=== PATIENT | female | born 1965 | race Caucasian/White ===

== ENCOUNTER → 2017-08-25 14:25 | Outpatient (CLI) | payer BC, SELFPAY ==
[2017-08-25 14:31] LABS: Bacteria 0 SEEN /hpf (None Seen); Mucous, Urine 0 SEEN /hpf (<or=2+)
[2017-08-25 16:28] LABS: Color, Urine Yellow (Yellow); Glucose, Dipstick Normal (Normal); Ketone-Dipstick Negative (Negative); Leukocyte Esterase-Dipstick 500 /ul (Negative); Nitrite-Dipstick Negative (Negative); Occult Blood-Urine 25 /ul (Negative); Protein-Dipstick 30 mg/dl (Negative); Urine Bilirubin Dipstick Negative (Negative); Urine Clarity Clear (Clear); Urine Urobilinogen 1 mg/dl (Normal)
[2017-08-25 16:34] LABS: Red Blood Cells-Urine 0-5 SEEN /hpf (0-5); Squamous Epithelial Cells - UA 0-5 SEEN /hpf (5-10); White Blood Cells 5-10 SEEN /hpf (0-5)
== END ==
PROVIDERS: Family Provider Family Medicine; PCP Family Medicine; Visit Provider Physician Assistant
DX: R39.15 Urgency of urination (principal)
CPT/HCPCS: 81001

== ENCOUNTER 2017-10-27 10:54 | Inpatient (IN) | payer BC, SELFPAY ==
[2017-10-20 11:10] VITALS: BP 123/95; PULSE 75; RESP 16; TEMP 36.8; O2SAT 99; BMI 35.6
[2017-10-20 12:05] LABS: Hematocrit 40.6 % (37-47); Hemoglobin 14.4 g/dl (12.0-15.0); Mean Corp Hgb Conc 35.5 g/gl (32-36); Mean Corpuscular Hgb 30.6 pg (27.0-32.0); Mean Corpuscular Volume 86.2 fL (81-99); Mean Platelet Vol. 9.9 fl (6.2-12.0); Platelet Count 265 K/mm3 (150-450); RBC Distribution Width CV 12.8 % (11.6-14.6); RBC Distribution Width SD 39.8 fl (35.1-43.9); Red Blood Count 4.71 M/mm3 (4.2-5.4); White Blood Count 4.9 K/mm3 (4.4-11.0)
[2017-10-20 12:09] LABS: International Normalized Ratio 0.9; Prothrombin Time (Protime)PT. 12.6 SECONDS (11.7-14.9)
[2017-10-20 12:10] LABS: Partial Thromboplast Time 34.3 Seconds (24.1-36.2)
[2017-10-20 12:23] LABS: Scan Indicated on CBC? Y/N NO
[2017-10-20 12:44] LABS: AST(SGOT) 24 U/L (15-37); Alanine Aminotransfer ALT/SGPT 30 U/L (13-56); Albumin, Serum 3.9 g/dL (3.2-5.0); Alkaline Phosphatase 52 U/L (45-117); Bilirubin, Direct 0.13 mg/dL (0.00-0.30); Globulin 3.9 g/dL (2.2-4.2); Protein, Total 7.8 g/dL (6.4-8.2)
[2017-10-27] VITALS (16 sets, daily range): BP systolic 71–128; BP diastolic 37–85; PULSE 67–106; RESP 14–22; TEMP 36.3–37.7; O2SAT 97–100; BMI 35.6; BMI 34.7
[2017-10-27] MEDS: Gabapentin 600 MG Tablet PO (11:33)
[2017-10-27] MEDS: Scopolamine 1mg/72hr Patch 1 PATCH TRANSDERM. (11:34)
[2017-10-27] MEDS: Acetaminophen 500 MG Tablet 1000 MG PO (11:34)
[2017-10-27 11:51] LABS: Bedside Glucose 101 mg/dL (70-110)
[2017-10-27] MEDS: Enoxaparin 40 MG/0.4 ML Syringe SC (11:52)
[2017-10-27] MEDS: Lidocaine/D5W 2,000 MG/250 ML IV.SOLN 28.23 MG IV (12:30)
--- NOTE | 2017-10-27 12:35 | COL_PTH ---
PATIENT: HOLGER MCCORD LOC: MS3 U#:[id number] AGE/SX: 51/F ROOM: MS308 RE10/27/[address]: Dr. Lionel Holm MD : 1965 BED: 1 DIS: 11/02/2017 SPEC #: [id number] RECD: 10/27/17 17:10 STATUS: YOVANNY REKonrad #: [id number] DENA: 10/27/17 12:[address]: Lionel Holm DEPT: SURGICAL PATHOLOGY RECD BY: Emma Daigle ENTERED: 10/28/17 10:26 SP TYPE: COLON OTHR DR: Carmita Chisholm PA-C Tissues: A - Colon, NOS B - Colon Donuts C - Colon Donuts Procedures: Surgery Specimen Level II Surgery Specimen Level IV Surgery Specimen Level V HEADER OPERATION: Laparoscopic sigmoid colectomy converted to open sigmoid colon PRE-OP DIAGNOSIS: Diverticulitis of large intestine with preformation without bleeding TISSUE SUBMITTED: A. Sigmoid colon and appendix, B. Proximal donut (sigmoid), C. Distal donut (rectal) MICROSCOPIC DIAGNOSIS A. Sigmoid colon, segmental resection: Diverticular disease of colon with focal rupture and associated reactive change and inflammation. Margins of excision with no significant pathologic change. Four out of four lymph nodes with no pathologic change. Appendix, appendectomy: No significant pathologic change. B. Proximal mucosal donut, excision: No significant pathologic change. C. Distal mucosal donut, excision. No significant pathologic change. AM:noelle 10/30/17 MICROSCOPIC DESCRIPTION Slides are reviewed. GROSS DESCRIPTION A - Received in fixative is one container labeled with the patient's name and designated sigmoid colon and appendix. The specimen consists of a segment of colon with attached fibrofatty tissue measuring 17.5 cm in length. No gross perforation is evident. Serial sections reveal a light pink-foster mucosa with no mucosal mass lesions. One mucosal margin is stapled and the other mucosal margin is open. Serial sections reveal a number of diverticula. None of these appear to have perforated through the bowel wall. The attached fibrofatty tissue contains rare nodules resembling lymph node. Present free in the container is a vermiform appendix measuring 6 cm in length and 0.5 cm in average diameter. Serial sections reveal patent lumen. [employer] sections are submitted as follows: 1 ? mucosal margins (stapled margin inked black), 2-5 ? diverticula, 6 ? telemarketing representative lymph nodes, 7 ? appendix. / AM:noelle 10/29/17 B - Received in fixative is one container labeled with the patient's name and designated proximal donut sigmoid. The specimen consists of a donut-shaped piece of colonic tissue measuring 1.5 x 1.5 x 1 cm. Multiple sutures are noted. [employer] Operator sections are submitted in one cassette. / : 10/28/17 C - Received in fixative is one container labeled with the patient's name and designated distal donut rectum. The specimen consists of a donut-shaped piece of colonic tissue measuring 1.5 x 1 x 0.5 cm. The mucosa is congested. The entire specimen is submitted in one cassette. / SJ: 10/28/17 TC:3 CPT: 39697, [id number], 66392 x2
--- NOTE | 2017-10-27 12:51 | PCM.OPRPT ---
Problem List (1) Diverticulitis Status: Acute Qualifiers: Diverticulitis site: large intestine Diverticulitis bleeding: without bleeding Diverticulitis complication: without perforation or abscess Qualified Code(s): K57.32 - Diverticulitis of large intestine without perforation or abscess without bleeding Report of Operation Date of Procedure: 10/27/17 Pre-Operative Diagnosis: k57.32 diverticulitis of the sigmoid colon Post-Operative Diagnosis: same Surgery/Procedure Performed:: 1) laparoscopic mobilization of the colon at the splenic flexure. 2) open sigmoid colectomy. 3) incidental appendectomy Type of Anesthesia:: General Anesthesiologist: Juan Ortiz Specimen's removed: 1. Sigmoid colon. 2. Appendix Drains: none Estimated Blood Loss (mL): < 50 cc Fluids Replaced: 1 L LR Description of Procedure: Patient was brought into the operating room placed in the supine position. Under excellent endotracheal intubation L[place]ato catheter was placed legs were placed up in stirrups. The perineum and abdomen were sterilely prepped and draped in the usual fashion. Local was injected above the umbilicus. Veress needle was placed inside the abdomen the abdomen was insufflated to 15 torr. A #5 trocar was placed in a Visiport fashion. Dr. Olivarez to help me with doing the nerve blocks. On the left side nerve blocks were performed with the Exparel mixture. I performed the nerve blocks on the right side in similar fashion trying to get a good we will and that the muscle come down so that we would get local in the appropriate place. We used a total of 50 cc on each side. Patient was then was placed in the headdown position a right-sided midclavicular #5 trocar was placed in the right lower quadrant a 10/12 trocar was placed I placed a small bowel brought back into the abdominal upper cavity. I then dissected down significant small bowel adhesions to the sigmoid colon using sharp dissection I did not enter the small bowel whatsoever the sigmoid colon was plastered to the left lower quadrant I spent quite a bit of time trying to dissected free but it became apparent that this was not going to be a good case to be done in a laparoscopic fashion. I then placed the patient in the head up position rotated to the left. I placed another #5 trocar in the midclavicular area on the left side. I mobilized the splenic flexure using the Enseal once I had mobilized quite nicely. Once this was completed I then made a midline incision from the umbilicus down into the pelvis. Fascia was opened and electrocautery was used to gain access into the abdominal cavity. Once this was completed Bookwalter retractor was applied small intestines was appropriately placed in the upper abdomen I then dissected down to the distal sigmoid rectal juncture created a window here and then transected this with a 30 mm contour stapler. I came along the mesentery of the sigmoid colon with the Enseal device staying very close to the colon and then once I got proximal to the disease I transected the sigmoid colon over a Orient placing a shotted bowel clamp to the more proximal descending colon. In the mesentery I took down with the Enseal I had to tie off the inferior mesenteric artery to make sure that I had adequate length this was done with 0 Vicryl suture ligature excellent hemostasis was obtained. Once I had the end of the distal descending colon freed I placed a pursestring suture of 2-0 Prolene and placed a 29 EEA anvil into the colon and tied down the pursestring suture. We then irrigated out the rectum with Betadine irrigation we sequentially then dilated the rectum to 33 mm 29 EEA stapler was placed up towards the rectal stump I had a little bit of narrowing and was not able to get completely to the rectal stump area so I took it 2 cm proximal to the stump. The spike came out I took the anvil onto the spike we brought the stapler together. The line was in the middle of the green and the stapler was fired. Stapler was removed we had a distal and a proximal donut. We checked for leak there was a small air leak which actually came out of the stump of the rectum which I repaired with a xwhjgw-qh-tysgm suture of 3-0 silk. We rechecked for airtightness good air tightness was noted. I placed a small suture and the suture line where some bleeding was located of 3-0 GI silk. Once this was completed I then went to the appendix took the mesoappendix down with the Enseal and transected the base of the appendix with a 55 linear cutter. I inspected the small bowel good hemostasis was noted no enterotomies were identified. I got an accurate needle and sponge count. I removed all the trochars good hemostasis was noted. I injected the rest of the Exparel into the open wound. The 10/12 trocar was closed with a rnnurz-qo-vmgdf stitch of 0 Vicryl. The fascia was then brought together with #1 PDS. Subcu was brought together with 2-0 Vicryl. This subcuticular stitch of 4-0 Monocryl on the skin. - Admit VTE Documentation VTE Present on Admission: No VTE Mechan Device Prophylaxis: SCD's VTE Pharm Prophylaxis ordered?: No Reason prophylaxis not ordered:: Treatment Not Indicated
[2017-10-27] MEDS: Bupivacaine 0.25% 30 ML Vial (15:55)
[2017-10-27] MEDS: BUPIVACAINE LIPOSOME/PF 20 ML VIAL OPERA.SITE (15:55)
[2017-10-27] MEDS: Lactated Ringers 1,000 ML 75 ML IV (19:09)
[2017-10-27] MEDS: HYDROmorphone PCA 0.2 MG/ML 100 ML BAG 20 MG IV (23:46)
[2017-10-28] VITALS (50 sets, daily range): BP systolic 72–147; BP diastolic 46–92; PULSE 94–140; RESP 14–27; TEMP 36.4–37.3; O2SAT 93–100; BMI 34.7
--- NOTE | 2017-10-28 00:06 | NURSING ---
sat pt up at side of bed after a dose of dilaudid from pretzel packer pump. pt reports extreme pain, nausea and dizziness. zofran given. will continue to monitor.
--- NOTE | 2017-10-28 00:24 | NURSING ---
SAT PT AT BEDSIDE. REPORTED SEVERE PAIN, NAUSEA, DIZZINESS. REFUSED ZOFRAN AT THIS TIME. WILL CONTINUE TO MONITOR.
[2017-10-28] MEDS: 0.9% NaCl Peripheral Flush Adult/Peds IV ×2 (02:58→23:32)
[2017-10-28] MEDS: Ondansetron 4 MG/2 ML Vial IV (02:58)
--- NOTE | 2017-10-28 06:22 | NURSING ---
attempted to sit pt up at side of bed. pt became nauseated, pale, diaphoretic. laid back down, vs checked-bp low and hr high. notified. will monitor.
[2017-10-28] MEDS: Lactated Ringers 1,000 ML 999 ML IV (06:30)
[2017-10-28] MEDS: Lactated Ringers 1,000 ML 150 ML IV ×2 (06:30→17:45)
[2017-10-28 06:51] LABS: Hematocrit 28.2 % (37-47); Hemoglobin 9.7 g/dl (12.0-15.0); Mean Corp Hgb Conc 34.4 g/gl (32-36); Mean Corpuscular Hgb 30.5 pg (27.0-32.0); Mean Corpuscular Volume 88.7 fL (81-99); Mean Platelet Vol. 9.8 fl (6.2-12.0); Platelet Count 301 K/mm3 (150-450); RBC Distribution Width SD 40.9 fl (35.1-43.9); Red Blood Count 3.18 M/mm3 (4.2-5.4); White Blood Count 12.7 K/mm3 (4.4-11.0)
[2017-10-28 06:52] LABS: Scan Indicated on CBC? Y/N NO
[2017-10-28 07:03] LABS: Anion Gap 14 (5-15); BUN 12 mg/dL (7-18); BUN/Creat Ratio 8.8 RATIO (10-20); Calcium,Total 7.6 mg/dL (8.5-10.1); Chloride 106 mmol/L (98-107); Creatinine, Serum 1.36 mg/dL (0.55-1.02); EST Glomerular Filtration Rate 43 mL/min (>60); Est Glom Filt Rate - Afr Amer 53 mL/min (>60); Estimated Creatinine Clearance 42.26 ml/min; Glucose 201 mg/dL (74-106); Potassium 4.4 mmol/L (3.5-5.1); Sodium Level 142 mmol/L (136-145)
[2017-10-28] MEDS: 0.9% Normal Saline 1,000 ML 999 ML IV ×2 (07:53→09:04)
--- NOTE | 2017-10-28 08:52 | PCM.PN.SRG ---
Subjective: Patient has had some marginal urine output overnight. She does remain tachycardic with a slightly low blood pressure. She has responded to IV fluids and her urine output is beginning to increase. She has been nauseated when she is trying to sit up and actually feels like she wants to pass out. We did not have orthostatics on her yet. Her hemoglobin was 9.7 postoperatively. - Physical Exam General: Alert, Oriented x3 Abdomen: Soft - She is slightly tender complaining of more upper abdominal pain than lower abdominal pain probably has a lot to do with the Exparel that was injected into her lower excision. Vital Signs Temp Pulse Resp BP Pulse Ox 97.7 F L 118 H 16 84/52 L 96 10/28/17 07:55 10/28/17 07:55 10/28/17 07:57 10/28/17 07:55 10/28/17 07:57 Oxygen Flow Rate (L/min) 2 Oxygen Delivery Method Room Air Weight: 202 lb 11.2 oz Body Mass Index (BMI) 34.7 Intake and Output for Last 24 Hours 10/26/17 10/27/17 10/28/17 23:59 23:59 23:59 Intake Total 1999 / 1999 982 / 982 Output Total 190 / 190 275 / 275 Balance 1810 / 1810 707 / 707 Laboratory Tests Past 24 Hrs 10/28/17 10/28/17 06:30 06:30 WBC 12.7 H RBC 3.18 L Hgb 9.7 L Hct 28.2 L MCV 88.7 MCH 30.5 MCHC 34.4 RDW 13.0 RDW Differential 40.9 Plt Count 301 MPV 9.8 Sodium 142 Potassium 4.4 Chloride 106 Carbon Dioxide 22.0 Anion Gap 14 BUN 12 Creatinine 1.36 H Estim Creat Clear Calc 42.26 Est GFR (MDRD) Af Amer 53 L Est GFR (MDRD) Non-Af 43 L BUN/Creatinine Ratio 8.8 L Glucose 201 H Calcium 7.6 L POC Glucose 10/27/17 11:22 POC Glucose 101 Medical Necessity - Tobacco Use Smoking Status: Never smoker Tobacco Use: Non-smoker Assessment/Plan All Active Problems (Last Reviewed 10/13/17 @ 14:35 by Jeanine Lopez) History of endometrial ablation (Acute) Hx of hysterectomy (Acute) Hx of wisdom tooth extraction (Acute) Hx of colonoscopy (Acute) Hx of breast biopsy (Acute) 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 I am going to recheck hemoglobin this afternoon. If she remains tachycardic and we have another significant drop in her hemoglobin I think that is going to have to take her back to surgery to look to see if there is something that may be bleeding. However I think that she is slowly starting to improve. And I am hopeful that we will not have to go back to surgery.
[2017-10-28] MEDS: Scopolamine 1mg/72hr Patch 1 PATCH TD (11:02)
--- NOTE | 2017-10-28 11:09 | NURSING ---
ATTEMPTED ORTHOSTATIC VS. PT BECAME QUEASY AND REPORTED THAT SHE FELT LIKE SHE WAS GOING TO PASS OUT WHEN SITTING ON SIDE OF BED. PT ASSISTED TO LAY DOWN. NOT ABLE TO OBTAIN ORTHOS AT THIS TIME. PRESENT
[2017-10-28] MEDS: HYDROmorphone 0.5 MG/0.5 ML SYRINGE IV (11:15)
[2017-10-28 12:29] LABS: Absolute Lymphocyte Count 1.26 X10^3/ul (0.83-4.51); Absolute Neutrophil Count 6.8 X10^3/uL (2.0-7.7); Hematocrit 22.7 % (37-47); Hemoglobin 7.7 g/dl (12.0-15.0); Lymphocyte # 1.26 X10^3/ul (4.0); Lymphocyte % 14.6 % (19-41); Mean Corp Hgb Conc 33.9 g/gl (32-36); Mean Corpuscular Hgb 30.2 pg (27.0-32.0); Mean Platelet Vol. 9.2 fl (6.2-12.0); Monocyte# 0.57 X10^3/uL; Monocyte% 6.6 % (0-10); Neutrophil # 6.81 X10^3/uL (2.7-7.7); Neutrophil % 78.7 % (47-70); Platelet Count 195 K/mm3 (150-450); RBC Distribution Width CV 13.6 % (11.6-14.6); RBC Distribution Width SD 43.7 fl (35.1-43.9); Red Blood Count 2.55 M/mm3 (4.2-5.4); White Blood Count 8.7 K/mm3 (4.4-11.0)
[2017-10-28 12:30] LABS: POSITIVE COUNT NO; POSITIVE DIFFERENTIAL NO; POSITIVE MORPHOLOGY NO
[2017-10-28 12:47] LABS: Anion Gap 10 (5-15); BUN 12 mg/dL (7-18); BUN/Creat Ratio 11.7 RATIO (10-20); Calcium,Total 7.2 mg/dL (8.5-10.1); Chloride 109 mmol/L (98-107); Creatinine, Serum 1.03 mg/dL (0.55-1.02); EST Glomerular Filtration Rate 60 mL/min (>60); Est Glom Filt Rate - Afr Amer 72 mL/min (>60); Glucose 143 mg/dL (74-106); Potassium 4.3 mmol/L (3.5-5.1); Sodium Level 142 mmol/L (136-145)
--- NOTE | 2017-10-28 13:08 | NURSING ---
PT TO OR. TO WAITING ROOM.
--- NOTE | 2017-10-28 13:15 | PCM.OPRPT ---
Problem List (1) Post-operative haemorrhage Status: Acute Qualifiers: Surgical complication system/body Area: digestive system Procedure type: digestive system Qualified Code(s): K91.840 - Postprocedural hemorrhage of a digestive system organ or structure following a digestive system procedure Report of Operation Date of Procedure: 10/27/17 Pre-Operative Diagnosis: k91.840 postoperative hemorrhage open sigmoid colectomy Post-Operative Diagnosis: same Surgery/Procedure Performed:: Exploratory laparotomy control of hemorrhage from the splenic flexure Description of Surgical Findings:: Bleeding from the splenic flexure Type of Anesthesia:: General Anesthesiologist: Alexander Smith Special Medications: FFP 438 mL. Packed red blood cells 2 units. Hespan 200 cc. 1600 cc of LR Estimated Blood Loss (mL): 1500 Description of Procedure: Patient was brought in the operating room and placed in the supine position. Under excellent general trach intubation the abdomen was sterilely prepped and draped in the usual fashion. I opened up the incision in the right lower quadrant dissected down remove the fascial suture and replaced the 1012 trocar without the introducer into the abdomen. I inflated the abdomen to 15 torr. I placed a #5 trocar in the midline where it was previously placed. The patient was placed in the headdown position and I irrigated out the pelvis I did not see any hematoma nor was there any active signs of bleeding here I inspected the appendix it to look normal without signs of bleeding. I then went along the left guttural side and this is clearly where I entered in the a hematoma site this went all the way up to the splenic flexure and a significant amount of blood above the spleen resting against the diaphragm. As I aspirated out the old clot I did see some new red blood and at this point it was very clear that I was not going to be able to effectively evaluate this patient laparoscopically and I made a decision to open my old incision and lengthen it superiorly around the left side of the umbilicus. Dr. Gilliam scrubbed in with me and help me do this. Once we open the abdomen we immediately packed the abdomen in all 4 quadrants with lap sponges during this time anesthesia was aggressively hydrating the patient 2 units of blood were actively being brought down to the operating room to be given to the patient. With aggressive hydration her heart rate went below 100 and her blood pressure was above 115 systolic. Bookwalter retractor was then placed. I rotated the transverse and descending colon medially and irrigated out all of the old clot and irrigated the clot above the spleen there was no active bleeding about the spleen. I entered the lesser sac there was no bleeding in this area and there was no blood in this area. The spleen itself looked pink I did not see any active lacerations or bleeding from the spleen. We inspected the duodenal turn at the ligament of Treitz the duodenum looked normal without signs of trauma. Majority of the clot appeared to be from the mesentery of the colon and the splenic flexure as well as posterior and lateral to the pancreas. There is some generalized ooziness from the mesentery as well as the tail the pancreas going up towards the spleen itself. I rotated the spleen from a lateral to medial standpoint and retrieved all the old clotted blood that was superior to this resting up against the diaphragm. We packed the area inferior to the spleen and in the mesentery of the splenic flexure for approximately 20 minutes while anesthesia was catching up with aggressive hydration. We irrigated out approximately 1500 cc of old blood in the abdomen itself. As I reinspected the area there was a small area lateral to the tip of the pancreas which I thought looked like it was actively bleeding and I placed a kyahzz-fm-ryqof stitch of 0 Vicryl here. I then placed Miracle and 2 sponges soaked in thrombin in the area and once again packed the area off. At this point the patient was actively getting blood. She was making urine throughout this point of the case as well. At this point Dr. Gilliam broke scrub. I reinspected my anastomosis: Both proximally and distally to it looked viable and was under no tension. No active bleeding was seen in this area. I ran the small bowel to look normal I did not see any active bleeding or injury to the small bowel. I lifted the transverse colon the colon itself looked viable all the way around going down the descending colon. And no active bleeding was seen. I irrigated above the liver and only small fluid was identified. No blood clots. There is no bleeding identified from the omentum nor was there any bleeding from the greater curvature the stomach. Dr. Perez came in to assist me in evaluating the bleeding in the left upper quadrant of the abdomen. We small to small areas inferior to the splenic hilum where we placed 2 hemoclips and a suture of figure 8 of 0 Vicryl. We reinspected the spleen there was a small infarct about the size of a dime on the inferior aspect the rest of the spleen looked very viable (pink). Once again we saw no active bleeding from the spleen. We saw no active bleeding from the splenic hilum. We saw no bleeding from the pancreas itself. And at no time did we actively see the pancreas nor did we get into the pancreas. We did lift the pancreas up slightly to look to see if there is any bleeding from underneath it but once again there was none. At this point we replaced the thrombin soaked Gelfoam from the inferior aspect of the spine splenic hilum going down to the inferior and posterior aspect of the pancreas. We saw no active bleeding in the mesentery of the colon. We replaced the colon back into its normal anatomic position. We obtained an accurate needle and sponge count. The fascia the abdomen was closed with #1 PDS. Subcu was brought together with 2-0 Vicryl deep dermals of 3-0 Vicryl in a running 4-0 Monocryl. The fascia of the 10/12 trocar was closed with a xsueyy-oo-qfvut stitch of 0 Vicryl. The rest of the small skin incisions were closed with 4-0 Monocryl. Steri-Strips were applied sterile dressings were applied. The patient was transferred to the intensive care unit intubated having tolerated the procedure well. At no time did she have any breathing issues. She was actively making urine. - Admit VTE Documentation VTE Present on Admission: No VTE Mechan Device Prophylaxis: SCD's VTE Pharm Prophylaxis ordered?: No Reason prophylaxis not ordered:: Treatment Not Indicated
[2017-10-28] MEDS: Hetastarch 6% /Ns 30 GM/500 ML BAG IV (13:32)
[2017-10-28] MEDS: THROMBIN (RECOMBINANT) 20,000 UNIT VIAL 20000 UNIT TOPICAL (14:38)
[2017-10-28 16:20] LABS: Absolute Lymphocyte Count 0.86 X10^3/ul (0.83-4.51); Absolute Neutrophil Count 5.3 X10^3/uL (2.0-7.7); Hematocrit 24.8 % (37-47); Hemoglobin 8.5 g/dl (12.0-15.0); Lymphocyte # 0.86 X10^3/ul (4.0); Lymphocyte % 13.2 % (19-41); Mean Corp Hgb Conc 34.3 g/gl (32-36); Mean Corpuscular Hgb 30.8 pg (27.0-32.0); Mean Corpuscular Volume 89.9 fL (81-99); Mean Platelet Vol. 9.7 fl (6.2-12.0); Monocyte# 0.34 X10^3/uL; Monocyte% 5.2 % (0-10); Neutrophil # 5.31 X10^3/uL (2.7-7.7); Neutrophil % 81.4 % (47-70); POSITIVE COUNT NO; POSITIVE DIFFERENTIAL NO; POSITIVE MORPHOLOGY NO; Platelet Count 138 K/mm3 (150-450); RBC Distribution Width CV 13.1 % (11.6-14.6); RBC Distribution Width SD 41.8 fl (35.1-43.9); Red Blood Count 2.76 M/mm3 (4.2-5.4); White Blood Count 6.5 K/mm3 (4.4-11.0)
[2017-10-28 16:40] LABS: ALB/GLOB Ratio 0.9 RATIO (0.9-2.4); AST(SGOT) 15 U/L (15-37); Alanine Aminotransfer ALT/SGPT 16 U/L (13-56); Albumin, Serum 2.2 g/dL (3.2-5.0); Alkaline Phosphatase 31 U/L (45-117); Anion Gap 8 (5-15); BUN 10 mg/dL (7-18); BUN/Creat Ratio 10.6 RATIO (10-20); Calcium,Total 6.9 mg/dL (8.5-10.1); Chloride 108 mmol/L (98-107); Creatinine, Serum 0.95 mg/dL (0.55-1.02); EST Glomerular Filtration Rate 66 mL/min (>60); Est Glom Filt Rate - Afr Amer 80 mL/min (>60); Globulin 2.5 g/dL (2.2-4.2); Glucose 153 mg/dL (74-106); Potassium 3.9 mmol/L (3.5-5.1); Protein, Total 4.7 g/dL (6.4-8.2); Sodium Level 140 mmol/L (136-145)
[2017-10-28 16:44] LABS: Magnesium 1.8 mg/dL (1.6-2.6)
[2017-10-28] MEDS: Propofol 10MG/Ml 1,000 MG/100 ML Bottle 2.757 MG CONT INF (16:45)
[2017-10-28 16:46] LABS: Fibrinogen 352 mg/dl (203-444); International Normalized Ratio 1.2; Partial Thromboplast Time 32.9 Seconds (24.1-36.2); Prothrombin Time (Protime)PT. 15.6 SECONDS (11.7-14.9)
--- NOTE | 2017-10-28 17:17 | CON.PCM_ITS ---
Problem List (1) Post-operative haemorrhage Status: Acute Qualifiers: Surgical complication system/body Area: digestive system Procedure type: digestive system Qualified Code(s): K91.840 - Postprocedural hemorrhage of a digestive system organ or structure following a digestive system procedure (2) History of endometrial ablation Status: Acute (3) Hx of hysterectomy Status: Acute (4) Hx of wisdom tooth extraction Status: Acute (5) Hx of colonoscopy Status: Acute (6) Hx of breast biopsy Status: Acute (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 (9) Endometriosis Status: Acute (10) Benign neoplasm of colon Status: Acute (11) Diverticulitis Status: Acute Qualifiers: Diverticulitis site: large intestine Diverticulitis bleeding: without bleeding Diverticulitis complication: without perforation or abscess Qualified Code(s): K57.32 - Diverticulitis of large intestine without perforation or abscess without bleeding Reason for Consult Date of Consultation: 10/28/17 Reason for Consultation: Respiratory failure History of Present Illness: The patient is a 51 year old F, with past medical history listed below, who presented to [facility] on 10/27/2017 for elective laparoscopic partial colectomy secondary to diverticular disease and appendectomy. Patient was taken to the OR and had a sigmoidectomy that reportedly went relatively smooth. Patient was admitted to the medical surgical unit for postoperative care. Overnight, patient was noted to have marginal urine output, tachycardia and decreased blood pressure. Patient was given normal saline boluses. Repeat labs showed significant drop in hemoglobin from 14.4-->9.7. There was some concern for postoperative hemorrhage, so patient was taken back to the OR by Dr. Holm for evaluation. Patient did have a prolonged OR course and did receive 2 units of FFP and 2 units of packed red blood cells. Labs following OR showed a hemoglobin of 8.5. Given patient's multiple abdominal surgeries and a 48 hour period, patient was brought to the intensive care unit intubated. On arrival, patient was normotensive, but tachycardic. Sites were clean, dry and intact. Patient did have some agitation and was placed on propofol and fentanyl sedation. Labs were sent. Patient's was updated on current condition. Discussed with patient's at the bedside. Patient does not have any significant metabolic derangements in the past. Patient is a non-smoker, nondrinker and denies any illicit drug use. Patient does have a history of endometriosis with multiple adhesions in the past. Patient is also had a partial hysterectomy and oophorectomy. Patient reportedly had had mystery pains for quite some time and it was determined that this was likely secondary diverticulosis. Patient does not have any history of diabetes or heart disease that the family is aware of. There are no bleeding or clotting problems in the family. Review of systems otherwise negative per the . 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.1 Endometriosis (Acute) N80.9 Benign neoplasm of colon (Acute) D12.6 Diverticulitis (Acute) K57.92 Allergies oxycodone [From Percocet] Allergy (Verified 10/20/17 11:01) Rash Home Medications: Ambulatory Orders Medication Instructions Recorded Calcium Carbonate/Vitamin D3 1 tab PO DAILY 09/15/16 [Calcium 500+D Tablet Chew] Lactobacillus Combination No.4 1 tab PO DAILY 09/15/16 [Probiotic] Multivitamin [Daily Multiple 1 tab PO DAILY 09/15/16 Vitamin] Ciprofloxacin HCl 500 mg PO BID 10/20/17 Metronidazole 500 mg PO BID 10/20/17 Vitamin B Complex 1 each PO DAILY 10/20/17 Surgical History: Surgical History (Last Reviewed 10/13/17 @ 14:35 by Jeanine Lopez) History of endometrial ablation (Acute) Z98.890 Hx of hysterectomy (Acute) Z90.710 Hx of wisdom tooth extraction (Acute) K08.409 Hx of colonoscopy (Acute) Z98.890 Hx of breast biopsy (Acute) Z98.890 Surgical History: no surgical history Psychiatric History: No pertinent psych hx Smoking Status: Never smoker Tobacco Use: Non-smoker - *Family History Maternal Family History: Family History (Last Reviewed 10/13/17 @ 14:35 by Jeanine Lopez) Grandmother Colon cancer Grandmother Breast cancer History Items: No pertinent history Review of Systems Comment: See HPI Patient Problems: Active and Suspected Problems (Last Reviewed 10/13/17 @ 14:35 by Jeanine Lopez) Post-operative haemorrhage (Acute) Objective: Chest x-ray shows no acute infiltrate, but elevation of the right hemidiaphragm. Support devices appear to be in appropriate position. No pneumothorax is appreciated. - Physical Exam General: - - Intubated and sedated. Appropriate synchrony with the ventilator HEENT: Atraumatic, PERRLA, EOMI, Normocephalic, - - No scleral icterus or injection noted. Oral: Moist Mucosa, No Gingival or Mucosal Lesions/ Ulcerations Neck: Supple, No JVD, No Nodes, Trachea Midline, - - Right IJ is clean, dry and intact. Lungs: Clear to auscultation, Normal air movement, No rhonchi, No wheeze, No rales, - - Symmetric expansion. Cardiovascular: Normal S1, Normal S2, No murmurs, No rub noted, No Gallop, Tachycardic Abdomen: Soft, Bowel Sounds Not Present, Distended, Obese Extremities: No clubbing, No cyanosis, No edema Skin: No rashes, No breakdown, Incision - Large midline abdominal incision and all laparoscopic incisions are clean, dry and intact. Musculoskeletal: No Tenderness to Palpation of Joints or Extremities Lymphatic: No Cervical, Supraclavicular, or Inguinal Adenopathy Neurological: Cranial nerves II-XII grossly intact, Neuro grossly intact, Motor Exam 5/5 strength throughout Psych/Mental Status: Flat Affect, Restless Vital Signs Temp Pulse Resp BP Pulse Ox 36.4 C L 118 H 27 H 147/92 H 97 10/28/17 16:41 10/28/17 16:58 10/28/17 16:51 10/28/17 16:41 10/28/17 16:58 Oxygen Flow Rate (L/min) 2 Oxygen Delivery Method Mechanical Ventilator Weight: 91.9 kg Body Mass Index (BMI) 34.7 Orthostatic Vital Signs Start: 10/28/17 10:12 Freq: q24h Status: Active Protocol: Activity Type Activity Date Activity User E-Sign Co-Sign Detail Recorded Client Recorded Date Recorded By Document 10/28/17 12:32 [id number] 10/28/17 12:33 RV 10/28/17 12:32 Orthostatic Vitals Lying -Blood Pressure (90/60-120/80) 105/54 L -Extremity Use Right Arm -Pulse Rate (60-100) 101 H Sitting -Blood Pressure (90/60-120/80) 72/48 L -Extremity Use Right Arm -Pulse Rate (60-100) 115 H Intake and Output for Last 24 Hours 10/26/17 10/27/17 10/28/17 23:59 23:59 23:59 Intake Total 1999 4422 / 4422 Output Total 190 / 190 640 / 640 Balance 1810 / 1810 3782 / 3782 Laboratory Tests Past 24 Hrs 10/28/17 10/28/17 10/28/17 06:30 06:30 11:55 WBC 12.7 H 8.7 RBC 3.18 L 2.55 L Hgb 9.7 L 7.7 L Hct 28.2 L 22.7 L MCV 88.7 89.0 MCH 30.5 30.2 MCHC 34.4 33.9 RDW 13.0 13.6 RDW Differential 40.9 43.7 Plt Count 301 195 MPV 9.8 9.2 Immature Gran % (Auto) 0.100 Neut % (Auto) 78.7 H Lymph % (Auto) 14.6 L [place] % (Auto) 6.6 Eos % (Auto) 0.0 Baso % (Auto) 0.0 Absolute Neuts (auto) 6.8 Absolute Lymphs (auto) 1.26 Total Counted Not Reportable PT INR APTT Fibrinogen Sodium 142 Potassium 4.4 Chloride 106 Carbon Dioxide 22.0 Anion Gap 14 BUN 12 Creatinine 1.36 H Estim Creat Clear Calc 42.26 Est GFR (MDRD) Af Amer 53 L Est GFR (MDRD) Non-Af 43 L BUN/Creatinine Ratio 8.8 L Glucose 201 H Calcium 7.6 L Magnesium Total Bilirubin AST ALT Alkaline Phosphatase Total Protein Albumin Globulin Albumin/Globulin Ratio MRSA (PCR) Blood Type Antibody Screen Crossmatch 10/28/17 10/28/17 10/28/17 11:55 12:55 15:55 WBC 6.5 RBC 2.76 L Hgb 8.5 L Hct 24.8 L MCV 89.9 MCH 30.8 MCHC 34.3 RDW 13.1 RDW Differential 41.8 Plt Count 138 L MPV 9.7 Immature Gran % (Auto) 0.200 Neut % (Auto) 81.4 H Lymph % (Auto) 13.2 L [place] % (Auto) 5.2 Eos % (Auto) 0.0 Baso % (Auto) 0.0 Absolute Neuts (auto) 5.3 Absolute Lymphs (auto) 0.86 Total Counted Not Reportable PT INR APTT Fibrinogen Sodium 142 Potassium 4.3 Chloride 109 H Carbon Dioxide 23.0 Anion Gap 10 BUN 12 Creatinine 1.03 H Estim Creat Clear Calc 55.80 Est GFR (MDRD) Af Amer 72 Est GFR (MDRD) Non-Af 60 BUN/Creatinine Ratio 11.7 Glucose 143 H Calcium 7.2 L Magnesium Total Bilirubin AST ALT Alkaline Phosphatase Total Protein Albumin Globulin Albumin/Globulin Ratio MRSA (PCR) Blood Type O POSITIVE Antibody Screen NEGATIVE Crossmatch See Detail 10/28/17 10/28/17 10/28/17 15:55 15:55 15:55 WBC RBC Hgb Hct MCV MCH MCHC RDW RDW Differential Plt Count MPV Immature Gran % (Auto) Neut % (Auto) Lymph % (Auto) [place] % (Auto) Eos % (Auto) Baso % (Auto) Absolute Neuts (auto) Absolute Lymphs (auto) Total Counted PT Pending INR Pending APTT Pending Fibrinogen Pending Sodium 140 Potassium 3.9 Chloride 108 H Carbon Dioxide 24.0 Anion Gap 8 BUN 10 Creatinine 0.95 Estim Creat Clear Calc 60.50 Est GFR (MDRD) Af Amer 80 Est GFR (MDRD) Non-Af 66 BUN/Creatinine Ratio 10.6 Glucose 153 H Calcium 6.9 L Magnesium 1.8 Total Bilirubin 1.00 AST 15 ALT 16 Alkaline Phosphatase 31 L Total Protein 4.7 L Albumin 2.2 L Globulin 2.5 Albumin/Globulin Ratio 0.9 MRSA (PCR) Blood Type Antibody Screen Crossmatch 10/28/17 17:00 WBC RBC Hgb Hct MCV MCH MCHC RDW RDW Differential Plt Count MPV Immature Gran % (Auto) Neut % (Auto) Lymph % (Auto) [place] % (Auto) Eos % (Auto) Baso % (Auto) Absolute Neuts (auto) Absolute Lymphs (auto) Total Counted PT INR APTT Fibrinogen Sodium Potassium Chloride Carbon Dioxide Anion Gap BUN Creatinine Estim Creat Clear Calc Est GFR (MDRD) Af Amer Est GFR (MDRD) Non-Af BUN/Creatinine Ratio Glucose Calcium Magnesium Total Bilirubin AST ALT Alkaline Phosphatase Total Protein Albumin Globulin Albumin/Globulin Ratio MRSA (PCR) Pending Blood Type Antibody Screen Crossmatch Assessment/Plan All Active Problems (Last Reviewed 10/13/17 @ 14:35 by Jeanine Lopez) Post-operative haemorrhage (Acute) History of endometrial ablation (Acute) Hx of hysterectomy (Acute) Hx of wisdom tooth extraction (Acute) Hx of colonoscopy (Acute) Hx of breast biopsy (Acute) 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 Continue mechanical ventilation 2. Spontaneous breathing and awakening trials per protocol 3. Obtain fibrinogen and coagulation studies 4. H&H every 6 hours 5. Fentanyl and propofol for vent synchrony 6. ABG in 1 hour IMPRESSIONS: 1. Acute blood loss anemia secondary to postoperative hemorrhage Patient with significant drop in hemoglobin over the last 24 hours. Patient taken back to surgery, but no obvious bleeding site was noted. Patient did have some oozing in the splenic flexure and topical applications have been used to achieve hemostasis. Will obtain H&H studies every 6 hours. Obtain a fibrinogen for evaluation of DIC. Clinical suspicion for consumptive coagulopathy. Patient has received platelets, fibrinogen and 2 units of packed red blood cells. Will attempt to keep hemoglobin greater than 8 given potentially ongoing blood loss. 2. Acute respiratory failure Patient was significant fluid shifts over the last 24 hours. Patient will remain intubated overnight. Wean oxygen as tolerated. Patient can have a spontaneous breathing and awakening trial in the morning per protocol. Clinical suspicion that extubation can happen as early as tomorrow. Patient does not have a history of obstructive lung disease per the . Will order albuterol as needed. Pain control and sedation by fentanyl and propofol drips. 3. Diverticulosis status post sigmoidectomy postop day #0 Patient with repeat surgery. High clinical suspicion for postoperative ileus. No tube feeds at this time. Surgery is currently following. Patient did have antibiotics associated with operative procedure. 4. Obesity Complicates care, management, recovery and prognosis TIME: 37 minutes critical care time spent addressing patient's acute blood loss anemia, acute respiratory failure, review of all data and collaboration with care team (4 PM to 5:30 PM) Code Visit 9xxxx: [id number] Critical care first hour
[2017-10-28 18:01] LABS: CPK Total, Creatine Kinase 100 U/L (26-192); Triglycerides 70 mg/dL
[2017-10-28 18:06] LABS: Base Excess -3 mmol/L (-2 to +2); Bicarbonate 22.1 mmol/L (22-26); Blood Gas Specimen Type ART; FI02 30; Mode A-C; O2 Delivery Device Vent; PEEP 5; PO2 69 mmHG (75-100); RR 14; SITE L Brachial; SO2 93 % (95-99); Time Given 1801; Total Carbon Dioxide 23 mmol/L; Vt 450; pCO2 39.6 mmHg (35-45); pH 7.35 (7.35-7.45)
[2017-10-28 19:11] LABS: M R Staph aureus DNA By PCR Negative (Negative); Probe Check PASS; Specimen Processing Control PASS
[2017-10-28] MEDS: Famotidine 20 MG Tablet PO (22:16)
[2017-10-28] MEDS: Chlorhexidine 15 ML PO (22:26)
[2017-10-29] VITALS (41 sets, daily range): BP systolic 90–127; BP diastolic 45–85; PULSE 90–117; RESP 14–24; TEMP 37–38.1; O2SAT 88–100
[2017-10-29] MEDS: Propofol 10MG/Ml 1,000 MG/100 ML Bottle 2.757 MG CONT INF (00:43)
[2017-10-29] MEDS: 0.9% NaCl Peripheral Flush Adult/Peds IV ×4 (00:55→22:06)
[2017-10-29] MEDS: CHLORHEXIDINE GLUC 2% CLOTH 1 EACH TOWELETTE TOPICAL (03:27)
[2017-10-29 04:22] LABS: Absolute Lymphocyte Count 1.27 X10^3/ul (0.83-4.51); Absolute Neutrophil Count 4.1 X10^3/uL (2.0-7.7); Basophil# 0.01 X10^3/uL; Basophil% 0.2 % (0-1); Eosinophil# 0.02 X10^3/uL; Eosinophils% 0.3 % (0-5); Hematocrit 27.7 % (37-47); Hemoglobin 9.5 g/dl (12.0-15.0); Lymphocyte # 1.27 X10^3/ul (4.0); Lymphocyte % 21.9 % (19-41); Mean Corp Hgb Conc 34.3 g/gl (32-36); Mean Corpuscular Hgb 30.4 pg (27.0-32.0); Mean Corpuscular Volume 88.8 fL (81-99); Mean Platelet Vol. 9.8 fl (6.2-12.0); Monocyte# 0.36 X10^3/uL; Monocyte% 6.2 % (0-10); Neutrophil # 4.12 X10^3/uL (2.7-7.7); Neutrophil % 71.2 % (47-70); Platelet Count 146 K/mm3 (150-450); RBC Distribution Width CV 13.7 % (11.6-14.6); RBC Distribution Width SD 42.5 fl (35.1-43.9); Red Blood Count 3.12 M/mm3 (4.2-5.4); White Blood Count 5.8 K/mm3 (4.4-11.0)
[2017-10-29 04:27] LABS: International Normalized Ratio 1.2; Partial Thromboplast Time 33.6 Seconds (24.1-36.2)
[2017-10-29 04:30] LABS: POSITIVE COUNT NO; POSITIVE DIFFERENTIAL NO; POSITIVE MORPHOLOGY NO
[2017-10-29 04:37] LABS: ALB/GLOB Ratio 0.9 RATIO (0.9-2.4); AST(SGOT) 17 U/L (15-37); Alanine Aminotransfer ALT/SGPT 19 U/L (13-56); Albumin, Serum 2.3 g/dL (3.2-5.0); Alkaline Phosphatase 35 U/L (45-117); Anion Gap 8 (5-15); BUN 9 mg/dL (7-18); BUN/Creat Ratio 13.2 RATIO (10-20); Calcium,Total 7.1 mg/dL (8.5-10.1); Chloride 107 mmol/L (98-107); Creatinine, Serum 0.68 mg/dL (0.55-1.02); EST Glomerular Filtration Rate 97 mL/min (>60); Est Glom Filt Rate - Afr Amer 117 mL/min (>60); Estimated Creatinine Clearance 84.52 ml/min; Globulin 2.7 g/dL (2.2-4.2); Glucose 103 mg/dL (74-106); Potassium 3.5 mmol/L (3.5-5.1); Sodium Level 143 mmol/L (136-145)
[2017-10-29] MEDS: Lactated Ringers 1,000 ML 150 ML IV ×2 (06:14→12:28)
--- NOTE | 2017-10-29 06:28 | NURSING ---
Extubated at 0615 via respiratory therapy, placed on 2L NC, tolerating well.
--- NOTE | 2017-10-29 06:44 | PCM.PN.INT ---
Subjective: Patient did well overnight. No acute issues were reported outside of an elevated temperature and sinus tachycardia. Patient did receive a total of 2 units of packed red blood cells, 2 units of FFP and 1 pheresis of platelets. Nursing is noted significant bilious OG secretions overnight. Patient did qualify for a spontaneous breathing trial this morning and tolerated 1 hour without complication. Patient was extubated under my direct supervision without complication. General: Alert, Cooperative, No apparent distress, - - Answers appropriately. Obese. HEENT: Atraumatic, PERRLA, EOMI, Normocephalic, - - No scleral icterus or injection noted. Oral: Moist Mucosa, No Gingival or Mucosal Lesions/ Ulcerations Neck: Supple, No JVD, No Nodes, Trachea Midline, - - Right IJ is clean, dry and intact. Lungs: Clear to auscultation, Normal air movement, No rhonchi, No wheeze, No rales, - - Symmetric expansion. No dullness to percussion. Cardiovascular: Normal S1, Normal S2, No murmurs, No rub noted, No Gallop, Tachycardic Abdomen: Soft, Non-Distended, Bowel Sounds Not Present, Obese, Tender - No rebound or guarding. Extremities: No clubbing, No cyanosis, Edema - 1+ lower extremity Skin: Incision - All incisions are clean, dry and intact. Musculoskeletal: No Tenderness to Palpation of Joints or Extremities, No Muscle Wasting Lymphatic: No Cervical, Supraclavicular, or Inguinal Adenopathy Neurological: Cranial nerves II-XII grossly intact, Neuro grossly intact, Motor Exam 5/5 strength throughout Psych/Mental Status: Alert and oriented to time, place, person, mood and affect Vital Signs Temp Pulse Resp BP Pulse Ox 37.7 C H 107 H 18 113/62 98 10/29/17 03:15 10/29/17 06:00 10/29/17 06:00 10/29/17 06:00 10/29/17 06:20 Oxygen Flow Rate (L/min) 2 Oxygen Delivery Method Nasal Cannula Weight: 102.4 kg Body Mass Index (BMI) 34.7 Orthostatic Vital Signs Start: 10/28/17 10:12 Freq: q24h Status: Active Protocol: Activity Type Activity Date Activity User E-Sign Co-Sign Detail Recorded Client Recorded Date Recorded By Document 10/28/17 12:32 RV [id number] 10/28/17 12:33 RV 10/28/17 12:32 Orthostatic Vitals Lying -Blood Pressure (90/60-120/80) 105/54 L -Extremity Use Right Arm -Pulse Rate (60-100) 101 H Sitting -Blood Pressure (90/60-120/80) 72/48 L -Extremity Use Right Arm -Pulse Rate (60-100) 115 H Intake and Output for Last 24 Hours 10/27/17 10/28/17 10/29/17 23:59 23:59 23:59 Intake Total 1999 6187.6 / 6187.6 2359.4 / 2359.4 Output Total 190 / 190 915 / 915 200 / 200 Balance 1810 / 1810 5272.6 / 5272.6 2159.4 / 2159.4 Labs (Last 48 Hours) 10/27/17 10/28/17 10/28/17 11:22 06:30 06:30 WBC 12.7 H RBC 3.18 L Hgb 9.7 L Hct 28.2 L MCV 88.7 MCH 30.5 MCHC 34.4 RDW 13.0 RDW Differential 40.9 Plt Count 301 MPV 9.8 Immature Gran % (Auto) Neut % (Auto) Lymph % (Auto) [place] % (Auto) Eos % (Auto) Baso % (Auto) Absolute Neuts (auto) Absolute Lymphs (auto) Total Counted PT INR APTT Fibrinogen Specimen Type Sample Site pH Bicarbonate Actual POC Total CO2 Base Excess O2 Saturation O2 % ABG pCO2 ABG pO2 Lee Test Respiration Rate O2 Delivery Device Vent Mode Tidal Volume POC PEEP Blood Gas Notified Whom Blood Gas Notified Time Sodium 142 Potassium 4.4 Chloride 106 Carbon Dioxide 22.0 Anion Gap 14 BUN 12 Creatinine 1.36 H Estim Creat Clear Calc 42.26 Est GFR (MDRD) Af Amer 53 L Est GFR (MDRD) Non-Af 43 L BUN/Creatinine Ratio 8.8 L Glucose 201 H Calcium 7.6 L Magnesium Total Bilirubin AST ALT Alkaline Phosphatase Total Creatine Kinase Total Protein Albumin Globulin Albumin/Globulin Ratio Triglycerides MRSA (PCR) POC Glucose 101 Blood Type Antibody Screen Crossmatch 10/28/17 10/28/17 10/28/17 11:55 11:55 12:50 WBC 8.7 RBC 2.55 L Hgb 7.7 L Hct 22.7 L MCV 89.0 MCH 30.2 MCHC 33.9 RDW 13.6 RDW Differential 43.7 Plt Count 195 MPV 9.2 Immature Gran % (Auto) 0.100 Neut % (Auto) 78.7 H Lymph % (Auto) 14.6 L [place] % (Auto) 6.6 Eos % (Auto) 0.0 Baso % (Auto) 0.0 Absolute Neuts (auto) 6.8 Absolute Lymphs (auto) 1.26 Total Counted Not Reportable PT INR APTT Fibrinogen Specimen Type Sample Site pH Bicarbonate Actual POC Total CO2 Base Excess O2 Saturation O2 % ABG pCO2 ABG pO2 Lee Test Respiration Rate O2 Delivery Device Vent Mode Tidal Volume POC PEEP Blood Gas Notified Whom Blood Gas Notified Time Sodium 142 Potassium 4.3 Chloride 109 H Carbon Dioxide 23.0 Anion Gap 10 BUN 12 Creatinine 1.03 H Estim Creat Clear Calc 55.80 Est GFR (MDRD) Af Amer 72 Est GFR (MDRD) Non-Af 60 BUN/Creatinine Ratio 11.7 Glucose 143 H Calcium 7.2 L Magnesium Total Bilirubin AST ALT Alkaline Phosphatase Total Creatine Kinase Total Protein Albumin Globulin Albumin/Globulin Ratio Triglycerides MRSA (PCR) POC Glucose Blood Type Antibody Screen Crossmatch See Detail 10/28/17 10/28/17 10/28/17 12:55 15:55 15:55 WBC 6.5 RBC 2.76 L Hgb 8.5 L Hct 24.8 L MCV 89.9 MCH 30.8 MCHC 34.3 RDW 13.1 RDW Differential 41.8 Plt Count 138 L MPV 9.7 Immature Gran % (Auto) 0.200 Neut % (Auto) 81.4 H Lymph % (Auto) 13.2 L [place] % (Auto) 5.2 Eos % (Auto) 0.0 Baso % (Auto) 0.0 Absolute Neuts (auto) 5.3 Absolute Lymphs (auto) 0.86 Total Counted Not Reportable PT 15.6 H INR 1.2 APTT 32.9 Fibrinogen 352 Specimen Type Sample Site pH Bicarbonate Actual POC Total CO2 Base Excess O2 Saturation O2 % ABG pCO2 ABG pO2 Lee Test Respiration Rate O2 Delivery Device Vent Mode Tidal Volume POC PEEP Blood Gas Notified Whom Blood Gas Notified Time Sodium Potassium Chloride Carbon Dioxide Anion Gap BUN Creatinine Estim Creat Clear Calc Est GFR (MDRD) Af Amer Est GFR (MDRD) Non-Af BUN/Creatinine Ratio Glucose Calcium Magnesium Total Bilirubin AST ALT Alkaline Phosphatase Total Creatine Kinase Total Protein Albumin Globulin Albumin/Globulin Ratio Triglycerides MRSA (PCR) POC Glucose Blood Type O POSITIVE Antibody Screen NEGATIVE Crossmatch See Detail 10/28/17 10/28/17 10/28/17 15:55 15:55 17:00 WBC RBC Hgb Hct MCV MCH MCHC RDW RDW Differential Plt Count MPV Immature Gran % (Auto) Neut % (Auto) Lymph % (Auto) [place] % (Auto) Eos % (Auto) Baso % (Auto) Absolute Neuts (auto) Absolute Lymphs (auto) Total Counted PT INR APTT Fibrinogen Specimen Type Sample Site pH Bicarbonate Actual POC Total CO2 Base Excess O2 Saturation O2 % ABG pCO2 ABG pO2 Lee Test Respiration Rate O2 Delivery Device Vent Mode Tidal Volume POC PEEP Blood Gas Notified Whom Blood Gas Notified Time Sodium 140 Potassium 3.9 Chloride 108 H Carbon Dioxide 24.0 Anion Gap 8 BUN 10 Creatinine 0.95 Estim Creat Clear Calc 60.50 Est GFR (MDRD) Af Amer 80 Est GFR (MDRD) Non-Af 66 BUN/Creatinine Ratio 10.6 Glucose 153 H Calcium 6.9 L Magnesium 1.8 Total Bilirubin 1.00 AST 15 ALT 16 Alkaline Phosphatase 31 L Total Creatine Kinase Total Protein 4.7 L Albumin 2.2 L Globulin 2.5 Albumin/Globulin Ratio 0.9 Triglycerides MRSA (PCR) Negative POC Glucose Blood Type Antibody Screen Crossmatch 10/28/17 10/28/17 10/28/17 17:20 18:02 23:10 WBC RBC Hgb 9.0 L Hct 26.0 L MCV MCH MCHC RDW RDW Differential Plt Count MPV Immature Gran % (Auto) Neut % (Auto) Lymph % (Auto) [place] % (Auto) Eos % (Auto) Baso % (Auto) Absolute Neuts (auto) Absolute Lymphs (auto) Total Counted PT INR APTT Fibrinogen Specimen Type ART Sample Site L Brachial pH 7.35 Bicarbonate Actual 22.1 POC Total CO2 23 Base Excess -3 L O2 Saturation 93 L O2 % 30 ABG pCO2 39.6 ABG pO2 69 L Lee Test NA Respiration Rate 14 O2 Delivery Device Vent Vent Mode A-C Tidal Volume 450 POC PEEP 5 Blood Gas Notified Whom ICU Blood Gas Notified Time 1801 Sodium Potassium Chloride Carbon Dioxide Anion Gap BUN Creatinine Estim Creat Clear Calc Est GFR (MDRD) Af Amer Est GFR (MDRD) Non-Af BUN/Creatinine Ratio Glucose Calcium Magnesium Total Bilirubin AST ALT Alkaline Phosphatase Total Creatine Kinase 100 Total Protein Albumin Globulin Albumin/Globulin Ratio Triglycerides 70 MRSA (PCR) POC Glucose Blood Type Antibody Screen Crossmatch 10/29/17 10/29/17 10/29/17 04:05 04:05 04:05 WBC 5.8 RBC 3.12 L Hgb 9.5 L Hct 27.7 L MCV 88.8 MCH 30.4 MCHC 34.3 RDW 13.7 RDW Differential 42.5 Plt Count 146 L MPV 9.8 Immature Gran % (Auto) 0.200 Neut % (Auto) 71.2 H Lymph % (Auto) 21.9 [place] % (Auto) 6.2 Eos % (Auto) 0.3 Baso % (Auto) 0.2 Absolute Neuts (auto) 4.1 Absolute Lymphs (auto) 1.27 Total Counted Not Reportable PT 15.0 H INR 1.2 APTT 33.6 Fibrinogen Specimen Type Sample Site pH Bicarbonate Actual POC Total CO2 Base Excess O2 Saturation O2 % ABG pCO2 ABG pO2 Lee Test Respiration Rate O2 Delivery Device Vent Mode Tidal Volume POC PEEP Blood Gas Notified Whom Blood Gas Notified Time Sodium 143 Potassium 3.5 Chloride 107 Carbon Dioxide 28.0 Anion Gap 8 BUN 9 Creatinine 0.68 Estim Creat Clear Calc 84.52 Est GFR (MDRD) Af Amer 117 Est GFR (MDRD) Non-Af 97 BUN/Creatinine Ratio 13.2 Glucose 103 Calcium 7.1 L Magnesium Total Bilirubin 1.20 H AST 17 ALT 19 Alkaline Phosphatase 35 L Total Creatine Kinase Total Protein 5.0 L Albumin 2.3 L Globulin 2.7 Albumin/Globulin Ratio 0.9 Triglycerides MRSA (PCR) POC Glucose Blood Type Antibody Screen Crossmatch Clinical Impression(s) from Imaging Studies Chest X-Ray 10/28/17 17:05 IMPRESSION: Endotracheal tube and central venous line in grossly satisfactory positions. Orogastric tube tip caudal to the inferior margin of the image, consider a dedicated radiograph of the abdomen. Left basilar atelectasis and/or scarring. Electronically Signed: Roshni Acevedo MD at 17:29 EDT Tel , Service support , Medical Necessity - Tobacco Use Smoking Status: Never smoker Tobacco Use: Non-smoker Assessment/Plan All Active Problems (Last Reviewed 10/13/17 @ 14:35 by Jeanine Lopez) Post-operative haemorrhage (Acute) History of endometrial ablation (Acute) Hx of hysterectomy (Acute) Hx of wisdom tooth extraction (Acute) Hx of colonoscopy (Acute) Hx of breast biopsy (Acute) 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 Wean oxygen as tolerated 2. Repeat H&H this afternoon 3. Okay to discontinue monitoring of coagulation and fibrinogen 4. Increase activity as tolerated 5. Pain control per surgery 6. Possible need for NG for decompression for ileus IMPRESSIONS: 1. Acute blood loss anemia secondary to postoperative hemorrhage Patient with significant drop in hemoglobin over the last 24 hours. Patient taken back to surgery, but no obvious bleeding site was noted. Patient did have some oozing in the splenic flexure and topical applications have been used to achieve hemostasis. Patient's hemoglobin has remained relatively stable. Patient has received a significant amount of blood products over the last 24 hours. However, blood counts appear to be stable. 2. Acute respiratory failure Patient was successfully extubated this morning. Patient appears to be tolerating this well. Wean oxygen as tolerated. Patient would benefit from incentive spirometer as she has had significant bowel manipulation and will be at risk for atelectasis. No history of obstructive lung disease, so we will not schedule any bronchodilators. 3. Diverticulosis status post sigmoidectomy postop day #1 Patient with repeat surgery. General surgery is currently following. Patient has had significant OG output of bilious type of secretions. If patient starts to have significant nausea, placement of an NG may be necessary for bowel rest. Defer to surgery on initiation of p.o. diet. 4. Obesity Complicates care, management, recovery and prognosis TIME: 32 minutes critical care time spent addressing patient's acute blood loss anemia, acute respiratory failure, review of all data and collaboration with care team (6 AM to 7 AM) Code Visit 9xxxx: [id number] Critical care first hour
--- NOTE | 2017-10-29 07:36 | PCM.PN.SRG ---
Patient Problems: Active and Suspected Problems (Last Reviewed 10/13/17 @ 14:35 by Jeanine Lopez) Post-operative haemorrhage (Acute) Subjective: Patient evaluated following extubation resting comfortably in bed. She notes epigastric pressure. She denies nausea, vomiting this morning thus far. She has been tachycardic and low grade temperature which is slowly resolving. Patient had increased bilious output overnight with vent. - Physical Exam General: Alert, Oriented x3, Cooperative, - - Did ask this morning what floor she was on. Lungs: Diminished Cardiovascular: Regular Rhythm, Tachycardic Abdomen: Hypoactive Bowel Sounds - to no bowel sounds noted, Distended, Tender - minimal tenderness, - - Incisions c/d/i. No active drainage noted. Vital Signs Temp Pulse Resp BP Pulse Ox 99.8 F H 107 H 18 113/62 98 10/29/17 03:15 10/29/17 06:00 10/29/17 06:00 10/29/17 06:00 10/29/17 06:20 Oxygen Flow Rate (L/min) 2 Oxygen Delivery Method Nasal Cannula Weight: 225 lb 12.054 oz Body Mass Index (BMI) 34.7 Orthostatic Vital Signs Start: 10/28/17 10:12 Freq: q24h Status: Active Protocol: Activity Type Activity Date Activity User E-Sign Co-Sign Detail Recorded Client Recorded Date Recorded By Document 10/28/17 12:32 RV [id number] 10/28/17 12:33 RV 10/28/17 12:32 Orthostatic Vitals Lying -Blood Pressure (90/60-120/80) 105/54 L -Extremity Use Right Arm -Pulse Rate (60-100) 101 H Sitting -Blood Pressure (90/60-120/80) 72/48 L -Extremity Use Right Arm -Pulse Rate (60-100) 115 H Intake and Output for Last 24 Hours 10/27/17 10/28/17 10/29/17 23:59 23:59 23:59 Intake Total 1999 6187.6 / 6187.6 2359.4 / 2359.4 Output Total 190 / 190 915 / 915 200 / 200 Balance 1810 / 1810 5272.6 / 5272.6 2159.4 / 2159.4 Laboratory Tests Past 24 Hrs 10/28/17 10/28/17 10/28/17 11:55 11:55 12:50 WBC 8.7 RBC 2.55 L Hgb 7.7 L Hct 22.7 L MCV 89.0 MCH 30.2 MCHC 33.9 RDW 13.6 RDW Differential 43.7 Plt Count 195 MPV 9.2 Immature Gran % (Auto) 0.100 Neut % (Auto) 78.7 H Lymph % (Auto) 14.6 L [place]clenn[place] % (Auto) 6.6 Eos % (Auto) 0.0 Baso % (Auto) 0.0 Absolute Neuts (auto) 6.8 Absolute Lymphs (auto) 1.26 Total Counted Not Reportable PT INR APTT Fibrinogen Specimen Type Sample Site pH Bicarbonate Actual POC Total CO2 Base Excess O2 Saturation O2 % ABG pCO2 ABG pO2 Lee Test Respiration Rate O2 Delivery Device Vent Mode Tidal Volume POC PEEP Blood Gas Notified Whom Blood Gas Notified Time Sodium 142 Potassium 4.3 Chloride 109 H Carbon Dioxide 23.0 Anion Gap 10 BUN 12 Creatinine 1.03 H Estim Creat Clear Calc 55.80 Est GFR (MDRD) Af Amer 72 Est GFR (MDRD) Non-Af 60 BUN/Creatinine Ratio 11.7 Glucose 143 H Calcium 7.2 L Magnesium Total Bilirubin AST ALT Alkaline Phosphatase Total Creatine Kinase Total Protein Albumin Globulin Albumin/Globulin Ratio Triglycerides MRSA (PCR) Blood Type Antibody Screen Crossmatch See Detail 10/28/17 10/28/17 10/28/17 12:55 15:55 15:55 WBC 6.5 RBC 2.76 L Hgb 8.5 L Hct 24.8 L MCV 89.9 MCH 30.8 MCHC 34.3 RDW 13.1 RDW Differential 41.8 Plt Count 138 L MPV 9.7 Immature Gran % (Auto) 0.200 Neut % (Auto) 81.4 H Lymph % (Auto) 13.2 L Mclennan % (Auto) 5.2 Eos % (Auto) 0.0 Baso % (Auto) 0.0 Absolute Neuts (auto) 5.3 Absolute Lymphs (auto) 0.86 Total Counted Not Reportable PT 15.6 H INR 1.2 APTT 32.9 Fibrinogen 352 Specimen Type Sample Site pH Bicarbonate Actual POC Total CO2 Base Excess O2 Saturation O2 % ABG pCO2 ABG pO2 Lee Test Respiration Rate O2 Delivery Device Vent Mode Tidal Volume POC PEEP Blood Gas Notified Whom Blood Gas Notified Time Sodium Potassium Chloride Carbon Dioxide Anion Gap BUN Creatinine Estim Creat Clear Calc Est GFR (MDRD) Af Amer Est GFR (MDRD) Non-Af BUN/Creatinine Ratio Glucose Calcium Magnesium Total Bilirubin AST ALT Alkaline Phosphatase Total Creatine Kinase Total Protein Albumin Globulin Albumin/Globulin Ratio Triglycerides MRSA (PCR) Blood Type O POSITIVE Antibody Screen NEGATIVE Crossmatch See Detail 10/28/17 10/28/17 10/28/17 15:55 15:55 17:00 WBC RBC Hgb Hct MCV MCH MCHC RDW RDW Differential Plt Count MPV Immature Gran % (Auto) Neut % (Auto) Lymph % (Auto) Mclennan % (Auto) Eos % (Auto) Baso % (Auto) Absolute Neuts (auto) Absolute Lymphs (auto) Total Counted PT INR APTT Fibrinogen Specimen Type Sample Site pH Bicarbonate Actual POC Total CO2 Base Excess O2 Saturation O2 % ABG pCO2 ABG pO2 Lee Test Respiration Rate O2 Delivery Device Vent Mode Tidal Volume POC PEEP Blood Gas Notified Whom Blood Gas Notified Time Sodium 140 Potassium 3.9 Chloride 108 H Carbon Dioxide 24.0 Anion Gap 8 BUN 10 Creatinine 0.95 Estim Creat Clear Calc 60.50 Est GFR (MDRD) Af Amer 80 Est GFR (MDRD) Non-Af 66 BUN/Creatinine Ratio 10.6 Glucose 153 H Calcium 6.9 L Magnesium 1.8 Total Bilirubin 1.00 AST 15 ALT 16 Alkaline Phosphatase 31 L Total Creatine Kinase Total Protein 4.7 L Albumin 2.2 L Globulin 2.5 Albumin/Globulin Ratio 0.9 Triglycerides MRSA (PCR) Negative Blood Type Antibody Screen Crossmatch 10/28/17 10/28/17 10/28/17 17:20 18:02 23:10 WBC RBC Hgb 9.0 L Hct 26.0 L MCV MCH MCHC RDW RDW Differential Plt Count MPV Immature Gran % (Auto) Neut % (Auto) Lymph % (Auto) Mclennan % (Auto) Eos % (Auto) Baso % (Auto) Absolute Neuts (auto) Absolute Lymphs (auto) Total Counted PT INR APTT Fibrinogen Specimen Type ART Sample Site L Brachial pH 7.35 Bicarbonate Actual 22.1 POC Total CO2 23 Base Excess -3 L O2 Saturation 93 L O2 % 30 ABG pCO2 39.6 ABG pO2 69 L Lee Test NA Respiration Rate 14 O2 Delivery Device Vent Vent Mode A-C Tidal Volume 450 POC PEEP 5 Blood Gas Notified Whom ICU Blood Gas Notified Time 1801 Sodium Potassium Chloride Carbon Dioxide Anion Gap BUN Creatinine Estim Creat Clear Calc Est GFR (MDRD) Af Amer Est GFR (MDRD) Non-Af BUN/Creatinine Ratio Glucose Calcium Magnesium Total Bilirubin AST ALT Alkaline Phosphatase Total Creatine Kinase 100 Total Protein Albumin Globulin Albumin/Globulin Ratio Triglycerides 70 MRSA (PCR) Blood Type Antibody Screen Crossmatch 10/29/17 10/29/17 10/29/17 04:05 04:05 04:05 WBC 5.8 RBC 3.12 L Hgb 9.5 L Hct 27.7 L MCV 88.8 MCH 30.4 MCHC 34.3 RDW 13.7 RDW Differential 42.5 Plt Count 146 L MPV 9.8 Immature Gran % (Auto) 0.200 Neut % (Auto) 71.2 H Lymph % (Auto) 21.9 Mclennan % (Auto) 6.2 Eos % (Auto) 0.3 Baso % (Auto) 0.2 Absolute Neuts (auto) 4.1 Absolute Lymphs (auto) 1.27 Total Counted Not Reportable PT 15.0 H INR 1.2 APTT 33.6 Fibrinogen Specimen Type Sample Site pH Bicarbonate Actual POC Total CO2 Base Excess O2 Saturation O2 % ABG pCO2 ABG pO2 Lee Test Respiration Rate O2 Delivery Device Vent Mode Tidal Volume POC PEEP Blood Gas Notified Whom Blood Gas Notified Time Sodium 143 Potassium 3.5 Chloride 107 Carbon Dioxide 28.0 Anion Gap 8 BUN 9 Creatinine 0.68 Estim Creat Clear Calc 84.52 Est GFR (MDRD) Af Amer 117 Est GFR (MDRD) Non-Af 97 BUN/Creatinine Ratio 13.2 Glucose 103 Calcium 7.1 L Magnesium Total Bilirubin 1.20 H AST 17 ALT 19 Alkaline Phosphatase 35 L Total Creatine Kinase Total Protein 5.0 L Albumin 2.3 L Globulin 2.7 Albumin/Globulin Ratio 0.9 Triglycerides MRSA (PCR) Blood Type Antibody Screen Crossmatch Medical Necessity - Tobacco Use Smoking Status: Never smoker Tobacco Use: Non-smoker Assessment/Plan All Active Problems (Last Reviewed 10/13/17 @ 14:35 by Jeanine Lopez) Post-operative haemorrhage (Acute) History of endometrial ablation (Acute) Hx of hysterectomy (Acute) Hx of wisdom tooth extraction (Acute) Hx of colonoscopy (Acute) Hx of breast biopsy (Acute) 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 Holm Impression: S/p sigmoid colectomy converted to open. Post-op day #1 hemorrhage. Patient returned to OR with significant amount of blood in her pelvis. Splenic flexure area of bleeding found and controlled. Hgb stable. Continue to closely monitor Agree with NG tube placement if patient becomes nauseated and vomits Suspect patient to have prolonged ileus Continue NPO. May advance to clears later today or tomorrow pending patient's progress. Will discuss patient with Dr. Holm We will continue to closely monitor this patient Code Visit Inpatient E&M: 79885 Subs Hosp L1 - POST-OP
[2017-10-29] MEDS: fentaNYL 100 MCG/2 ML Ampul 50 MCG IV ×7 (07:50→22:05)
[2017-10-29] MEDS: Famotidine 20 MG Tablet PO ×2 (09:58→22:06)
--- NOTE | 2017-10-29 12:00 | CASEMGMT ---
SEE RN UCHE ASSESS LINK: D/C PLAN: Undetermined. Pt would like prescriptions filled @ [facility] Retail pharmacy on day of discharge. Intro role to RN UCHE. Pt resting in bed. @ bedside. Pt awake/alert/oriented and willing to participate in assessment. All questions answered appropriately. Prior to hospitalization pt required no DME, is independent, and drives. Pt lives with her . Pt would like to return home @ discharge. Await PT consult. CM to follow for any discharge planning needs that may arise. Ana BROCKN RN CM
[2017-10-29 17:23] LABS: Hematocrit 28.2 % (37-47); Hemoglobin 9.7 g/dl (12.0-15.0)
[2017-10-29] MEDS: Lactated Ringers 1,000 ML 75 ML IV (22:06)
[2017-10-30] VITALS (33 sets, daily range): BP systolic 107–159; BP diastolic 51–90; PULSE 96–110; RESP 18–26; TEMP 36.3–37.4; O2SAT 90–98
[2017-10-30] MEDS: fentaNYL 100 MCG/2 ML Ampul 50 MCG IV ×3 (00:16→08:40)
[2017-10-30] MEDS: 0.9% NaCl Peripheral Flush Adult/Peds IV ×4 (00:17→12:15)
[2017-10-30] MEDS: CHLORHEXIDINE GLUC 2% CLOTH 1 EACH TOWELETTE TOPICAL (04:41)
[2017-10-30 05:19] LABS: Anion Gap 11 (5-15); BUN 5 mg/dL (7-18); BUN/Creat Ratio 11.3 RATIO (10-20); Calcium,Total 7.4 mg/dL (8.5-10.1); Chloride 104 mmol/L (98-107); Creatinine, Serum 0.44 mg/dL (0.55-1.02); EST Glomerular Filtration Rate 159 mL/min (>60); Est Glom Filt Rate - Afr Amer 193 mL/min (>60); Estimated Creatinine Clearance 130.62 ml/min; Glucose 83 mg/dL (74-106); Potassium 3.3 mmol/L (3.5-5.1); Sodium Level 141 mmol/L (136-145)
[2017-10-30 05:22] LABS: Absolute Lymphocyte Count 1.18 X10^3/ul (0.83-4.51); Basophil# 0.01 X10^3/uL; Basophil% 0.1 % (0-1); Eosinophil# 0.11 X10^3/uL; Eosinophils% 1.6 % (0-5); Hematocrit 27.4 % (37-47); Hemoglobin 9.4 g/dl (12.0-15.0); Lymphocyte # 1.18 X10^3/ul (4.0); Lymphocyte % 17.7 % (19-41); Mean Corp Hgb Conc 34.3 g/gl (32-36); Mean Corpuscular Hgb 30.4 pg (27.0-32.0); Mean Corpuscular Volume 88.7 fL (81-99); Mean Platelet Vol. 9.5 fl (6.2-12.0); Monocyte# 0.38 X10^3/uL; Monocyte% 5.7 % (0-10); Neutrophil # 4.99 X10^3/uL (2.7-7.7); Neutrophil % 74.8 % (47-70); Platelet Count 141 K/mm3 (150-450); RBC Distribution Width SD 45.3 fl (35.1-43.9); Red Blood Count 3.09 M/mm3 (4.2-5.4); White Blood Count 6.7 K/mm3 (4.4-11.0)
[2017-10-30 05:25] LABS: POSITIVE COUNT NO; POSITIVE DIFFERENTIAL NO; POSITIVE MORPHOLOGY NO
[2017-10-30] MEDS: 0.9% NaCl IVPB Med Flush (250 mL) 15 ML IV ×2 (06:05→13:10)
--- NOTE | 2017-10-30 06:23 | PCM.PN.INT ---
Subjective: Patient did well overnight. Patient continues to report significant abdominal pain. Urine output has been doing well. Patient does report splinting of breathing secondary to abdominal pain. Nursing reports patient has not been motivated to get out of bed or use incentive spirometer. Patient denies any flatus at this time General: Alert, Oriented x3, Cooperative, Well developed, Well nourished, - - Obese. Speaking in full sentences. HEENT: Atraumatic, PERRLA, EOMI, Normocephalic, - - Glasses in place. Oral: Moist Mucosa, No Gingival or Mucosal Lesions/ Ulcerations Neck: Supple, No JVD, No Nodes, Trachea Midline Lungs: No rhonchi, No wheeze, Diminished - Bilateral bases, Rales - Bilateral bases, - - Symmetric expansion. Poor effort. Cardiovascular: Normal S1, Normal S2, No murmurs, No rub noted, No Gallop, Tachycardic Abdomen: Soft, Hypoactive Bowel Sounds, Distended, Tender - Some guarding, but no rebound appreciated. Extremities: No clubbing, No cyanosis, Edema - 1+ anasarca Skin: No rashes, No breakdown, Incision - Clean, dry and intact. Musculoskeletal: No Tenderness to Palpation of Joints or Extremities, No Muscle Wasting Lymphatic: No Cervical, Supraclavicular, or Inguinal Adenopathy Neurological: Cranial nerves II-XII grossly intact, Neuro grossly intact, Motor Exam 5/5 strength throughout Psych/Mental Status: Alert and oriented to time, place, person, mood and affect Vital Signs Temp Pulse Resp BP Pulse Ox 37.2 C 106 H 22 H 122/74 H 91 10/30/17 04:00 10/30/17 06:00 10/30/17 06:00 10/30/17 06:00 10/30/17 06:00 Oxygen Flow Rate (L/min) 1 Oxygen Delivery Method Room Air Weight: 101.5 kg Body Mass Index (BMI) 34.7 Orthostatic Vital Signs Start: 10/28/17 10:12 Freq: q24h Status: Active Protocol: Activity Type Activity Date Activity User E-Sign Co-Sign Detail Recorded Client Recorded Date Recorded By Document 10/28/17 12:32 RV [id number] 10/28/17 12:33 RV 10/28/17 12:32 Orthostatic Vitals Lying -Blood Pressure (90/60-120/80) 105/54 L -Extremity Use Right Arm -Pulse Rate (60-100) 101 H Sitting -Blood Pressure (90/60-120/80) 72/48 L -Extremity Use Right Arm -Pulse Rate (60-100) 115 H Intake and Output for Last 24 Hours 10/28/17 10/29/17 10/30/17 23:59 23:59 23:59 Intake Total 6187.6 / 6187.6 4636.4 / 4636.4 512 / 512 Output Total 915 / 915 2125 / 2125 450 / 450 Balance 5272.6 / 5272.6 2511.4 / 2511.4 62 / 62 Labs (Last 48 Hours) 10/28/17 10/28/17 10/28/17 06:30 06:30 11:55 WBC 12.7 H 8.7 RBC 3.18 L 2.55 L Hgb 9.7 L 7.7 L Hct 28.2 L 22.7 L MCV 88.7 89.0 MCH 30.5 30.2 MCHC 34.4 33.9 RDW 13.0 13.6 RDW Differential 40.9 43.7 Plt Count 301 195 MPV 9.8 9.2 Immature Gran % (Auto) 0.100 Neut % (Auto) 78.7 H Lymph % (Auto) 14.6 L [place] % (Auto) 6.6 Eos % (Auto) 0.0 Baso % (Auto) 0.0 Absolute Neuts (auto) 6.8 Absolute Lymphs (auto) 1.26 Total Counted Not Reportable PT INR APTT Fibrinogen Specimen Type Sample Site pH Bicarbonate Actual POC Total CO2 Base Excess O2 Saturation O2 % ABG pCO2 ABG pO2 Lee Test Respiration Rate O2 Delivery Device Vent Mode Tidal Volume POC PEEP Blood Gas Notified Whom Blood Gas Notified Time Sodium 142 Potassium 4.4 Chloride 106 Carbon Dioxide 22.0 Anion Gap 14 BUN 12 Creatinine 1.36 H Estim Creat Clear Calc 42.26 Est GFR (MDRD) Af Amer 53 L Est GFR (MDRD) Non-Af 43 L BUN/Creatinine Ratio 8.8 L Glucose 201 H Calcium 7.6 L Magnesium Total Bilirubin AST ALT Alkaline Phosphatase Total Creatine Kinase Total Protein Albumin Globulin Albumin/Globulin Ratio Triglycerides MRSA (PCR) Blood Type Antibody Screen Crossmatch 10/28/17 10/28/17 10/28/17 11:55 12:50 12:55 WBC RBC Hgb Hct MCV MCH MCHC RDW RDW Differential Plt Count MPV Immature Gran % (Auto) Neut % (Auto) Lymph % (Auto) Nicol[place] % (Auto) Eos % (Auto) Baso % (Auto) Absolute Neuts (auto) Absolute Lymphs (auto) Total Counted PT INR APTT Fibrinogen Specimen Type Sample Site pH Bicarbonate Actual POC Total CO2 Base Excess O2 Saturation O2 % ABG pCO2 ABG pO2 Lee Test Respiration Rate O2 Delivery Device Vent Mode Tidal Volume POC PEEP Blood Gas Notified Whom Blood Gas Notified Time Sodium 142 Potassium 4.3 Chloride 109 H Carbon Dioxide 23.0 Anion Gap 10 BUN 12 Creatinine 1.03 H Estim Creat Clear Calc 55.80 Est GFR (MDRD) Af Amer 72 Est GFR (MDRD) Non-Af 60 BUN/Creatinine Ratio 11.7 Glucose 143 H Calcium 7.2 L Magnesium Total Bilirubin AST ALT Alkaline Phosphatase Total Creatine Kinase Total Protein Albumin Globulin Albumin/Globulin Ratio Triglycerides MRSA (PCR) Blood Type O POSITIVE Antibody Screen NEGATIVE Crossmatch See Detail See Detail 10/28/17 10/28/17 10/28/17 15:55 15:55 15:55 WBC 6.5 RBC 2.76 L Hgb 8.5 L Hct 24.8 L MCV 89.9 MCH 30.8 MCHC 34.3 RDW 13.1 RDW Differential 41.8 Plt Count 138 L MPV 9.7 Immature Gran % (Auto) 0.200 Neut % (Auto) 81.4 H Lymph % (Auto) 13.2 L [place] % (Auto) 5.2 Eos % (Auto) 0.0 Baso % (Auto) 0.0 Absolute Neuts (auto) 5.3 Absolute Lymphs (auto) 0.86 Total Counted Not Reportable PT 15.6 H INR 1.2 APTT 32.9 Fibrinogen 352 Specimen Type Sample Site pH Bicarbonate Actual POC Total CO2 Base Excess O2 Saturation O2 % ABG pCO2 ABG pO2 Lee Test Respiration Rate O2 Delivery Device Vent Mode Tidal Volume POC PEEP Blood Gas Notified Whom Blood Gas Notified Time Sodium 140 Potassium 3.9 Chloride 108 H Carbon Dioxide 24.0 Anion Gap 8 BUN 10 Creatinine 0.95 Estim Creat Clear Calc 60.50 Est GFR (MDRD) Af Amer 80 Est GFR (MDRD) Non-Af 66 BUN/Creatinine Ratio 10.6 Glucose 153 H Calcium 6.9 L Magnesium Total Bilirubin 1.00 AST 15 ALT 16 Alkaline Phosphatase 31 L Total Creatine Kinase Total Protein 4.7 L Albumin 2.2 L Globulin 2.5 Albumin/Globulin Ratio 0.9 Triglycerides MRSA (PCR) Blood Type Antibody Screen Crossmatch 10/28/17 10/28/17 10/28/17 15:55 17:00 17:20 WBC RBC Hgb Hct MCV MCH MCHC RDW RDW Differential Plt Count MPV Immature Gran % (Auto) Neut % (Auto) Lymph % (Auto) Nicollet % (Auto) Eos % (Auto) Baso % (Auto) Absolute Neuts (auto) Absolute Lymphs (auto) Total Counted PT INR APTT Fibrinogen Specimen Type Sample Site pH Bicarbonate Actual POC Total CO2 Base Excess O2 Saturation O2 % ABG pCO2 ABG pO2 Lee Test Respiration Rate O2 Delivery Device Vent Mode Tidal Volume POC PEEP Blood Gas Notified Whom Blood Gas Notified Time Sodium Potassium Chloride Carbon Dioxide Anion Gap BUN Creatinine Estim Creat Clear Calc Est GFR (MDRD) Af Amer Est GFR (MDRD) Non-Af BUN/Creatinine Ratio Glucose Calcium Magnesium 1.8 Total Bilirubin AST ALT Alkaline Phosphatase Total Creatine Kinase 100 Total Protein Albumin Globulin Albumin/Globulin Ratio Triglycerides 70 MRSA (PCR) Negative Blood Type Antibody Screen Crossmatch 10/28/17 10/28/17 10/29/17 18:02 23:10 04:05 WBC 5.8 RBC 3.12 L Hgb 9.0 L 9.5 L Hct 26.0 L 27.7 L MCV 88.8 MCH 30.4 MCHC 34.3 RDW 13.7 RDW Differential 42.5 Plt Count 146 L MPV 9.8 Immature Gran % (Auto) 0.200 Neut % (Auto) 71.2 H Lymph % (Auto) 21.9 Nicol[place] % (Auto) 6.2 Eos % (Auto) 0.3 Baso % (Auto) 0.2 Absolute Neuts (auto) 4.1 Absolute Lymphs (auto) 1.27 Total Counted Not Reportable PT INR APTT Fibrinogen Specimen Type ART Sample Site L Brachial pH 7.35 Bicarbonate Actual 22.1 POC Total CO2 23 Base Excess -3 L O2 Saturation 93 L O2 % 30 ABG pCO2 39.6 ABG pO2 69 L Lee Test NA Respiration Rate 14 O2 Delivery Device Vent Vent Mode A-C Tidal Volume 450 POC PEEP 5 Blood Gas Notified Whom ICU Blood Gas Notified Time 1801 Sodium Potassium Chloride Carbon Dioxide Anion Gap BUN Creatinine Estim Creat Clear Calc Est GFR (MDRD) Af Amer Est GFR (MDRD) Non-Af BUN/Creatinine Ratio Glucose Calcium Magnesium Total Bilirubin AST ALT Alkaline Phosphatase Total Creatine Kinase Total Protein Albumin Globulin Albumin/Globulin Ratio Triglycerides MRSA (PCR) Blood Type Antibody Screen Crossmatch 10/29/17 10/29/17 10/29/17 04:05 04:05 17:00 WBC RBC Hgb 9.7 L Hct 28.2 L MCV MCH MCHC RDW RDW Differential Plt Count MPV Immature Gran % (Auto) Neut % (Auto) Lymph % (Auto) Nicollet % (Auto) Eos % (Auto) Baso % (Auto) Absolute Neuts (auto) Absolute Lymphs (auto) Total Counted PT 15.0 H INR 1.2 APTT 33.6 Fibrinogen Specimen Type Sample Site pH Bicarbonate Actual POC Total CO2 Base Excess O2 Saturation O2 % ABG pCO2 ABG pO2 Lee Test Respiration Rate O2 Delivery Device Vent Mode Tidal Volume POC PEEP Blood Gas Notified Whom Blood Gas Notified Time Sodium 143 Potassium 3.5 Chloride 107 Carbon Dioxide 28.0 Anion Gap 8 BUN 9 Creatinine 0.68 Estim Creat Clear Calc 84.52 Est GFR (MDRD) Af Amer 117 Est GFR (MDRD) Non-Af 97 BUN/Creatinine Ratio 13.2 Glucose 103 Calcium 7.1 L Magnesium Total Bilirubin 1.20 H AST 17 ALT 19 Alkaline Phosphatase 35 L Total Creatine Kinase Total Protein 5.0 L Albumin 2.3 L Globulin 2.7 Albumin/Globulin Ratio 0.9 Triglycerides MRSA (PCR) Blood Type Antibody Screen Crossmatch 10/30/17 10/30/17 04:35 04:35 WBC 6.7 RBC 3.09 L Hgb 9.4 L Hct 27.4 L MCV 88.7 MCH 30.4 MCHC 34.3 RDW 14.0 RDW Differential 45.3 H Plt Count 141 L MPV 9.5 Immature Gran % (Auto) 0.100 Neut % (Auto) 74.8 H Lymph % (Auto) 17.7 L [place] % (Auto) 5.7 Eos % (Auto) 1.6 Baso % (Auto) 0.1 Absolute Neuts (auto) 5.0 Absolute Lymphs (auto) 1.18 Total Counted Not Reportable PT INR APTT Fibrinogen Specimen Type Sample Site pH Bicarbonate Actual POC Total CO2 Base Excess O2 Saturation O2 % ABG pCO2 ABG pO2 Lee Test Respiration Rate O2 Delivery Device Vent Mode Tidal Volume POC PEEP Blood Gas Notified Whom Blood Gas Notified Time Sodium 141 Potassium 3.3 L Chloride 104 Carbon Dioxide 26.0 Anion Gap 11 BUN 5 L Creatinine 0.44 L Estim Creat Clear Calc 130.62 Est GFR (MDRD) Af Amer 193 Est GFR (MDRD) Non-Af 159 BUN/Creatinine Ratio 11.3 Glucose 83 Calcium 7.4 L Magnesium Total Bilirubin AST ALT Alkaline Phosphatase Total Creatine Kinase Total Protein Albumin Globulin Albumin/Globulin Ratio Triglycerides MRSA (PCR) Blood Type Antibody Screen Crossmatch Medical Necessity - Tobacco Use Smoking Status: Never smoker Tobacco Use: Non-smoker Assessment/Plan All Active Problems (Last Reviewed 10/13/17 @ 14:35 by Jeanine Lopez) Post-operative haemorrhage (Acute) History of endometrial ablation (Acute) Hx of hysterectomy (Acute) Hx of wisdom tooth extraction (Acute) Hx of colonoscopy (Acute) Hx of breast biopsy (Acute) 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 Wean oxygen as tolerated 2. Encourage incentive spirometer 3. Increase activity as tolerated 4. Discontinue [place] 5. Pain control per surgery 6. Okay to leave the intensive care unit from my perspective IMPRESSIONS: 1. Acute blood loss anemia secondary to postoperative hemorrhage Patient's hemoglobin appears to be stable over the last 24 hours. Patient is not reporting any significant worsening in abdominal pain, but has not been overly compliant with getting out of bed and using incentive spirometer. No indication for transfusion at this time. 2. Acute respiratory failure Patient with marginal oxygenation on room air. Stressed to the patient the importance of using incentive spirometer and out of bed as tolerated. Patient voiced understanding. Patient does not have any history of obstructive lung disease that would require bronchodilator therapy. 3. Diverticulosis status post sigmoidectomy postop day #2 Patient with repeat surgery. General surgery is currently following. Patient with slight increase in bowel sounds today, but not passing any gas. Defer to surgery about possibility of using p.o. pain medications to facilitate activity. Defer to surgery on initiation of p.o. diet or clears. 4. Obesity/hypokalemia Complicates care, management, recovery and prognosis. Potassium repletion has been ordered. Clinical suspicion for diuresis leading to hypokalemia. Code Visit Inpatient E&M: 10800 Subs Hosp L3
--- NOTE | 2017-10-30 10:22 | PCM.PN.SRG ---
Patient Problems: Active and Suspected Problems (Last Reviewed 10/13/17 @ 14:35 by Jeanine Lopez) Post-operative haemorrhage (Acute) Subjective: Patient has been stable over the last 24 hours. She has been making good urine output she is complaining of some significant abdominal pain secondary to the length of the incision that she has. She reports no flatus and no bowel movements. Objective: Dressings intact abdomen is appropriately tender and distended. Exam is in proportion with surgery performed. - Physical Exam Vital Signs Temp Pulse Resp BP Pulse Ox 98.7 F 103 H 25 H 132/75 H 96 10/30/17 08:00 10/30/17 09:00 10/30/17 09:00 10/30/17 09:00 10/30/17 09:10 Oxygen Flow Rate (L/min) 2 Oxygen Delivery Method Nasal Cannula Weight: 223 lb 12.307 oz Body Mass Index (BMI) 34.7 Orthostatic Vital Signs Start: 10/28/17 10:12 Freq: q24h Status: Active Protocol: Activity Type Activity Date Activity User E-Sign Co-Sign Detail Recorded Client Recorded Date Recorded By Document 10/28/17 12:32 RV [id number] 10/28/17 12:33 RV 10/28/17 12:32 Orthostatic Vitals Lying -Blood Pressure (90/60-120/80) 105/54 L -Extremity Use Right Arm -Pulse Rate (60-100) 101 H Sitting -Blood Pressure (90/60-120/80) 72/48 L -Extremity Use Right Arm -Pulse Rate (60-100) 115 H Intake and Output for Last 24 Hours 10/28/17 10/29/17 10/30/17 23:59 23:59 23:59 Intake Total 6187.6 / 6187.6 4636.4 / 4636.4 512 / 512 Output Total 915 / 915 2125 / 2125 700 / 700 Balance 5272.6 / 5272.6 2511.4 / 2511.4 -188 / -188 Laboratory Tests Past 24 Hrs 10/29/17 10/30/17 10/30/17 17:00 04:35 04:35 WBC 6.7 RBC 3.09 L Hgb 9.7 L 9.4 L Hct 28.2 L 27.4 L MCV 88.7 MCH 30.4 MCHC 34.3 RDW 14.0 RDW Differential 45.3 H Plt Count 141 L MPV 9.5 Immature Gran % (Auto) 0.100 Neut % (Auto) 74.8 H Lymph % (Auto) 17.7 L Barron % (Auto) 5.7 Eos % (Auto) 1.6 Baso % (Auto) 0.1 Absolute Neuts (auto) 5.0 Absolute Lymphs (auto) 1.18 Total Counted Not Reportable Sodium 141 Potassium 3.3 L Chloride 104 Carbon Dioxide 26.0 Anion Gap 11 BUN 5 L Creatinine 0.44 L Estim Creat Clear Calc 130.62 Est GFR (MDRD) Af Amer 193 Est GFR (MDRD) Non-Af 159 BUN/Creatinine Ratio 11.3 Glucose 83 Calcium 7.4 L Medical Necessity - Tobacco Use Smoking Status: Never smoker Tobacco Use: Non-smoker Assessment/Plan All Active Problems (Last Reviewed 10/13/17 @ 14:35 by Jeanine Lopez) Post-operative haemorrhage (Acute) History of endometrial ablation (Acute) Hx of hysterectomy (Acute) Hx of wisdom tooth extraction (Acute) Hx of colonoscopy (Acute) Hx of breast biopsy (Acute) 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 She is appropriately to be transferred to the floor. She will need to be on a [employer] pump. We will encourage ambulation and prior to advancing her diet will need to hear some bowel sounds present. I have encouraged her to get up and move as much as she can and work on her incentive spirometer diligently.
[2017-10-30] MEDS: Lactated Ringers 1,000 ML 75 ML IV (12:15)
[2017-10-30] MEDS: Ondansetron 4 MG/2 ML Vial IV (12:15)
[2017-10-30] MEDS: HYDROmorphone PCA 0.2 MG/ML 100 ML BAG 20 MG IV (13:09)
[2017-10-30] MEDS: Famotidine 20 MG Tablet PO ×2 (14:28→22:02)
[2017-10-31] VITALS (23 sets, daily range): BP systolic 122–151; BP diastolic 68–89; PULSE 85–103; RESP 16–20; TEMP 36.7–37.3; O2SAT 96–99
[2017-10-31] MEDS: Lactated Ringers 1,000 ML 75 ML IV ×2 (01:07→22:21)
[2017-10-31] MEDS: 0.9% NaCl IVPB Med Flush (250 mL) 15 ML IV (05:27)
[2017-10-31 07:23] LABS: Hematocrit 27.5 % (37-47); Hemoglobin 9.4 g/dl (12.0-15.0); Mean Corp Hgb Conc 34.2 g/gl (32-36); Mean Corpuscular Hgb 30.6 pg (27.0-32.0); Mean Corpuscular Volume 89.6 fL (81-99); Platelet Count 186 K/mm3 (150-450); RBC Distribution Width CV 13.4 % (11.6-14.6); RBC Distribution Width SD 42.5 fl (35.1-43.9); Red Blood Count 3.07 M/mm3 (4.2-5.4); White Blood Count 5.7 K/mm3 (4.4-11.0)
[2017-10-31 07:27] LABS: Scan Indicated on CBC? Y/N NO
[2017-10-31 07:39] LABS: Anion Gap 10 (5-15); BUN 4 mg/dL (7-18); BUN/Creat Ratio 11.2 RATIO (10-20); Calcium,Total 7.6 mg/dL (8.5-10.1); Chloride 106 mmol/L (98-107); Creatinine, Serum 0.36 mg/dL (0.55-1.02); EST Glomerular Filtration Rate 203 mL/min (>60); Est Glom Filt Rate - Afr Amer 246 mL/min (>60); Estimated Creatinine Clearance 159.65 ml/min; Glucose 84 mg/dL (74-106); Magnesium 1.9 mg/dL (1.6-2.6); Phosphorus 2.3 mg/dL (2.5-4.9); Potassium 3.3 mmol/L (3.5-5.1); Sodium Level 143 mmol/L (136-145)
[2017-10-31] MEDS: Famotidine 20 MG Tablet PO ×2 (10:23→22:16)
--- NOTE | 2017-10-31 10:24 | PCM.PN.INT ---
Subjective: Patient transferred out of the intensive care unit yesterday. Patient has been weaned to room air. Patient states that she is doing much better on her incentive spirometer and routinely getting 1 L. Patient reports the pain is improving. Patient denies any respiratory symptoms. Patient does report one episode of flatus overnight. General: Alert, Oriented x3, Cooperative, No apparent distress, Well developed, Well nourished, - - Speaking in full sentences. HEENT: Atraumatic, PERRLA, EOMI, Normocephalic, - - No scleral icterus or injection noted. Glasses in place. Oral: Moist Mucosa, No Gingival or Mucosal Lesions/ Ulcerations Neck: Supple, No JVD, No Nodes, Trachea Midline, - - IJ removed. Dressing is clean, dry and intact Lungs: Clear to auscultation, Normal air movement, No rhonchi, No wheeze, No rales, - - Symmetric expansion. No dullness to percussion. Cardiovascular: Regular rate, Regular Rhythm, Normal S1, Normal S2, No murmurs, No rub noted, No Gallop Abdomen: Bowel Sounds Present, Soft, Non Tender, Non-Distended, Obese Extremities: No clubbing, No cyanosis, Edema - Trace noted in bilateral legs and hands Skin: No rashes, No breakdown Musculoskeletal: No Tenderness to Palpation of Joints or Extremities, No Muscle Wasting Lymphatic: No Cervical, Supraclavicular, or Inguinal Adenopathy Neurological: Cranial nerves II-XII grossly intact, Neuro grossly intact, Motor Exam 5/5 strength throughout Psych/Mental Status: Alert and oriented to time, place, person, mood and affect Vital Signs Temp Pulse Resp BP Pulse Ox 36.7 C 91 20 H 142/88 H 97 10/31/17 08:28 10/31/17 08:28 10/31/17 08:28 10/31/17 08:28 10/31/17 08:28 Oxygen Flow Rate (L/min) 2 Oxygen Delivery Method Room Air Weight: 100.108 kg Body Mass Index (BMI) 34.7 Orthostatic Vital Signs Start: 10/28/17 10:12 Freq: q24h Status: Active Protocol: Activity Type Activity Date Activity User E-Sign Co-Sign Detail Recorded Client Recorded Date Recorded By Document 10/28/17 12:32 [id number] 08/22/18 12:33 RV 10/28/17 12:32 Orthostatic Vitals Lying -Blood Pressure (90/60-120/80) 105/54 L -Extremity Use Right Arm -Pulse Rate (60-100) 101 H Sitting -Blood Pressure (90/60-120/80) 72/48 L -Extremity Use Right Arm -Pulse Rate (60-100) 115 H Intake and Output for Last 24 Hours 10/29/17 10/30/17 10/31/17 23:59 23:59 23:59 Intake Total 4636.4 / 4636.4 1081 / 1081 1666.7 / 1666.7 Output Total 2125 / 2125 1350 / 1350 2100 / 2100 Balance 2511.4 / 2511.4 -269 / -269 -433.3 / -433.3 Labs (Last 48 Hours) 10/29/17 10/30/17 10/30/17 17:00 04:35 04:35 WBC 6.7 RBC 3.09 L Hgb 9.7 L 9.4 L Hct 28.2 L 27.4 L MCV 88.7 MCH 30.4 MCHC 34.3 RDW 14.0 RDW Differential 45.3 H Plt Count 141 L MPV 9.5 Immature Gran % (Auto) 0.100 Neut % (Auto) 74.8 H Lymph % (Auto) 17.7 L Carroll % (Auto) 5.7 Eos % (Auto) 1.6 Baso % (Auto) 0.1 Absolute Neuts (auto) 5.0 Absolute Lymphs (auto) 1.18 Total Counted Not Reportable Sodium 141 Potassium 3.3 L Chloride 104 Carbon Dioxide 26.0 Anion Gap 11 BUN 5 L Creatinine 0.44 L Estim Creat Clear Calc 130.62 Est GFR (MDRD) Af Amer 193 Est GFR (MDRD) Non-Af 159 BUN/Creatinine Ratio 11.3 Glucose 83 Calcium 7.4 L Phosphorus Magnesium 10/31/17 10/31/17 06:00 06:00 WBC 5.7 RBC 3.07 L Hgb 9.4 L Hct 27.5 L MCV 89.6 MCH 30.6 MCHC 34.2 RDW 13.4 RDW Differential 42.5 Plt Count 186 MPV 10.0 Immature Gran % (Auto) Neut % (Auto) Lymph % (Auto) Carroll % (Auto) Eos % (Auto) Baso % (Auto) Absolute Neuts (auto) Absolute Lymphs (auto) Total Counted Sodium 143 Potassium 3.3 L Chloride 106 Carbon Dioxide 27.0 Anion Gap 10 BUN 4 L Creatinine 0.36 L Estim Creat Clear Calc 159.65 Est GFR (MDRD) Af Amer 246 Est GFR (MDRD) Non-Af 203 BUN/Creatinine Ratio 11.2 Glucose 84 Calcium 7.6 L Phosphorus 2.3 L Magnesium 1.9 Medical Necessity - Tobacco Use Smoking Status: Never smoker Tobacco Use: Non-smoker Assessment/Plan All Active Problems (Last Reviewed 10/13/17 @ 14:35 by Jeanine Lopez) Post-operative haemorrhage (Acute) History of endometrial ablation (Acute) Hx of hysterectomy (Acute) Hx of wisdom tooth extraction (Acute) Hx of colonoscopy (Acute) Hx of breast biopsy (Acute) 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 Wean oxygen as tolerated 2. Encourage incentive spirometer 3. Increase activity as tolerated 4. Allow for passive diuresis 5. Pain control per surgery 6. Hemodynamically stable on room air. Will sign off from a critical care perspective IMPRESSIONS: 1. Acute blood loss anemia secondary to postoperative hemorrhage Patient's hemoglobin appears to be stable over the last 24 hours. Patient is not reporting any significant worsening in abdominal pain and mobility continues to improve. No indication for transfusion at this time. 2. Acute respiratory failure Patient with normal oxygenation on room air. Stressed to the patient the importance of using incentive spirometer and out of bed as tolerated. Patient voiced understanding. Patient does not have any history of obstructive lung disease that would require bronchodilator therapy. Patient is currently mobilizing fluids used for resuscitation. Do not believe diuretic therapy is necessary and patient will auto diurese with time. 3. Diverticulosis status post sigmoidectomy postop day #3 Patient with repeat surgery. General surgery is currently following. Patient with slight increase in bowel sounds today and patient does report flatus. Defer to surgery about possibility of using p.o. pain medications to facilitate activity. Defer to surgery on initiation of p.o. diet or clears. 4. Obesity/hypokalemia Complicates care, management, recovery and prognosis. Potassium repletion has been ordered. Clinical suspicion for diuresis leading to hypokalemia. Code Visit Inpatient E&M: 63944 Subs Hosp L2
--- NOTE | 2017-10-31 12:19 | PCM.PN.SRG ---
Patient Problems: Active and Suspected Problems (Last Reviewed 10/13/17 @ 14:35 by Jeanine Lopez) Post-operative haemorrhage (Acute) Subjective: Patient's pain has improved. She is passing flatus. No bowel movements as of yet. Objective: Incision is clean and dry abdomen is soft and appropriately tender still with such a large incision. No rebound guarding or peritoneal signs are identified. - Physical Exam Vital Signs Temp Pulse Resp BP Pulse Ox 98.0 F 91 20 H 142/88 H 97 10/31/17 08:28 10/31/17 08:28 10/31/17 08:28 10/31/17 08:28 10/31/17 08:28 Oxygen Flow Rate (L/min) 2 Oxygen Delivery Method Room Air Weight: 220 lb 11.2 oz Body Mass Index (BMI) 34.7 Orthostatic Vital Signs Start: 10/28/17 10:12 Freq: q24h Status: Active Protocol: Activity Type Activity Date Activity User E-Sign Co-Sign Detail Recorded Client Recorded Date Recorded By Document 10/28/17 12:32 RV [id number] 10/28/17 12:33 RV 10/28/17 12:32 Orthostatic Vitals Lying -Blood Pressure (90/60-120/80) 105/54 L -Extremity Use Right Arm -Pulse Rate (60-100) 101 H Sitting -Blood Pressure (90/60-120/80) 72/48 L -Extremity Use Right Arm -Pulse Rate (60-100) 115 H Intake and Output for Last 24 Hours 10/29/17 10/30/17 10/31/17 23:59 23:59 23:59 Intake Total 4636.4 / 4636.4 1081 / 1081 1666.7 / 1666.7 Output Total 2125 / 2125 1350 / 1350 2100 / 2100 Balance 2511.4 / 2511.4 -269 / -269 -433.3 / -433.3 Laboratory Tests Past 24 Hrs 10/31/17 10/31/17 06:00 06:00 WBC 5.7 RBC 3.07 L Hgb 9.4 L Hct 27.5 L MCV 89.6 MCH 30.6 MCHC 34.2 RDW 13.4 RDW Differential 42.5 Plt Count 186 MPV 10.0 Sodium 143 Potassium 3.3 L Chloride 106 Carbon Dioxide 27.0 Anion Gap 10 BUN 4 L Creatinine 0.36 L Estim Creat Clear Calc 159.65 Est GFR (MDRD) Af Amer 246 Est GFR (MDRD) Non-Af 203 BUN/Creatinine Ratio 11.2 Glucose 84 Calcium 7.6 L Phosphorus 2.3 L Magnesium 1.9 Medical Necessity - Tobacco Use Smoking Status: Never smoker Tobacco Use: Non-smoker Assessment/Plan All Active Problems (Last Reviewed 10/13/17 @ 14:35 by Jeanine Lopez) Post-operative haemorrhage (Acute) History of endometrial ablation (Acute) Hx of hysterectomy (Acute) Hx of wisdom tooth extraction (Acute) Hx of colonoscopy (Acute) Hx of breast biopsy (Acute) 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) Endometriosis (Acute) Benign neoplasm of colon (Acute) Diverticulitis (Acute) Patient has made some significant improvements. Hemoglobin is stable at this time. We will advance her diet to full liquids. Okay to get an shower today and remove dressings.
--- NOTE | 2017-10-31 14:45 | NURSING ---
At 12:30, This nurse looked in clinical Pharmacology and saw that LR is not compatible with Potassium Phos. LR was stopped and flushed IV with Normal Saline. Potassium Phos hung as a secondary with NS to flush after it was done. Potassium Phos is compatible with Dilaudid per clinical Pharmacology.
[2017-10-31] MEDS: Acetaminophen 325 MG Tablet 650 MG PO (15:34)
[2017-10-31] MEDS: Ondansetron 4 MG/2 ML Vial IV (15:34)
[2017-10-31] MEDS: 0.9% NaCl Peripheral Flush Adult/Peds IV (15:38)
[2017-11-01] VITALS (13 sets, daily range): BP systolic 128–146; BP diastolic 70–84; PULSE 79–99; RESP 16–20; TEMP 36.7–37.3; O2SAT 95–98
[2017-11-01] MEDS: 0.9% NaCl IVPB Med Flush (250 mL) 15 ML IV (01:00)
[2017-11-01] MEDS: Acetaminophen 325 MG Tablet 650 MG PO (06:15)
[2017-11-01] MEDS: Ondansetron 4 MG/2 ML Vial IV ×3 (06:16→22:16)
[2017-11-01] MEDS: 0.9% NaCl Peripheral Flush Adult/Peds IV ×2 (06:16→11:50)
--- NOTE | 2017-11-01 10:16 | PCM.PN.SRG ---
Patient Problems: Active and Suspected Problems (Last Reviewed 10/13/17 @ 14:35 by Jeanine Lopez) Post-operative haemorrhage (Acute) Subjective: Ambulating much better today. Passing flatus. No bowel movement today. Tolerating sips and chips well. Objective: Dressing is dry without signs of infection. Abdomen is soft pain has improved and we will DC SAMPLE HAND. - Physical Exam Vital Signs Temp Pulse Resp BP Pulse Ox 98.8 F 85 18 146/80 H 96 11/01/17 06:00 11/01/17 07:30 11/01/17 07:20 11/01/17 06:00 11/01/17 07:20 Oxygen Flow Rate (L/min) 2 Oxygen Delivery Method Room Air Weight: 216 lb 14.958 oz Body Mass Index (BMI) 34.7 Intake and Output for Last 24 Hours 10/30/17 10/31/17 11/01/17 23:59 23:59 23:59 Intake Total 1081 / 1081 3922.7 / 3922.7 1806.8 / 1806.8 Output Total 1350 / 1350 5000 / 5000 2900 / 2900 Balance -269 / -269 -1077.3 / -1077.3 -1093.2 / -1093.2 Medical Necessity - Tobacco Use Smoking Status: Never smoker Tobacco Use: Non-smoker Assessment/Plan All Active Problems (Last Reviewed 10/13/17 @ 14:35 by Jeanine Lopez) Post-operative haemorrhage (Acute) History of endometrial ablation (Acute) Hx of hysterectomy (Acute) Hx of wisdom tooth extraction (Acute) Hx of colonoscopy (Acute) Hx of breast biopsy (Acute) 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) Endometriosis (Acute) Benign neoplasm of colon (Acute) Diverticulitis (Acute) Patient has made some significant improvements. Will DC SAMPLE HAND. Decrease IV fluids.
[2017-11-01] MEDS: HYDROcodone Bitartrate/Apap 5/325 Tablet PO ×2 (11:48→22:16)
[2017-11-01] MEDS: Famotidine 20 MG Tablet PO ×2 (11:50→22:16)
[2017-11-02 03:04] VITALS: BP 140/77; PULSE 88; RESP 18; TEMP 37.1; O2SAT 95
[2017-11-02] MEDS: Acetaminophen 325 MG Tablet 650 MG PO (06:10)
[2017-11-02 07:15] VITALS: O2SAT 95
--- NOTE | 2017-11-02 10:45 | PCM.DC.GS ---
Discharge Diet: Light diet - advance as tolerated - If you have questions about your diet instructions, please talk to your doctor., [place] diet Discharge Activity: May Not Drive - for 1 week or while taking narcotic pain medicine. May shower in (days): 1 Lifting Restrictions: 10 pounds Call your doctor if your incision/area has: Continuous Slow Oozing, Sudden Increased Bleeding, Increased Pain/ Swelling, Increased Redness, Foul Smelling Discharge Call your doctor if you observe: Fever of 101 or Higher Suture Line Care: Avoid Pulling/Pushing, Avoid Pinching/Bending Additional Dressing/Incision Instructions:: Change or remove dressing in 4 days. Leave steri-strips in place for 1 week. Allergies/Adverse Reactions: Allergies oxycodone [From Percocet] Allergy (Verified 10/20/17 11:01) Rash Medications to take at Discharge Calcium Carbonate/Vitamin D3 [Calcium 500+D Tablet Chew] 1 tab PO DAILY 09/15/16 Lactobacillus Combination No.4 [Probiotic] 1 tab PO DAILY 09/15/16 Multivitamin [Daily Multiple Vitamin] 1 tab PO DAILY 09/15/16 Ciprofloxacin HCl 500 mg PO BID 10/20/17 Metronidazole 500 mg PO BID 10/20/17 Vitamin B Complex 1 each PO DAILY 10/20/17 Primary Care Physician: Carmita Chisholm PA-C [Primary Care Provider] - Test Results: Test results from this visit will be discussed in further detail at your follow-up appointment, if applicable. Please Follow Up With: Lionel Holm MD - [phone] When: Call to make an appointment to be seen in about 10 days.
[2017-11-02] MEDS: HYDROcodone Bitartrate/Apap 5/325 Tablet PO (11:22)
[2017-11-02] MEDS: Ondansetron 4 MG/2 ML Vial IV (11:22)
[2017-11-02] MEDS: 0.9% NaCl Peripheral Flush Adult/Peds IV (11:22)
[2017-11-02] MEDS: Famotidine 20 MG Tablet PO (11:26)
[2017-11-02 11:29] VITALS: BP 151/88; PULSE 80; RESP 16; TEMP 37.3; O2SAT 99
--- NOTE | 2017-11-10 11:08 | PCM.DC.SUM ---
Discharge Date and Diagnosis Date of Admission: 10/27/17 Date of Discharge: 11/02/17 - Primary Discharge Diagnosis Open sigmoid colectomy for chronic recurrent diverticulitis Post-operative hemorrhage Hospital Course and Treatment Operations: colectomy - Open sigmoid colectomy, - - Emergent exploratory laparoscopy with bleeding at the splenic flexure, controlled with sutures, thrombin and clips Procedures: Blood transfusion, Intubation Summary of Care Provided: The patient is a 52 year old F who presented for an elective sigmoid colectomy for recurrent diverticulitis. Dr. Holm performed an open sigmoid colectomy on 10/27/17. Patient tolerated the procedure well. Overnight on POD 0, patient became hypotensive and was nauseated and dizziness with sitting on the side of the bed. Patient denied abdominal pain/discomfort. Patient had a decreased urine output overnight. Patient was given 2 liters of normal saline. Patient's hgb was 9.7 on 10/28. Repeat hemoglobin was obtained before noon and decreased to 7.7. Patient was rushed off to emergency surgery for post-operative bleeding. Dr. Holm performed an emergent Exploratory laparotomy control of hemorrhage from the splenic flexure on 10/28. She was massively transfused during the procedure. Patient remained intubated and was sent to the ICU post-operatively. Patient was extubated on 10/29. Patient was moved to a med/surg floor on 10/30. Patient continued to improve. Upon discharge, patient had positive flatus. She noted well controlled abdominal pain. She was tolerating her current diet. She denies nausea, vomiting. She was urinating well. Discharge Diet: Light diet - advance as tolerated - If you have questions about your diet instructions, please talk to your doctor., [place] diet Discharge Activity: May Not Drive - for 1 week or while taking narcotic pain medicine. May shower in (days): 1 Call your doctor if your incision/area has: Continuous Slow Oozing, Sudden Increased Bleeding, Increased Pain/ Swelling, Increased Redness, Foul Smelling Discharge Call your doctor if you observe: Fever of 101 or Higher Suture Line Care: Avoid Pulling/Pushing, Avoid Pinching/Bending Additional Dressing/Incision Instructions:: Change or remove dressing in 4 days. Leave steri-strips in place for 1 week. Home Medications: Medications to take at Discharge Calcium Carbonate/Vitamin D3 [Calcium 500+D Tablet Chew] 1 tab PO DAILY 09/15/16 Lactobacillus Combination No.4 [Probiotic] 1 tab PO DAILY 09/15/16 Multivitamin [Daily Multiple Vitamin] 1 tab PO DAILY 09/15/16 Ciprofloxacin HCl 500 mg PO BID 10/20/17 Metronidazole 500 mg PO BID 10/20/17 Vitamin B Complex 1 each PO DAILY 10/20/17 Hydrocodone Bitart/Apap 5-325 [[place] 5MG-325MG] 1 - 2 tab PO Q4H PRN PRN 4 Days #30 tab 11/02/17 Following Prescrptions Were Given to Patient: Hydrocodone Bitart/Apap 5-325 [[place] 5MG-325MG] 1 - 2 tab PO Q4H PRN PRN 4 Days #30 tab PRN Reason: Pain Primary Care Physician: Carmita Chisholm PA-C [Primary Care Provider] - Please Follow Up With: Lionel Holm MD - [phone] When: Call to make an appointment to be seen in about 10 days. Disposition: Home Minutes spent on discharge:: 26 Patient Condition:: Good Medical Necessity - Tobacco Use Smoking Status: Never smoker Tobacco Use: Non-smoker Meaningful Use Info Meaningful Use Diagnoses (Choose all that apply): None applicable Code Visit Inpatient E&M: [id number] Disch Hosp
== END 2017-11-02 12:40 | disposition home or self-care (01) | DRG 329 ==
LOC: MS3 10-28 13:08 → ICU 10-28 15:33 → MS3 10-30 11:37
PROVIDERS: Anesthesiology; Internal Medicine Critical Care Medicine; Physician Assistant; Admitting Provider Surgery; Family Provider Family Medicine; PCP Family Medicine; Visit Provider Surgery
PROC: 0DTN0ZZ Resection of Sigmoid Colon, Open Approach (ICD-10-PCS; CPT 44204; principal; 2017-10-27 12:10)
PROC: 0W3P0ZZ Control Bleeding in Gastrointestinal Tract, Open Approach (ICD-10-PCS; CPT 49320; principal; 2017-10-28 07:15)
DX: K57.32 Diverticulitis of large intestine without perforation or abscess without bleeding (principal); J96.00 Acute respiratory failure, unspecified whether with hypoxia or hypercapnia; K91.840 Postprocedural hemorrhage of a digestive system organ or structure following a digestive system procedure; D62 Acute posthemorrhagic anemia; Z53.31 Laparoscopic surgical procedure converted to open procedure; Y83.8 Other surgical procedures as the cause of abnormal reaction of the patient, or of later complication, without mention of misadventure at the time of the procedure; E66.9 Obesity, unspecified; Z68.34 Body mass index [BMI] 34.0-34.9, adult; K66.0 Peritoneal adhesions (postprocedural) (postinfection); E87.6 Hypokalemia
CPT/HCPCS: 36415; 36600; 71045; 80048; 80053; 80076; 82550; 82803; 82962; 83735; 84100; 84478; 85014; 85018; 85025; 85027; 85384; 85610; 85730; 86644; 86850; 86900; 86920; 86922; 86965; 87641; 88302; 88304; 88305; 88307; 93005; 94002; 94003; 94660; 94667; 94762; 95831; 97116; 97162; 97530; 97802; J7030; J7040; J7050; J7120; P9016; P9017; P9035; A4216; C1751; C1760; J1170; J2405

== ENCOUNTER → 2017-11-17 10:20 | Outpatient (CLI) | payer BC, SELFPAY ==
[2017-11-17 10:24] LABS: Mucous, Urine 0 SEEN /hpf (<or=2+)
[2017-11-17 11:00] LABS: Color, Urine Yellow (Yellow); Glucose, Dipstick Normal (Normal); Ketone-Dipstick Negative (Negative); Leukocyte Esterase-Dipstick 100 /ul (Negative); Nitrite-Dipstick Negative (Negative); Occult Blood-Urine 10 /ul (Negative); Protein-Dipstick Negative (Negative); Urine Bilirubin Dipstick Negative (Negative); Urine Clarity Clear (Clear); Urine Urobilinogen Normal (Normal)
[2017-11-17 14:43] LABS: Bacteria RARE /hpf (None Seen); Squamous Epithelial Cells - UA 0-5 SEEN /hpf (5-10); White Blood Cells 0-5 SEEN /hpf (0-5)
[2017-11-17 14:44] LABS: Red Blood Cells-Urine 0-5 SEEN /hpf (0-5)
== END ==
PROVIDERS: Family Provider Family Medicine; PCP Family Medicine; Visit Provider Physician Assistant
DX: R39.15 Urgency of urination (principal)
CPT/HCPCS: 81001

== ENCOUNTER → 2017-11-26 16:44 | Outpatient (CLI) | payer BC, SELFPAY ==
--- NOTE | 2017-11-26 16:53 | US_ITS ---
STUDY: RENAL ULTRASOUND - COMPLETE REASON FOR EXAM: Female, 52 years old. Left flank pain TECHNIQUE: Ultrasound evaluation of the kidneys was performed with real-time and static rodarte-scale imaging. COMPARISON: None. FINDINGS: RIGHT KIDNEY: Normal location of the right kidney, which is normal in size. The right kidney measures 11.2 x 4.5 x 4.1 cm. There is a normal cortex of the right kidney. The renal cortex measures 1.3 cm. There are subcentimeter cysts. There are no right renal calculi. There is no right hydronephrosis. DISTAL RIGHT URETER: There is non-visualization of the distal right ureter. There is no demonstrated right ureterovesical junction calculus. There is a visualized right ureteral jet. LEFT KIDNEY: Normal location of the left kidney, which is normal in size. The left kidney measures 11.6 x 4.9 x 4.5 cm. There is a normal cortex of the left kidney. The renal cortex measures 1.4 cm. There is no left renal mass or cyst. There are no left renal calculi. There is no left hydronephrosis. DISTAL LEFT URETER: There is non-visualization of the distal left ureter. There is no demonstrated left ureterovesical junction calculus. There is a visualized left ureteral jet. BLADDER: The distended urinary bladder has a volume of 115 ml. The post void urinary bladder has a volume of 12 ml. There is a normal wall thickness of the distended urinary bladder. There is no demonstrated mass within the urinary bladder. There are no demonstrated bladder calculi. US/Kidney and Bladder IMPRESSION: Subcentimeter right renal cysts. Mild postoperative residua of the urinary bladder. Electronically Signed: All Andujar DO at 23:29 EDT Tel [phone], Service support ,
[2017-11-26 17:28] LABS: Bacteria 0 SEEN /hpf (None Seen); Mucous, Urine 0 SEEN /hpf (<or=2+); Red Blood Cells-Urine 0 SEEN /hpf (0-5)
[2017-11-26 17:40] LABS: Color, Urine Yellow (Yellow); Glucose, Dipstick Normal (Normal); Ketone-Dipstick Negative (Negative); Leukocyte Esterase-Dipstick 25 /ul (Negative); Nitrite-Dipstick Negative (Negative); Occult Blood-Urine Negative /ul (Negative); Protein-Dipstick Negative (Negative); Urine Bilirubin Dipstick Negative (Negative); Urine Clarity Clear (Clear); Urine Urobilinogen Normal (Normal)
[2017-11-26 17:51] LABS: Squamous Epithelial Cells - UA 0-5 SEEN /hpf (5-10); White Blood Cells 0-5 SEEN /hpf (0-5)
== END ==
PROVIDERS: Family Provider Family Medicine; PCP Family Medicine; Visit Provider Physician Assistant
DX: R10.9 Unspecified abdominal pain (principal); R39.15 Urgency of urination
CPT/HCPCS: 76770; 81001

== ENCOUNTER → 2017-12-01 10:24 | Outpatient (CLI) | payer BC, SELFPAY ==
[2017-12-01 10:38] LABS: Absolute Lymphocyte Count 2.04 X10^3/ul (0.83-4.51); Absolute Neutrophil Count 4.2 X10^3/uL (2.0-7.7); Basophil# 0.02 X10^3/uL; Basophil% 0.3 % (0-1); Eosinophil# 0.18 X10^3/uL; Eosinophils% 2.7 % (0-5); Hematocrit 36.9 % (37-47); Hemoglobin 12.3 g/dl (12.0-15.0); Lymphocyte # 2.04 X10^3/ul (4.0); Mean Corp Hgb Conc 33.3 g/gl (32-36); Mean Corpuscular Hgb 29.6 pg (27.0-32.0); Mean Corpuscular Volume 88.7 fL (81-99); Mean Platelet Vol. 8.8 fl (6.2-12.0); Monocyte# 0.38 X10^3/uL; Monocyte% 5.6 % (0-10); Neutrophil # 4.16 X10^3/uL (2.7-7.7); Neutrophil % 61.3 % (47-70); Platelet Count 287 K/mm3 (150-450); RBC Distribution Width CV 12.9 % (11.6-14.6); RBC Distribution Width SD 41.4 fl (35.1-43.9); Red Blood Count 4.16 M/mm3 (4.2-5.4); White Blood Count 6.8 K/mm3 (4.4-11.0)
[2017-12-01 10:41] LABS: POSITIVE COUNT NO; POSITIVE DIFFERENTIAL NO; POSITIVE MORPHOLOGY NO
[2017-12-01 11:05] LABS: Creatinine, Serum 0.73 mg/dL (0.55-1.02); EST Glomerular Filtration Rate 88 mL/min (>60); Est Glom Filt Rate - Afr Amer 107 mL/min (>60)
== END ==
PROVIDERS: Surgery; Family Provider Family Medicine; PCP Family Medicine; Referring Provider Physician Assistant; Visit Provider Physician Assistant
DX: R10.32 Left lower quadrant pain (principal); G89.18 Other acute postprocedural pain
CPT/HCPCS: 36415; 82565; 85025

== ENCOUNTER → 2018-03-23 17:30 | Outpatient (CLI) | payer BC, SELFPAY ==
--- NOTE | 2018-03-23 17:30 | BI_ITS ---
MAMMOGRAPHY - BILATERAL SCREENING REASON FOR EXAM: Female, 52 years old. Routine annual screening examination. PERTINENT HISTORY: Grandmother with breast cancer. History of prior left ultrasound guided breast biopsy. TECHNIQUE: Digital bilateral breast fitz (3D mammographic acquisition) in the CC and MLO projections. 2-D mediolateral oblique (MLO) and craniocaudad (CC) views of both breasts were obtained. CAD: Full Field Digital Mammography with Computer Added Detection was performed. COMPARISON: Comparison is made with prior study dated November 21, 2016 and September 21, 2015. FINDINGS: Breast Composition: The breasts are heterogeneously dense, which may obscure small masses. There are no dominant masses or suspicious calcifications. Stable benign-appearing bilateral axillary lymph nodes. No other significant abnormalities are identified. There has been no significant change since the prior study. BI/SCREENING MAMM (CAD), BILAT IMPRESSION: Stable bilateral screening mammogram. Yearly follow-up mammogram recommended. (A) ASSESSMENT CATEGORY: BIRADS Category 2: Benign. A letter regarding these results will be sent to the patient by the facility within 30 days. Approximately 10% of breast cancers are not detected by mammography. A normal mammogram should not delay biopsy of a clinically suspicious abnormality. [id number] Electronically Signed: Fabricio Kramer MD at 8:38 EST Tel [phone], Service support ,
--- OUTSIDE RECORDS SUMMARY | 2018-05-28 22:25 | XMS RPT_ITS ---
:1965 Author Organization OHIP Support Name Relationship Address Phone [employer] Unavailable [address] + [place] [address] AKASH RUFF Unavailable [id number] + [place] [address] FLEX, SANDY Unavailable Unavailable + [employer] Unavailable [address] + [place] [address] AKASH RUFF Unavailable [address] + [place] [address] FLEX, SANDY Unavailable . + [place] [address] [employer] Unavailable [address] + [place] [address] AKASH RUFF Unavailable [address] + [place] [address] FLEX, SANDY Unavailable . + [place] [address] [employer] Unavailable [address] + [place] [address] AKASH RUFF Unavailable [address] + [place] [address] FLEX, SANDY Unavailable . + [place] [address] [employer] Unavailable [address] + [place] [address] AKASH RUFF Unavailable [address] + [place] [address] FLEX, SANDY Unavailable Unavailable + [employer] Unavailable [address] + [place] [address] AKASH RUFF Unavailable [address] + [facility] [place] [address] FLEX, SANDY Unavailable Unavailable + [employer] Unavailable [address] + [place] [address] AKASH RUFF Unavailable [address] + [facility] [place] [address] FLEX, SANDY Unavailable Unavailable + [facility] [place] [address] [employer] Unavailable [address] + [place] [address] AKASH RUFF Unavailable [address] + [facility] [place] [address] FLEX, SANDY Unavailable Unavailable + [facility] [place] [address] [employer] Unavailable [address] + [place] [address] AKASH RUFF Unavailable [address] + [place] [address] FLEX, SANDY Unavailable . + [facility] [place] [address] [employer] Unavailable [address] + [place] [address] AKASH RUFF Unavailable [address] + [place] [address] FLEX, SANDY Unavailable . + [place] [address] [employer] Unavailable [address] + [place] [address] AKASH RUFF Unavailable [address] + [place] [address] FLEX, SANDY Unavailable Unavailable + [place] [address] [employer] Unavailable [address] + [place] [address] AKASH RUFF Unavailable [address] + [place] [address] FLEX, SANDY Unavailable Unavailable + [facility] [place] [address] [employer] Unavailable [address] + [place] [address] AKASH RUFF Unavailable [address] + [facility] [place] [address] FLEX, SANDY Unavailable Unavailable + [facility] [place] [address] [employer] Unavailable [address] + [place] [address] AKASH RUFF Unavailable [address] + [facility] [place] [address] FLEX, SANDY Unavailable Unavailable + [facility] [place] [address] [employer] Unavailable [address] + [place] [address] AKASH RUFF Unavailable [address] + [place] [address] FLEX, SANDY Unavailable Unavailable + [facility] [place] [address] [employer] Unavailable [address] + [place] [address] AKASH RUFF Unavailable [address] + [place] [address] FLEX, SANDY Unavailable Unavailable + [place] [address] [employer] Unavailable [address] + [place] [address] AKASH RUFF Unavailable [address] + [place] [address] FLEX, SANDY Unavailable Unavailable + [place] [address] [employer] Unavailable [address] + [place] [address] AKASH RUFF Unavailable [address] + [place] [address] FLEX, SANDY Unavailable . + [place] [address] [employer] Unavailable [address] + [place] [address] AKASH RUFF Unavailable [address] + [place] [address] FLEX, SANDY Unavailable Unavailable + [employer] Unavailable [employer]PING [employer]IST[employer] + [place] [address] AKASH RUFF Unavailable [address] + [place] [address] FLEX, SANDY Unavailable . 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 + [place] [address] [employer] Unavailable [employer]PING [employer]ISTANT [employer] + [place] [address] AKASH RUFF Unavailable [address] + [place] [address] FLEX, SANDY Unavailable / + [place] [address] AKASH RUFF Unavailable [address] + [place], [place] [id number] AKASH RUFF Unavailable [address] Unavailable [place], [place] [id number] Care Team Providers Name Role Phone Lionel Holm Attending Unavailable [place], Carmita PA-C Referring Unavailable Peralta PA-C, Merary Attending Unavailable [place], Carmita PA-C Referring Unavailable [place], Carmita PA-C Primary Care Unavailable [place], Carmita PA-C Primary Care Unavailable Peralta PA-C, Merary Attending Unavailable Peralta PA-C, Merary Referring Unavailable Peralta PA-C, Merary Attending Unavailable [place], Carmita PA-C Referring Unavailable [place], Carmita PA-C Primary Care Unavailable Marcanthony, Velia Attending Unavailable Marcanthony, Velia Referring Unavailable [place], Carmita PA-C Primary Care Unavailable WalpoleLionel Attending Unavailable [place], Carmita PA-C Referring Unavailable Alta, Lionel Admitting Unavailable Alta, Lionel Attending Unavailable Alta, Lionel Referring Unavailable [place], Carmita PA-C Primary Care Unavailable Alta, Lionel Consulting Unavailable Peralta PA-C, Merary Attending Unavailable [place], Carmita PA-C Referring Unavailable [place], Carmita PA-C Primary Care Unavailable Alta, Lionel Admitting Unavailable Alta, Lionel Attending Unavailable Alta, Lionel Referring Unavailable [place], Carmita PA-C Primary Care Unavailable [place], Lionel Consulting Unavailable [place], Lionel Admitting Unavailable Peralta PA-C, Merary Attending Unavailable [place], Lionel Referring Unavailable [place], Carmita PA-C Primary Care Unavailable Alta, Lionel Consulting Unavailable Alta, Lionel Admitting Unavailable Alta, Lionel Attending Unavailable [place], Lionel Referring Unavailable [place], Carmita PA-C Primary Care Unavailable [place], Lionel Consulting Unavailable Alta, Lionel Admitting Unavailable [place], Lionel Attending Unavailable [place], Lionel Referring Unavailable [place], Carmita PA-C Primary Care Unavailable Alta, Lionel Consulting Unavailable [place], Lionel Admitting Unavailable [place], Lionel Attending Unavailable Alta, Lionel Referring Unavailable [place], Carmita PA-C Primary Care Unavailable [place], Lionel Consulting Unavailable Alta, Lionel Admitting Unavailable Peralta PA-C, Merary Attending Unavailable Alta, Lionel Referring Unavailable [place], Carmita PA-C Primary Care Unavailable Jose Dowd Consulting Unavailable Alta, Lionel Consulting Unavailable Alta, Lionel Attending Unavailable [place], Carmita PA-C Referring Unavailable Jose Dowd Attending Unavailable [place], Lionel Referring Unavailable Nurse, Surgery Attending Unavailable [place], Lionel Referring Unavailable Peralta PA-C, Merary Attending Unavailable Peralta PA-C, Merary Referring Unavailable [place], Carmita PA-C Primary Care Unavailable Peralta PA-C, Merary Attending Unavailable Peralta PA-C, Merary Referring Unavailable [place], Carmita PA-C Primary Care Unavailable Peralta PA-C, Merary Attending Unavailable Peralta PA-C, Merary Attending Unavailable Peralta PA-C, Merary Referring Unavailable [place], Carmita PA-C Primary Care Unavailable Mert Diamond Attending Unavailable Berto Colon Referring Unavailable Peralta PA-C, Merary Attending Unavailable Peralta PA-C, Merary Attending Unavailable [place], Carmita PA-C Referring Unavailable Peralta PA-C, Merary Attending Unavailable ARTI REZA Admitting Unavailable KASHIF VILA Attending Unavailable AGUSTO CROWE Consulting Unavailable LORE, CARMITA Admitting Unavailable LORE, CARMITA Attending Unavailable LORE, CARMITA Primary Care Unavailable DINO CONNOR Consulting Unavailable DINO CONNOR Referring Unavailable PROVIDER, UNKNOWN Consulting Unavailable PROVIDER, UNKNOWN Consulting Unavailable PROVIDER, UNKNOWN Consulting Unavailable DINO CONNOR Primary Care Unavailable Jessica REZA Admitting Unavailable KASHIF VILA Attending Unavailable Simon CROWE S Consulting Unavailable PROBLEMS PROBLEMS DATE TYPE CONDITION / CODE ATTENDING STATUS SOURCE Unknown Z12.31 - Encounter for Torri, Active [place] [facility] screening mammogram [facility] for malignant neoplasm [facility] breast / Repository Z12.31(ICD-10) Unknown R10.9 - Unspecified Peralta PA-C, Active [place] [facility] abdominal pain / [facility] R10.9(ICD-10) Hospital Repository Unknown T81.4XXA - Infection Alta, Active [place] 8 following a procedure, [facility] initial encounter / Hospital T81.4XXA(ICD-10) Repository Unknown K57.32 - Jose Dowd Active [place] [facility] Diverticulitis of [facility] large intestine Hospital without perforation or Repository abscess without bleeding / K57.32(ICD-10) Unknown D62 - Acute NileJose saunders Active [place] 8 posthemorrhagic anemia Community / D62(ICD-10) Hospital Repository Unknown J96.00 - Acute Jose Dowd Active [place] 8 respiratory failure, Community unspecified whether Hospital with hypoxia or Repository hypercapnia / J96.00(ICD-10) Unknown E66.9 - Obesity, NileJose saunders Active [place] unspecified / Community E66.9(ICD-10) Hospital Repository Unknown E87.6 - Hypokalemia / NileJose saunders Active [place] [facility] E87.6(ICD-10) [facility] Repository Unknown R94.31 - Abnormal [place], Active [place] [address] [facility] [ECG] [EKG] / Hospital R94.31(ICD-10) Repository Unknown R39.15 - Urgency of Fabian BROWN, Active [place] 8 urination / [facility] R39.15(ICD-10) Hospital Repository Active Diverticulitis of [facility], [facility] 8 intestine, part [facility] Other unspecified, without Pelican perforation or abscess Repository without bleeding / K57.92(ICD-10) Admitting Unknown / UNK(Unknown) JULITO, Active [facility] 8 diagnosis [facility] Repository PROCEDURES PROCEDURES No Procedure Records FoundRESULTS RESULTS SCREENING MAMM (CAD), Observed: 03/23/2018 Status: F Source: [place] 4:58 PM [facility] REPOSITORY [facility] Imaging Services [address] [place] [address] SCREENING MAMM (CAD), BILAT MR#: [id number] Acct: [id number] Name: HOLGER RUFF Rep #: [id number] : 1965 F 52 From: Fabricio Kramer MD PCP: Carmita Chisholm PA-C Status: REG CLI Study: SCREENING MAMM (CAD), BILAT Date of Exam: 03/23/18 Exam# [id number] Ordering Dr: Clair Lee MAMMOGRAPHY - BILATERAL SCREENING REASON FOR EXAM: Female, 52 years old. Routine annual screening examination. PERTINENT HISTORY: Grandmother with breast cancer. History of prior left ultrasound guided breast biopsy. TECHNIQUE: Digital bilateral breast fitz (3D mammographic acquisition) in the CC and MLO projections. 2-D mediolateral oblique (MLO) and craniocaudad (CC) views of both breasts were obtained. CAD: Full Field Digital Mammography with Computer Added Detection was performed. COMPARISON: Comparison is made with prior study dated November 21, 2016 and September 21, 2015. FINDINGS: Breast Composition: The breasts are heterogeneously dense, which may obscure small masses. There are no dominant masses or suspicious calcifications. Stable benign-appearing bilateral axillary lymph nodes. No other significant abnormalities are identified. There has been no significant change since the prior study. BI/SCREENING MAMM (CAD), BILAT IMPRESSION: Stable bilateral screening mammogram. Yearly follow-up mammogram recommended. (A) ASSESSMENT CATEGORY: BIRADS Category 2: Benign. A letter regarding these results will be sent to the patient by the facility within 30 days. Approximately 10% of breast cancers are not detected by mammography. A normal mammogram should not delay biopsy of a clinically suspicious abnormality. [id number] Electronically Signed: Fabricio Kramer MD at 8:38 EST Tel [phone], Service support , CC: GIOVANNI Lee; STEPHANIE Chisholm Cyber Ops Planner: Signed SURGERY VISIT REPORT Observed: 01/20/2018 Status: F Source: [place] 2:27 PM [facility] [place] [place] REPOSITORY [facility] [address] [place] [address]. [address] [place] [address] OFFICE VISIT Date of Service: 01/19/18 MR#: [id number] Acct: [id number] Name: HOLGER RUFF Rep #: [id number] : 1965 Provider: Merary Peralta PA-C Age/Sex: 52/F Location: [facility] Status: Signed Intake Intake Visit Reasons: f/u colectomy 10/28/17 dp Chief Complaint: post op colectomy 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 Is patient in pain?: No Allergies oxycodone [From Percocet] Allergy (Verified 01/19/18 14:51) Rash Medications Calcium Carbonate/Vitamin D3 [Calcium 500+D Tablet Chew] 1 tab PO DAILY 09/15/16 [History Confirmed 01/19/18] Lactobacillus Combination No.4 [Probiotic] 1 tab PO DAILY 09/15/16 [History Confirmed 01/19/18] Multivitamin [Daily Multiple Vitamin] 1 tab PO DAILY 09/15/16 [History Confirmed 01/19/18] Metronidazole 500 mg PO BID 10/20/17 [History Confirmed 01/19/18] Vitamin B Complex 1 ea PO DAILY 10/20/17 [History Confirmed 01/19/18] fluconazole 150 mg tablet 150 mg PO ONCE #1 tab 11/17/17 [Rx Confirmed 01/19/18] Subjective Details: Patient is status post a open sigmoid colectomy on 10/27/2017. Unfortunately the patient suffered a complication from internal bleeding which required a repeat exploratory laparotomy and control of bleeding postoperatively from that she did quite well she has had normal bowel movements her pain is improving she is gradually increasing her activities. Patient returns today for follow-up visit. She notes feeling back to normal for the last week. She notes her incision has finely completely closed. Objective Details: Abdomen- soft, nontender, positive bowel sounds. Incision is nicely healed and completely closed. Assessment AND Plan Problems 1. Postoperative hemorrhage involving digestive system following digestive system procedure K91.840 2. S/P colectomy Z.49 Plan - Follow-up as needed - Will discuss if need colonoscopy in [address] Holm Coding Level of Care Code Global Post Op Diagnoses Postoperative hemorrhage involving digestive system following digestive system procedure K91.840 Surgical complication system/body Area: digestive system Procedure type: digestive system S/P colectomy Z90.49 01/20/18 1427 <Electronically signed by Merary Peralta PA-C> Date Merary Peralta PA-C Cosigner Signature: Date (if applicable) CC: SURGERY VISIT REPORT Observed: 12/22/2017 Status: F Source: [place] 4:01 PM [facility] [place] [place] REPOSITORY [facility] [address] [place] [address] [address] [place] [address] OFFICE VISIT Date of Service: 12/22/17 MR#: [id number] Acct: [id number] Name: HOLGER RUFF Dora Rep #: [id number] : 1965 Provider: Merary Peralta PA-C Age/Sex: 52/F Location: [facility] Status: Signed Intake Intake Visit Reasons: f/u colectomy 10/28/17 dp Chief Complaint: post op colectomy 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 Is patient in pain?: No Allergies oxycodone [From Percocet] Allergy (Verified 12/22/17 14:34) Rash Medications Calcium Carbonate/Vitamin D3 [Calcium 500+D Tablet Chew] 1 tab PO DAILY 09/15/16 [History Confirmed 12/22/17] Lactobacillus Combination No.4 [Probiotic] 1 tab PO DAILY 09/15/16 [History Confirmed 12/22/17] Multivitamin [Daily Multiple Vitamin] 1 tab PO DAILY 09/15/16 [History Confirmed 12/22/17] Metronidazole 500 mg PO BID 10/20/17 [History Confirmed 12/22/17] Vitamin B Complex 1 ea PO DAILY 10/20/17 [History Confirmed 12/22/17] fluconazole 150 mg tablet 150 mg PO ONCE #1 tab 11/17/17 [Rx Confirmed 12/22/17] Subjective Details: Patient is status post a open sigmoid colectomy on 10/27/2017. Unfortunately the patient suffered a complication from internal bleeding which required a repeat exploratory laparotomy and control of bleeding postoperatively from that she did quite well she has had normal bowel movements her pain is improving she is gradually increasing her activities. Patient returns today for follow-up visit. She notes very minimal amount of serous yellowish drainage. She continues to clean the area with peroxide. She noted muscle discomfort. 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 She denies nausea, vomiting, fever. Her appetite is returning to normal. Her bowel movements have returned to normal. Objective Details: Abdomen- soft, nontender. Positive bowel sounds. Very small micro-opening noted with very minimal amount of serous drainage. Assessment AND Plan Problems 1. Postoperative hemorrhage involving digestive system following digestive system procedure K91.840 Plan - Continue cleaning open incision with peroxide - Follow-up in 1 week Coding Level of Care Code Global Post Op Diagnoses Postoperative hemorrhage involving digestive system following digestive system procedure K91.840 Surgical complication system/body Area: digestive system Procedure type: digestive system 12/22/17 1601 <Electronically signed by Merary Peralta PA-C> Date Merary Peralta PA-C Cosigner Signature: Date (if applicable) CC: SURGERY VISIT REPORT Observed: 12/15/2017 Status: F Source: [place] 9:28 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 Is patient in pain?: No (pulling- left of bellybutton) Allergies oxycodone [From Percocet] Allergy (Verified 12/15/17 08:33) Rash Medications Calcium Carbonate/Vitamin D3 [Calcium 500+D Tablet Chew] 1 tab PO DAILY 09/15/16 [History Confirmed 12/15/17] Lactobacillus Combination No.4 [Probiotic] 1 tab PO DAILY 09/15/16 [History Confirmed 12/15/17] Multivitamin [Daily Multiple Vitamin] 1 tab PO DAILY 09/15/16 [History Confirmed 12/15/17] Metronidazole 500 mg PO BID 10/20/17 [History Confirmed 12/15/17] Vitamin B Complex 1 ea PO DAILY 10/20/17 [History Confirmed 12/15/17] fluconazole 150 mg tablet 150 mg PO ONCE #1 tab 11/17/17 [Rx Confirmed 12/15/17] Subjective Details: Patient is status post a open sigmoid colectomy on 10/27/2017. Unfortunately the patient suffered a complication from internal bleeding which required a repeat exploratory laparotomy and control of bleeding postoperatively from that she did quite well she has had normal bowel movements her pain is improving she is gradually increasing her activities. Patient returns today for follow-up visit. She notes still minimal amount of drainage. She continues to clean the area with peroxide. She noted muscle discomfort specifically over the left upper quadrant adjacent to the umbilicus following this weekend. She noted increasing her activity which caused some discomfort. 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 She denies nausea, vomiting, fever. Her appetite is returning to normal. Her bowel movements have returned to normal. Objective Details: Abdomen- soft, nontender. Positive bowel sounds. Incision is nicely healing. Small opening with hypergranulation tissue. Silver nitrate was used and saline helped to deactivate the area. ABD pad was placed. Assessment AND Plan Problems 1. Status post colectomy Z90.49 2. Postoperative hemorrhage involving digestive system following digestive system procedure K91.840 Plan - Continue cleaning open incision with peroxide - Follow-up in 1 week Coding Level of Care Code Global Post Op Diagnoses Status post colectomy Z90.49 Postoperative hemorrhage involving digestive system following digestive system procedure K91.840 Surgical complication system/body Area: digestive system Procedure type: digestive system 12/15/17927 <Electronically signed by Merary Peralta PA-C> Date Merary Peralta PA-C Cosigner Signature: Date (if applicable) CC: SURGERY VISIT REPORT Observed: 12/01/2017 Status: F Source: [place] 12:54 PM [facility] [place] [place] REPOSITORY [facility] 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 Is patient in pain?: No Allergies oxycodone [From Percocet] Allergy (Verified 12/01/17 09:55) Rash Medications Calcium Carbonate/Vitamin D3 [Calcium 500+D Tablet Chew] 1 tab PO DAILY 09/15/16 [History Confirmed 12/01/17] Lactobacillus Combination No.4 [Probiotic] 1 tab PO DAILY 09/15/16 [History Confirmed 12/01/17] Multivitamin [Daily Multiple Vitamin] 1 tab PO DAILY 09/15/16 [History Confirmed 12/01/17] Metronidazole 500 mg PO BID 10/20/17 [History Confirmed 12/01/17] Vitamin B Complex 1 ea PO DAILY 10/20/17 [History Confirmed 12/01/17] fluconazole 150 mg tablet 150 mg PO ONCE #1 tab 11/17/17 [Rx Confirmed 12/01/17] Subjective Details: Patient is status post a open sigmoid colectomy on 10/27/2017. Unfortunately the patient suffered a complication from internal bleeding which required a repeat exploratory laparotomy and control of bleeding postoperatively from that she did quite well she has had normal bowel movements her pain is improving she is gradually increasing her activities. Patient returns today for follow-up visit. She had noted over the last week she had developed flank pain which radiated around into the pelvis. She had a repeat UA which demonstrated blood and leukocyte esterase. Renal ultrasound was unremarkable. Patient noted last when she completed the urine sample, she felt as though she had an obstruction which broke loose and since that time she denies flank and pelvic pain. Patient notes last Thursday the incision had scabbed over and caused erythema and a pus pocket. Patient's was able to open the area and noted small amount of pus, however the erythema went away. She noted generalized muscle discomfort over the entire abdomen following this weekend. She noted increasing her activity which caused some discomfort. She denies nausea, vomiting, fever. Her appetite is slowly returning to normal. Her bowel movements have returned to normal. Objective Details: Abdomen- soft, nontender. Positive bowel sounds. Incision is nicely healing. Small opening with hypergranulation tissue. Silver nitrate was used and saline helped to deactivate the area. ABD pad was placed. Assessment AND Plan Problems 1. Diverticulitis of large intestine without perforation or abscess without bleeding K57.32 2. Postoperative hemorrhage involving digestive system following digestive system procedure K91.840 Plan - Continue no lifting greater than 30 pounds for another 2 weeks - Keep cleaning open area of incision with peroxide and soap and water - Keep covered until completely closed - Follow-up in 2 weeks - Obtain a CBC today Coding Level of Care Code Global Post Op Diagnoses Diverticulitis of large intestine without perforation or abscess without bleeding K57.32 Diverticulitis site: large intestine Diverticulitis bleeding: without bleeding Diverticulitis complication: without perforation or abscess Postoperative hemorrhage involving digestive system following digestive system procedure K91.840 Surgical complication system/body Area: digestive system Procedure type: digestive system 12/01/17 1254 <Electronically signed by Merary Peralta PA-C> Date Merary Peralta PA-C Cosigner Signature: Date (if applicable) CC: CBC W/DIFF, AUTOMATED Collected: 12/01/2017 Status: F Source: [place] 10:27 AM [facility] [place], [place] REPOSITORY TYPE CODE TESTS RESULT OUT OF RANGE REFERENCE UNITS LAB L100.1000 4.4-11.0 K/mm3 Normal WBC 6.8 LAB L100.1200 4.2-5.4 M/mm3 Low RBC 4.16 LAB L100.1300 12.0-15.0 g/dl Normal HGB 12.3 LAB L100.1400 37-47 % Low HCT 36.9 LAB L100.1500 81-99 fL Normal MCV 88.7 LAB L100.1600 27.0-32.0 pg Normal MCH 29.6 LAB L100.1700 32-36 g/gl Normal MCHC 33.3 LAB L100.1810 11.6-14.6 % Normal RDW CV 12.9 LAB L100.1820 35.1-43.9 fl Normal RDW SD 41.4 LAB L100.1900 150-450 K/mm3 Normal PLT 287 LAB L100.2000 6.2-12.0 fl Normal MPV 8.8 LAB L100.2100 47-70 % Normal NEUT% 61.3 LAB L100.2200 19-41 % Normal LY% 30.0 LAB L100.2300 0-10 % Normal MONO% 5.6 LAB L100.2400 0-5 % Normal EO% 2.7 LAB L100.2500 0-1 % Normal BASO% 0.3 LAB L100.2550 0.0-0.9 % Normal IM GRAN % 0.100 Result Comment: IG% - Immature Granulocytes (promyelocytes, myelocytes and metamyelocytes) > 1% indicates that a LEFT SHIFT is Present. LAB L100.2620 2.0-7.7 X10 3/uL Normal Absolute Neut 4.2 LAB L100.2720 0.83-4.51 X10 3/ul Normal Absolute Lymph 2.04 Performed By: #### L100.0100 #### Laboratory [place], [address] SERUM CREATININE AND Collected: 12/01/2017 Status: F Source: [place] GFR 10:27 AM [facility] [place], [place] REPOSITORY Order Comment: Order Date: 12/19/16 Order Info: 0145-1 - *Creatinine, Serum TYPE CODE TESTS RESULT OUT OF RANGE REFERENCE UNITS LAB L501.1100 0.55-1.02 mg/dL Normal 0.73 CREAT,SERUM Result Comment: The validity of the calculated GFR AND GFRAA in patients over 70 years has not been determined. Clinical correlation is essential. LAB L501.1110 >60 mL/min Normal EST GFR 88 Result Comment: Non- GFR Calc LAB L501.1115 >60 mL/min Normal EST GFR - AA 107 Result Comment: GFR Calc Performed By: #### L501.1105 #### Laboratory [address], [address] URINALYSIS, COMPLETE Collected: 11/26/2017 Status: F Source: BR[place] 5:27 PM [facility] [place], [place] REPOSITORY Order Comment: How was Urine Obtained? 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 DIPSTX 1.010 LAB L400.3550 5.0 - 8.0 pH UR Normal 6.0 LAB L400.3600 Negative mg/dl PROT Normal DIPSTX Negative LAB L400.3700 Normal mg/dl Normal UROBILI Normal LAB L400.3750 Negative Normal NITRITE UR Negative LAB L400.3780 Negative /ul Normal OCCULT BLOOD-UR Negative LAB L400.3800 Negative /ul High LEUK 25 ESTERASE LAB L400.4050 0-5 /hpf WBC Normal 0-5 SEEN LAB L400.4100 0-5 /hpf 0 Normal RBC-UA SEEN LAB L400.4150 5-10 /hpf SQUAM Normal EPI 0-5 SEEN LAB L400.4300 None Seen /hpf 0 Normal BACTERIA SEEN LAB L400.4350 <or=2+ /hpf 0 Normal MUCUS, URINE SEEN Performed By: #### L400.0001 #### Laboratory [address] [place], [address] KIDNEY AND BLADDER Observed: 11/26/2017 Status: F Source: BR[place] 4:53 PM [facility] [place] [place] REPOSITORY [facility] Imaging Services [address] [place] [address] Kidney and Bladder MR#: [id number] Acct: [id number] Name: HOLGER RUFF Rep #: [id number] : 1965 F 52 From: All Andujar DO PCP: Carmita Chisholm PA-C Status: REG CLI Study: Kidney and Bladder Date of Exam: 11/26/17 Exam# [id number] Ordering Dr: Merary Peralta PA-C STUDY: RENAL ULTRASOUND - COMPLETE REASON FOR EXAM: Female, 52 years old. Left flank pain TECHNIQUE: Ultrasound evaluation of the kidneys was performed with real-time and static rodarte-scale imaging. COMPARISON: None. FINDINGS: RIGHT KIDNEY: Normal location of the right kidney, which is normal in size. The right kidney measures 11.2 x 4.5 x 4.1 cm. There is a normal cortex of the right kidney. The renal cortex measures 1.3 cm. There are subcentimeter cysts. There are no right renal calculi. There is no right hydronephrosis. DISTAL RIGHT URETER: There is non-visualization of the distal right ureter. There is no demonstrated right ureterovesical junction calculus. There is a visualized right ureteral jet. LEFT KIDNEY: Normal location of the left kidney, which is normal in size. The left kidney measures 11.6 x 4.9 x 4.5 cm. There is a normal cortex of the left kidney. The renal cortex measures 1.4 cm. There is no left renal mass or cyst. There are no left renal calculi. There is no left hydronephrosis. DISTAL LEFT URETER: There is non-visualization of the distal left ureter. There is no demonstrated left ureterovesical junction calculus. There is a visualized left ureteral jet. BLADDER: The distended urinary bladder has a volume of 115 ml. The post void urinary bladder has a volume of 12 ml. There is a normal wall thickness of the distended urinary bladder. There is no demonstrated mass within the urinary bladder. There are no demonstrated bladder calculi. US/Kidney and Bladder IMPRESSION: Subcentimeter right renal cysts. Mild postoperative residua of the urinary bladder. Electronically Signed: All Andujar DO at 23:29 EDT Tel [phone], Service support , CC: STEPHANIE Chisholm; Merary Peralta PA-C Cyber Ops Planner: Signed SURGERY VISIT REPORT Observed: 11/17/2017 Status: F Source: [place] 10:[address] 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 Is patient in pain?: No Allergies oxycodone [From Percocet] Allergy (Verified 11/17/17 09:22) Rash Medications Calcium Carbonate/Vitamin D3 [Calcium 500+D Tablet Chew] 1 tab PO DAILY 09/15/16 [History Confirmed 11/17/17] Lactobacillus Combination No.4 [Probiotic] 1 tab PO DAILY 09/15/16 [History Confirmed 11/17/17] Multivitamin [Daily Multiple Vitamin] 1 tab PO DAILY 09/15/16 [History Confirmed 11/17/17] Metronidazole 500 mg PO BID 10/20/17 [History Confirmed 11/17/17] Vitamin B Complex 1 ea PO DAILY 10/20/17 [History Confirmed 11/17/17] Hydrocodone Bitart/Apap 5-325 [[place] 5MG-325MG] 1 - 2 tab PO Q4H PRN PRN 4 Days #30 tab 11/02/17 [Rx Confirmed 11/17/17] ciprofloxacin 500 mg tablet 500 mg PO BID #14 tab 11/10/17 [Rx Confirmed 11/17/17] fluconazole 150 mg tablet 150 mg PO ONCE #1 tab 11/17/17 [Rx Confirmed 11/17/17] Subjective Details: Patient is status post a open sigmoid colectomy on 10/27/2017. Unfortunately the patient suffered a complication from internal bleeding which required a repeat exploratory laparotomy and control of bleeding postoperatively from that she did quite well she has had normal bowel movements her pain is improving she is gradually increasing her activities. Patient returns today for follow-up visit. At last visit she was noted to have an incisional infection. This was opened and treated with antibiotics. She has completed the antibiotics and has noted slightly less drainage. Patient notes her appetite has been increasing however she becomes bloated if she consumes too much. Patient denies nausea, vomiting. Patient notes urgency with urination and pelvic pressure. She notes currently having a yeast infection. Objective Details: Abdomen- soft, positive bowel sounds. Generalized soreness with palpation. Midline incision intact. Multiple small areas of openings. Steri-strips were removed. Areas were cleaned with peroxide. ABD padding was replaced. Assessment AND Plan Problems 1. History of open sigmoidectomy Z98.890; Z90.49 2. Postoperative hemorrhage involving digestive system following digestive system procedure K91.840 Plan - Recommend continuing to use peroxide daily and continue dry dressing changes daily - Obtain UA for urinary symptoms. Will call patient with results - [facility] - Follow-up in 2 weeks - May have drive patient to work for very short time periods. Orders Orders: Medications New: Coding Level of Care Code Global Post Op Diagnoses History of open sigmoidectomy Z98.890; Z90.49 Postoperative hemorrhage involving digestive system following digestive system procedure K91.840 Surgical complication system/body Area: digestive system Procedure type: digestive system 11/17/17 1023 <Electronically signed by Merary Peralta PA-C> Date Merary Peralta STEPHANIE Johnsonigner Signature: Date (if applicable) CC: URINALYSIS, COMPLETE Collected: 11/17/2017 Status: F Source: [place] 10:22 AM [facility] [place] [place] REPOSITORY Order Comment: How was Urine Obtained? 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 DIPSTX 1.020 LAB L400.3550 5.0 - 8.0 pH UR Normal 5.0 LAB L400.3600 Negative mg/dl PROT Normal DIPSTX Negative LAB L400.3700 Normal mg/dl Normal UROBILI Normal LAB L400.3750 Negative Normal NITRITE UR Negative LAB L400.3780 Negative /ul High 10 OCCULT BLOOD-UR LAB L400.3800 Negative /ul High LEUK ESTERASE 100 LAB L400.4050 0-5 /hpf WBC Normal 0-5 SEEN LAB L400.4100 0-5 /hpf Normal RBC-UA 0-5 SEEN LAB L400.4150 5-10 /hpf SQUAM Normal EPI 0-5 SEEN LAB L400.4300 None Seen /hpf Normal BACTERIA RARE LAB L400.4350 <or=2+ /hpf 0 Normal MUCUS, URINE SEEN Performed By: #### L400.0001 #### Laboratory [address] [place], [place], [id number] SURGERY VISIT REPORT Observed: 11/17/2017 Status: F Source: [place] 9:36 AM [facility] [place] [place] REPOSITORY [facility] [address] [place], [place] [address] OFFICE VISIT Date of Service: 11/10/17 MR#: [id number] Acct: [id number] Name: HOLGER RUFF Rep #: [id number] : 1965 Provider: Lionel Holm MD Age/Sex: 52/F Location: [facility] Status: Signed Intake Vital Signs11/10/17 Weight: 198 lb Intake Visit Reasons: Sigmoid Colectomy 10/27, 10/28 Chief Complaint: update H AND P for ERAS DP 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 Is patient in pain?: No Allergies oxycodone [From Percocet] Allergy (Verified 11/17/17 09:22) Rash Medications Calcium Carbonate/Vitamin D3 [Calcium 500+D Tablet Chew] 1 tab PO DAILY 09/15/16 [History Confirmed 11/17/17] Lactobacillus Combination No.4 [Probiotic] 1 tab PO DAILY 09/15/16 [History Confirmed 11/17/17] Multivitamin [Daily Multiple Vitamin] 1 tab PO DAILY 09/15/16 [History Confirmed 11/17/17] Metronidazole 500 mg PO BID 10/20/17 [History Confirmed 11/17/17] Vitamin B Complex 1 ea PO DAILY 10/20/17 [History Confirmed 11/17/17] Hydrocodone Bitart/Apap 5-325 [[place] 5MG-325MG] 1 - 2 tab PO Q4H PRN PRN 4 Days #30 tab 11/02/17 [Rx Confirmed 11/17/17] ciprofloxacin 500 mg tablet 500 mg PO BID #14 tab 11/10/17 [Rx Confirmed 11/17/17] Subjective Details: Patient is status post a open sigmoid colectomy on 10/27/2017. Unfortunately the patient suffered a complication from internal bleeding which required a repeat exploratory laparotomy and control of bleeding postoperatively from that she did quite well she has had normal bowel movements her pain is improving she is gradually increasing her activities. Objective Details: There is some slight purulent discharge from the lower aspect of her incision. The surrounding skin does not show any signs of obvious cellulitis but this is not an normal finding. I am concerned that we may be dealing with some slight infection here. Assessment AND Plan Problems 1. Wound infection after surgery T81.4XXA Plan I would like the patient to gradually increase her activities. We are going to increase her diet as well. Going to start her on Levaquin once a day. She will follow back in 1 week. She is not quite ready to start driving as of yet Medications New: Coding Level of Care Code Global Post Op Diagnoses Wound infection after surgery T81.4XXA 11/17/17 0936 <Electronically signed by Lionel Holm MD> Date Lionel Holm MD Cosigner Signature: Date (if applicable) CC: STEPHANIE Chisholm DISCHARGE SUMMARY Observed: 11/10/2017 Status: F Source: [place] 11:28 [facility] REPOSITORY [facility] Medical Records Department [address] [place] [id number] Discharge Summary 11/10/17 1108 MR#: [id number] Acct: [id number] Name: HOLGER RUFF Dora Rep #: [id number] : 1965 52 From: Merary Peralta PA-C PCP: Carmita Chisholm PA-C Status: DIS IN Y Location: CT3 MY103-2 Discharge Date and Diagnosis Date of Admission: 10/27/17 Date of Discharge: 11/02/17 - Primary Discharge Diagnosis Open sigmoid colectomy for chronic recurrent diverticulitis Post-operative hemorrhage Hospital Course and Treatment Operations: colectomy - Open sigmoid colectomy, - - Emergent exploratory laparoscopy with bleeding at the splenic flexure, controlled with sutures, thrombin and clips Procedures: Blood transfusion, Intubation Summary of Care Provided: The patient is a 52 year old F who presented for an elective sigmoid colectomy for recurrent diverticulitis. Dr. Holm performed an open sigmoid colectomy on 10/27/17. Patient tolerated the procedure well. Overnight on POD 0, patient became hypotensive and was nauseated and dizziness with sitting on the side of the bed. Patient denied abdominal pain/discomfort. Patient had a decreased urine output overnight. Patient was given 2 liters of normal saline. Patient's hgb was 9.7 on 10/28. Repeat hemoglobin was obtained before noon and decreased to 7.7. Patient was rushed off to emergency surgery for post-operative bleeding. Dr. Holm performed an emergent Exploratory laparotomy control of hemorrhage from the splenic flexure on 10/28. She was massively transfused during the procedure. Patient remained intubated and was sent to the ICU post-operatively. Patient was extubated on 10/29. Patient was moved to a med/surg floor on 10/30. Patient continued to improve. Upon discharge, patient had positive flatus. She noted well controlled abdominal pain. She was tolerating her current diet. She denies nausea, vomiting. She was urinating well. Discharge Diet: Light diet - advance as tolerated - If you have questions about your diet instructions, please talk to your doctor., Bison diet Discharge Activity: May Not Drive - for 1 week or while taking narcotic pain medicine. May shower in (days): 1 Call your doctor if your incision/area has: Continuous Slow Oozing, Sudden Increased Bleeding, Increased Pain/ Swelling, Increased Redness, Foul Smelling Discharge Call your doctor if you observe: Fever of 101 or Higher Suture Line Care: Avoid Pulling/Pushing, Avoid Pinching/Bending Additional Dressing/Incision Instructions:: Change or remove dressing in 4 days. Leave steri-strips in place for 1 week. Home Medications: Medications to take at Discharge Calcium Carbonate/Vitamin D3 [Calcium 500+D Tablet Chew] 1 tab PO DAILY 09/15/16 Lactobacillus Combination No.4 [Probiotic] 1 tab PO DAILY 09/15/16 Multivitamin [Daily Multiple Vitamin] 1 tab PO DAILY 09/15/16 Ciprofloxacin HCl 500 mg PO BID 10/20/17 Metronidazole 500 mg PO BID 10/20/17 Vitamin B Complex 1 each PO DAILY 10/20/17 Hydrocodone Bitart/Apap 5-325 [[place] 5MG-325MG] 1 - 2 tab PO Q4H PRN PRN 4 Days #30 tab 11/02/17 Following Prescrptions Were Given to Patient: Hydrocodone Bitart/Apap 5-325 [[place] 5MG-325MG] 1 - 2 tab PO Q4H PRN PRN 4 Days #30 tab PRN Reason: Pain Primary Care Physician: Carmita Chisholm PA-C [Primary Care Provider] - Please Follow Up With: Lionel Holm MD - [phone] When: Call to make an appointment to be seen in about 10 days. Disposition: Home Minutes spent on discharge:: 26 Patient Condition:: Good Medical Necessity - Tobacco Use Smoking Status: Never smoker Tobacco Use: Non-smoker Meaningful Use Info Meaningful Use Diagnoses (Choose all that apply): None applicable Code Visit Inpatient JAROCHO: [id number] Disch Hosp 11/10/17 1128 <Electronically signed by Merary Peralta PA-C> Date Merary Peralta PA-C Cosigner Signature (if applicable): Date CC: STEPHANIE Chisholm; Merary Peralta PA-C Signed DISCHARGE INSTRUCTION Observed: 11/02/2017 Status: F Source: [place] 10:46 [facility] REPOSITORY [facility] Medical Records Department [address] [place] [address] Instructions for Home/Discharge Instructions 11/02/17 1045 MR#: [id number] Acct: [id number] Name: HOLGER RUFF Rep #: [id number] : 1965 51 From: Lionel Holm MD PCP: Carmita Chisholm PA-C Status: ADM IN Discharge Diet: Light diet - advance as tolerated - If you have questions about your diet instructions, please talk to your doctor., Bison diet Discharge Activity: May Not Drive - for 1 week or while taking narcotic pain medicine. May shower in (days): 1 Lifting Restrictions: 10 pounds Call your doctor if your incision/area has: Continuous Slow Oozing, Sudden Increased Bleeding, Increased Pain/ Swelling, Increased Redness, Foul Smelling Discharge Call your doctor if you observe: Fever of 101 or Higher Suture Line Care: Avoid Pulling/Pushing, Avoid Pinching/Bending Additional Dressing/Incision Instructions:: Change or remove dressing in 4 days. Leave steri-strips in place for 1 week. Allergies/Adverse Reactions: Allergies oxycodone [From Percocet] Allergy (Verified 10/20/17 11:01) Rash Medications to take at Discharge Calcium Carbonate/Vitamin D3 [Calcium 500+D Tablet Chew] 1 tab PO DAILY 09/15/16 Lactobacillus Combination No.4 [Probiotic] 1 tab PO DAILY 09/15/16 Multivitamin [Daily Multiple Vitamin] 1 tab PO DAILY 09/15/16 Ciprofloxacin HCl 500 mg PO BID 10/20/17 Metronidazole 500 mg PO BID 10/20/17 Vitamin B Complex 1 each PO DAILY 10/20/17 Primary Care Physician: Carmita Chisholm PA-C [Primary Care Provider] - Test Results: Test results from this visit will be discussed in further detail at your follow-up appointment, if applicable. Please Follow Up With: Lionel Holm MD - [phone] When: Call to make an appointment to be seen in about 10 days. 11/02/17 1046 <Electronically signed by Lionel Holm MD> Date Lionel Holm MD CC: STEPHANIE Chisholm; Lionel Holm MD CBC-COMPLETE BLOOD CNT Collected: 10/31/2017 Status: F Source: [place] NO DIFF 6:00 AM [facility] [place] [place] REPOSITORY TYPE CODE TESTS RESULT OUT OF RANGE REFERENCE UNITS LAB L100.1000 4.4-11.0 K/mm3 Normal WBC 5.7 LAB L100.1200 4.2-5.4 M/mm3 Low RBC 3.07 LAB L100.1300 12.0-15.0 g/dl Low HGB 9.4 LAB L100.1400 37-47 % Low HCT 27.5 LAB L100.1500 81-99 fL Normal MCV 89.6 LAB L100.1600 27.0-32.0 pg Normal MCH 30.6 LAB L100.1700 32-36 g/gl Normal MCHC 34.2 LAB L100.1810 11.6-14.6 % Normal RDW CV 13.4 LAB L100.1820 35.1-43.9 fl Normal RDW SD 42.5 LAB L100.1900 150-450 K/mm3 Normal PLT 186 LAB L100.2000 6.2-12.0 fl Normal MPV 10.0 Performed By: #### L100.0500 #### Laboratory [address] [place], [place], [id number] BASIC METABOLIC Collected: 10/31/2017 Status: F Source: [place] PROFILE (BMP) 6:00 AM [facility] [place] [place] REPOSITORY TYPE CODE TESTS RESULT OUT OF RANGE REFERENCE UNITS LAB L501.0100 74-106 mg/dL Normal GLU 84 Result Comment: Please note revised GLUCOSE reference range effective 2017. LAB L501.1000 7-18 mg/dL Low BUN 4 LAB L501.1100 0.55-1.02 mg/dL Low CREAT,SERUM 0.36 Result Comment: The validity of the calculated GFR AND GFRAA in patients over 70 years has not been determined. Clinical correlation is essential. LAB L501.1110 >60 mL/min Normal EST GFR 203 Result Comment: Non- GFR Calc LAB L501.1115 >60 mL/min Normal EST GFR - AA 246 Result Comment: GFR Calc LAB L501.1255 ml/min Normal Estimated CRCL 159.65 LAB L501.1300 10-20 RATIO BUN/CRE Normal 11.2 LAB L501.2200 8.5-10 mg/dL Low .1 CA 7.6 LAB L501.5300 136-14 mmol/L 5 NA Normal 143 LAB L501.5600 3.5-5. mmol/L Low 1 K 3.3 LAB L501.5900 98-107 mmol/L CL Normal 106 LAB L501.6100 21.0-3 mmol/L 2.0 CO2 Normal 27.0 LAB L501.6200 5-15 GAP Normal 10 Performed By: #### L500.2500, L501.2300, L501.5200 #### Laboratory [address] [place], [place], [address] PHOSPHORUS Collected: 10/31/2017 Status: F Source: [place] 6:00 AM [facility] [place] [place] REPOSITORY TYPE CODE TESTS RESULT OUT OF RANGE REFERENCE UNITS LAB L501.2300 2.5-4.9 mg/dL Low PHOS 2.3 Performed By: #### L500.2500, L501.2300, L501.5200 #### Laboratory [address] [place], [address] MAGNESIUM Collected: 10/31/2017 Status: F Source: [place] 6:00 AM [facility] [place] [place] REPOSITORY TYPE CODE TESTS RESULT OUT OF RANGE REFERENCE UNITS LAB L501.5200 1.6-2.6 mg/dL Normal MG 1.9 Performed By: #### L500.2500, L501.2300, L501.5200 #### Laboratory [address] [place], [address] BASIC METABOLIC Collected: 10/30/2017 Status: F Source: [place] PROFILE (BMP) 4:35 AM [facility] [place] REPOSITORY TYPE CODE TESTS RESULT OUT OF RANGE REFERENCE UNITS LAB L501.0100 74-106 mg/dL Normal GLU 83 Result Comment: Please note revised GLUCOSE reference range effective 2017. LAB L501.1000 7-18 mg/dL Low BUN 5 LAB L501.1100 0.55-1.02 mg/dL Low CREAT,SERUM 0.44 Result Comment: The validity of the calculated GFR AND GFRAA in patients over 70 years has not been determined. Clinical correlation is essential. LAB L501.1110 >60 mL/min Normal EST GFR 159 Result Comment: Non- GFR Calc LAB L501.1115 >60 mL/min Normal EST GFR - AA 193 Result Comment: GFR Calc LAB L501.1255 ml/min Normal Estimated CRCL 130.62 LAB L501.1300 10-20 RATIO BUN/CRE Normal 11.3 LAB L501.2200 8.5-10 mg/dL Low .1 CA 7.4 LAB L501.5300 136-14 mmol/L 5 NA Normal 141 LAB L501.5600 3.5-5. mmol/L Low 1 K 3.3 LAB L501.5900 98-107 mmol/L CL Normal 104 LAB L501.6100 21.0-3 mmol/L 2.0 CO2 Normal 26.0 LAB L501.6200 5-15 GAP Normal 11 Performed By: #### L500.2500 #### Laboratory [address] [place], [address] CBC W/DIFF, AUTOMATED Collected: 10/30/2017 Status: F Source: [place] 4:35 AM [facility] [place] [place] REPOSITORY TYPE CODE TESTS RESULT OUT OF RANGE REFERENCE UNITS LAB L100.1000 4.4-11.0 K/mm3 Normal WBC 6.7 LAB L100.1200 4.2-5.4 M/mm3 Low RBC 3.09 LAB L100.1300 12.0-15.0 g/dl Low HGB 9.4 LAB L100.1400 37-47 % Low HCT 27.4 LAB L100.1500 81-99 fL Normal MCV 88.7 LAB L100.1600 27.0-32.0 pg Normal MCH 30.4 LAB L100.1700 32-36 g/gl Normal MCHC 34.3 LAB L100.1810 11.6-14.6 % Normal RDW CV 14.0 LAB L100.1820 35.1-43.9 fl High RDW SD 45.3 LAB L100.1900 150-450 K/mm3 Low PLT 141 LAB L100.2000 6.2-12.0 fl Normal MPV 9.5 LAB L100.2100 47-70 % High NEUT% 74.8 LAB L100.2200 19-41 % Low LY% 17.7 LAB L100.2300 0-10 % Normal MONO% 5.7 LAB L100.2400 0-5 % Normal EO% 1.6 LAB L100.2500 0-1 % Normal BASO% 0.1 LAB L100.2550 0.0-0.9 % Normal IM GRAN % 0.100 Result Comment: IG% - Immature Granulocytes (promyelocytes, myelocytes and metamyelocytes) > 1% indicates that a LEFT SHIFT is Present. LAB L100.2620 2.0-7.7 X10 3/uL Normal Absolute Neut 5.0 LAB L100.2720 0.83-4.51 X10 3/ul Normal Absolute Lymph 1.18 Performed By: #### L100.0100 #### Laboratory [address] [place], [address] HH, HEMOGLOBIN AND Collected: 10/29/2017 Status: F Source: BRAD HEMATOCRIT 5:00 PM [facility] - [place], [place] REPOSITORY TYPE CODE TESTS RESULT OUT OF RANGE REFERENCE UNITS LAB L100.1300 12.0-15.0 g/dl Low HGB 9.7 LAB L100.1400 37-47 % Low HCT 28.2 Performed By: #### L100.0600 #### Laboratory [address] [place], [address] CONSULTATION Observed: 10/29/2017 Status: F Source: [place] 5:31 AM [facility] [place], [place] REPOSITORY [facility] Medical Records Department [address] [place] [address] Consultation 10/28/17 1713 MR#: [id number] Acct: [id number] Name: HOLGER RUFF Rep #: [id number] : 1965 51 From: Jose Dowd MD PCP: Carmita Chisholm PA-C Status: ADM IN Y Location: ICU ICU02-1 Problem List (1) Post-operative haemorrhage Status: Acute Qualifiers: Surgical complication system/body Area: digestive system Procedure type: digestive system Qualified Code(s): K91.840 - Postprocedural hemorrhage of a digestive system organ or structure following a digestive system procedure (2) History of endometrial ablation Status: Acute (3) Hx of hysterectomy Status: Acute (4) Hx of wisdom tooth extraction Status: Acute (5) Hx of colonoscopy Status: Acute (6) Hx of breast biopsy Status: Acute (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 (9) Endometriosis Status: Acute (10) Benign neoplasm of colon Status: Acute (11) Diverticulitis Status: Acute Qualifiers: Diverticulitis site: large intestine Diverticulitis bleeding: without bleeding Diverticulitis complication: without perforation or abscess Qualified Code(s): K57.32 - Diverticulitis of large intestine without perforation or abscess without bleeding Reason for Consult Date of Consultation: 10/28/17 Reason for Consultation: Respiratory failure History of Present Illness: The patient is a 51 year old F, with past medical history listed below, who presented to on 10/27/2017 for elective laparoscopic partial colectomy secondary to diverticular disease and appendectomy. Patient was taken to the OR and had a sigmoidectomy that reportedly went relatively smooth. Patient was admitted to the medical surgical unit for postoperative care. Overnight, patient was noted to have marginal urine output, tachycardia and decreased blood pressure. Patient was given normal saline boluses. Repeat labs showed significant drop in hemoglobin from 14.4-->9.7. There was some concern for postoperative hemorrhage, so patient was taken back to the OR by Dr. Holm for evaluation. Patient did have a prolonged OR course and did receive 2 units of FFP and 2 units of packed red blood cells. Labs following OR showed a hemoglobin of 8.5. Given patient's multiple abdominal surgeries and a 48 hour period, patient was brought to the intensive care unit intubated. On arrival, patient was normotensive, but tachycardic. Sites were clean, dry and intact. Patient did have some agitation and was placed on propofol and fentanyl sedation. Labs were sent. Patient's was updated on current condition. Discussed with patient's at the bedside. Patient does not have any significant metabolic derangements in the past. Patient is a non-smoker, nondrinker and denies any illicit drug use. Patient does have a history of endometriosis with multiple adhesions in the past. Patient is also had a partial hysterectomy and oophorectomy. Patient reportedly had had mystery pains for quite some time and it was determined that this was likely secondary diverticulosis. Patient does not have any history of diabetes or heart disease that the family is aware of. There are no bleeding or clotting problems in the family. Review of systems otherwise negative per the . 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.1 Endometriosis (Acute) N80.9 Benign neoplasm of colon (Acute) D12.6 Diverticulitis (Acute) K57.92 Allergies oxycodone [From Percocet] Allergy (Verified 10/20/17 11:01) Rash Home Medications: Ambulatory Orders Medication Instructions Recorded Calcium Carbonate/Vitamin D3 1 tab PO DAILY 09/15/16 [Calcium 500+D Tablet Chew] Lactobacillus Combination No.4 1 tab PO DAILY 09/15/16 [Probiotic] Surgical History: Surgical History (Last Reviewed 10/13/17 @ 14:35 by Jeanine Lopez) History of endometrial ablation (Acute) Z98.890 Hx of hysterectomy (Acute) Z90.710 Hx of wisdom tooth extraction (Acute) K08.409 Hx of colonoscopy (Acute) Z98.890 Hx of breast biopsy (Acute) Z98.890 Surgical History: no surgical history Psychiatric History: No pertinent psych hx Smoking Status: Never smoker Tobacco Use: Non-smoker - *Family History Maternal Family History: Family History (Last Reviewed 10/13/17 @ 14:35 by Jeanine Lopez) Grandmother Colon cancer Grandmother Breast cancer History Items: No pertinent history Review of Systems Comment: See HPI Patient Problems: Active and Suspected Problems (Last Reviewed 10/13/17 @ 14:35 by Jeanine Lopez) Post-operative haemorrhage (Acute) Objective: Chest x-ray shows no acute infiltrate, but elevation of the right hemidiaphragm. Support devices appear to be in appropriate position. No pneumothorax is appreciated. - Physical Exam General: - - Intubated and sedated. Appropriate synchrony with the ventilator HEENT: Atraumatic, PERRLA, EOMI, Normocephalic, - - No scleral icterus or injection noted. Oral: Moist Mucosa, No Gingival or Mucosal Lesions/ Ulcerations Neck: Supple, No JVD, No Nodes, Trachea Midline, - - Right IJ is clean, dry and intact. Lungs: Clear to auscultation, Normal air movement, No rhonchi, No wheeze, No rales, - - Symmetric expansion. Cardiovascular: Normal S1, Normal S2, No murmurs, No rub noted, No Gallop, Tachycardic Abdomen: Soft, Bowel Sounds Not Present, Distended, Obese Extremities: No clubbing, No cyanosis, No edema Skin: No rashes, No breakdown, Incision - Large midline abdominal incision and all laparoscopic incisions are clean, dry and intact. Musculoskeletal: No Tenderness to Palpation of Joints or Extremities Lymphatic: No Cervical, Supraclavicular, or Inguinal Adenopathy Neurological: Cranial nerves II-XII grossly intact, Neuro grossly intact, Motor Exam 5/5 strength throughout Psych/Mental Status: Flat Affect, Restless Vital Signs Temp Pulse Resp BP Pulse Ox 36.4 C L 118 H 27 H 147/92 H 97 10/28/17 16:41 10/28/17 16:58 10/28/17 16:51 10/28/17 16:41 10/28/17 16:58 Oxygen Flow Rate (L/min) 2 Oxygen Delivery Method Mechanical Ventilator Weight: 91.9 kg Body Mass Index (BMI) 34.7 Orthostatic Vital Signs Start: 10/28/17 10:12 Freq: q24h Status: Active Protocol: Activity Type Activity Date Activity User E-Sign Co-Sign Detail Recorded Client Recorded Date Recorded By Document 10/28/17 12:32 RV [id number] 10/28/17 12:33 RV Orthostatic Vitals Lying -Blood Pressure (90/60-120/80) 105/54 L Intake and Output for Last 24 Hours Intake Total 1999 4422 / 4422 Output Total 190 / 190 640 / 640 Balance 1810 / 1810 3782 / 3782 Laboratory Tests Past 24 Hrs WBC 12.7 H 8.7 RBC 3.18 L 2.55 L Hgb 9.7 L 7.7 L WBC 6.5 RBC 2.76 L WBC RBC Hgb Hct MCV MCH MCHC RDW RDW Differential Plt Count MPV Immature Gran % (Auto) Neut % (Auto) WBC RBC Hgb Hct MCV MCH MCHC RDW RDW Differential Plt Count MPV Immature Gran % (Auto) Neut % (Auto) Assessment/Plan All Active Problems (Last Reviewed 10/13/17 @ 14:35 by Jeanine Lopez) Post-operative haemorrhage (Acute) History of endometrial ablation (Acute) Hx of hysterectomy (Acute) Hx of wisdom tooth extraction (Acute) Hx of colonoscopy (Acute) Hx of breast biopsy (Acute) 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 Continue mechanical ventilation 2. Spontaneous breathing and awakening trials per protocol 3. Obtain fibrinogen and coagulation studies 4. H AND H every 6 hours 5. Fentanyl and propofol for vent synchrony 6. ABG in 1 hour IMPRESSIONS: 1. Acute blood loss anemia secondary to postoperative hemorrhage Patient with significant drop in hemoglobin over the last 24 hours. Patient taken back to surgery, but no obvious bleeding site was noted. Patient did have some oozing in the splenic flexure and topical applications have been used to achieve hemostasis. Will obtain H AND H studies every 6 hours. Obtain a fibrinogen for evaluation of DIC. Clinical suspicion for consumptive coagulopathy. Patient has received platelets, fibrinogen and 2 units of packed red blood cells. Will attempt to keep hemoglobin greater than 8 given potentially ongoing blood loss. 2. Acute respiratory failure Patient was significant fluid shifts over the last 24 hours. Patient will remain intubated overnight. Wean oxygen as tolerated. Patient can have a spontaneous breathing and awakening trial in the morning per protocol. Clinical suspicion that extubation can happen as early as tomorrow. Patient does not have a history of obstructive lung disease per the . Will order albuterol as needed. Pain control and sedation by fentanyl and propofol drips. 3. Diverticulosis status post sigmoidectomy postop day #0 Patient with repeat surgery. High clinical suspicion for postoperative ileus. No tube feeds at this time. Surgery is currently following. Patient did have antibiotics associated with operative procedure. 4. Obesity Complicates care, management, recovery and prognosis TIME: 37 minutes critical care time spent addressing patient's acute blood loss anemia, acute respiratory failure, review of all data and collaboration with care team (4 PM to 5:30 PM) Code Visit 9xxxx: [id number] Critical care first hour 10/29/17 0531 <Electronically signed by Jose Dowd MD> Date Jose Dowd MD Cosigner Signature (if applicable): Date CC: STEPHANIE Chisholm; Lionel Holm MD Signed CBC W/DIFF, AUTOMATED Collected: 10/29/2017 Status: F Source: [place] 4:05 AM [facility] [place], [place] REPOSITORY TYPE CODE TESTS RESULT OUT OF RANGE REFERENCE UNITS LAB L100.1000 4.4-11.0 K/mm3 Normal WBC 5.8 LAB L100.1200 4.2-5.4 M/mm3 Low RBC 3.12 LAB L100.1300 12.0-15.0 g/dl Low HGB 9.5 LAB L100.1400 37-47 % Low HCT 27.7 LAB L100.1500 81-99 fL Normal MCV 88.8 LAB L100.1600 27.0-32.0 pg Normal MCH 30.4 LAB L100.1700 32-36 g/gl Normal MCHC 34.3 LAB L100.1810 11.6-14.6 % Normal RDW CV 13.7 LAB L100.1820 35.1-43.9 fl Normal RDW SD 42.5 LAB L100.1900 150-450 K/mm3 Low PLT 146 LAB L100.2000 6.2-12.0 fl Normal MPV 9.8 LAB L100.2100 47-70 % High NEUT% 71.2 LAB L100.2200 19-41 % Normal LY% 21.9 LAB L100.2300 0-10 % Normal MONO% 6.2 LAB L100.2400 0-5 % Normal EO% 0.3 LAB L100.2500 0-1 % Normal BASO% 0.2 LAB L100.2550 0.0-0.9 % Normal IM GRAN % 0.200 Result Comment: IG% - Immature Granulocytes (promyelocytes, myelocytes and metamyelocytes) > 1% indicates that a LEFT SHIFT is Present. LAB L100.2620 2.0-7.7 X10 3/uL Normal Absolute Neut 4.1 LAB L100.2720 0.83-4.51 X10 3/ul Normal Absolute Lymph 1.27 Performed By: #### L100.0100 #### Laboratory [address] [place], [place], [id number] PROTHROMBIN TIME W/INR Collected: 10/29/2017 Status: F Source: [place] 4:05 AM [facility] [place], [place] REPOSITORY TYPE CODE TESTS RESULT OUT OF RANGE REFERENCE UNITS LAB L300.4150 11.7-14.9 SECONDS High PROTIME 15.0 LAB L300.4200 Normal INR 1.2 Performed By: #### L300.3900, L300.4310 #### Laboratory [address] [place], [place], [id number] PARTIAL THROMBOPLAST Collected: 10/29/2017 Status: F Source: [place] TIME 4:05 AM [facility] [place], [place] REPOSITORY TYPE CODE TESTS RESULT OUT OF RANGE REFERENCE UNITS LAB L300.4310 24.1-36.2 Seconds Normal PTT 33.6 Performed By: #### L300.3900, L300.4310 #### Laboratory [address] [place], [address] COMPREHENSIVE METABOLIC Collected: 10/29/2017 Status: F Source: BRAD CRUZ 4:05 AM [facility] [place] [place] REPOSITORY TYPE CODE TESTS RESULT OUT OF RANGE REFERENCE UNITS LAB L501.0100 74-106 mg/dL Normal GLU 103 Result Comment: Fasting Glucose result from 100 to 125 mg/dL suggests IMPAIRED HOMEOSTASIS per A.D.A. criteria. Please note revised GLUCOSE reference range effective 2017. LAB L501.1000 7-18 mg/dL Normal BUN 9 LAB L501.1100 0.55-1.02 mg/dL Normal CREAT,SERUM 0.68 Result Comment: The validity of the calculated GFR AND GFRAA in patients over 70 years has not been determined. Clinical correlation is essential. LAB L501.1110 >60 mL/min Normal EST GFR 97 Result Comment: Non- GFR Calc LAB L501.1115 >60 mL/min Normal EST GFR - AA 117 Result Comment: GFR Calc LAB L501.1255 ml/min Normal Estimated CRCL 84.52 LAB L501.1300 10-20 RATIO Normal BUN/CRE 13.2 LAB L501.1500 6.4-8. g/dL Low 2 T PROT 5.0 LAB L501.1800 3.2-5. g/dL Low 0 ALB 2.3 LAB L501.1950 2.2-4. g/dL Normal 2 GLOB 2.7 LAB L501.2000 0.9-2. RATIO Normal 4 A/G 0.9 LAB L501.2200 8.5-10 mg/dL Low .1 CA 7.1 LAB L501.4100 15-37 U/L Normal AST 17 LAB L501.4305 45-117 U/L Low ALK P 35 LAB L501.4405 13-56 U/L Normal ALT 19 LAB L501.4600 0.20-1 mg/dL High .00 T BILI 1.20 LAB L501.5300 136-14 mmol/L Normal 5 NA 143 LAB L501.5600 3.5-5. mmol/L Normal 1 K 3.5 LAB L501.5900 98-107 mmol/L Normal CL 107 LAB L501.6100 21.0-3 mmol/L Normal 2.0 CO2 28.0 LAB L501.6200 5-15 Normal GAP 8 Performed By: #### L500.4050 #### Laboratory [address] [place], [place], [address] HH, HEMOGLOBIN AND Collected: 10/28/2017 Status: F Source: [place] HEMATOCRIT 11:10 PM [facility] [place], [place] REPOSITORY TYPE CODE TESTS RESULT OUT OF RANGE REFERENCE UNITS LAB L100.1300 12.0-15.0 g/dl Low HGB 9.0 LAB L100.1400 37-47 % Low HCT 26.0 Performed By: #### L100.0600 #### Laboratory [address] [place], [address] BLOOD GASES BY CPS Collected: 10/28/2017 Status: F Source: [place] 6:02 PM [facility] [place] [place] REPOSITORY TYPE CODE TESTS RESULT OUT OF RANGE REFERENCE UNITS LAB L9000.9990 Normal BLD GAS TYPE ART LAB L9001.1000 L Normal SITE Brachial LAB L9001.1010 NA Normal PAUL TEST LAB L9001.1048 Normal Mode A-C LAB L9001.1050 O2 Normal Delivery Dev Vent LAB L9001.1065 Vt Normal 450 LAB L9001.1070 RR 14 Normal LAB L9001.1074 30 Normal FI02 LAB L9001.1076 5 Normal PEEP LAB L9001.1104 Normal Results To ICU MD LAB L9001.1105 Normal Time Given 1801 LAB L9001.1110 7.35-7.45 pH Normal - I-STAT 7.35 LAB L9001.1210 35-45 mmHg Normal pCO2 - ISTAT 39.6 LAB L9001.1310 75-100 mmHG Low 69 PO2 I-STAT LAB L9001.2300 22-26 mmol/L Normal HCO3 ISTAT 22.1 LAB L9001.2400 -2 to +2 mmol/L Low BE -3 ISTAT LAB L9001.2415 mmol/L 23 Normal TOTAL CO2 ISTAT LAB L9001.2425 95-99 % Low 93 SO2 ISTAT Performed By: #### L9000.0800 #### Laboratory Point of Care [address] [place], [place] [address] OPERATIVE REPORT Observed: 10/28/2017 Status: F Source: [place] 5:57 PM [facility] [place] [place] REPOSITORY [facility] Medical Records Department [address] [place] [address] Operative Report 10/28/17 1315 MR#: [id number] Acct: [id number] Name: HOLGER RUFF Rep #: [id number] : 1965 51 From: Lionel Holm MD PCP: Carmita Chisholm PA-C Status: ADM IN Y Location: ICU ICU02-1 Problem List (1) Post-operative haemorrhage Status: Acute Qualifiers: Surgical complication system/body Area: digestive system Procedure type: digestive system Qualified Code(s): K91.840 - Postprocedural hemorrhage of a digestive system organ or structure following a digestive system procedure Report of Operation Date of Procedure: 10/27/17 Pre-Operative Diagnosis: k91.840 postoperative hemorrhage open sigmoid colectomy Post-Operative Diagnosis: same Surgery/Procedure Performed:: Exploratory laparotomy control of hemorrhage from the splenic flexure Description of Surgical Findings:: Bleeding from the splenic flexure Type of Anesthesia:: General Anesthesiologist: Alexander Smith Special Medications: FFP 438 mL. Packed red blood cells 2 units. Hespan 200 cc. 1600 cc of LR Estimated Blood Loss (mL): 1500 Description of Procedure: Patient was brought in the operating room and placed in the supine position. Under excellent general trach intubation the abdomen was sterilely prepped and draped in the usual fashion. I opened up the incision in the right lower quadrant dissected down remove the fascial suture and replaced the 1012 trocar without the introducer into the abdomen. I inflated the abdomen to 15 torr. I placed a #5 trocar in the midline where it was previously placed. The patient was placed in the headdown position and I irrigated out the pelvis I did not see any hematoma nor was there any active signs of bleeding here I inspected the appendix it to look normal without signs of bleeding. I then went along the left guttural side and this is clearly where I entered in the a hematoma site this went all the way up to the splenic flexure and a significant amount of blood above the spleen resting against the diaphragm. As I aspirated out the old clot I did see some new red blood and at this point it was very clear that I was not going to be able to effectively evaluate this patient laparoscopically and I made a decision to open my old incision and lengthen it superiorly around the left side of the umbilicus. Dr. Gilliam scrubbed in with me and help me do this. Once we open the abdomen we immediately packed the abdomen in all 4 quadrants with lap sponges during this time anesthesia was aggressively hydrating the patient 2 units of blood were actively being brought down to the operating room to be given to the patient. With aggressive hydration her heart rate went below 100 and her blood pressure was above 115 systolic. Bookwalter retractor was then placed. I rotated the transverse and descending colon medially and irrigated out all of the old clot and irrigated the clot above the spleen there was no active bleeding about the spleen. I entered the lesser sac there was no bleeding in this area and there was no blood in this area. The spleen itself looked pink I did not see any active lacerations or bleeding from the spleen. We inspected the duodenal turn at the ligament of Treitz the duodenum looked normal without signs of trauma. Majority of the clot appeared to be from the mesentery of the colon and the splenic flexure as well as posterior and lateral to the pancreas. There is some generalized ooziness from the mesentery as well as the tail the pancreas going up towards the spleen itself. I rotated the spleen from a lateral to medial standpoint and retrieved all the old clotted blood that was superior to this resting up against the diaphragm. We packed the area inferior to the spleen and in the mesentery of the splenic flexure for approximately 20 minutes while anesthesia was catching up with aggressive hydration. We irrigated out approximately 1500 cc of old blood in the abdomen itself. As I reinspected the area there was a small area lateral to the tip of the pancreas which I thought looked like it was actively bleeding and I placed a [id number] stitch of 0 Vicryl here. I then placed Miracle and 2 sponges soaked in thrombin in the area and once again packed the area off. At this point the patient was actively getting blood. She was making urine throughout this point of the case as well. At this point Dr. Gilliam broke scrub. I reinspected my anastomosis: Both proximally and distally to it looked viable and was under no tension. No active bleeding was seen in this area. I ran the small bowel to look normal I did not see any active bleeding or injury to the small bowel. I lifted the transverse colon the colon itself looked viable all the way around going down the descending colon. And no active bleeding was seen. I irrigated above the liver and only small fluid was identified. No blood clots. There is no bleeding identified from the omentum nor was there any bleeding from the greater curvature the stomach. Dr. Perez came in to assist me in evaluating the bleeding in the left upper quadrant of the abdomen. We small to small areas inferior to the splenic hilum where we placed 2 hemoclips and a suture of figure 8 of 0 Vicryl. We reinspected the spleen there was a small infarct about the size of a dime on the inferior aspect the rest of the spleen looked very viable (pink). Once again we saw no active bleeding from the spleen. We saw no active bleeding from the splenic hilum. We saw no bleeding from the pancreas itself. And at no time did we actively see the pancreas nor did we get into the pancreas. We did lift the pancreas up slightly to look to see if there is any bleeding from underneath it but once again there was none. At this point we replaced the thrombin soaked Gelfoam from the inferior aspect of the spine splenic hilum going down to the inferior and posterior aspect of the pancreas. We saw no active bleeding in the mesentery of the colon. We replaced the colon back into its normal anatomic position. We obtained an accurate needle and sponge count. The fascia the abdomen was closed with #1 PDS. Subcu was brought together with 2-0 Vicryl deep dermals of 3-0 Vicryl in a running 4-0 Monocryl. The fascia of the 10/12 trocar was closed with a kafcen-[id number] stitch of 0 Vicryl. The rest of the small skin incisions were closed with 4-0 Monocryl. Steri-Strips were applied sterile dressings were applied. The patient was transferred to the intensive care unit intubated having tolerated the procedure well. At no time did she have any breathing issues. She was actively making urine. - Admit VTE Documentation VTE Present on Admission: No VTE Mechan Device Prophylaxis: SCD's VTE Pharm Prophylaxis ordered?: No Reason prophylaxis not ordered:: Treatment Not Indicated 10/28/17 7950 <Electronically signed by Lionel Holm MD> Date Lionel Holm MD CC: STEPHANIE Chisholm; Lionel Holm MD Signed CPK TOTAL, CREATINE Collected: 10/28/2017 Status: F Source: BRAD KINASE 5:20 PM [facility] [place], [place] REPOSITORY Order Comment: Comments: DC when propofol is d/c'd Comments: DC when propofol is d/c'd TYPE CODE TESTS RESULT OUT OF RANGE REFERENCE UNITS LAB L501.3620 26-192 U/L Normal CPK TOTAL 100 Performed By: #### L501.3620, L501.5000 #### Laboratory [address] [facility] [place], [address] TRIGLYCERIDES Collected: 10/28/2017 Status: F Source: BR[place] 5:20 PM [facility] [place] [place] REPOSITORY Order Comment: Comments: DC when propofol is d/c'd Comments: DC when propofol is d/c'd TYPE CODE TESTS RESULT OUT OF RANGE REFERENCE UNITS LAB L501.5000 mg/dL Normal TRIG 70 Result Comment: The drugs N-Acetylcysteine and Metamizole may falsely depress this assay. Serum Triglycerides Reference Interval Normal <150 mg/dL Borderline high 150 - 199 mg/dL High 200 - 499 mg/dL Very High > or = 500 mg/dL Performed By: #### L501.3620, L501.5000 #### Laboratory [address] [facility] [place], [address] M R STAPH AUREUS Collected: 10/28/2017 Status: F Source: BRAD DNA BY PCR 5:00 PM [facility] [place], [place] REPOSITORY TYPE CODE TESTS RESULT OUT OF RANGE REFERENCE UNITS LAB L8200.1100 Negative Normal MRSA Negative RESULT Performed By: #### L8200.1000 #### Laboratory [address] [place], [address] CHEST 1 VIEW Observed: 10/28/2017 Status: F Source: BRAD (PORTABLE) 4:53 PM [facility] [place] [place] REPOSITORY [facility] Imaging Services [address] [place] [id number] Chest 1 View (Portable) MR#: [id number] Acct: [id number] Name: HOLGER RUFF Rep #: [id number] : 1965 F 51 From: Roshni Acevedo MD PCP: Carmita Chisholm PA-C Status: ADM IN Study: Chest 1 View (Portable) Date of Exam: 10/28/17 Exam# [id number] Ordering Dr: Jose Dowd MD STUDY: X-RAY CHEST REASON FOR EXAM: Female, 51 years old. Endotracheal tube placement, OG placement, central line placement. TECHNIQUE: Single frontal view of the chest. COMPARISON: None. FINDINGS: There is an endotracheal tube in place terminating 4.5 cm above the ritchie. There is a right-sided central venous line in place as well with its tip within the expected region of the proximal superior vena cava. There is a oral gastric tube in place with its tip caudal to the inferior margin of the image. There is elevation of the right hemidiaphragm. There are low lung volumes. There is left basilar atelectasis and/or scarring. Normal size heart. Normal mediastinum and jordyn. Normal visualized pulmonary arteries. Normal visualized aortic arch and descending thoracic aorta. Normal visualized thoracic spine. Normal visualized ribs, clavicles, and shoulders. There is no demonstrated abnormality of the visualized soft tissue structures of the upper abdomen. RAD/Chest 1 View (Portable) IMPRESSION: Endotracheal tube and central venous line in grossly satisfactory positions. Orogastric tube tip caudal to the inferior margin of the image, consider a dedicated radiograph of the abdomen. Left basilar atelectasis and/or scarring. Electronically Signed: Roshni Acevedo MD at 17:29 EDT Tel , Service support , CC: STEPHANIE Chisholm; Jose Dowd MD Cyber Ops Planner: Signed CBC W/DIFF, AUTOMATED Collected: 10/28/2017 Status: F Source: [facility] 3:55 PM [facility] [place], [place] REPOSITORY TYPE CODE TESTS RESULT OUT OF RANGE REFERENCE UNITS LAB L100.1000 4.4-11.0 K/mm3 Normal WBC 6.5 LAB L100.1200 4.2-5.4 M/mm3 Low RBC 2.76 LAB L100.1300 12.0-15.0 g/dl Low HGB 8.5 LAB L100.1400 37-47 % Low HCT 24.8 LAB L100.1500 81-99 fL Normal MCV 89.9 LAB L100.1600 27.0-32.0 pg Normal MCH 30.8 LAB L100.1700 32-36 g/gl Normal MCHC 34.3 LAB L100.1810 11.6-14.6 % Normal RDW CV 13.1 LAB L100.1820 35.1-43.9 fl Normal RDW SD 41.8 LAB L100.1900 150-450 K/mm3 Low PLT 138 LAB L100.2000 6.2-12.0 fl Normal MPV 9.7 LAB L100.2100 47-70 % High NEUT% 81.4 LAB L100.2200 19-41 % Low LY% 13.2 LAB L100.2300 0-10 % Normal MONO% 5.2 LAB L100.2400 0-5 % Normal EO% 0.0 LAB L100.2500 0-1 % Normal BASO% 0.0 LAB L100.2550 0.0-0.9 % Normal IM GRAN % 0.200 Result Comment: IG% - Immature Granulocytes (promyelocytes, myelocytes and metamyelocytes) > 1% indicates that a LEFT SHIFT is Present. LAB L100.2620 2.0-7.7 X10 3/uL Normal Absolute Neut 5.3 LAB L100.2720 0.83-4.51 X10 3/ul Normal Absolute Lymph 0.86 Performed By: #### L100.0100, L500.4050 #### Laboratory [address] [place], [place], [id number] COMPREHENSIVE METABOLIC Collected: 10/28/2017 Status: F [facility] PM [facility] [place], [place] REPOSITORY TYPE CODE TESTS RESULT OUT OF RANGE REFERENCE UNITS LAB L501.0100 74-106 mg/dL High GLU 153 Result Comment: Fasting Glucose result greater than or equal to 126 mg/dL suggests DIABETES MELLITUS per A.D.A. criteria. Please note revised GLUCOSE reference range effective 2017. LAB L501.1000 7-18 mg/dL Normal BUN 10 LAB L501.1100 0.55-1.02 mg/dL Normal CREAT,SERUM 0.95 Result Comment: The validity of the calculated GFR AND GFRAA in patients over 70 years has not been determined. Clinical correlation is essential. LAB L501.1110 >60 mL/min Normal EST GFR 66 Result Comment: Non- GFR Calc LAB L501.1115 >60 mL/min Normal EST GFR - AA 80 Result Comment: GFR Calc LAB L501.1255 ml/min Normal Estimated CRCL 60.50 LAB L501.1300 10-20 RATIO Normal BUN/CRE 10.6 LAB L501.1500 6.4-8. g/dL Low 2 T PROT 4.7 LAB L501.1800 3.2-5. g/dL Low 0 ALB 2.2 LAB L501.1950 2.2-4. g/dL Normal 2 GLOB 2.5 LAB L501.2000 0.9-2. RATIO Normal 4 A/G 0.9 LAB L501.2200 8.5-10 mg/dL Low .1 CA 6.9 LAB L501.4100 15-37 U/L Normal AST 15 LAB L501.4305 45-117 U/L Low ALK P 31 LAB L501.4405 13-56 U/L Normal ALT 16 LAB L501.4600 0.20-1 mg/dL Normal .00 T BILI 1.00 LAB L501.5300 136-14 mmol/L Normal 5 NA 140 LAB L501.5600 3.5-5. mmol/L Normal 1 K 3.9 LAB L501.5900 98-107 mmol/L High CL 108 LAB L501.6100 21.0-3 mmol/L Normal 2.0 CO2 24.0 LAB L501.6200 5-15 Normal GAP 8 Performed By: #### L100.0100, L500.4050 #### Laboratory [address] [place], [place], [id number] MAGNESIUM Collected: 10/28/2017 Status: F Source: [facility] 3:55 PM [facility] [place], [place] REPOSITORY TYPE CODE TESTS RESULT OUT OF RANGE REFERENCE UNITS LAB L501.5200 1.6-2.6 mg/dL Normal MG 1.8 Performed By: #### L501.5200, L300.3900, L300.4310, L300.4700 #### Laboratory [address] [place], [address] PROTHROMBIN TIME W/INR Collected: 10/28/2017 Status: F Source: [place] 3:55 PM [facility] [place] [place] REPOSITORY TYPE CODE TESTS RESULT OUT OF RANGE REFERENCE UNITS LAB L300.4150 11.7-14.9 SECONDS High PROTIME 15.6 LAB L300.4200 Normal INR 1.2 Performed By: #### L501.5200, L300.3900, L300.4310, L300.4700 #### Laboratory [address] [place], [place], [id number] PARTIAL THROMBOPLAST Collected: 10/28/2017 Status: F Source: [place] [facility] 3:55 PM [facility] [place] [place] REPOSITORY TYPE CODE TESTS RESULT OUT OF RANGE REFERENCE UNITS LAB L300.4310 24.1-36.2 Seconds Normal PTT 32.9 Performed By: #### L501.5200, L300.3900, L300.4310, L300.4700 #### Laboratory [address] [place], [place], [id number] FIBRINOGEN Collected: 10/28/2017 Status: F Source: [place] 3:55 PM [facility] [place] [place] REPOSITORY TYPE CODE TESTS RESULT OUT OF RANGE REFERENCE UNITS LAB L300.4700 203-444 mg/dl Normal FIB 352 Performed By: #### L501.5200, L300.3900, L300.4310, L300.4700 #### Laboratory [address] [place], [address] TYPE AND SCREEN Collected: 10/28/2017 Status: F Source: [place] 12:55 PM [facility] [place] [place] REPOSITORY Order Comment: CMV NEG? N Number of units to transfuse: 2 Is there a >20% drop in pt's BP? Y Is the pt's CVP (central venous pressure) <3 cm/H2O? N Is the EBL >/= 1000ml in adults or >/= 12ml/kg in children? N Is there an orthostatic change in pt's BP(SBP drop >10mmHg)? N Is pt's HR > 100 bpm? Y Reason for Ordering Blood: Acute Are the blood/blood products to be transfused? Y Is the patient having/had surgery? Y Give When? When Ready Irradiated? N Leukodepleted? Y TYPE CODE TESTS RESULT OUT OF RANGE REFERENCE UNITS LAB B10.0800 O Normal BLOOD TYPE GEL POSITIVE LAB B100.4000 Normal Antibody NEGATIVE Screen Performed By: #### B101.7450 #### Laboratory [address] [place], [place], [address] RC Collected: 10/28/2017 Status: F Source: [place] 12:55 PM [facility] [place] [place] REPOSITORY TYPE CODE TESTS RESULT OUT OF REFERENCE UNITS RANGE LAB U100.0000 [id number] TRANSFUSED PRODUCT: T AND S with Crossmatch, Red Cells COUNT: 2 Performed By: #### U100.0000 #### [facility] Laboratory - refer to report for specific site FFP Collected: 10/28/2017 Status: F Source: [place] 12:50 PM [facility] [place] [place] REPOSITORY TYPE CODE TESTS RESULT OUT OF REFERENCE UNITS RANGE LAB U100.0900 [id number] TRANSFUSED PRODUCT: Fresh Frozen Plasma COUNT: 2 Performed By: #### U100.0900 #### [facility] Laboratory - refer to report for specific site RC Collected: 10/28/2017 Status: F Source: [place] 12:50 PM [facility] [place] [place] REPOSITORY TYPE CODE TESTS RESULT OUT OF REFERENCE UNITS RANGE LAB U100.0000 [id number] TRANSFUSED PRODUCT: T AND S with Crossmatch, Red Cells COUNT: 2 Performed By: #### U100.0000 #### [facility] Laboratory - refer to report for specific site FFP Collected: 10/28/2017 Status: F Source: [place] 12:50 PM [facility] [place] [place] REPOSITORY TYPE CODE TESTS RESULT OUT OF REFERENCE UNITS RANGE LAB U100.0900 [id number] TRANSFUSED PRODUCT: Fresh Frozen Plasma COUNT: 2 Performed By: #### U100.0900 #### Non- Laboratory - refer to report for specific site PPHR Collected: 10/28/2017 Status: F Source: [facility] 12:50 PM [facility] [place] [place] REPOSITORY TYPE CODE TESTS RESULT OUT OF REFERENCE UNITS RANGE LAB U100.0700 [id number] TRANSFUSED PRODUCT: Platelets Apheresis PPHR LR SD COUNT: 1 Performed By: #### U100.0700 #### Non- Laboratory - refer to report for specific site CBC W/DIFF, AUTOMATED Collected: 10/28/2017 Status: F Source: [facility] 11:55 AM [facility] [place] [place] REPOSITORY TYPE CODE TESTS RESULT OUT OF RANGE REFERENCE UNITS LAB L100.1000 4.4-11.0 K/mm3 Normal WBC 8.7 LAB L100.1200 4.2-5.4 M/mm3 Low RBC 2.55 LAB L100.1300 12.0-15.0 g/dl Low HGB 7.7 LAB L100.1400 37-47 % Low HCT 22.7 LAB L100.1500 81-99 fL Normal MCV 89.0 LAB L100.1600 27.0-32.0 pg Normal MCH 30.2 LAB L100.1700 32-36 g/gl Normal MCHC 33.9 LAB L100.1810 11.6-14.6 % Normal RDW CV 13.6 LAB L100.1820 35.1-43.9 fl Normal RDW SD 43.7 LAB L100.1900 150-450 K/mm3 Normal PLT 195 LAB L100.2000 6.2-12.0 fl Normal MPV 9.2 LAB L100.2100 47-70 % High NEUT% 78.7 LAB L100.2200 19-41 % Low LY% 14.6 LAB L100.2300 0-10 % Normal MONO% 6.6 LAB L100.2400 0-5 % Normal EO% 0.0 LAB L100.2500 0-1 % Normal BASO% 0.0 LAB L100.2550 0.0-0.9 % Normal IM GRAN % 0.100 Result Comment: IG% - Immature Granulocytes (promyelocytes, myelocytes and metamyelocytes) > 1% indicates that a LEFT SHIFT is Present. LAB L100.2620 2.0-7.7 X10 3/uL Normal Absolute Neut 6.8 LAB L100.2720 0.83-4.51 X10 3/ul Normal Absolute Lymph 1.26 Performed By: #### L100.0100 #### Laboratory [address] [place], [address] BASIC METABOLIC Collected: 10/28/2017 Status: F Source: [facility] PROFILE (BMP) 11:55 AM [facility] [place] [place] REPOSITORY TYPE CODE TESTS RESULT OUT OF RANGE REFERENCE UNITS LAB L501.0100 74-106 mg/dL High GLU 143 Result Comment: Fasting Glucose result greater than or equal to 126 mg/dL suggests DIABETES MELLITUS per A.D.A. criteria. Please note revised GLUCOSE reference range effective 2017. LAB L501.1000 7-18 mg/dL Normal BUN 12 LAB L501.1100 0.55-1.02 mg/dL High CREAT,SERUM 1.03 Result Comment: The validity of the calculated GFR AND GFRAA in patients over 70 years has not been determined. Clinical correlation is essential. LAB L501.1110 >60 mL/min Normal EST GFR 60 Result Comment: Non- GFR Calc LAB L501.1115 >60 mL/min Normal EST GFR - AA 72 Result Comment: GFR Calc LAB L501.1255 ml/min Normal Estimated CRCL 55.80 LAB L501.1300 10-20 RATIO Normal BUN/CRE 11.7 LAB L501.2200 8.5-10 mg/dL Low .1 CA 7.2 LAB L501.5300 136-14 mmol/L Normal 5 NA 142 LAB L501.5600 3.5-5. mmol/L Normal 1 K 4.3 LAB L501.5900 98-107 mmol/L High CL 109 LAB L501.6100 21.0-3 mmol/L Normal 2.0 CO2 23.0 LAB L501.6200 5-15 Normal GAP 10 Performed By: #### L500.2500 #### Laboratory [address] [place], [address] OPERATIVE REPORT Observed: 10/28/2017 Status: F Source: [facility] 8:55 AM [facility] [place] [place] REPOSITORY [facility] Medical Records Department [address] [place] [address] Operative Report 10/27/17 1251 MR#: [id number] Acct: [id number] Name: HOLGER RUFF Rep #: [id number] : 1965 51 From: Lionel Holm MD PCP: Carmita Chisholm PA-C Status: ADM IN Y Location: [facility] [place] [place] FR920-9 Problem List (1) Diverticulitis Status: Acute Qualifiers: Diverticulitis site: large intestine Diverticulitis bleeding: without bleeding Diverticulitis complication: without perforation or abscess Qualified Code(s): K57.32 - Diverticulitis of large intestine without perforation or abscess without bleeding Report of Operation Date of Procedure: 10/27/17 Pre-Operative Diagnosis: k57.32 diverticulitis of the sigmoid colon Post-Operative Diagnosis: same Surgery/Procedure Performed:: 1) laparoscopic mobilization of the colon at the splenic flexure. 2) open sigmoid colectomy. 3) incidental appendectomy Type of Anesthesia:: General Anesthesiologist: Juan Ortiz Specimen's removed: 1. Sigmoid colon. 2. Appendix Drains: none Estimated Blood Loss (mL): < 50 cc Fluids Replaced: 1 L LR Description of Procedure: Patient was brought into the operating room placed in the supine position. Under excellent endotracheal intubation Lobato catheter was placed legs were placed up in stirrups. The perineum and abdomen were sterilely prepped and draped in the usual fashion. Local was injected above the umbilicus. Veress needle was placed inside the abdomen the abdomen was insufflated to 15 torr. A #5 trocar was placed in a Visiport fashion. Dr. Olivarez to help me with doing the nerve blocks. On the left side nerve blocks were performed with the Exparel mixture. I performed the nerve blocks on the right side in similar fashion trying to get a good we will and that the muscle come down so that we would get local in the appropriate place. We used a total of 50 cc on each side. Patient was then was placed in the headdown position a right- sided midclavicular #5 trocar was placed in the right lower quadrant a 10/12 trocar was placed I placed a small bowel brought back into the abdominal upper cavity. I then dissected down significant small bowel adhesions to the sigmoid colon using sharp dissection I did not enter the small bowel whatsoever the sigmoid colon was plastered to the left lower quadrant I spent quite a bit of time trying to dissected free but it became apparent that this was not going to be a good case to be done in a laparoscopic fashion. I then placed the patient in the head up position rotated to the left. I placed another #5 trocar in the midclavicular area on the left side. I mobilized the splenic flexure using the Enseal once I had mobilized quite nicely. Once this was completed I then made a midline incision from the umbilicus down into the pelvis. Fascia was opened and electrocautery was used to gain access into the abdominal cavity. Once this was completed Bookwalter retractor was applied small intestines was appropriately placed in the upper abdomen I then dissected down to the distal sigmoid rectal juncture created a window here and then transected this with a 30 mm contour stapler. I came along the mesentery of the sigmoid colon with the Enseal device staying very close to the colon and then once I got proximal to the disease I transected the sigmoid colon over a Badger placing a shotted bowel clamp to the more proximal descending colon. In the mesentery I took down with the Enseal I had to tie off the inferior mesenteric artery to make sure that I had adequate length this was done with 0 Vicryl suture ligature excellent hemostasis was obtained. Once I had the end of the distal descending colon freed I placed a pursestring suture of 2-0 Prolene and placed a 29 EEA anvil into the colon and tied down the pursestring suture. We then irrigated out the rectum with Betadine irrigation we sequentially then dilated the rectum to 33 mm 29 EEA stapler was placed up towards the rectal stump I had a little bit of narrowing and was not able to get completely to the rectal stump area so I took it 2 cm proximal to the stump. The spike came out I took the anvil onto the spike we brought the stapler together. The line was in the middle of the green and the stapler was fired. Stapler was removed we had a distal and a proximal donut. We checked for leak there was a small air leak which actually came out of the stump of the rectum which I repaired with a yicmvg-jo-lfjvy suture of 3-0 silk. We rechecked for airtightness good air tightness was noted. I placed a small suture and the suture line where some bleeding was located of 3-0 GI silk. Once this was completed I then went to the appendix took the mesoappendix down with the Enseal and transected the base of the appendix with a 55 linear cutter. I inspected the small bowel good hemostasis was noted no enterotomies were identified. I got an accurate needle and sponge count. I removed all the trochars good hemostasis was noted. I injected the rest of the Exparel into the open wound. The 10/12 trocar was closed with a nwlhjx-bs-sbtwu stitch of 0 Vicryl. The fascia was then brought together with #1 PDS. Subcu was brought together with 2-0 Vicryl. This subcuticular stitch of 4-0 Monocryl on the skin. - Admit VTE Documentation VTE Present on Admission: No VTE Mechan Device Prophylaxis: SCD's VTE Pharm Prophylaxis ordered?: No Reason prophylaxis not ordered:: Treatment Not Indicated 10/28/17 0855 <Electronically signed by Lionel Holm MD> Date Lionel Holm MD CC: STEPHANIE Chisholm; Lionel Holm MD Signed CBC-COMPLETE BLOOD CNT Collected: 10/28/2017 Status: F Source: [facility] NO DIFF 6:30 AM [facility] [place] [place] REPOSITORY TYPE CODE TESTS RESULT OUT OF RANGE REFERENCE UNITS LAB L100.1000 4.4-11.0 K/mm3 High WBC 12.7 LAB L100.1200 4.2-5.4 M/mm3 Low RBC 3.18 LAB L100.1300 12.0-15.0 g/dl Low HGB 9.7 LAB L100.1400 37-47 % Low HCT 28.2 LAB L100.1500 81-99 fL Normal MCV 88.7 LAB L100.1600 27.0-32.0 pg Normal MCH 30.5 LAB L100.1700 32-36 g/gl Normal MCHC 34.4 LAB L100.1810 11.6-14.6 % Normal RDW CV 13.0 LAB L100.1820 35.1-43.9 fl Normal RDW SD 40.9 LAB L100.1900 150-450 K/mm3 Normal PLT 301 LAB L100.2000 6.2-12.0 fl Normal MPV 9.8 Performed By: #### L100.0500 #### Laboratory [address] [place], [place], [address] BASIC METABOLIC Collected: 10/28/2017 Status: F Source: [facility] PROFILE ([facility]MP) 6:30 AM [facility] [place] [place] REPOSITORY TYPE CODE TESTS RESULT OUT OF RANGE REFERENCE UNITS LAB L501.0100 74-106 mg/dL High GLU 201 Result Comment: Glucose result greater than or equal to 200 mg/dL suggests DIABETES MELLITUS per A.D.A. criteria. Please note revised GLUCOSE reference range effective 2017. LAB L501.1000 7-18 mg/dL Normal BUN 12 LAB L501.1100 0.55-1.02 mg/dL High CREAT,SERUM 1.36 Result Comment: The validity of the calculated GFR AND GFRAA in patients over 70 years has not been determined. Clinical correlation is essential. LAB L501.1110 >60 mL/min Low EST GFR 43 Result Comment: Non- GFR Calc LAB L501.1115 >60 mL/min Low EST GFR - AA 53 Result Comment: GFR Calc LAB L501.1255 ml/min Normal Estimated CRCL 42.26 LAB L501.1300 10-20 RATIO Low BUN/CRE 8.8 LAB L501.2200 8.5-10 mg/dL Low .1 CA 7.6 LAB L501.5300 136-14 mmol/L Normal 5 NA 142 LAB L501.5600 3.5-5. mmol/L Normal 1 K 4.4 LAB L501.5900 98-107 mmol/L Normal CL 106 LAB L501.6100 21.0-3 mmol/L Normal 2.0 CO2 22.0 LAB L501.6200 5-15 Normal GAP 14 Performed By: #### L500.2500 #### Laboratory [address] [place], [place], [address] COLON (NO NEOPLASM) Observed: 10/27/2017 Status: F Source: [facility] 12:35 PM [facility] [place] [place] REPOSITORY Patient: FLEXHOLGER : 1965 (51/F) Acct Num: [id number] Phys: Lionel Holm MD Unit Num: [id number] Loc: MS3 [id number] Specimen: [id number] Received: 10/27/171709 Spec Type: COLON TISSUES TISSUES: A. Colon, NOS B. Colon Donuts - SIGMOID C. Colon Donuts - DISCTAL GROSS DESCRIPTION A - Received in fixative is one container labeled with the patient's name and designated sigmoid colon and appendix. The specimen consists of a segment of colon with attached fibrofatty tissue measuring 17.5 cm in length. No gross perforation is evident. Serial sections reveal a light pink- foster mucosa with no mucosal mass lesions. One mucosal margin is stapled and the other mucosal margin is open. Serial sections reveal a number of diverticula. None of these appear to have perforated through the bowel wall. The attached fibrofatty tissue contains rare nodules resembling lymph node. Present free in the container is a vermiform appendix measuring 6 cm in length and 0.5 cm in average diameter. Serial sections reveal patent lumen. C Programmer sections are submitted as follows: 1 mucosal margins (stapled margin inked black), 2-5 diverticula, 6 registered representative lymph nodes, 7 appendix. / AM: 10/29/17 B - Received in fixative is one container labeled with the patient's name and designated proximal donut sigmoid. The specimen consists of a donut-shaped piece of colonic tissue measuring 1.5 x 1.5 x 1 cm. Multiple sutures are noted. C Programmer sections are submitted in one cassette. / SJ: 10/28/17 C - Received in fixative is one container labeled with the patient's name and designated distal donut rectum. The specimen consists of a donut-shaped piece of colonic tissue measuring 1.5 x 1 x 0.5 cm. The mucosa is congested. The entire specimen is submitted in one cassette. / SJ: 10/28/17 TC:3 CPT: 76410, 58375, 05910 x2 HEADER OPERATION: Laparoscopic sigmoid colectomy converted to open sigmoid colon PRE-OP DIAGNOSIS: Diverticulitis of large intestine with preformation without bleeding TISSUE SUBMITTED: A. Sigmoid colon and appendix, B. Proximal donut (sigmoid), C. Distal donut (rectal) MICROSCOPIC DESCRIPTION Slides are reviewed. MICROSCOPIC DIAGNOSIS A. Sigmoid colon, segmental resection: Diverticular disease of colon with focal rupture and associated reactive change and inflammation. Margins of excision with no significant pathologic change. Four out of four lymph nodes with no pathologic change. Appendix, appendectomy: No significant pathologic change. B. Proximal mucosal donut, excision: No significant pathologic change. C. Distal mucosal donut, excision. No significant pathologic change. AM:rg 10/30/17 Signed Baltazar Rogelio 10/30/17 <signature on file> Performed By: #### PCOL #### Laboratory [address] [place], [address] BEDSIDE GLUCOSE Collected: 10/27/2017 Status: F Source: [place] 11:22 AM [facility] [place] [place] REPOSITORY TYPE CODE TESTS RESULT OUT OF RANGE REFERENCE UNITS LAB L501.080 70-110 mg/dL Normal BEDSIDE GLU 101 Result Comment: MANAGEMENT OF PATIENT CARE PER NURSING PROTOCOL Performed By: #### L501.080 #### Laboratory Point of Care [address] [place] [address] PROTHROMBIN TIME W/INR Collected: 10/20/2017 Status: F Source: [place] 11:30 AM [facility] [place] [place] REPOSITORY TYPE CODE TESTS RESULT OUT OF RANGE REFERENCE UNITS LAB L300.4150 11.7-14.9 SECONDS Normal PROTIME 12.6 LAB L300.4200 Normal INR 0.9 Performed By: #### L300.3900, L300.4310 #### Laboratory [address] [place], [address] PARTIAL THROMBOPLAST Collected: 10/20/2017 Status: F Source: [place] TIME 11:30 AM [facility] [place] [place] REPOSITORY TYPE CODE TESTS RESULT OUT OF RANGE REFERENCE UNITS LAB L300.4310 24.1-36.2 Seconds Normal PTT 34.3 Performed By: #### L300.3900, L300.4310 #### Laboratory [address] [place], [address] CBC-COMPLETE BLOOD CNT Collected: 10/20/2017 Status: F Source: [facility] NO DIFF 11:30 AM [facility] [place] [place] REPOSITORY TYPE CODE TESTS RESULT OUT OF RANGE REFERENCE UNITS LAB L100.1000 4.4-11.0 K/mm3 Normal WBC 4.9 LAB L100.1200 4.2-5.4 M/mm3 Normal RBC 4.71 LAB L100.1300 12.0-15.0 g/dl Normal HGB 14.4 LAB L100.1400 37-47 % Normal HCT 40.6 LAB L100.1500 81-99 fL Normal MCV 86.2 LAB L100.1600 27.0-32.0 pg Normal MCH 30.6 LAB L100.1700 32-36 g/gl Normal MCHC 35.5 LAB L100.1810 11.6-14.6 % Normal RDW CV 12.8 LAB L100.1820 35.1-43.9 fl Normal RDW SD 39.8 LAB L100.1900 150-450 K/mm3 Normal PLT 265 LAB L100.2000 6.2-12.0 fl Normal MPV 9.9 Performed By: #### L100.0500 #### Laboratory [address] [place], [address] LIVER PROFILE Collected: 10/20/2017 Status: F Source: [facility] 11:30 AM [facility] [place] [place] REPOSITORY TYPE CODE TESTS RESULT OUT OF RANGE REFERENCE UNITS LAB L501.1500 6.4-8.2 g/dL Normal T PROT 7.8 LAB L501.1800 3.2-5.0 g/dL Normal ALB 3.9 LAB L501.1950 2.2-4.2 g/dL Normal GLOB 3.9 LAB L501.4100 15-37 U/L Normal AST 24 LAB L501.4305 45-117 U/L Normal ALK P 52 LAB L501.4405 13-56 U/L Normal ALT 30 LAB L501.4600 0.20-1.00 mg/dL Normal T BILI 0.60 LAB L501.4700 0.00-0.30 mg/dL Normal D BILI 0.13 Performed By: #### L500.3400 #### Laboratory [address] [place], [address] SURGERY VISIT REPORT Observed: 10/13/2017 Status: F Source: [facility] 4:13 PM [facility] [place] [place] REPOSITORY [facility] 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 Is patient in pain?: No Allergies acetaminophen [From Percocet] Allergy (Verified 10/13/17 14:36) Rash oxycodone [From Percocet] Allergy (Verified 10/13/17 14:36) Rash Medications Calcium Carbonate/Vitamin D3 [Calcium 500+D Tablet Chew] 1 tab PO DAILY 09/15/16 [History Confirmed 10/13/17] Lactobacillus Combination No.4 [Probiotic] 1 tab PO DAILY 09/15/16 [History Confirmed 10/13/17] Multivitamin [Daily Multiple Vitamin] 1 tab PO DAILY 09/15/16 [History Confirmed 10/13/17] B Complex W-C No.20/Folic Acid [Nephrocaps Softgel] 1 mg PO DAILY 09/16/16 [History Confirmed 10/13/17] metronidazole 500 mg tablet 500 mg PO .COMPLEX #6 tab 09/21/17 [Rx Confirmed 10/13/17] neomycin 500 mg tablet 500 mg PO .COMPLEX #6 tab 09/21/17 [Rx Confirmed 10/13/17] Is last menstrual period known: No Post menopausal: Yes Patient : No PFSH Medical History 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) Endometriosis (Acute) Benign neoplasm of colon (Acute) Diverticulitis (Acute) Surgical History History of endometrial ablation (Acute) Hx of hysterectomy (Acute) Hx of wisdom tooth extraction (Acute) Hx of colonoscopy (Acute) Hx of breast biopsy (Acute) Family History Grandmother Colon cancer Grandmother Breast cancer Social History Smoking Status: Never smoker second hand exposure: No alcohol intake: never substance use type: does not use caffeine: Yes what type of physical activity do you participate in: walking frequency: 1-2 times per week seatbelt use: always HPI HPI HPI: HOLGER RUFF, is a 51 F I am following for recurrent diverticulitis. Patient presents for an update history and physical for upcoming colectomy procedure. Patient denies recent hospitalizations or illnesses. She denies current abdominal pain/discomfort. Patient's previous history per Dr. Holm: HOLGER RUFF, is a 51 F who presents to the office today for follow-up from diverticulitis. I originally saw the patient back on 01/06/2017. She had an area of diverticulitis in her sigmoid colon throughout the winter she develop recurrent diverticulitis and was subsequently sent to [facility] where CT scan showed diverticulitis of the sigmoid colon. Prior to that she was on several courses of Augmentin which unfortunately did not improve her symptoms. She was discharged at her most recent visit on Cipro and Flagyl and has noted some improvement. At the time of her hospitalization it was recommended to her that she undergo a laparoscopic sigmoid resection. However she wanted to come back and see me to discuss the case further. It is pretty clear that she has failed medical management here. With her finishing her course of antibiotics she is noticing some discomfort in the left lower quadrant of her abdomen.. She is not complaining of any fever chills she is moving her bowels. At this point I think the best thing to do is perform a laparoscopic sigmoid colectomy on her. I do not think that she is going to be able to be managed on medical therapy alone. I have reviewed the surgery with her and she is in agreement ROS General General: Yes weight change and fatigue; no appetite, colon cancer, breast cancer or weakness HEENT HEENT: Yes swollen glands; no difficulty swallowing, eye injury, eye surgery or hoarseness Endo Endocrine: No thyroid disease, diabetes mellitus, thyroid cancer, Hair loss, heat intolerance or cold intolerance Skin Skin: No rash or changing moles Musc Musculoskeletal: Yes back problems; no arthritis, rheumatoid arthritis, gout or joint pain Cardio Cardiovascular: No murmur, pacemaker, heart disease, atrial fibrillation, high blood pressure, heart attack, heart stent, palpitations, shortness of breat with exertion or chest pain Psych Psychiatric: No depression, anxiety or hearing voices Resp Respiratory: No shortness of breath, No sleep apnea, No cough, No COPD, No asthma, No emphysema, No wheezing Gastro Gastrointestinal: Yes abdominal pain, Yes nausea or vomiting, No diarrhea, No constipation, No blood in stool, No acid reflux, No hemorrhoids, No ulcers, No gallbladder problem, No black,tarry stools Vimal Hematologic: No blood thinners, No blood disorders, No bleeding, No anemia, No blood clots Neuro Neurologic: No weakness Exam Const General: cooperative, healthy appearing, comfortable, no acute distress HENMT Head: normal to inspection Eyes General: appearance normal, both eyes and all related structures Neck Neck mass: No Resp Effort AND Inspection: normal respiratory effort Auscultation: clear to auscultation bilaterally Cardio Rate: regular rate Heart Sounds: no murmurs GI Inspection: normal to inspection Palpation: soft Auscultation: normal bowel sounds Skin General: no rashes or lesions noted Neuro General: no focal motor deficits, CN's II-XI intact bilaterally Extrem General: normal to inspection Psych Appearance: grossly normal Affect: normal affect Assessment AND Plan Problems 1. Diverticulitis of large intestine with perforation without bleeding K57.[address] Holm will plan to perform a laparoscopic sigmoid colectomy. Patient will be placed in the ERAS protocol. Procedure details, risks and benefit have been reviewed. She will proceed to have PAT next week to further discuss ERAS preparation. Patient has had the opportunity to ask and have questions answered, Patient verbally understands and agrees with the plan. Prescription for pre-op antibiotics and instructions for bowel prep have been given to the patient. Patient also has an information folder for the ERAS program that will be implemented. Coding Level of Care Code No Charge Diagnoses Diverticulitis of large intestine with perforation without bleeding K57.20 Diverticulitis site: large intestine Diverticulitis bleeding: without bleeding Diverticulitis complication: with perforation Comment Update history and physical 10/13/17 1612 <Electronically signed by Merary Peralta PA-C> Date Merary Peralta PA-C Cosigner Signature: Date (if applicable) CC: STEPHANIE Keyberly [place] SURGERY VISIT REPORT Observed: 09/26/2017 Status: F Source: [place] 4:55 PM [facility] [place] [place] REPOSITORY [facility] [address] [place] [address]. [address] [place] [address] OFFICE VISIT Date of Service: 09/21/17 MR#: [id number] Acct: [id number] Name: HOLGER RUFF Rep #: [id number] : 1965 Provider: Lionel Holm MD Age/Sex: 51/F Location: [facility] Status: Signed Intake Intake Visit Reasons: F/U DIVERTICULITIS Chief Complaint: recheck LLQ pain Allergies acetaminophen [From Percocet] Allergy (Verified 08/25/17 14:09) Rash oxycodone [From Percocet] Allergy (Verified 08/25/17 14:09) Rash Medications Calcium Carbonate/Vitamin D3 [Calcium 500+D Tablet Chew] 1 tab PO DAILY 09/15/16 [History Confirmed 08/25/17] Lactobacillus Combination No.4 [Probiotic] 1 tab PO DAILY 09/15/16 [History Confirmed 08/25/17] Multivitamin [Daily Multiple Vitamin] 1 tab PO DAILY 09/15/16 [History Confirmed 08/25/17] B Complex W-C No.20/Folic Acid [Nephrocaps Softgel] 1 mg PO DAILY 09/16/16 [History Confirmed 08/25/17] metronidazole 500 mg tablet 500 mg PO .COMPLEX #6 tab 09/21/17 [Rx Confirmed 09/21/17] neomycin 500 mg tablet 500 mg PO .COMPLEX #6 tab 09/21/17 [Rx Confirmed 09/21/17] PFSH Medical History 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) Endometriosis (Acute) Benign neoplasm of colon (Acute) Diverticulitis (Acute) Surgical History History of endometrial ablation (Acute) Hx of hysterectomy (Acute) Hx of wisdom tooth extraction (Acute) Hx of colonoscopy (Acute) Hx of breast biopsy (Acute) Family History Grandmother Colon cancer Grandmother Breast cancer Social History Smoking Status: Never smoker second hand exposure: No alcohol intake: never substance use type: does not use caffeine: Yes what type of physical activity do you participate in: walking frequency: 1-2 times per week seatbelt use: always HPI HPI HPI: HOLGER RUFF, is a 51 F who presents to the office today for follow-up from diverticulitis. I originally saw the patient back on 01/06/2017. She had an area of diverticulitis in her sigmoid colon throughout the winter she develop recurrent diverticulitis and was subsequently sent to [facility] where CT scan showed diverticulitis of the sigmoid colon. Prior to that she was on several courses of Augmentin which unfortunately did not improve her symptoms. She was discharged at her most recent visit on Cipro and Flagyl and has noted some improvement. At the time of her hospitalization it was recommended to her that she undergo a laparoscopic sigmoid resection. However she wanted to come back and see me to discuss the case further. It is pretty clear that she has failed medical management here. With her finishing her course of antibiotics she is noticing some discomfort in the left lower quadrant of her abdomen.. She is not complaining of any fever chills she is moving her bowels. At this point I think the best thing to do is perform a laparoscopic sigmoid colectomy on her. I do not think that she is going to be able to be managed on medical therapy alone. I have reviewed the surgery with her and she is in agreement Exam Const General: well developed, no acute distress, well hydrated Orientation: oriented to person, oriented to place, oriented to time HENPR Head: normocephalic, atraumatic Ears: external ears normal Mouth: moist mucous membranes Eyes Sclera: sclerae normal Pupils: normal by confrontation Neck Neck: no lymphadenopathy noted Neck mass: No Thyroid: symmetrical, thyroid normal Chest Chest palpation AND inspection: normal inspection of the chest Resp Effort AND Inspection: normal respiratory effort Auscultation: clear to auscultation bilaterally Percussion: percussion normal Cardio Rate: regular rate Rhythm: regular rhythm GI Palpation: soft, no masses, no hepatosplenomegaly, nontender Rectal Exam: other Other: Rectal exam deferred. Extrem General: no clubbing, cyanosis or edema, normal to inspection Assessment AND Plan Problems 1. Diverticulitis of sigmoid colon K57.32 Plan Did discuss the anatomy and procedure: laparoscopic sigmoid colectomy, possible open with the patient. Including risks, but not limited to, bleeding, infection (superficial or intraabdominal), injury to another organ (small bowel, colon, ureter, etc.) requiring additional procedures, and blood clots. Also, discussed the pre-op, colon prep and antibiotics. All questions were answered. Medications New: Coding Level of Care Code Off vis,est,level 3 Diagnoses Diverticulitis of sigmoid colon K57.32 09/26/17 1655 <Electronically signed by Lionel Holm MD> Date Lionel Holm MD Cosigner Signature: Date (if applicable) [facility] Observed: 08/25/2017 Status: F Source: [place] 3:42 PM [facility] [place] [place] REPOSITORY [facility] [address] [place] [address] [address] [place], [place] [address] OFFICE VISIT Date of Service: 08/25/17 MR#: [id number] Acct: [id number] Name: HOLGER RUFF Rep #: [id number] : 1965 Provider: Merary Peralta PA-C Age/Sex: 51/F Location: [facility] Status: Signed Intake Intake Visit Reasons: F/U DIVERTICULITIS DP Chief Complaint: recheck LLQ pain 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 Is patient in pain?: Yes Pain scale (1-10): 2 Allergies acetaminophen [From Percocet] Allergy (Verified 08/25/17 14:09) Rash oxycodone [From Percocet] Allergy (Verified 08/25/17 14:09) Rash Medications Calcium Carbonate/Vitamin D3 [Calcium 500+D Tablet Chew] 1 tab PO DAILY 09/15/16 [History Confirmed 08/25/17] Lactobacillus Combination No.4 [Probiotic] 1 tab PO DAILY 09/15/16 [History Confirmed 08/25/17] Multivitamin [Daily Multiple Vitamin] 1 tab PO DAILY 09/15/16 [History Confirmed 08/25/17] B Complex W-C No.20/Folic Acid [Nephrocaps Softgel] 1 mg PO DAILY 09/16/16 [History Confirmed 08/25/17] Is last menstrual period known: No Post menopausal: Yes Patient : No PFSH Medical History 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) Endometriosis (Acute) Benign neoplasm of colon (Acute) Diverticulitis (Acute) Surgical History History of endometrial ablation (Acute) Hx of hysterectomy (Acute) Hx of wisdom tooth extraction (Acute) Hx of colonoscopy (Acute) Hx of breast biopsy (Acute) Family History Grandmother Colon cancer Grandmother Breast cancer Social History Smoking Status: Never smoker second hand exposure: No alcohol intake: never substance use type: does not use caffeine: Yes what type of physical activity do you participate in: walking frequency: 1-2 times per week seatbelt use: always HPI HPI HPI: HOLGER RUFF, is a 51 F I am following for recurrent diverticulitis. Patient has been 2 weeks without antibiotics. She notes intermittent mild LLQ discomfort. She also notes pelvic pressure and urgency with urination. She denies fever, nausea, vomiting. She continues to eat bland foods. Exam GI Inspection: normal to inspection Palpation: soft, nontender Auscultation: normal bowel sounds Assessment AND Plan Problems 1. Diverticulitis of large intestine without bleeding, unspecified complication status K57.32 2. Urgency of urination R39.15 Plan - Order urinalysis - Follow-up in [address] Holm Orders Orders: Coding Level of Care Code Off vis,est,level 3 Diagnoses Diverticulitis of large intestine without bleeding, unspecified complication status K57.32 Diverticulitis bleeding: without bleeding Diverticulitis complication: unspecified complication status Urgency of urination R39.15 08/25/17 1542 <Electronically signed by Merary Peralta PA-C> Date Merary Peralta PA-C Cosigner Signature: Date (if applicable) CC: URINALYSIS, COMPLETE Collected: 08/25/2017 Status: F Source: [place] 2:30 PM [facility] [place] [place] REPOSITORY Order Comment: How was Urine Obtained? 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 DIPSTX 1.020 LAB L400.3550 5.0 - 8.0 pH UR Normal 6.0 LAB L400.3600 Negative mg/dl High PROT 30 DIPSTX LAB L400.3700 Normal mg/dl High 1 UROBILI LAB L400.3750 Negative Normal NITRITE UR Negative LAB L400.3780 Negative /ul High 25 OCCULT BLOOD-UR LAB L400.3800 Negative /ul High LEUK ESTERASE 500 LAB L400.4050 0-5 /hpf WBC Normal 5-10 SEEN LAB L400.4100 0-5 /hpf Normal RBC-UA 0-5 SEEN LAB L400.4150 5-10 /hpf SQUAM Normal EPI 0-5 SEEN LAB L400.4300 None Seen /hpf 0 Normal BACTERIA SEEN LAB L400.4350 <or=2+ /hpf 0 Normal MUCUS, URINE SEEN Performed By: #### L400.0001 #### Laboratory [address] [place], [address] SURGERY VISIT REPORT Observed: 07/24/2017 Status: F Source: [place] 4:09 PM [facility] [place] [place] REPOSITORY [facility] 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 Is patient in pain?: Yes (Lower abdomen/ left side) Pain scale (1-10): 4 Allergies acetaminophen [From Percocet] Allergy (Verified 07/21/17 15:30) Rash oxycodone [From Percocet] Allergy (Verified 07/21/17 15:30) Rash Medications Calcium Carbonate/Vitamin D3 [Calcium 500+D Tablet Chew] 1 tab PO DAILY 09/15/16 [History Confirmed 07/21/17] Lactobacillus Combination No.4 [Probiotic] 1 tab PO DAILY 09/15/16 [History Confirmed 07/21/17] Multivitamin [Daily Multiple Vitamin] 1 tab PO DAILY 09/15/16 [History Confirmed 07/21/17] B Complex W-C No.20/Folic Acid [Nephrocaps Softgel] 1 mg PO DAILY 09/16/16 [History Confirmed 07/21/17] ciprofloxacin 500 mg tablet 500 mg PO BID 10 Days #20 tab 07/21/17 [Rx Confirmed 07/21/17] metronidazole 500 mg tablet 500 mg PO TID 10 Days #30 tab 07/21/17 [Rx Confirmed 07/21/17] PFSH Medical History 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) Endometriosis (Acute) Benign neoplasm of colon (Acute) Diverticulitis (Acute) Surgical History History of endometrial ablation (Acute) Hx of hysterectomy (Acute) Hx of wisdom tooth extraction (Acute) Hx of colonoscopy (Acute) Hx of breast biopsy (Acute) Family History Grandmother Colon cancer Grandmother Breast cancer Social History Smoking Status: Never smoker second hand exposure: No alcohol intake: never substance use type: does not use caffeine: Yes what type of physical activity do you participate in: walking frequency: 1-2 times per week seatbelt use: always HPI HPI HPI: HOLGER RUFF, is a 51 F who presents to the office today for follow-up from diverticulitis. I originally saw the patient back on 01/06/2017. She had an area of diverticulitis in her sigmoid colon throughout the winter she develop recurrent diverticulitis and was subsequently sent to [facility] where CT scan showed diverticulitis of the sigmoid colon. Prior to that she was on several courses of Augmentin which unfortunately did not improve her symptoms. She was discharged at her most recent visit on Cipro and Flagyl and has noted some improvement. At the time of her hospitalization it was recommended to her that she undergo a laparoscopic sigmoid resection. However she wanted to come back and see me to discuss the case further. It is pretty clear that she has failed medical management here. With her finishing her course of antibiotics she is noticing some discomfort in the left lower quadrant of her abdomen.. She is not complaining of any fever chills she is moving her bowels. ROS General General: Yes weight change and fatigue; no appetite, colon cancer, breast cancer or weakness HEENT HEENT: Yes swollen glands; no difficulty swallowing, eye injury, eye surgery or hoarseness Endo Endocrine: No thyroid disease, diabetes mellitus, thyroid cancer, Hair loss, heat intolerance or cold intolerance Skin Skin: No rash or changing moles Musc Musculoskeletal: Yes back problems; no arthritis, rheumatoid arthritis, gout or joint pain Cardio Cardiovascular: No murmur, pacemaker, heart disease, atrial fibrillation, high blood pressure, heart attack, heart stent, palpitations, shortness of breat with exertion or chest pain Psych Psychiatric: No depression, anxiety or hearing voices Resp Respiratory: No shortness of breath, No sleep apnea, No cough, No COPD, No asthma, No emphysema, No wheezing Gastro Gastrointestinal: Yes abdominal pain, Yes nausea or vomiting, No diarrhea, No constipation, No blood in stool, No acid reflux, No hemorrhoids, No ulcers, No gallbladder problem, No black,tarry stools Vimal Hematologic: No blood thinners, No blood disorders, No bleeding, No anemia, No blood clots Neuro Neurologic: No system reviewed and no additional complaints, except as docu, No as per HPI, No abnormal walking, No abnormal hearing, No abnormal movements, No abnormal speech, No behavioral changes, No burning sensations, No confusion, No seizure-like activity, No unsteadiness, No dizziness, No localized weakness, No frequent falls, No headache(s), No lack of coordination, No loss of vision, No memory loss, No numbness, No other visual disturbances, No radiating pain, No restless legs, No sensory deficit, No fainting, No tingling, No tremor(s), No weakness, No other Exam Const General: well developed, no acute distress, well hydrated Orientation: oriented to person, oriented to place, oriented to time [facility] Head: normocephalic, atraumatic Ears: external ears normal Mouth: moist mucous membranes Eyes Sclera: sclerae normal Pupils: normal by confrontation Neck Neck: no lymphadenopathy noted Neck mass: No Thyroid: symmetrical, thyroid normal Chest Chest palpation AND inspection: normal inspection of the chest Resp Effort AND Inspection: normal respiratory effort Auscultation: clear to auscultation bilaterally Percussion: percussion normal Cardio Rate: regular rate Rhythm: regular rhythm Heart Sounds: no murmurs GI Other: Her abdomen is soft no real tenderness is identified she has no rebound guarding or peritoneal signs I cannot palpate any masses she has normal active bowel sounds. Extrem General: no clubbing, cyanosis or edema, normal to inspection Assessment AND Plan Problems 1. Diverticulitis of sigmoid colon K57.32 Plan At this point I am recommending the patient undergo a laparoscopic sigmoid resection. She however really does not want to have that surgery done at this time and would prefer to try to wait until mid to late September. I have offered her the surgery however she knows that I am going to be undergoing surgery and will be unable to do any surgeries from August 13 to at least mid to late September. She is reluctant to have me do the surgery at this point since I will be unable to take care of her if there were to be any complications. I am going to start her on Cipro and Flagyl at this point. I have told her to go to a strict liquid pur ed diet. I have instructed her that if her discomfort increases in any way shape or form she is going to have to come back to the office and get her surgery scheduled sooner with 1 of my partners. I will see her back in early September when I come back from my surgery. And at that point we will get her scheduled for late September for her laparoscopic sigmoid colectomy. Medications New: Coding Level of Care Code Off vis,est,level 2 Diagnoses Diverticulitis of sigmoid colon K57.32 07/24/17 1609 <Electronically signed by Lionel Holm MD> Date Lionel Holm MD Cosign Signature: Date (if applicable) CC: STEPHANIE CARRERO Observed: 06/30/2017 Status: COMPLETED Source: [facility] 12:38 PM CLIN[facility] OTHER C[facility] REPOSITORY O ID: [id number] Author: Kashif Vila DO Service: Hospital Medicine Author Type: Physician Type: Discharge Summaries Filed: 06/30/2017 12:39 PM Note Text: DISCHARGE SUMMARY PATIENT NAME: Holger Ruff Admission Information Admission Information ADMIT DATE: 06/26/2017 DISCHARGE DATE: 06/30/2017 MY DOCTORS AND MEDICAL TEAM: My Main Hospital Doctor: Kashif Vila DO Primary Care Provider: Dino Connor MD My Medical Team Members: Treatment Team: Attending Provider: Kashif Vila DO Consulting: Simon Crowe MY CONDITION AT DISCHARGE: Good REASON I WAS IN THE HOSPITAL: Diverticulitis SUMMARY OF WHAT HAPPENED WHILE I WAS IN THE HOSPITAL: The patient was admitted due to abdominal pain and CT showing diverticulitis with fluid collection in her abdomen. She was treated with IV antibiotics and seen by surgical team. She was assessed to not need any acute surgical intervention or fluid drainage. She was asked to follow up as an outpatient as she will likely need surgery for recurrent diverticulitis. She was given additional 10 day antibiotic course and provided information for surgical team prior to discharge. OTHER PROBLEMS/DIAGNOSIS: Principal Problem: Diverticulitis Resolved Problems: * No resolved hospital problems. * OPERATIONS PERFORMED WHILE IN THE HOSPITAL: None IMPORTANT TEST/PROCEDURES: No procedures performed TEST RESULTS NOT AVAILABLE AT THIS TIME: No pending results Discharge Disposition Discharge Disposition: Home With Self Care Activity When You Leave the Hospital Resume pre-hospital activity Diet Instructions Resume your pre-hospital diet Call Your Doctor If For the following: Worsening abdominal pain, inability to eat, inability to urinate. There is an unusual odor from the wound area There is severe pain at the operative site You have a severe headache You have lightheadedness, fainting, or confusion You have persistent nausea/vomiting over 24 hours You have persistent or heavy bleeding You have swollen glands or cold and clammy skin Your temperature is greater than 101F Follow Up Appointments Follow-Up Appointment With: Follow up with PCP When: In: Comment - 2 weeks Patient/Parents to call for appointment?: Yes Follow-Up Appointment Follow up diverticulitis with fluid collection With: Follow up with Surgery as directed When: In: Patient/Parents to call for appointment?: Yes Additional Provider to Provider Information: FOLLOW-UP APPOINTMENTS ALREADY SCHEDULED WITH A [facility] PROVIDER: No future appointments. DISCHARGE MEDICATION: Current Discharge Medication List START taking these medications ciprofloxacin HCl (CIPRO) 500 mg Take 500 mg by mouth twice daily. Qty: 21 tablet Refills: 0 metroNIDAZOLE (FLAGYL) 500 mg Take 500 mg by mouth three times daily. Qty: 44 tablet Refills: 0 CONTINUE these medications which have NOT CHANGED LACTOBACILLUS ACIDOPHILUS (PROBIOTIC ORAL) 1 capsule Take 1 capsule by mouth once daily. Calcium Carb-Cholecalciferol (CALCIUM 600 + D,3,) 600 mg(1,500mg) -200 unit ORAL Tab Take one(1) tablet twice daily. Refills: 0 Cholecalciferol, Vitamin D3, (VITAMIN D-3) 1,000 unit ORAL Chew Take 1 tablet twice daily. Refills: 0 MULTIVITAMIN TAB Take one(1) tablet daily. Refills: 0 Estradiol 1 Patch Apply 1 Patch as directed twice a week. TWICE WEEKLY Qty: 4 Patch Refills: 0 estradiol (KEYA, VIVELLE-DOT) 1 Patch Apply 1 Patch as directed every Thursday and Thursday. TWICE WEEKLY Qty: 4 Patch Refills: 1 estradiol (KEYA, VIVELLE-DOT) 1 Patch Apply 1 Patch as directed twice a week. Qty: 8 Patch Refills: 11 Comments: Twice weekly Discharge Physical Exam: VITAL SIGNS: BP 126/75 Pulse 78 Temp 37.2 ?C (99 ?F) (Oral) Resp 16 Ht 162.6 cm (5' 4) Wt 100.7 kg (222 lb) LMP 08/16/2009 SpO2 97% BMI 38.11 kg/m2 General - AANDOx3, NAD, Calm ENT- no icterus, MMM CV - RRR S1 S2, No M/R/G RESP - CTA B/L ?No wheezes, ronchi, rales ABD - soft, NT, ND, NM +BS Neuro- Conversant, follows commands, moves all ext, gross sensation intact No dysarthria Ext:Non-tender, no edema Skin: warm, no rash Psych: appropriate mood and affect TIME OF CARE: Discharge Management: I personally spent greater than 30 minutes involved in the discharge management of this patient. SIGNATURE: Kashif Vila DO PAGER/CONTACT #: DATE: June 30, 2017 TIME: 12:38 PM CONSULT Observed: 06/30/2017 Status: COMPLETED Source: [facility] 12:03 PM CLINIC OTHER CAMPUS REPOSITORY HNO ID: [id number] Author: Andrew Bearden Service: General Surgery Author Type: Resident Type: Consults Filed: 06/30/2017 3:39 PM Note Text: Attestation signed by Christopher Soni at 07/01/2017 11:42 AM Outpatient management Christopher Soni MD HISTORY AND PHYSICAL EXAMINATION / CONSULTATION NOTE SERVICE DATE: 06/30/2017 SERVICE TIME: 12:03 PM PRIMARY CARE PHYSICIAN: Dino Connor MD Subjective CHIEF COMPLAINT: Diverticulitis HPI: This is a 51 year old female who presents with Recurrent diverticulitis without abscess or perf. The patient has had multiple episodes of diverticulitis in the past requiring abx August of last year and then 3 other months between now and then. The patient had one episode with microperforation in the past. Her last colonoscopy was in october at [place]. The patient currently feels well though initially she had left lower quadrant pain. Pt tolerating diet, having bowel movements and passing flatus. 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 - Vertigo PAST SURGICAL HISTORY Procedure Laterality Date - BX OF BREAST; INCISIONAL or 07/2007 Bx of breast, incisional - COLONOSCOP W/ OR W/O [facility] SPEC 2008,2010,2012 Colonoscopy - COLONOSCOPY 07/01/07, 07/2007 - EXTRACTION ERUPTED TOOTH/EXR 2 wisdom teeth - HYSTERECTOMY HX 2009 - L'SCOPE REM ADNEX W/PART/TOT OOPH/SALP 11/30/2009 Left Overy Removed - CARLOTA W/WO REMOVAL TUBE OVARY 08/2009 CARLOTA/RSO - THERMAL ENDOMETRIAL ABLATION 01/2009 - WRIST SURGERY HX Bilateral 2017 Carpel Tunnel FAMILY HISTORY Problem Relation Age of Onset - Colon Cancer Paternal Grandmother - Coronary Artery Disease Maternal Grandmother - Breast Cancer Maternal Grandmother Diagnosed prior to age 40 - None Other No family history of ovarian or uterine cancer. Social History Substance Use Topics - Smoking status: Never Smoker - Smokeless tobacco: Never Used - Alcohol use No Prescriptions Prior to Admission: LACTOBACILLUS ACIDOPHILUS (PROBIOTIC ORAL) Take 1 capsule by mouth once daily. Disp: Rfl: Calcium Carb-Cholecalciferol (CALCIUM 600 + D,3,) 600 mg(1,500mg) -200 unit ORAL Tab Take one(1) tablet twice daily. Disp: Rfl: 0 Cholecalciferol, Vitamin D3, (VITAMIN D-3) 1,000 unit ORAL Chew Take 1 tablet twice daily. Disp: Rfl: 0 MULTIVITAMIN TAB Take one(1) tablet daily. Disp: Rfl: 0 Estradiol (VIVELLE-DOT) 0.0375 mg/24 hr Apply 1 Patch as directed twice a week. TWICE WEEKLY Disp: 4 Patch Rfl: 0 estradiol (VIVELLE-DOT) 0.025 mg/24 hr Apply 1 Patch as directed every Thursday and Thursday. TWICE WEEKLY Disp: 4 Patch Rfl: 1 estradiol (VIVELLE-DOT) 0.05 mg/24 hr Apply 1 Patch as directed twice a week. Disp: 8 Patch Rfl: 11 ALLERGIES Allergen Reactions - Percocet [Oxycodone* Rash COMPLETE REVIEW OF SYSTEMS: See HPI Objective PHYSICAL EXAM: GENERAL: Alert, no distress, cooperative SKIN: Skin color, texture, turgor normal. No rashes or lesions. LUNGS: Unlabored breathing on O2 Therapy: Room Air on sating at SpO2: 97 % CARDIAC: Regular rate and rhythm as above, ABDOMEN: Benign, Soft, non-tender, No masses, hepatosplenomegaly and No lymphadenopathy EXTREMITIES: ROM of all joint grossly normal: strength grossly normal bilaterally. No deformities noted. WOUND: not applicable BP 126/75 Pulse 78 Temp (Src) 99 (Oral) Resp 16 Ht 5' 4 (1.63m) Wt 222 lb (100.7kg) SpO2 97% LMP 08/16/2009 BMI 38.09 kg/(m2). Temp (24hrs), Av.1 ?C (98.8 ?F), Min:36.8 ?C (98.2 ?F), Max:37.2 ?C (99 ?F) Body mass index is 38.11 kg/(m2). DATA: Diagnostic tests reviewed for today's visit: No results found for this or any previous visit (from the past 48 hour(s)).] Assessment/Plan This is a 51 year old female who presents with recurrent diverticulitits -plan outpatient sigmoid resection either here or at [place] -continue abx per primary team -okay for d/c per surgery will follow up outpatient D/w dr soni SIGNATURE: Andrew Bearden MD PATIENT NAME: Holger Ruff DATE: June 30, 2017 TIME: 12:03 PM PAGER/CONTACT #: [phone] CASE MGT INIT Observed: 06/29/2017 Status: COMPLETED Source: [facility] 2:52 PM CLINIC OTHER CAMPUS REPOSITORY HNO ID: [id number] Author: Gayla (Rn) DAVID Sevilla Service: Care Management Author Type: Registered Nurse Type: Care Mgt Initial Assessment Filed: 06/29/2017 2:54 PM Note Text: CARE MANAGEMENT: ASSESSMENT AND DISCHARGE PLAN SERVICE DATE: 06/29/2017 SERVICE TIME: 1452 PRIMARY CARE PHYSICIAN: Dino oCnnor MD ADMISSION STATUS: Inpatient MEDICAL: 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 No Advance Directive: Health Literacy: 1. How often do you need to have someone help you when you read instructions, pamphlets, or other written material from your doctor or pharmacy? Never - 1 2. How confident are you filling out medical forms by yourself? Extremely - 1 If Patient scores > 3 on either question, the following interventions were put into place: Patient did not score > 3 FUNCTIONAL AND COGNITIVE/BEHAVIORAL PRIOR TO ADMISSION: Baseline Mental Status: Alert AND Oriented, Person, Place , Time and Situation Functional Status: Independent Does Patient Currently Receive Any Community Services or Home Care? None Equipment Prior to Admission: None Has the Patient Been in a Penitentiary Facility in the Past 30 days? No SOCIAL: Living Arrangement: Home Lives With: Spouse Financial Resources: N/A Primary Contact: Extended Emergency Contact Information Primary Emergency Contact: Akash Ruff Address: [id number] [place] [id number] [address] Relation: Spouse Supportive: Yes Other Important Patient Contacts: None Caregiver Assessment: Caregiver is ready, willing and able to meet the patient's needs as recommended by the inter-professional team? No Caregiver Needed Patient's transition needs and plan for meeting these needs: pt will not have any needs at dc Does the patient have an acute stroke diagnosis, or has the patient had a stroke during this admission? No Medication Adherence: I am convinced of the importance of my prescription medication: Agree completely - 0 I worry that my prescription medication will do more harm than good to me Disagree mostly - 0 I feel financially burdened by my [id number] expenses for my prescription medication: Disagree mostly -0 Patient is categorized as low risk < 2 Are you interested in bedside delivery of your medications? No Food Concerns: In the Last Month, Have You had Trouble Getting Food? No trouble getting food During the Last Month, Have You Worried Whether Your Food Would Run Out Before You Had Enough Money to Buy More? No Is the Patient Psychosocially Complex? No ASSESSMENT AND PLAN: Medical Needs: None Psychosocial Needs: None FREEDOM OF CHOICE EXPLAINED: N/A POTENTIAL TRANSITION PLANS No Services Indicated Pt from home and plans on return home at ma Will follow for new needs. Currently on iv antibiotics but not anticipated long-term. SIGNATURE: Gayla Sevilla RN PATIENT NAME: Holger Ruff DATE: June 29, 2017 TIME: 2:52 PM PAGER/CONTACT #: [phone] PROGRESS Observed: 06/29/2017 Status: COMPLETED Source: [facility] 2:48 PM CLINIC OTHER CAMPUS REPOSITORY HNO ID: [id number] Author: Kashif Vila DO Service: Hospital Medicine Author Type: Physician Type: Progress Notes Filed: 06/29/2017 2:52 PM Note Text: DEPARTMENT OF HOSPITAL MEDICINE PROGRESS NOTE SERVICE DATE: 06/29/2017 SERVICE TIME: 2:48 PM Hospital Medicine/Primary Attending: Kashif Vila DO NIGHT AND WEEKEND COVERAGE: After 7pm please page [phone] SUBJECTIVE: Patient seen and examined at bedside. No acute complaints/concerns reported. Tolerated regular diet today w/o nausea. Abd pain resolved OBJECTIVE: PHYSICAL EXAM: BP 131/72 Pulse 82 Temp (Src) 97.7 (Oral) Resp 18 Ht 5' 4 (1.63m) Wt 222 lb (100.7kg) SpO2 96% LMP 08/16/2009 BMI 38.09 kg/(m2). General - AANDOx3, NAD, Calm ENT- no icterus, MMM CV - RRR S1 S2, No M/R/G RESP - CTA B/L No wheezes, ronchi, rales ABD - soft, NT, ND, NM +BS Neuro- Conversant, follows commands, moves all ext, gross sensation intact No dysarthria Ext:Non-tender, no edema Skin: warm, no rash Psych: appropriate mood and affect MEDICATIONS: Current hospital medications: lactobacillus rhamnosus (CULTURELLE) capsule 1 capsule ORAL BID acetaminophen 650 mg tab(s) (TYLENOL) 650 mg ORAL q 6 H PRN magnesium hydroxide 400 mg/5 mL 30 mL (MOM) 30 mL ORAL DAILY PRN docusate sodium 100 mg cap(s) (COLACE) 100 mg ORAL BID PRN enoxaparin 40 mg injection (LOVENOX) 40 mg SUBCUTANEOUS DAILY metroNIDAZOLE 500 mg PREMIX piggyback (FLAGYL) 500 mg INTRAVENOUS q 8 H ciprofloxacin 400 mg in D5W 200 mL (CIPRO) 400 mg INTRAVENOUS q 12 H iv contrast (radiology procedure) INTRAVENOUS DIRECTED PRN DATA: Diagnostic tests reviewed for today's visit: CBC: No results for input(s): WBC, RBC, HB, HCT, PLT, MCV, MCH, MPV, RDW in the last 24 hours. Coags: No results for input(s): INR, APTT in the last 24 hours. Invalid input(s): PT BMP: No results for input(s): NA, K, CHLOR, CO2, BUN, CREAT, GLUC in the last 24 hours. CMP: No results for input(s): NA, K, CHLOR, CO2, BUN, CREAT, GLUC, TPROT, CA, MG, ALBUMIN, TBILI, ALKPHOS, ALT, AST, ANION in the last 24 hours. Cardiac Enzymes: No results for input(s): CK, MB, CKMB, TROPT in the last 24 hours. Liver Function, Amylase, Lipase: No results for input(s): TPROT, ALB, ALT, AST, ALKPHOS, TBILI, AMYLASE, LIPASE, LACTATE in the last 24 hours. MG/PHOS: No results for input(s): MG, P in the last 24 hours. Renal Panel: No results for input(s): ALBUMIN, CREAT, BUN, GLUC, CA, P, CHLOR, K, CO2, NA in the last 24 hours. Heme: No results for input(s): RETICP, ABSRETIC, LD, ZENA, FE, TIBC, TRANSFERSAT in the last 24 hours. No results found for: UALBCR Assessment/Plan This is a 51 year old female with: ? # Diverticulitis POA: # Abd fluid collection R/O abscess -Cont cipro/flagyl -Low fiber diet for now -Surgery to eval for fluid collection ? #Obesity ? VTE Prophylaxis: Lovenox 40mg Sub Q Daily Disposition: Home Plan of care discussed with: Patient SIGNATURE: Kashif Vila DO PATIENT NAME: Holger Ruff DATE: June 29, 2017 TIME: 2:48 PM PAGER/CONTACT #: My Pager PROGRESS Observed: 06/28/2017 Status: COMPLETED Source: [facility] 5:32 PM CLINIC OTHER CAMPUS REPOSITORY HNO ID: [id number] Author: Kashif Vila DO Service: Hospital Medicine Author Type: Physician Type: Progress Notes Filed: 06/28/2017 5:35 PM Note Text: DEPARTMENT OF HOSPITAL MEDICINE PROGRESS NOTE SERVICE DATE: 06/28/2017 SERVICE TIME: 5:32 PM Hospital Medicine/Primary Attending: Kashif Vila DO NIGHT AND WEEKEND COVERAGE: After 7pm please page [phone] SUBJECTIVE: Patient seen and examined at bedside. No events over night. Pain still present in b/l LQ but improved. Tolerating CLD and would like to try to advance. OBJECTIVE: PHYSICAL EXAM: BP 139/83 Pulse 88 Temp (Src) 98.6 (Oral) Resp 18 Ht 5' 4 (1.63m) Wt 222 lb (100.7kg) SpO2 96% LMP 08/16/2009 BMI 38.09 kg/(m2). General - AANDOx3, NAD, Calm ENT- no icterus, MMM CV - RRR S1 S2, No M/R/G RESP - CTA B/L No wheezes, ronchi, rales ABD - soft, mildly tender in B/L LQ, ND, NM +BS Neuro- Conversant, follows commands, moves all ext, gross sensation intact No dysarthria Ext:Non-tender, no edema Skin: warm, no rash Psych: appropriate mood and affect MEDICATIONS: Current hospital medications: lactobacillus rhamnosus (CULTURELLE) capsule 1 capsule ORAL BID acetaminophen 650 mg tab(s) (TYLENOL) 650 mg ORAL q 6 H PRN magnesium hydroxide 400 mg/5 mL 30 mL (MOM) 30 mL ORAL DAILY PRN docusate sodium 100 mg cap(s) (COLACE) 100 mg ORAL BID PRN enoxaparin 40 mg injection (LOVENOX) 40 mg SUBCUTANEOUS DAILY metroNIDAZOLE 500 mg PREMIX piggyback (FLAGYL) 500 mg INTRAVENOUS q 8 H ciprofloxacin 400 mg in D5W 200 mL (CIPRO) 400 mg INTRAVENOUS q 12 H iv contrast (radiology procedure) INTRAVENOUS DIRECTED PRN DATA: Diagnostic tests reviewed for today's visit: CBC: No results for input(s): WBC, RBC, HB, HCT, PLT, MCV, MCH, MPV, RDW in the last 24 hours. Coags: No results for input(s): INR, APTT in the last 24 hours. Invalid input(s): PT BMP: No results for input(s): NA, K, CHLOR, CO2, BUN, CREAT, GLUC in the last 24 hours. CMP: No results for input(s): NA, K, CHLOR, CO2, BUN, CREAT, GLUC, TPROT, CA, MG, ALBUMIN, TBILI, ALKPHOS, ALT, AST, ANION in the last 24 hours. Cardiac Enzymes: No results for input(s): CK, MB, CKMB, TROPT in the last 24 hours. Liver Function, Amylase, Lipase: No results for input(s): TPROT, ALB, ALT, AST, ALKPHOS, TBILI, AMYLASE, LIPASE, LACTATE in the last 24 hours. MG/PHOS: No results for input(s): MG, P in the last 24 hours. Renal Panel: No results for input(s): ALBUMIN, CREAT, BUN, GLUC, CA, P, CHLOR, K, CO2, NA in the last 24 hours. Heme: No results for input(s): RETICP, ABSRETIC, LD, ZENA, FE, TIBC, TRANSFERSAT in the last 24 hours. No results found for: UALBCR Assessment/Plan This is a 51 year old female with: # Diverticulitis POA: -Cont cipro/flagyl, advance diet as tolerated #Obesity VTE Prophylaxis: Lovenox 40mg Sub Q Daily Disposition: Home Plan of care discussed with: Patient SIGNATURE: Kashif Vila DO PATIENT NAME: Holger Ruff DATE: June 28, 2017 TIME: 5:32 PM PAGER/CONTACT #: My Pager GLUCOSE METER Collected: 06/27/2017 Status: F Source: [facility] 7:41 AM HEALTH SYSTEM REPOSITORY TYPE CODE TESTS RESULT OUT OF REFERENCE UNITS RANGE LAB GLUBL(LOINC 70-99 mg/dL ) Glucose Meter 87 Result Comment: RN NOTIFIED Performed By: #### GLMET #### [facility] [address] [address] HISTORY PHYSICAL Observed: 06/27/2017 Status: COMPLETED Source: [facility] 6:29 AM CLINIC OTHER CAMPUS REPOSITORY HNO ID: [id number] Author: Charly Botello Service: Hospital Medicine Author Type: Physician Type: HANDP Filed: 06/27/2017 6:44 AM Note Text: HISTORY AND PHYSICAL EXAMINATION SERVICE DATE: 06/27/2017 SERVICE TIME: 6 am PRIMARY CARE PHYSICIAN: Dino Connor MD Subjective CHIEF COMPLAINT: Abdominal pain HPI: This is a 51 year old female with Hx of recurrent diverticulosis with Hx of microperferation who presents with diverticulitis having failed outpatient therapy. Per patient, she completed 10 day course of Augmentin prescribed by per PCP for diverticulitis on 06/24. CT abd/pelv with PO contrast done yesterday raised concern for possible abscess and she came to the ED in part to have CT done with IV contrast. No abscess or microperf was seen on CT but sigmoid diverticulitis was seen. She follows with Dr. Holm (Surgery) as an outpatient for recurrent diverticulitis. She continues to have LLQ pain. Denies N/V/D. She received zosyn and flagyl in the ED. 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 - Vertigo PAST SURGICAL HISTORY Procedure Laterality Date - BX OF BREAST; INCISIONAL or 07/2007 Bx of breast, incisional - COLONOSCOP W/ OR W/O [facility] SPEC 2008,2010,2012 Colonoscopy - COLONOSCOPY 07/01/07, 07/2007 - EXTRACTION ERUPTED TOOTH/EXR 2 wisdom teeth - HYSTERECTOMY HX 2009 - L'SCOPE REM ADNEX W/PART/TOT OOPH/SALP 11/30/2009 Left Overy Removed - CARLOTA W/WO REMOVAL TUBE OVARY 08/2009 CARLOTA/RSO - THERMAL ENDOMETRIAL ABLATION 01/2009 - WRIST SURGERY HX Bilateral 2017 Carpel Tunnel FAMILY HISTORY Problem Relation Age of Onset - Colon Cancer Paternal Grandmother - Coronary Artery Disease Maternal Grandmother - Breast Cancer Maternal Grandmother Diagnosed prior to age 40 - None Other No family history of ovarian or uterine cancer. Social History Substance Use Topics - Smoking status: Never Smoker - Smokeless tobacco: Never Used - Alcohol use No Prescriptions Prior to Admission: LACTOBACILLUS ACIDOPHILUS (PROBIOTIC ORAL) Take 1 capsule by mouth once daily. Disp: Rfl: Calcium Carb-Cholecalciferol (CALCIUM 600 + D,3,) 600 mg(1,500mg) -200 unit ORAL Tab Take one(1) tablet twice daily. Disp: Rfl: 0 Cholecalciferol, Vitamin D3, (VITAMIN D-3) 1,000 unit ORAL Chew Take 1 tablet twice daily. Disp: Rfl: 0 MULTIVITAMIN TAB Take one(1) tablet daily. Disp: Rfl: 0 Estradiol (VIVELLE-DOT) 0.0375 mg/24 hr Apply 1 Patch as directed twice a week. TWICE WEEKLY Disp: 4 Patch Rfl: 0 estradiol (VIVELLE-DOT) 0.025 mg/24 hr Apply 1 Patch as directed every Thursday and Thursday. TWICE WEEKLY Disp: 4 Patch Rfl: 1 estradiol (VIVELLE-DOT) 0.05 mg/24 hr Apply 1 Patch as directed twice a week. Disp: 8 Patch Rfl: 11 ALLERGIES Allergen Reactions - Percocet [Oxycodone* Rash COMPLETE REVIEW OF SYSTEMS: GENERAL: Fatigue HEENT: Negative for frequent or significant headaches, No changes in hearing or vision, no nose bleeds or other nasal problems NECK: Negative for lumps, goiter, pain and significant neck swelling RESPIRATORY: Negative for cough, hemoptysis, wheezing, COPD, dyspnea or shortness of breath CARDIOVASCULAR: Negative for chest pain, leg swelling, hypertension, CHF or palpitations GI: No nausea, vomiting, or diarrhea : No history of dysuria, frequency or incontinence MUSCULOSKELETAL: Negative for joint pain or swelling, back pain or muscle pain SKIN: Negative for lesions, rash, and itching HEMATOLOGY/LYMPHOLOGY: Negative for prolonged bleeding, bruising easily or swollen nodes ENDOCRINE: Negative for cold or heat intolerance, polyuria, polydipsia and goiter NEURO: No history of headaches, syncope, paralysis, seizures or tremors Objective PHYSICAL EXAM: Physical Exam Performed: GENERAL: Alert, in mild painful distress, cooperative HEAD/SINUSES: No significant findings EYES: PERRLA, EOMI OROPHARYNX: Lips, mucosa, and tongue normal. Teeth and gums normal. Oropharynx normal. NECK: No jugulovenous distention, Supple LUNGS: Lungs clear to auscultation, Good diaphragmatic excursion CARDIAC: Normal S1 and S2; no rubs, murmurs, or gallops ABDOMEN: Abdomen soft, tender in LLQ, BS normal, No masses or organomegaly EXTREMITIES: No edema NEURO: Cranial nerves II-XII intact PULSES: 2+ radial BP 123/79 Pulse 88 Temp (Src) 98.4 (Oral) Resp 18 Ht 5' 4 (1.63m) Wt 222 lb (100.7kg) SpO2 98% LMP 08/16/2009 BMI 38.09 kg/(m2). DATA: Diagnostic tests reviewed for today's visit: Most recent labs and imaging results. CT abd/pelv with IV con IMPRESSION: ? Diverticulitis of the proximal sigmoid colon. ?Free fluid adjacent to the anterior ?margin of the sigmoid colon without a well-formed abscess. ?No extraluminal gas to indicate perforation. Assessment/Plan Principal Problem: Diverticulitis POA: Unknown Assessment AND Plan: uncomplicated Failed outpatient therapy, no leukocytosis Plan: - admit to inpatient - cipro and flagyl IV empirically - advance diet to clears as patient is feeling slightly better since coming to ED - f/u with Dr. Holm, her surgeon as outpatient given frequency of diverticulitis episodes Obesity: wt loss as outpatient Lovenox for DVT ppx Dispo: home when medically stable, likely within 2 days Plan discussed with patient at bedside SIGNATURE: Charly Botello MD PATIENT NAME: Holger Ruff DATE: June 27, 2017 TIME: 6:29 AM PAGER/CONTACT #: [phone] ED PROV NOTE Observed: 06/27/2017 Status: COMPLETED Source: [facility] 5:11 AM CLINIC OTHER CAMPUS REPOSITORY HNO ID: [id number] Author: Chani Niño MD Service: Emergency Medicine Author Type: Physician Type: ED Provider Notes Filed: 06/27/2017 5:14 AM Note Text: 51-year-old female presenting for possible abscess due to diverticulitis. The patient has a history of complicated diverticulitis with microperforations in the past. States she has had problems with symptoms of diverticulitis at the beginning of this year. She just finished a course of Augmentin. She had an outpatient CT done today the CT was done with oral contrast at an outside hospital. There was concerns of intra-abdominal abscess. No IV contrast given. She reports chills. She has had a poor appetite and loose stool. Constitutional: . Nontoxic, well-appearing without any respiratory distress. HEENT: Mucous membranes moist. Neck: Supple. Normal range of motion. Cardiovascular: Heart is regular rate and rhythm without murmurs, rubs or gallops. Pulmonary: Lungs clear to auscultation bilaterally without wheezes, rhonchi as well as rales. Gastrointestinal: Abdomen soft, left lower quadrant tenderness, nondistended with normal active bowel sounds. No rebound, guarding or peritoneal signs. Genitourinary: No CVA tenderness. Muscle skeletal: Moves all extremities equally and normally. The CT was done at an outside hospital. We could not get the actual images but we did get the read. It was not done with IV contrast. The patient had a CT abdomen and pelvis with IV contrast. Findings concerning for diverticulitis but no abscess. The patient is failing outpatient management. The patient will be admitted for further management and IV antibiotics. Chani Niño MD 06/27/[address] ABDOMEN AND PELVIS Observed: 06/27/2017 Status: F Source: [facility] WITH CONTRAST 12:45 AM HEALTH SYSTEM REPOSITORY Performed at [facility] APPROVED BY: RAMON MCLAIN MD EXAMINATION: CT ABDOMEN AND PELVIS WITH IV CONTRAST CLINICAL HISTORY: Abdominal pain TECHNIQUE: CT of the abdomen and pelvis was performed using standard technique, scanning from just above the dome of the diaphragm to the symphysis pubis. MQ: CTAP_3 Contrast: Intravenous: 100 ml of Omnipaque 300 CT Radiation dose: Integrated Dose-length product (DLP) for this visit = 922 mGy*cm. CT Dose Reduction Employed: Automated exposure control COMPARISON: No relevant prior study available for comparison. RESULT: Liver: No mass. Biliary: No bile duct dilation. Gallbladder is unremarkable. Spleen: No mass. No splenomegaly. Pancreas: No mass or duct dilation. Adrenals: No mass. Kidneys: No mass, calculus or hydronephrosis. GI tract: There are multiple diverticula throughout the colon. At the proximal sigmoid colon there is circumferential wall thickening and adjacent inflammatory stranding. There is free fluid anterior to the proximal sigmoid colon. No extraluminal gas. The small bowel is unremarkable. The appendix appears normal. Lymph nodes: No abdominal or pelvic lymphadenopathy. Vasculature: No abdominal aortic aneurysm. Pelvis: The urinary bladder is unremarkable. Bones/Soft Tissues: The bones contain no worrisome lytic or sclerotic lesions. Lower thorax: The lung bases are clear. IMPRESSION: Diverticulitis of the proximal sigmoid colon. Free fluid adjacent to the anterior margin of the sigmoid colon without a well-formed abscess. No extraluminal gas to indicate perforation. ED NOTE Observed: 06/27/2017 Status: COMPLETED Source: [facility] 12:05 AM [facility] REPOSITORY HNO ID: [id number] Author: Germain (Rn) DAVID Valentine Service: Emergency Medicine Author Type: Registered Nurse Type: ED Notes Filed: 06/27/2017 12:05 AM Note Text: Clean catch urine specimen obtained and sent. ED NOTE Observed: 06/26/2017 Status: COMPLETED Source: [facility] 11:52 PM [facility] REPOSITORY HNO ID: [id number] Author: Germain LancasterRn) DAVID Valentine Service: Emergency Medicine Author Type: Registered Nurse Type: ED Notes Filed: 06/26/2017 11:52 PM Note Text: Ticket to ride completed by this RN. Transport called, notified patient is ready for CT at this time. URINALYSIS ROUTINE Collected: 06/26/2017 Status: F Source: [facility] 11:48 PM HEALTH SYSTEM REPOSITORY TYPE CODE TESTS RESULT OUT OF RANGE REFERENCE UNITS LAB COLOR(LOIN C) Urine Color DK YELLOW LAB APPUR(LOIN C) Urine Appearance CLEAR LAB GLUUR(LOIN Negative mg/dL C) Glucose Urine NEGATIVE LAB KETON(LOIN Negative mg/dL C) Abnormal Ketone Urine 80 LAB HGBUR(LOIN Negative C) Hemoglobin,Urin NEGATIVE e LAB PROTU(LOIN Negative mg/dL C) Abnormal Protein Urine TRACE LAB NITRI(LOIN Negative C) Nitrites Urine NEGATIVE LAB BILIU(LOIN Negative C) Abnormal Bilirubin Urine see below Result Comment: Detected (Unable to confirm). LAB SPG(LOINC) 1.005-1.030 Specific 1.023 [place], Ur LAB PHUR(LOINC) 5.0-8.0 pH,Urine 5.5 LAB UROBI(LOINC) 0.0-1.0 EU/dL Urobilinogen,Ur 0.2 LAB LEUKO(LOINC) Negative Leukocytes NEGATIVE Esterase LAB BACT1(LOINC) None Bacteria Urine FEW LAB MUCUS(LOINC) None Mucus Abnormal Threads MANY LAB CAOXA(LOINC) None Abnormal Calcium MODERATE Oxalates LAB RBCU1(LOINC) 0.0-5.0 /hpf RBC,Urine 2.3 LAB WBCU1(LOINC) 0.0-5.0 /hpf High WBC, Urine 5.3 LAB EPIT1(LOINC) 0.0-5.0 /hpf High Ep Cells Urine 5.4 LAB HYCA1(LOINC) 0.0-1.0 /lpf Hyaline Cast 0.4 Performed By: #### URIN2 #### [place] [address] URINE HCG, QUAL. Collected: 06/26/2017 Status: F Source: [facility] 11:48 PM HEALTH SYSTEM REPOSITORY TYPE CODE TESTS RESULT OUT OF REFERENCE UNITS RANGE LAB URHCG(LOIN Negative C) HCG, Qual. Negative Urine LAB SPGR(LOINC 1.005-1.030 ) Specific 1.023 [place], Ur Performed By: #### HCGUR #### [place] [id number] ED PROV NOTE Observed: 06/26/2017 Status: COMPLETED Source: [facility] 10:24 PM [facility] REPOSITORY HNO ID: [id number] Author: Young Frost DO Service: Emergency Medicine Author Type: Resident Type: ED Provider Notes Filed: 06/27/2017 2:59 AM Note Text: Attestation signed by Chani Niño MD at 06/27/2017 5:15 AM Attending Note I evaluated the patient and personally participated in the tafoya components. I agree with the resident's findings and plan as documented and have discussed the case and management of the patient's care with the resident. Signature: Chani Niño MD Date: 06/27/2017 Time: 5:14 AM ED Provider Note Patient Name: Holger Ruff SERVICE DATE: 06/26/17 History Patient presents with: Abdominal Pain: Pt with abdominal pain that started a couple weeks ago. Pt was diagnosed with diverticulitis and just finished antibotics. Pt was sent for an outpatient CT scan today and was called by her PCP and was told to come to ED. Pt left lower quadrant pain. Denies nausea. Decrease in appetite. +diarrhea this morning after IV contrast. +burning with urination. Pt states i think i may have a yeast infection from the antibiotics HPI Comments: Holger Ruff is a 51 y/o female with PMH of recurrent diverticulitis with most recent diverticulitis diagnosis proximally 2 weeks ago. Patient was placed on a ten-day course of Augmentin without any significant relief. The patient presented to her PCPs office this morning due to persistent symptoms and an abdominal CT scan was ordered. After this was read or concerns for possible development of an abscess and she was referred to [facility] for evaluation by general surgery for possible drainage. Patient states she has had chills though has been afebrile when taking her temperature. Her pain is in her left lower quadrant and described as a constant aching sensation with tenderness to palpation. She also gets sharp shooting exacerbations across her lower abdomen in association with eating food having bowel movements. Patient denies any nausea or vomiting. She has some diarrhea this morning after oral contrast with the CT scan has had none since. She denies any blood in her stool. She denies any dysuria or hematuria though has had some vaginal burning which she states is from a yeast infection due to her recent antibiotic use. She denies any vaginal bleeding. 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 PAST SURGICAL HISTORY Procedure Laterality Date - BX OF BREAST; INCISIONAL or 07/2007 Bx of breast, incisional - COLONOSCOP W/ OR W/O BRSH SPEC 2008,2010,2012 Colonoscopy - COLONOSCOPY 07/01/07, 07/2007 - EXTRACTION ERUPTED TOOTH/EXR 2 wisdom teeth - L'SCOPE REM ADNEX W/PART/TOT OOPH/SALP 11/30/2009 Left Overy Removed - CARLOTA W/WO REMOVAL TUBE OVARY 08/2009 CARLOTA/RSO - THERMAL ENDOMETRIAL ABLATION 01/2009 FAMILY HISTORY Problem Relation Age of Onset - Colon Cancer Paternal Grandmother - Coronary Artery Disease Maternal Grandmother - Breast Cancer Maternal Grandmother Diagnosed prior to age 40 - None Other No family history of ovarian or uterine cancer. Social History Social History Main Topics - Smoking status: Never Smoker - Smokeless tobacco: Never Used - Alcohol use No - Drug use: No - Sexual activity: Yes Partners: Male control/ protection: Surgical Comment: vasectomy/CARLOTA/BSO ALLERGIES Allergen Reactions - Percocet [Oxycodone* Rash Review of Systems Constitutional: Positive for chills. Negative for fever. HENT: Negative for congestion, drooling, facial swelling, rhinorrhea and sore throat. Eyes: Negative for discharge and redness. Respiratory: Negative for cough and shortness of breath. Cardiovascular: Negative for chest pain, palpitations and leg swelling. Gastrointestinal: Positive for abdominal pain and diarrhea. Negative for blood in stool, constipation, nausea and vomiting. Genitourinary: Negative for dysuria and hematuria. Skin: Negative for pallor and rash. Neurological: Negative for dizziness, light-headedness and headaches. All other systems reviewed and are negative. Physical Exam BP 135/75 Pulse 86 Temp (Src) 98.2 (Oral) Resp 14 Ht 5' 4 (1.63m) Wt 222 lb (100.7kg) SpO2 99% LMP 08/16/2009 BMI 38.09 kg/(m2). Physical Exam Constitutional: She is oriented to person, place, and time. She appears well-developed and well-nourished. No distress. HENT: Head: Normocephalic and atraumatic. Right Ear: External ear normal. Left Ear: External ear normal. Mouth/Throat: Oropharynx is clear and moist. Eyes: Conjunctivae and EOM are normal. Pupils are equal, round, and reactive to light. Right eye exhibits no discharge. Left eye exhibits no discharge. No scleral icterus. Neck: Normal range of motion. Neck supple. Cardiovascular: Normal rate and regular rhythm. Exam reveals no gallop and no friction rub. No murmur heard. Pulmonary/Chest: Effort normal and breath sounds normal. No respiratory distress. She has no wheezes. She has no rales. She exhibits no tenderness. Abdominal: Soft. Bowel sounds are normal. She exhibits no distension and no mass. There is tenderness in the left lower quadrant. There is no rigidity, no rebound, no guarding, no CVA tenderness, no tenderness at McBurney's point and negative Faulkner's sign. Musculoskeletal: Normal range of motion. She exhibits no edema, tenderness or deformity. Lymphadenopathy: She has no cervical adenopathy. Neurological: She is alert and oriented to person, place, and time. Skin: Skin is warm and dry. No rash noted. No erythema. No pallor. Psychiatric: She has a normal mood and affect. Nursing note and vitals reviewed. Diagnostic Testing ED Labs Ordered and Reviewed BASIC METABOLIC PANEL (AK,AV,EU,FV,HL,SILVIANO,MM,SP) - Abnormal; Notable for the following: Result Value Ref Range BUN 6 (*) 7 - 18 mg/dL All other components within normal limits CBC + AUTO DIFF (AK,AV,EU,FV,HL,SILVIANO,MM,SP) - Abnormal; Notable for the following: MCHC 35.8 (*) 31.6 - 34.8 % MPV 8.8 (*) 9.4 - 12.3 fl All other components within normal limits URINALYSIS WITH MICROSCOPIC (AK,AV,EU,FV,HL,SILVIANO,MM,SP) - Abnormal; Notable for the following: Ketones, Urine 80 (*) Negative mg/dL Hemoglobin, Urine SMALL (*) Negative Leukocytes Esterase TRACE (*) Negative All other components within normal limits URINALYSIS WITH MICROSCOPIC (AK,AV,EU,FV,HL,SILVIANO,MM,SP) - Abnormal; Notable for the following: Ketones, Urine 80 (*) Negative mg/dL Protein, Urine TRACE (*) Negative mg/dL Bilirubin, Urine see below (*) Negative Mucus Threads MANY (*) None Calcium Oxalate Crystal MODERATE (*) None WBC, Urine 5.3 (*) 0.0 - 5.0 /hpf EP Cells Urine 5.4 (*) 0.0 - 5.0 /hpf All other components within normal limits MDRD GFR HCG QUALITATIVE URINE (AK,AV,EU,FV,HL,SILVIANO,MM,SP) Procedures Medical Decision Making / ED Course ED Course Holger Ruff is a 51 y/o with PMH of Recurrent diverticulitis who is referred here from her primary care physician after an outpatient CT scan showed evidence concerning for abscess formation. Fortunately patient did not have the CT scan images with her however she did have a port which did mention a fluid collection adjacent to her area of diverticulitis. This CT scan was done without contrast and therefore evaluation for abscess was limited. On arrival to the emergency department here the patient is afebrile and vitals are stable and within normal limits. She appears comfortable and in no acute distress. She does have some mild tenderness to palpation of her left lower quadrant. Her abdomen is non- surgical and she has no rebound tenderness. Patient was given IV fluids and 3.375 g of Zosyn empirically. Basic laboratory testing was obtained. Patient has no leukocytosis with a white blood cell count of 7.66. BMP was unremarkable. Urinalysis showed no significant evidence for urinary tract infection. A repeat CT abdomen and pelvis with IV contrast was obtained which did show area of diverticulitis in the proximal sigmoid colon. There was free fluid adjacent to the anterior margin of the sigmoid colon without a well-formed abscess. Without a well-formed abscess and do not feel that surgical consultation is required at this time. However given her history of recurrent diverticulitis with recent failed outpatient management I do feel she should be admitted to the hospital for IV antibiotics and observation of this episode of diverticulitis. She was given a 500mg dose of Flagyl. She will be admitted to [facility] for continued management. Encounter Diagnosis ICD-10-CM 1. Diverticulitis K57.92 Plan The Patient was ADMITTED TO: [facility] in stable condition.. Condition at time of disposition: stable SIGNATURE: DO Young Coe (Res) DO Margot Resident 06/27/17 0259 Chani Niño MD 06/27/17 0515 HEMOGRAM/DIFF Collected: 06/26/2017 Status: F Source: [facility] 5:30 PM HEALTH SYSTEM REPOSITORY TYPE CODE TESTS RESULT OUT OF REFERENCE UNITS RANGE LAB WBC(LOINC) 3.98-10.04 thou/cmm WBC 7.66 LAB RBC(LOINC) 3.93-5.22 mil/cmm RBC 4.65 LAB HGB(LOINC) 11.2-15.7 g/dL Hgb 14.4 LAB HCT(LOINC) 34.1-44.9 % Hct 40.2 LAB MCV(LOINC) 79.4-94.8 fl MCV 86.5 LAB MCH(LOINC) 25.6-32.2 pg MCH 31.0 LAB MCHC(LOINC 31.6-34.8 % ) MCHC High 35.8 LAB RDW(LOINC) 11.7-14.4 % RDW 12.2 LAB RDWSD(LOIN 36.4-46.3 fl C) RDW SD 38.7 LAB PLT(LOINC) 182-369 thou/cmm Platelet 304 LAB MPV(LOINC) 9.4-12.3 fl Low MPV 8.8 LAB SEG(LOINC) % Seg Neutrophil 64.4 LAB IGRE(LOINC % ) Immature Grans 0.30 LAB LYMPH(LOIN % C) Lymphocyte 29.5 LAB MNO(LOINC) % Monocyte 5.4 LAB EOSIN(LOIN % C) Eosinophil 0.0 LAB BASO(LOINC % ) Basophil 0.4 LAB SEGN(LOINC 1.56-6.13 thou/cmm ) Abs. Neut 4.93 LAB IGAB(LOINC 0.00-0.05 thou/cmm ) Abs Immature Grans 0.02 LAB LYMN(LOINC 1.18-3.74 thou/cmm ) Abs. Lymph 2.26 LAB MONON(LOIN 0.27-0.70 thou/cmm C) Abs. Ada 0.41 LAB EOSN(LOINC 0.00-0.31 thou/cmm ) Abs. Eosin 0.00 LAB BASON(LOIN 0.01-0.08 thou/cmm C) Abs. Baso 0.03 Performed By: #### CBCD1 #### [facility] [address] [place] [address] BASIC PANEL Collected: 06/26/2017 Status: F Source: [facility] 5:30 PM HEALTH SYSTEM REPOSITORY TYPE CODE TESTS RESULT OUT OF REFERENCE UNITS RANGE LAB NA(LOINC) 136-145 mEq/L Sodium Blood 139 LAB K(LOINC) 3.5-5.1 mEq/L Potassium Blood 3.7 LAB CL(LOINC) 98-107 mEq/L Chloride Blood 104 LAB CO2(LOINC) 21-32 mEq/L CO2 Blood 29 LAB GLU(LOINC) 70-99 mg/dL Glucose Blood 84 LAB BUN(LOINC) 7-18 mg/dL Low BUN Blood 6 LAB CREA(LOINC 0.51-0.95 mg/dL ) Creatinine Blood 0.71 LAB CA(LOINC) 8.5-10.1 mg/dL Calcium Blood 9.0 LAB ANGAP(LOIN 8-16 C) Anion Gap 10 Performed By: #### P8 #### [place] [address] MDRD GFR Collected: 06/26/2017 Status: F Source: [facility] 5:30 PM HEALTH SYSTEM REPOSITORY TYPE CODE TESTS RESULT OUT OF RANGE REFERENCE UNITS LAB GFRFN(LOINC >60mL/min/1.73m ) 2 eGFR >60 Result Comment: If the patient is , multiply the result by 1.210. Performed By: #### GFR #### [place] [address] URINALYSIS ROUTINE Collected: 06/26/2017 Status: F Source: [facility] 4:04 PM HEALTH SYSTEM REPOSITORY TYPE CODE TESTS RESULT OUT OF RANGE REFERENCE UNITS LAB COLOR(LOIN C) Urine Color YELLOW LAB APPUR(LOIN C) Urine Appearance CLEAR LAB GLUUR(LOIN Negative mg/dL C) Glucose Urine NEGATIVE LAB KETON(LOIN Negative mg/dL C) Abnormal Ketone Urine 80 LAB HGBUR(LOIN Negative C) Abnormal Hemoglobin,Urin SMALL e LAB PROTU(LOIN Negative mg/dL C) Protein Urine NEGATIVE LAB NITRI(LOIN Negative C) Nitrites Urine NEGATIVE LAB BILIU(LOIN Negative C) Bilirubin Urine NEGATIVE LAB SPG(LOINC) 1.005-1.030 Specific 1.006 [place], Ur LAB PHUR(LOINC 5.0-8.0 ) pH,Urine 6.0 LAB UROBI(LOIN 0.0-1.0 EU/dL C) Urobilinogen,Ur 0.2 LAB LEUKO(LOIN Negative C) Abnormal Leukocytes TRACE Esterase LAB RBCU1(LOIN 0.0-5.0 /hpf C) RBC,Urine 3.3 LAB WBCU1(LOIN 0.0-5.0 /hpf C) WBC, Urine 1.7 LAB EPIT1(LOIN 0.0-5.0 /hpf C) Ep Cells Urine 3.9 LAB BACT1(LOIN None C) Bacteria Urine NONE LAB HYCA1(LOIN 0.0-1.0 /lpf C) Hyaline Cast 0.8 Performed By: #### URIN2 #### [facility] [address] [place] [address] ED NOTE Observed: 06/26/2017 Status: COMPLETED Source: [facility] 3:49 PM [facility] REPOSITORY HNO ID: [id number] Author: Roxy LancasterRn) DAVID Horvath Service: Emergency Medicine Author Type: Registered Nurse Type: ED Notes Filed: 06/26/2017 3:49 PM Note Text: Pt provided with urine cup to collect urine specimen. Pt educated on obtaining a clean catch. ED TRIAGE NOTE Observed: 06/26/2017 Status: COMPLETED Source: [facility] 3:47 PM [facility] REPOSITORY HNO ID: [id number] Author: Beba Amanda (Pa) Service: Emergency Medicine Author Type: Physician Truck Hop Type: ED Triage Notes Filed: 06/26/2017 3:52 PM Note Text: ED INTAKE NOTE Patient Name: Holger Ruff Service Date: 06/26/17 BRIEF HPI: 51 yo female presenting to ED due to abnormal CT results from earlier today. She states that she was recently diagnosed with diverticulitis and just finished a ten-day course of antibiotics 2 days ago. She states that she has not felt much better after antibiotics and has continued to have a low-grade fever, chills and left lower quadrant abdominal pain. She also states she had diarrhea after drinking the CT contrast earlier today. She was advised by her physician to come in after the CT results. She denies any blood in the stool. BRIEF EXAM: Awake and Alert RRR CTAB +BS, LLQ TTP INTAKE WORKUP: Bloodwork: CBC BMP Urinalysis SIGNATURE: Beba Amanda PA-C ED NOTE Observed: 06/26/2017 Status: COMPLETED Source: [facility] 3:47 PM [facility] REPOSITORY HNO ID: [id number] Author: Roxy (Rn) DAVID Horvath Service: Emergency Medicine Author Type: Registered Nurse Type: ED Notes Filed: 06/26/2017 3:48 PM Note Text: Pt had her scan done at [facility] without contrast and was told they she may have an abscess. CT ABDOMEN/PELVIS WO Observed: 06/26/2017 Status: F Source: [facility] 8:09 AM [place] [address] Patient: HOLGER RUFF Phone#: : 1965 Age: 51 Gender: F Pt. Type: Out Account: [id number] Location: Ordering: [facility] Exam Date: 06/26/2017/7:59 Family Phys: DINO CONNOR Charge Code: [id number] Physician: Mercer Order #: [id number] DLP Dose#: PROCEDURE: CT ABDOMEN/PELVIS WITHOUT CONTRAST COMPARISON: None. INDICATIONS: Abdominal pain TECHNIQUE: CT images were created without intravenous contrast. Oral contrast was given. All CT scans at this facility use dose modulation, iterative reconstruction, and/or weight based dosing when appropriate to reduce radiation dose to as low as reasonably achievable. IV CONTRAST: No IV contrast used,ml TOTAL DOSE: 17.0 CTDIvol(mGy) FINDINGS: Evaluation of solid organs and soft tissues is limited without intravenous contrast. LIVER: There is diffuse fatty infiltration of the liver. BILIARY: The gallbladder is present. PANCREAS: Unremarkable contour SPLEEN: Unremarkable contour KIDNEYS: No nephrolithiasis or hydronephrosis. The kidneys are unremarkable in contour. ADRENALS: Normal. No mass or enlargement. AORTA/VASCULAR: Normal. No aneurysm. RETROPERITONEUM: There are scattered small retroperitoneal lymph nodes present. BOWEL/MESENTERY: No bowel obstruction or dilatation. Oral contrast reaches the cecum. There is diverticulosis of the descending and sigmoid colon. There is sigmoid colon wall thickening and pericolonic fat stranding consistent with diverticulitis. There is fluid layering in the pelvis and in the left lower quadrant. Limited evaluation for abscess in the absence of contrast. The left lower quadrant fluid collection measures 4.4 x 2.1 x 4.3 cm. Continued Report - Page 2 of 2 Patient: HOLGER RUFF Phone#: : 1965 Age: 51 Gender: F Pt. Type: Out Account: [id number] Location: Ordering: [facility] Exam Date: 06/26/2017/7:59 Family Phys: DINO CONNOR Charge Code: 193129 Physician: Mercer Order #: [id number] DLP Dose#: ABDOMINAL WALL: Normal. No mass or hernia. URINARY BLADDER: Urinary bladder is decompressed. PELVIC NODES: Normal. No adenopathy. PELVIC ORGANS: The uterus is absent. BONES: There is disc height loss in the lumbar spine. LUNG BASES: Normal. No visible pulmonary or pleural disease. OTHER: Negative. CONCLUSION: 1. Diverticulitis with adjacent fluid collection in the left lower quadrant. The fluid collection may represent an abscess though evaluation is limited without contrast. This report was communicated by telephone to Rachel Fall at the dictation time shown below. Dictated by: Tatum Dominguez MD on 06/26/2017 at 10:05 Approved by: Tatum Dominguez MD on 06/26/2017 at 10:20 ALLERGIES ALLERGIES DATE TYPE / CODE NAME / CODE REACTION SEVERITY SOURCE 01/19/2018 Drug oxycodone/F0060 Rash Unknown [place] Allergy/[id number](S 52622(RXNORM) [facility] Repository 10/13/2017 Drug acetaminophen/F Rash Unknown [place] Allergy/[id number](S 389770941(RXNOR [facility]) M) Hospital Repository 09/04/2009 DRUG/[id number](SNOM OXYCODONE-ACETA RASH [facility] CT) [facility] Other [place] Repository NG/[id number](SNOMED OXYCODONE-ACETA [facility] CT) [facility] Repository Miscellaneous No Known Drug Moderate Dimitri Peña Allergy/068383401(S Allergies ([facility]) Modifier) Hospital (Qualifier Repository Value) ENCOUNTERS ENCOUNTERS ADMIT/DISCHARGE ACCOUNT NUMBER ADMITTING ENCOUNTER LOCATION SOURCE CLASS 03/23/2018 [id number] Ambulatory [facility] ding:OPBI Repository 01/19/2018/01/20/20 [id number] Ambulatory [facility]MS[facility]: [place] 18 BMS.Counts include 234 beds at the [facility] Repository 12/22/2017/12/23/19 [id number] Ambulatory BMSBuilding: [place] 18 BMS.Counts include 234 beds at the [facility] Repository 12/15/2017/12/16/19 [id number] Ambulatory BMSBuilding: [place] 18 BMS.Counts include 234 beds at the [facility] Repository 12/01/2017 [id number] Ambulatory [facility] ding:PAVLAB Repository 12/01/2017/12/02/19 [id number] Ambulatory BMSBuilding: [place] 18 BMS.Counts include 234 beds at the [facility] Repository 11/26/2017 [id number] Ambulatory [facility] ding:US Repository 11/17/2017 [id number] Ambulatory [facility] ding:LAB Repository 11/17/2017/11/18/19 [id number] Ambulatory BMSBuilding: [place] 18 BMS.Counts include 234 beds at the [facility] Repository 11/10/2017/11/11/19 [id number] Ambulatory BMSBuilding: [place] 18 BMS.Counts include 234 beds at the [facility] Repository 10/27/2017/11/03/19 [id number] [place], Inpatient [place] 18 [facility] ding:[id number] Repository : WD427Ucg: 1 10/27/2017 [id number] [place], Ambulatory BMSBuilding: [place] BMS.CF.Counts include 234 beds at the [facility] Repository 10/27/2017 [id number] [place], Ambulatory [facility]MSBuilding: [place] BMS.CF.Counts include 234 beds at the [facility] Repository 10/27/2017 [id number] [place], Ambulatory BMSBuilding: [place] BMS.CF.Counts include 234 beds at the [facility] Repository 10/27/2017 [id number] [place], Ambulatory BMSBuilding: [place] BMS.CF.Counts include 234 beds at the [facility] Repository 10/27/2017 [id number] [place], Ambulatory BMSBuilding: [place] BMS.CF.Counts include 234 beds at the [facility] Repository 10/27/2017 [id number] [place], Ambulatory BMSBuilding: [place] BMS.CF.Counts include 234 beds at the [facility] Repository 10/27/2017/11/03/19 [id number] Ambulatory BMSBuilding: [place] 18 [facility] Repository 10/20/2017 [id number] Ambulatory BMSBuilding: [place] [facility] Repository 10/13/2017/10/14/19 [id number] Ambulatory BMSBuilding: [place] 18 BMS.Counts include 234 beds at the [facility] Repository 09/21/2017/09/22/19 [id number] Ambulatory BMSBuilding: [place] 18 BMS.Counts include 234 beds at the [facility] Repository 08/25/2017 [id number] Ambulatory [facility] Hospital ding:LAB Repository 08/25/2017/08/26/19 [id number] Ambulatory BMSBuilding: [place] 18 BMS.Counts include 234 beds at the [facility] Repository 08/11/2017/08/13/19 [id number] Ambulatory BMSBuilding: [place] 18 BMS.Counts include 234 beds at the [facility] Repository 07/21/2017/07/22/19 [id number] Ambulatory BMSBuilding: [place] 18 BMS.Counts include 234 beds at the [facility] Repository 06/26/2017/07/01/19 [id number] JUAQUIN, Inpatient [place] [facility] [place] Rep[facility] 06/26/2017/07/01/19 [id number] Jessica REZA Inpatient [facility] 18 [facility] MEDICAL Repository CENTERBuildi nRoom: 9108Bed: 06/26/2017/06/27/19 [id number] [place], Ambulatory Dimitri Peña [address] [place] [address] Repository PAYERS PAYERS ENCOUNTER GUARANTOR PAYER SUBSCRIBER SOURCE 03/23/2018 HOLGER [id number] CR Insurance:ANTHEMPolicy [place]DOB: [address], [place] Number: [id number] Hospital 815[address]Ihz: (330 [id number] Repository [phone] () Date:2914-08-78IW [address] [place] [address] 81893QY: 03/23/2018 Secondary NOT GIVENUNK [place] Insurance:SELF PAY [facility] Effective Repository Date:2018-02-02 01/19/2018 HOLGER Primary Akash A [place] [id number] CR Insurance:ANTHEMPolicy [place]DOB: [address], [place] Number: [id number] Hospital 62971Rca: (330) [id number] Repository [phone] () Date:5377-62-11IC [address] [place] [address] 92802KI: 01/19/2018 Secondary NOT GIVENUNK [place] Insurance:SELF PAY [facility] Hospital Number: Effective Repository Date:2018-01-19 12/22/2017 [facility] Akash A [place] [id number] CR Insurance:ANTHEMPolicy [place]DOB: [address], [place] Number: [id number] Hospital 02544Rjn: (330) [id number] Repository [phone] () Date:0630-96-31SQ [address] [place] [address] 71767GF: 12/22/2017 Secondary NOT GIVENUNK [place] Insurance:SELF PAY [facility] Hospital Number: Effective Repository Date:2017-12-22 12/15/2017 [facility] Akash A [place] [id number] CR Insurance:ANTHEMPolicy [place]DOB: [address] [place] Number: [id number] Hospital 56918Opx: (330) [id number] Repository [phone] () Date:2587-45-61FG [address] [place] [address] 99113FY: 12/15/2017 Secondary NOT GIVENUNK [place] Insurance:SELF PAY [facility] Hospital Number: Effective Repository Date:2017-12-15 12/01/2017 HOLGER Dora Primary Akash Scott [place] [id number] CR Insurance:ANTHEMPolicy [place]DOB: [address], [place] Number: [id number] Hospital 09823Lbk: (330) [id number] Repository [phone] (HP) Date:6175-19-28PL [address] [place] [address] [place] 894[address]QD: 12/01/2017 Secondary NOT GIVENUNK [place] Insurance:SELF PAY [facility] Hospital Number: Effective Repository Date:2017-12-01 12/01/2017 HOLGER Dora Primary Akash A [place] [id number] CR Insurance:ANTHEMPolicy [place]DOB: [address], [place]: [id number] Hospital 30704Cay: 330) [id number] Repository [phone] (HP) Date:2022-44-24LR [address] [place] [address] [place] 90644ZO: 12/01/2017 Secondary NOT GIVENUNK [place] Insurance:SELF PAY [facility] Hospital Number: Effective Repository Date:2017-12-01 11/26/2017 HOLGER J Primary Akash Scott [place] [id number] CR Insurance:ANTHEMPolicy [place]DOB: [address], [place] Number: [id number] Hospital 30050Ydn: (330 [id number] Repository [phone] (HP) Date:9952-04-39MG [address] [place] [address] [place] 99250GD: 11/26/2017 Secondary NOT GIVENUNK [place] Insurance:SELF PAY [facility] Hospital Number: Effective Repository Date:2017-11-25 11/17/2017 HOLGER Dora Primary Akash Scott [place] [id number] CR Insurance:ANTHEMPolicy [place]DOB: [address], [place] Number: [id number] Hospital 20247Rgo: (330 [id number] Repository [phone] (HP) Date:3523-83-48NV [address] [place] [address]IO: 11/17/2017 Secondary NOT GIVENUNK [place] Insurance:SELF PAY [facility] Number: Effective Repository Date:2017-11-17 11/17/2017 HOLGER John Primary Akash Scott [place] [id number] CR Insurance:ANTHEMPolicy LandonDOB: Community [address] [place] [address], [place]: [id number] Hospital 65726Mzn: 330 [id number] Repository [phone] () Date:9295-95-78SZ [address] [place] [address] 31184JN: 11/17/2017 Secondary NOT GIVENUNK [place] Insurance:SELF PAY [facility] Hospital Number: Effective Repository Date:2017-11-10 11/10/2017 HOLGER John Primary Akash A [place] [id number] CR Insurance:ANTHEMPolicy [place]DOB: [address], [place] Number: [id number] Hospital 03242Tqa: 330 [id number] Repository [phone] () Date:8111-09-27HV [address] [place] [address] 28941ZD: 11/10/2017 Secondary NOT GIVENUNK [place] Insurance:SELF PAY [facility] Hospital Number: Effective Repository Date:2017-11-10 10/27/2017 HOLGER John Primary Akash Scott [place] [id number] CR Insurance:ANTHEMPolicy [place]DOB: [address], [place] Number: [id number] Hospital 02115Psq: (330 [id number] Repository [phone] () Date:9530-89-58JS [address] [place] [address] 69870BX: 10/27/2017 Secondary NOT GIVENUNK [place] Insurance:SELF PAY [facility] Hospital Number: Effective Repository Date:2017-09-21 10/27/2017 HOLGER John Primary Akash Scott [place] [id number] CR Insurance:ANTHEMPolicy [place]DOB: [address], [place] Number: [id number] Hospital 96841Xyt: (330 [id number] Repository [phone] () Date:1844-15-30UP [id number] [place] [address] 06954CE: 10/27/2017 Secondary NOT GIVENUNK [place] Insurance:SELF PAY [facility] Number: Effective Repository Date:2017-10-27 10/27/2017 HOLGER John Primary Akash Scott [place] [id number] CR Insurance:ANTHEMPolicy LandonDOB: [address] Number: [id number] Hospital 61734Imc: (330 [id number] Repository [phone] () Date:1468-71-22ZS [address] [place] [address] 64935KP: 10/27/2017 Secondary NOT GIVENUNK [place] Insurance:SELF PAY [facility] Number: Effective Repository Date:2017-10-27 10/27/2017 HOLGER John Primary Akash A [place] [id number] CR Insurance:ANTHEMPolicy LandonDOB: [address] Number: [id number] Hospital 43983Rnf: (330) [id number] Repository [phone] () Date:6497-35-00UD [id number] [place] [address] 72502WC: 10/27/2017 Secondary NOT GIVENUNK [place] Insurance:SELF PAY [facility] Hospital Number: Effective Repository Date:2017-10-27 10/27/2017 HOLGER John Primary Akash A [place] [id number] CR Insurance:ANTHEMPolicy LandonDOB: [address] Number: [id number] Hospital 77974Kno: (330 [id number] Repository [phone] () Date:9895-03-28WS [address] [place] [address] 75959YG: 10/27/2017 Secondary NOT GIVENUNK [place] Insurance:SELF PAY [facility] Hospital Number: Effective Repository Date:2017-10-27 10/27/2017 HOLGER John Primary Akash A [place] [id number] CR Insurance:ANTHEMPolicy [place]DOB: [address] Number: [id number] Hospital 97923Apq: (330) [id number] Repository [phone] (HP) Date:0975-89-50RN[address] [address]PE: 10/27/2017 Secondary NOT GIVENUNK [place] Insurance:SELF PAY [facility] Number: Effective Repository Date:2017-10-27 10/27/2017 HOLGER John Primary Akash A [place] [id number] CR Insurance:ANTHEMPolicy [place]andonDOB: Community [address] [place] [address] [place] Number: [id number] Hospital 42910Uav: (330) [id number] Repository [phone] () Date:0349-08-27AQ [address] [place] [address] 44482YG: 10/27/2017 Secondary NOT GIVENUNK [place] Insurance:SELF PAY [facility] Number: Effective Repository Date:2017-10-27 10/27/2017 HOLGER John Primary Akash A [place] [id number] CR Insurance:ANTHEMPolicy LandonDOB: [address] Number: [id number] Hospital 08079Aht: (330) [id number] Repository [phone] () Date:2147-08-88CD [address] [place] [address] 36630RA: 10/27/2017 Secondary NOT GIVENUNK [place] Insurance:SELF PAY [facility] Hospital Number: Effective Repository Date:2017-10-27 10/20/2017 HOLGER J Primary Akash A [place] [id number] CR Insurance:ANTHEMPolicy [place]DOB: Community [address] [place] [address], [place] Number: [id number] Hospital 13244Qve: (330) [id number] Repository [phone] () Date:0637-95-97UR [address] [place] [address] 82895NW: 10/20/2017 Secondary NOT GIVENUNK [place] Insurance:SELF PAY [facility] Hospital Number: Effective Repository Date:2017-10-20 10/13/2017 HOLGER J Primary Akash A [place] [id number] CR Insurance:ANTHEMPolicy [place]DOB: [address], [place] Number: [id number] Hospital 02878Cbs: (330 [id number] Repository [phone] () Date:7747-07-93QM [address], [place] [address]ZP: 10/13/2017 Secondary NOT GIVENUNK [place] Insurance:SELF PAY [facility] Number: Effective Repository Date:2017-10-13 09/21/2017 HOLGER J Primary Akash A [place] [id number] CR Insurance:ANTHEMPolicy [place]DOB: [address], [place]: [id number] Hospital 98895Qnu: (330) [id number] Repository [phone] () Date:4022-91-00PL [address], [place] [address]AP: 09/21/2017 Secondary NOT GIVENUNK [place] Insurance:SELF PAY [facility] Number: Effective Repository Date:2017-08-25 08/25/2017 HOLGER J Primary Akash Scott [place] [id number] CR Insurance:ANTHEMPolicy [place]DOB: [address], [place] Number: [id number] Hospital 63767Pcd: (330) [id number] Repository [phone] () Date:3422-14-87VZ [address], [place] [address]XZ: 08/25/2017 Secondary NOT GIVENUNK [place] Insurance:SELF PAY [facility] Hospital Number: Effective Repository Date:2017-08-25 08/25/2017 HOLGER J Primary Akash A [place] [id number] CR Insurance:ANTHEMPolicy LandonDOB: [address] Number: [id number] Hospital 89736Xzp: (330 [id number] Repository [phone] () Date:5473-85-36PY [address], [place] [address]ET: 08/25/2017 Secondary [place]IVENUNK [place] Insurance:SELF PAY [facility] Number: Effective Repository Date:2017-08-19 08/11/2017 HOLGER J Primary Akash [place] [id number] CR Insurance:ANTHEMPolicy LandonDOB: [address] Number: [id number] Hospital 82901Zpm: 330 [id number] Repository [phone] (HP) Date:8295-70-90TJ [address] [place] [address] 66793LY: 08/11/2017 Secondary NOT GIVENUNK [place] Insurance:SELF PAY [facility] Number: Effective Repository Date:2017-08-19 07/21/2017 HOLGER J Primary Akash [place] [id number] CR Insurance:ANTHEMPolicy LandonDOB: [address] Number: [id number] Hospital 06681Gxu: [id number] Repository [phone] Date:5469-12-09SS [address] () [address] [place] [address] 88639HR: 07/21/2017 Secondary NOT GIVENUNK [place] Insurance:SELF PAY [facility] Number: Effective Repository Date:2017-07-20 06/26/2017 HOLGER John Primary AKASH Scott Letha Bazan LANDONDOB: Insurance:[facility] LANDONDOB: [facility] [id number] [facility]: [id number] Repository [facility] [address] [id number] [address] [place] [address] Date: 91832Ysq: () 06/26/2017 HOLGER John Primary Insurance:EKATERINA Peña LANDONDOB: [address] LANDONDOB: [facility] [id number] OUTPATIENTPolicy [id number] Number: 41 [facility] Repository [address] [place] [address] [id number] [address] [place] [address] [id number]: Date:Plan Name:B2P O [id number] [address] [place] [address] [place] () [phone]:
== END ==
PROVIDERS: Family Provider Family Medicine; PCP Family Medicine; Referring Provider Obstetrics & Gynecology; Visit Provider Obstetrics & Gynecology
DX: Z12.31 Encounter for screening mammogram for malignant neoplasm of breast (principal)
CPT/HCPCS: 77063; 77067

== ENCOUNTER → 2019-08-10 07:21 | Outpatient (CLI) | payer BC, SELFPAY ==
[2018-05-26 15:27] VITALS: BMI 37.9
--- NOTE | 2019-08-10 07:22 | BI_ITS ---
MAMMOGRAPHY - BILATERAL SCREENING REASON FOR EXAM: Female, 53 years old. Routine annual screening examination. PERTINENT HISTORY: Grandmother with breast cancer. TECHNIQUE: Digital bilateral breast yue (3D mammographic acquisition) in the CC and MLO projections. 2-D mediolateral oblique (MLO) and craniocaudad (CC) views of both breasts were obtained. CAD: Full Field Digital Mammography with Computer Added Detection was performed. COMPARISON: Comparison is made with prior examination dated March 23, 2018 and November 21, 2016. FINDINGS: Breast Composition: The breasts are heterogeneously dense, which may obscure small masses. There are no dominant masses or suspicious calcifications. Stable benign-appearing bilateral axillary lymph nodes. No other significant abnormalities are identified. There has been no significant change since the prior study. BI/SCREEN MAMM (CAD) W/YUE BILAT IMPRESSION: Stable bilateral screening mammogram. Yearly follow-up mammogram recommended. (A) ASSESSMENT CATEGORY: BIRADS Category 2: Benign. A letter regarding these results will be sent to the patient by the facility within 30 days. Approximately 10% of breast cancers are not detected by mammography. A normal mammogram should not delay biopsy of a clinically suspicious abnormality. [id number] Electronically Signed: Fabricio Kramer, at 9:34 EDT , Service support ,
== END ==
PROVIDERS: PCP Family Medicine; Referring Provider Obstetrics & Gynecology; Visit Provider Obstetrics & Gynecology
DX: Z12.31 Encounter for screening mammogram for malignant neoplasm of breast (principal)
CPT/HCPCS: 77063; 77067

== ENCOUNTER 2019-11-16 06:51 | Day surgery (SDC) | payer BC, SELFPAY ==
[2019-08-10 08:25] VITALS: BMI 37.9
[2019-11-16 07:18] VITALS: BP 134/83; PULSE 84; RESP 16; TEMP 37.3; O2SAT 97; BMI 40.8
--- NOTE | 2019-11-16 07:29 | HP.PCM_ITS ---
History of Present Illness Date of Admission: 11/16/19 The patient is a 54 year old F who has had a previous history of colon polyps. Her last colonoscopy was in 2017. Past Medical/Surgical History - Planned Operation Planned Operative Procedure/s: cscope open access Date of Operative Procedure: 11/16/19 Permit Signed: No S.O.S: No Is This Patient Having a Total Joint: No - Previous Hospitalizations/Surgeries HX Hospitalizations: No HX of Surgeries: HYSTERECTOMY 2009./ REMOVAL RIGHT OVARY. REMOVAL LEFT OVARY. BASAL CELL SKINN CA REMOVED 2015. 2016 CARPAL TUNNEL BILAT. 2017 colonoscopy. multiple colonoscopies. uterine ablation. sigmoid colectomy/appy 10/2017. diagnostic lap 10/2017 Any Problems With Anesthesia: No You/Your Family Experience Fever (Hyperthermia) With Anes: No Cholinesterase deficiency: No - Cardiovascular Hx Chest Pain within Last 2 months: No - indigestion Hx of Irregular Heartbeat and/or Afib: No Hx Heart Attack: No Hx Congestive Heart Failure: No Hx Rheumatic Fever: No Hx Hypertension: No Hx Internal Defibrillator: No Hx Pacemaker: No Hx Cardiac Catheterization: No Hx Cardiac Surgery/Stents/Etc.: No Hx Stress Test: No HX Edema: No Hx Pain in Legs when Walking/Leg Cramps: No - Respiratory Chronic Cough: No HX of Shortness of Breath: Yes - slightly sob with 2 flights of stairs Hoarseness: No Hx Chronic Obstructive Pulmonary Disease (COPD): No Hx Asthma: No Hx Emphysema: No Hx Sleep Apnea: No Hx Oxygen Use at Home: No Hx Respiratory Tract Infection/Cold (presently): No Do You Snore Loudly (louder than talking or can be heard): No Do You Often Feel Tired/ Fatigued/ Sleepy Dring Daytime?: Yes Has Anyone Observed You Stop Breathing During Sleep?: No Result (for STOP score): Negative Hx Smoking: No Smoking Status: Never smoker - Gastrointestinal Hx Gastroesophageal Reflux: No Hx Gastrointestinal Disorders: Yes - DIVERTICULITIS/sigmoid colectomy Hx Gastrointestinal Bleed: No Hx Ulcer: No Hx Hiatal Hernia: No Difficulty Chewing/Swallowing: No Recent Onset of Swallowing Problems: No Special diet followed at home: No - . Hx Unplanned Weight Loss of 20#: No HX Unplanned Weight Gain of 20#: No - Neurological Hx Seizures: No HX Syncope/Blackout Spells/Unconsciousness: Yes - vertigo over last couple yrs Hx CVA/Stroke: No Hx Transient Ischemic Attacks (TIA): No Hx Multiple Sclerosis: No Hx Parkinson's Disease: No Hx Head/Neck Injury: No Hx Headaches: Yes - occ Hx Back Injury/Pain: Yes - lower back pain prn Recent Onset of Speech Difficulty: No Restless Legs: Yes - NO MEDS Does patient have nerve stimulator: No Patient instructed to have device shut off: No Rep notified?: No - Blood Disorder Hx Leukemia: No Bleeding Tendencies: Yes - BRUISE EASILY Hx Deep Vein Thrombosis: No Hx High Cholesterol: No Blood Transmitted Disease: No Hx Hepatitis: No Hx Cirrhosis: No Hx Anemia: Yes - in the past Hx Blood Disorders: No - Reproduction Is Patient Lactating: No Hx Hysterectomy: Yes Hx Tubal Ligation: Yes Are You Post Menopause: Yes - Genitourinary Hx Renal Disease: No Hx Dialysis: No - Musculoskeletal Hx Arthritis: Yes - KNEES/fibromyalgia Hx Rheumatoid Arthritis: No Hx Gout: No Recent Onset of an Orthopedic Problem: No - Endocrine Hx Diabetes: No Thyroid Disease: No Hx Steroid Therapy: No - . - Psycho/Social Hx Substance Use: No Hx Alcohol Use: No Hx Anxiety: No Hx Depression: No Mental Illness: No Hx Dementia: No - Miscellaneous Hx Cancer: Yes - SKIN CA Recent Exposure to Contagious Disease: No Active MRSA: No Hx of C-Diff: No Any Loose Teeth: No Allergies oxycodone [From Percocet] Allergy (Verified 11/16/19 07:18) Rash Maternal Family History: Family History (Last Reviewed 08/10/19 @ 08:04 by Keely White) Grandmother Colon cancer Grandmother Breast cancer No pertinent history - Discharge Is Pt Admitted From a Correction, or a Senior Care: No After D/C, Where Do you Plan to Go: Return Home - Physical Exam Vitals/I&O's: Vital Signs Temp Pulse Resp BP Pulse Ox 99.1 F 84 16 134/83 H 97 11/16/19 07:18 11/16/19 07:18 11/16/19 07:18 11/16/19 07:18 11/16/19 07:18 Oxygen Delivery Method Room Air Weight: 238 lb 1.588 oz Body Mass Index (BMI) 40.8 General: Alert, Oriented x3 Lungs: Clear to auscultation Cardiovascular: Regular rate, Regular Rhythm, No murmurs Abdomen: Bowel Sounds Present, Soft, Non Tender, Non-Distended Assessment/Plan All Active Problems (Last Updated 08/10/19 @ 08:05 by Keely White) Post-operative haemorrhage (Acute) History of endometrial ablation (Acute) Hx of wisdom tooth extraction (Acute) Hx of colonoscopy (Acute) Hx of breast biopsy (Acute) 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 It is not possible to know either the risk of delaying the surgery or procedure or chance of getting an infection with perfect accuracy, but a joint decision was made between the patient and the surgeon/proceduralist to proceed at this time with the scheduled surgery/procedure as indicated on the consent form. Surgery Risks - Colonoscopy Risks Include but are not Limited To: Risks include but are not limited to: Bleeding, perforation requiring further surgery, inability to complete colonoscopy requiring barium enema.
[2019-11-16] MEDS: Lactated Ringers 1,000 ML 100 ML IV (07:35)
--- NOTE | 2019-11-16 08:00 | COLBX_PTH ---
PATIENT: HOLGER M[place]ORD LOC: EN U#:[id number] AGE/SX: 54/F ROOM: RE11/16/[address]: Dr. Lionel Holm MD : 1965 BED: DIS: 11/16/2019 SPEC #: [id number] RECD: 11/16/19 10:05 STATUS: YOVANNY ISAC #: [id number] DENA: 11/16/19 08:[address]: Lionel Holm DEPT: SURGICAL PATHOLOGY RECD BY: Emma Daigle ENTERED: 11/16/19 13:31 SP TYPE: COLON BX OT DR: Carmita Chisholm PA-C Tissues: A - Descending colon B - Rectum, NOS Procedures: Surgery Specimen Level IV HEADER OPERATION: Colonoscopy - open access (MAC) PRE-OP DIAGNOSIS: Screening, history colonic polyps TISSUE SUBMITTED: A - Descending colon polyp, B - Rectal biopsy MICROSCOPIC DIAGNOSIS A. Descending colon polyp, biopsy: Tubular adenoma. B. Rectal biopsy: Fragments of colonic mucosa, no pathologic diagnosis. SJ:noelle 11/17/19 MICROSCOPIC DESCRIPTION Slides are reviewed. GROSS DESCRIPTION A - Received in fixative is one container labeled with the patient's name and designated descending colon polyp. The specimen consists of one irregular fragment of light foster soft tissue that measures 0.2 x 0.1 x 0.1 cm. The specimen is totally submitted in one cassette. B - Received in fixative is one container labeled with the patient's name and designated rectal biopsy. The specimen consists of two irregular fragments of light foster soft tissue that in aggregate measure 0.5 x 0.3 x 0.1 cm. The specimen is totally submitted in one cassette. / AM:noelle 11/16/19 TC:1 CPT: 93394 x2
[2019-11-16 08:10] VITALS: BP 121/82; BP 134/83; PULSE 80; RESP 16; TEMP 36.3; O2SAT 96
--- NOTE | 2019-11-16 08:12 | OP.COLON_ITS ---
Patient Name: Kimmy Ruff Procedure Date: 11/16/2019 7:46 AM Date of : 1965 Age: 54 Procedure: Colonoscopy Indications: High risk colon cancer surveillance: Personal history of colonic polyps Providers: Lionel Holm MD Referring MD: Carmita Chisholm Medicines: See the Anesthesia note for documentation of the administered medications Patient Profile: This is a 54 year old female. Refer to note in patient chart for documentation of history and physical. Last Colonoscopy: 2016. Complications: No immediate complications. Procedure: Pre-Anesthesia Assessment: - Prior to the procedure, a History and Physical was performed, and patient medications and allergies were reviewed. The patient's tolerance of previous anesthesia was also reviewed. The risks and benefits of the procedure and the sedation options and risks were discussed with the patient. All questions were answered, and informed consent was obtained. Prior Anticoagulants: The patient has taken no previous anticoagulant or antiplatelet agents. ASA Grade Assessment: II - A patient with mild systemic disease. After reviewing the risks and benefits, the patient was deemed in satisfactory condition to undergo the procedure. After I obtained informed consent, the scope was passed under direct vision. Throughout the procedure, the patient's blood pressure, pulse, and oxygen saturations were monitored continuously. The adult colonoscope was introduced through the anus and advanced to 3 cm into the ileum. The colonoscopy was performed without difficulty. The patient tolerated the procedure well. The quality of the bowel preparation was good. Scope In: 7:54:42 AM Scope Withdrawal Time 0 hours 8 minutes 7 seconds Scope Out: 8:05:06 AM Total Procedure Duration Time 0 hours 10 minutes 24 seconds Findings: A 3 mm polyp was found in the descending colon. The polyp was sessile. The polyp was removed with a hot snare. Resection and retrieval were complete. No biopsies or other specimens were collected for this exam. With the use of electrocautery snare technique the polyp was obliterated in nothing was retrievable. Multiple small-mouthed diverticula were found in the entire colon. No biopsies or other specimens were collected for this exam. A localized area of mildly scarred mucosa was found in the recto-sigmoid colon. Biopsies were taken with a cold forceps for histology. In the proximal rectum the colon had been tattooed. There appeared to be a normal scar and I biopsied this to confirm no pathology. The terminal ileum appeared normal. Impression: - One 3 mm polyp in the descending colon, removed with a hot snare. Resected and retrieved. No specimens collected. - Diverticulosis in the entire examined colon. No specimens collected. - Scarred mucosa in the recto-sigmoid colon. Biopsied. - The examined portion of the ileum was normal. Recommendation: - Discharge patient to home. - Resume previous diet. - Continue present medications. - Await pathology results. - Repeat colonoscopy in 5-10 years for surveillance. - Return to my office in 1 week. Procedure Code(s): --- Professional --- 23986, Colonoscopy, flexible; with removal of tumor(s), polyp(s), or other lesion(s) by snare technique 83922, 59, Colonoscopy, flexible; with biopsy, single or multiple Diagnosis Code(s): --- Professional --- Z86.010, Personal history of colonic polyps D12.4, Benign neoplasm of descending colon K63.89, Other specified diseases of intestine K57.30, Diverticulosis of large intestine without perforation or abscess without bleeding CPT copyright 2017 [employer]. All rights reserved. The codes documented in this report are preliminary and upon student worker review may be revised to meet current compliance requirements. MD Lionel Day MD 11/16/2019 8:12:31 AM This report has been signed electronically. Number of Addenda: 0 Note Initiated On: 11/16/2019 7:46 AM
--- NOTE | 2019-11-16 08:13 | OP.CCLET_ITS ---
11/16/2019 [facility] Re : Colonoscopy procedure for Kimmy Chisholm This procedure was performed on Saturday, November 16, 2019. My impressions and recommendations are as follows: Impressions : - One 3 mm polyp in the descending colon, removed with a hot snare. Resected and retrieved. No specimens collected. - Diverticulosis in the entire examined colon. No specimens collected. - Scarred mucosa in the recto-sigmoid colon. Biopsied. - The examined portion of the ileum was normal. Recommendations : - Discharge patient to home. - Resume previous diet. - Continue present medications. - Await pathology results. - Repeat colonoscopy in 5-10 years for surveillance. - Return to my office in 1 week. My findings are described in the full procedure note, which is enclosed. If I can be of further assistance, please feel free to contact me at Doctor phone number(s): , Fax: [phone], Work: . Sincerely, MD Lionel Day MD 11/16/2019 8:12:31 AM This report has been signed electronically.
[2019-11-16 08:15] VITALS: BP 128/88; BP 134/83; PULSE 77; RESP 16; O2SAT 96
[2019-11-16 08:20] VITALS: BP 126/80; BP 134/83; PULSE 74; RESP 16; O2SAT 96
[2019-11-16 08:25] VITALS: BP 126/85; BP 134/83; PULSE 77; RESP 16; TEMP 36.3; O2SAT 97
[2019-11-16 08:41] VITALS: BP 134/83
== END 2019-11-16 08:51 | disposition home or self-care (01) ==
LOC: EN 06:52 → AC 06:53
PROVIDERS: Anesthesiology; PCP Family Medicine; Referring Provider Family Medicine; Visit Provider Surgery
PROC: 0DJD8ZZ Inspection of Lower Intestinal Tract, Via Natural or Artificial Opening Endoscopic (ICD-10-PCS; CPT 45378; principal; 2019-11-16 07:55)
DX: Z12.11 Encounter for screening for malignant neoplasm of colon (principal); Z11.59 Encounter for screening for other viral diseases; Z87.19 Personal history of other diseases of the digestive system; G25.81 Restless legs syndrome; M19.90 Unspecified osteoarthritis, unspecified site; K57.30 Diverticulosis of large intestine without perforation or abscess without bleeding; D12.4 Benign neoplasm of descending colon
CPT/HCPCS: 45380; 45385; 87635; 88305; C9803; J7120; J2405; U0003

== ENCOUNTER → 2020-08-27 12:19 | Outpatient (CLI) | payer BC, SELFPAY ==
--- NOTE | 2020-08-27 12:21 | BI_ITS ---
MAMMOGRAPHY - BILATERAL SCREENING 3-D TOMOSYNTHESIS REASON FOR EXAM: Female, 54 years old. Annual screening. PERTINENT HISTORY: No significant family history. TECHNIQUE: 2-D mammograms and 3-D Tomosynthesis of the breast (s) were performed. CAD was performed. COMPARISON: 08/10/2019, 03/23/2018. FINDINGS: The breast composition is composed of scattered fibroglandular density. Scattered benign calcifications are seen. Stable partially obscured 1 cm low-density mass in the medial aspect of the right breast, likely representing a cyst. No dense spiculated masses or suspicious microcalcifications are identified. No architectural distortion is identified. There is no skin thickening or retraction. Stable normal lymph nodes in both axillae. There has been no significant change since the prior study. BI/SCRN MAMM (CAD)W/YUE BILAT IMPRESSION: No mammographic signs of malignancy. Routine yearly mammograms recommended. ASSESSMENT CATEGORY: BIRADS Category 2: Benign. A letter regarding these results will be sent to the patient by the facility within 30 days. FOLLOW UP RECOMMENDATION: Yearly follow up mammogram recommended. (A) Approximately 10% of breast cancers are not detected by mammography. A normal mammogram should not delay biopsy of a clinically suspicious abnormality. Electronically Signed: Suraj Cedeño MD at 11:15 EDT , Service support ,
== END ==
PROVIDERS: PCP Family Medicine; Referring Provider Nurse Practitioner Women's Health; Visit Provider Nurse Practitioner Women's Health
DX: Z12.31 Encounter for screening mammogram for malignant neoplasm of breast (principal)
CPT/HCPCS: 77063; 77067

== ENCOUNTER → 2021-10-25 | Outpatient (CLI) | payer BC, SELFPAY ==
--- NOTE | 2021-10-25 07:21 | BI_ITS ---
MAMMOGRAPHY - BILATERAL SCREENING REASON FOR EXAM: Female, 55 years old. Routine annual screening examination. PERTINENT HISTORY: Grandmother with breast cancer. Remote left ultrasound-guided breast biopsy. TECHNIQUE: Digital bilateral breast yue (3D mammographic acquisition) in the CC and MLO projections. 2-D mediolateral oblique (MLO) and craniocaudad (CC) views of both breasts were obtained. CAD: Full Field Digital Mammography with Computer Added Detection was performed. COMPARISON: Comparison is made with prior examination dated 08/27/2020 and 08/10/2019. FINDINGS: Breast Composition: The breasts are heterogeneously dense, which may obscure small masses. There are no dominant masses or suspicious calcifications. Stable benign-appearing bilateral axillary lymph nodes. No other significant abnormalities are identified. There has been no significant change since the prior study. BI/SCRN MAMM (CAD)W/YUE BILAT IMPRESSION: Stable bilateral screening mammogram. Yearly follow-up mammogram recommended. (A) ASSESSMENT CATEGORY: BIRADS Category 2: Benign. A letter regarding these results will be sent to the patient by the facility within 30 days. Approximately 10% of breast cancers are not detected by mammography. A normal mammogram should not delay biopsy of a clinically suspicious abnormality. [id number] Electronically Signed: Fabricio Kramer MD at 8:25 EDT ,
== END | disposition home or self-care (01) ==
LOC: OPBI 07:20
PROVIDERS: PCP Family Medicine; Visit Provider Nurse Practitioner Women's Health
DX: Z12.31 Encounter for screening mammogram for malignant neoplasm of breast (principal)
CPT/HCPCS: 77063; 77067

== ENCOUNTER → 2022-11-22 | Outpatient (CLI) | payer BC, SELFPAY ==
--- NOTE | 2022-11-22 07:20 | MRI_ITS ---
STUDY: MRI RIGHT KNEE REASON FOR EXAM: Female, 57 years old. Knee pain TECHNIQUE: Standardized fat and water weighted pulse sequences were obtained in all 3 orthogonal planes. COMPARISON: None. FINDINGS: 1 cm white white zone vertical or parrot beak tear of the posterior body of the medial meniscus. There is diffuse, greater than 50% thickness articular cartilage loss of the medial femorotibial compartment. Normal medial femoral condyle and tibial plateau. Normal medial collateral ligamentous complex (MCL). Normal distal semimembranosus, gracilis and semitendinosus tendons. Normal lateral meniscus. Normal hyaline cartilage of the lateral femorotibial compartment. Normal lateral femoral condyle and tibial plateau. Normal proximal tibiofibular articulation. Normal lateral collateral (fibular) ligament. Normal popliteus tendon. Normal biceps femoris tendon. Normal anterior cruciate ligament (ACL). Normal posterior cruciate ligament (PCL). Normal congruent patellofemoral articulation. Full-thickness chondral loss of the medial facet and median ridge of the patella with some subchondral edema. Normal medial and lateral patellar retinaculum. Normal quadriceps tendon. Normal patellar tendon. Normal Hoffa''s fat pad. There is a small volume joint effusion. Moderate prepatellar soft tissue swelling. The soft tissues are unremarkable. The otherwise visualized osseous structures are unremarkable. MRI/Lower Ext Joint Only (Routine) IMPRESSION: 1. 1 cm white white zone vertical or parrot beak tear of the posterior body the medial meniscus with moderate chondromalacia and no subchondral edema. 2. Full-thickness chondral loss of the medial facet and median ridge of the patella with some subchondral edema. 3. Small joint effusion. 4. Moderate prepatellar soft tissue swelling. Electronically Signed: Nikko Solo MD at 21:26 EDT ,
== END | disposition home or self-care (01) ==
PROVIDERS: PCP Family Medicine
DX: M23.91 Unspecified internal derangement of right knee (principal)
CPT/HCPCS: 73721

== ENCOUNTER → 2022-11-24 | Outpatient (CLI) | payer BC, SELFPAY ==
--- NOTE | 2022-11-24 13:29 | BI_ITS ---
MAMMOGRAPHY - BILATERAL SCREENING REASON FOR EXAM: Female, 57 years old. Routine annual screening examination. PERTINENT HISTORY: Grandmother with breast cancer. TECHNIQUE: Digital bilateral breast yue (3D mammographic acquisition) in the CC and MLO projections. 2-D mediolateral oblique (MLO) and craniocaudad (CC) views of both breasts were obtained. CAD: Full Field Digital Mammography with Computer Added Detection was performed. COMPARISON: Comparison is made with prior study October 25, 2021 and August 27, 2020. FINDINGS: Breast Composition: The breasts are heterogeneously dense, which may obscure small masses. There are no dominant masses or suspicious calcifications. Stable benign-appearing bilateral axillary lymph nodes. No other significant abnormalities are identified. There has been no significant change since the prior study. BI/SCRN MAMM (CAD)W/YUE BILAT IMPRESSION: Stable bilateral screening mammogram. Yearly follow-up mammogram recommended. (A) ASSESSMENT CATEGORY: BIRADS Category 2: Benign. A letter regarding these results will be sent to the patient by the facility within 30 days. Approximately 10% of breast cancers are not detected by mammography. A normal mammogram should not delay biopsy of a clinically suspicious abnormality. [id number] Electronically Signed: Fabricio Kramer MD at 15:30 EDT ,
== END | disposition home or self-care (01) ==
PROVIDERS: PCP Family Medicine; Referring Provider Advanced Practice Midwife; Visit Provider Advanced Practice Midwife
DX: Z12.31 Encounter for screening mammogram for malignant neoplasm of breast (principal)
CPT/HCPCS: 77063; 77067

== ENCOUNTER 2022-12-23 06:50 | Day surgery (SDC) | payer BC, SELFPAY ==
--- NOTE | 2022-12-23 07:06 | PCM.HP.BLA ---
History and Physical Date of Admission: 12/23/22 [facility] [address] [place] [address] OFFICE VISIT Date of Service: 12/08/22 MR#: [id number] Acct: [id number] Name: HOLGER MCCORD Rep #: [id number] : 1965 Provider: Dr. Gabriel Gaviria DO Age/Sex: 57/F Location[place] [facility] Status: Signed Intake Vital Signs 09/25/2308:04 Height 5 ft 4 in Intake Visit Reasons: RIGHT KNEE Is patient in pain?: Yes Allergies oxycodone [From Percocet] Allergy (Verified 12/08/22 09:36) Rash Medications calcium carbonate 500 mg-vitamin D3 10 mcg (400 unit) chewable tablet 1 tab PO DAILY supplement 09/15/16 [History Confirmed 12/08/22] lactobacillus combination no.4 3 billion cell capsule 1 tab PO DAILY stomach 09/15/16 [History Confirmed 12/08/22] multivitamin 1 tab PO DAILY supplement 09/15/16 [History Confirmed 12/08/22] apple cider vinegar 300 mg tablet 300 mg PO DAILY 08/10/19 [History Confirmed 12/08/22] PFSH Medical History Benign neoplasm of colon Diverticulitis Endometriosis 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 Fibromyalgia History of basal cell cancer Osteoarthritis of right knee Surgical History H/O bilateral oophorectomy History of carpal tunnel surgery History of colectomy History of colonoscopy (~11/2019) History of endometrial ablation Hx of breast biopsy Hx of colonoscopy Hx of wisdom tooth extraction S/P CARLOTA (total abdominal hysterectomy) Family History Grandmother Colon cancerGrandmother Breast cancer Social History Smoking Status: Never smoker second hand exposure: No alcohol intake: never substance use type: does not use caffeine: Yes what type of physical activity do you participate in: walking frequency: 1-2 times per week seatbelt use: always do you feel safe at home: Yes additional social history: [employer] 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 Gabriel Gaviria, 12/08/22 0806. HOLGER MCCORD is a 57 year old F here today for right knee pain. Patient notes that she has had right knee pain for several months with the severe pain starting in September. Patient denies any known injury. She states that at the beginning of the year she slipped and fell on ice, but didnt land on knee or have pain after. She notes that she was scrubbing the tiles on her bathroom floor and that might have started her pain. Patient denies any prior surgery. She notes that she has pain over her medial knee and lateral knee. Patient states that she has popping and clicking which is not painful. She complains of knee instability. Patient notes that she has increased pain with ambulating stairs or squatting. She notes that she has limited range of motion. Patient notes that she has done ice, ibuprofen, aquatic therapy at home. She had a steroid injection in September which was slightly helpful. She developed a strange reaction to the injection and had a welt over her right medial knee. She notes that she also took meloxicam which was helpful. She had xrays and an MRI which are here for review. Ortho Exam General General: Yes no acute distress Neurologic: Yes alert and Yes oriented x3 Psychologic: Yes reasonable and appropriate Right Knee Skin/Wound: Yes CDI, No erythema, No ecchymosis and No swelling Knee ROM: Yes ROM-Extension -20 to 0 and Yes ROM-Flexion 0-140 (112) Examination: Yes Med jt line tenderness, No Lat jt line tenderness and Yes Kendy's Test Stability: NML: Anterior Drawer, NML: Posterior Drawer, NML: Valgus 0, NML: Valgus 30, NML: Varus 0 and NML: Varus 30 Patella Grind: No KNEE: no catch but pain with medial kendy Head: Normocephalic Atraumatic Chest: symmetrical rise, non-labored breathing, no audible wheeze Abdomen: no guarding, non-rigid Supplemental Info 11/22/2022 MRI right knee: Parrot-beak tear posterior body medial meniscus with moderate chondromalacia. Full-thickness chondral loss medial facet of patella and median ridge of patella 09/25/2022 x-ray right knee: No acute findings Coding Level of Care Code Off vis,est,level 3 Diagnoses Osteoarthritis of right knee, unspecified osteoarthritis type M17.11 Osteoarthritis type: unspecified Peripheral tear of medial meniscus of right knee as current injury, subsequent encounter S83.221D Tear current or old: current Encounter type: subsequent encounter Meniscus tear of knee type: peripheral Assessment and Plan Assessment and Plan (1) Osteoarthritis of right knee: Status: Acute Qualifiers: Osteoarthritis type: unspecified Qualified Code(s): M17.11 - Unilateral primary osteoarthritis, right knee (2) Tear of medial meniscus of right knee: Qualifiers: Tear current or old: current Encounter type: subsequent encounter Meniscus tear of knee type: peripheral Qualified Code(s): S83.221D - Peripheral tear of medial meniscus, current injury, right knee, subsequent encounter Plan Educated the patient about the anatomy of the knee and etiology of her pain. Spoke with the patient about option for knee arthroscopy as she has failed conservative treatment, and does have medial sided pain and MRI with medial parrot-beak tear of the meniscus. she is not able to take NSAIDs 7 days prior to surgery. She may have a steroid injection at 6 weeks post op if she continues to have knee pain due to her osteoarthritis. Spoke with her about the surgery procedure, post op and recovery. Patient will possibly be able to return to work the following week. Reviewed the pre-operative plans with the patient. Risks and benefits of the procedure were fully explained, including but not limited to infection, neurovascular injury, continued pain, arthritis, stiffness, need for further surgery, re-injury, DVT, PE, general risks of anesthesia, and loss of limb or life. The patient understands all the risks and does wish to proceed with written consent. Follow up for 2 week post op or sooner if pain, swelling, numbness or associated symptoms, or concerns develop. All questions answered. Patient in agreement of plan. 12/08/22 1011 <Electronically signed by Gabriel Gaviria DO> Date Gabriel Burger Signature: Date (if applicable) CC: ~ I have examined the patient and the H&P has been reviewed. There are no clinical changes since date of exam.
[2022-12-23 07:13] VITALS: BP 160/86; PULSE 85; RESP 18; TEMP 36.7; O2SAT 98; BMI 41.3
[2022-12-23] MEDS: Lactated Ringers 1,000 ML 15 ML IV (07:17)
[2022-12-23] MEDS: Cefazolin 2 GM in 0.9% Normal Saline (100mL Bag) 100 ML IV (08:27)
[2022-12-23] MEDS: Epinephrine (1 mg/ml) 1 MG/ML VIAL (08:52)
[2022-12-23] MEDS: Lidocaine 1% /Epi 1:100 (50ml) 50 ML VIAL (08:52)
[2022-12-23] MEDS: Bupivacaine 0.5% PF 10 ML VIAL (09:19)
[2022-12-23] MEDS: MethylPREDNISolone Acetate 40 MG/ML Vial IM (09:19)
--- NOTE | 2022-12-23 09:27 | OP.PCM_ITS ---
Operative Report Date of Procedure: 12/23/22 Preop diagnosis: Right knee parrot-beak medial meniscus tear Postoperative diagnosis: Same Procedure: Right knee arthroscopic partial medial meniscectomy Anesthesia: General Estimated blood loss: 5 mL Tourniquet time: 28 minutes 300 mmHg Complications: none Indication for procedure: 57-year-old female patient who has had ongoing mechanical knee pain who did have MRI evidence of medial meniscus tear parrot- beak medial meniscus, the patient did wish to proceed with an elective arth roscopic surgery to attempt to alleviate the symptoms. Risk benefits and alternatives of the procedure were reviewed including risk of bleeding infection nerve artery tissue damage need for further surgery continued pain and expected postoperative course. Procedure: The patient was met in the preoperative holding area. The operative extremity was identified by both patient and physician and family and marked. Patient was brought back to the operating room on a wheeled cart and transferred to the operating table in the supine position. Anesthesia was started. A well- padded tourniquet was placed on the operative extremity. A lower extremity leg dorman was secured to the operative extremity. The contralateral extremity was well-padded and the end of the bed was flexed to 90 degrees. The patient was prepped and draped in the usual sterile fashion. A timeout was called to ensure the proper patient, procedure, and extremity were being contemplated. 0.5% Marcaine with epinephrine was injected into the planned incisional areas under the skin only. An Esmarch was used to exsanguinate the extremity and the tourniquet was inflated. An 11 blade scalpel was used to make a stab incision in the anterior lateral portal. The arthroscope was inserted into the intercondylar notch and inflow and outflow tubes were attached. Arthroscopic visualization began. The medial compartment was entered. An 18-gauge spinal needle was used to establish the placement for anterior medial portal. An 11 blade scalpel was used to make a stab incision. Blunt probe was inserted followed by a meniscal probe. Medial meniscus was found to have a parrot-beak type tear of the body, with use of arthroscopic biting instruments a arthroscopic shaver and ArthroCare wand a partial medial meniscectomy was performed there was noted to be grade 2 softening of the medial tibial plateau and some areas of fibrillation, there was bleeding likely secondary to a vein that was lacerated during the portal incision and there was intra-articular bleeding which required ArthroCare coagulation for visualization, the ACL was found to be intact. The lateral compartment was entered free of meniscal or cartilage pathology The arthroscope was switched to the medial portal to complete the procedure. The medial and lateral gutters were inspected and were free of loose bodies. The patellofemoral joint was inspected and was free of cartilage pathology. There was good patellar tracking. The knee was thoroughly irrigated and drained. An intra-articular injection with 5 cc 0.5% Marcaine plain and 40 mg of Depo-Medrol was injected intra-articularly. The arthroscope was removed the portals were closed with 3-0 nylon arthroscopic stitches. Followed by Xeroform 4 x 4's ABDs web roll and an Jose David wrap. The tourniquet was let down and the drapes were removed. All counts were correct. The patient was brought back to the PACU in stable condition.
[2022-12-23 09:28] VITALS: BP 131/98; BP 160/86; PULSE 87; RESP 16; TEMP 36.2; O2SAT 92
[2022-12-23 09:30] VITALS: BP 147/88; BP 160/86; PULSE 92; RESP 18; O2SAT 98
--- NOTE | 2022-12-23 09:30 | DCINST_ITS ---
Discharge Instructions Diet Discharge Diet: No restrictions Dressing / Incision Call your doctor if you observe: Shortness of breath and Chest pain Additional Dressing/Incision Instructions:: Ice and elevate next 72 hours .keep dressing on clean and dry for 48 hours then may remove begin showering daily but do not submerge in tub or pool. After shower may apply Band-Aids . Encourage knee range of motion weightbearing as tolerated, use crutches until confident in knee then may discontinue. No strenuous activity. When not ambulating keep iced and elevated next 72 hours. Do not mix pain medication with recreational drugs or alcohol only take as prescribed can be addictive and abusive, call with any questions or concerns. Follow Up Care Please Follow Up With: Gabriel Gaviria DO When: 2 weeks Test Results: Test results from this visit will be discussed in further detail at your follow- up appointment, if applicable. Discharge Plan Admission Primary Reason for Your Visit: Right knee arthroscopy Attending Provider: Gabriel aGviria Primary Care Provider: Carmita Chisholm Discharge Orders/Prescriptions Prescriptions: New hydrocodone-acetaminophen 5-325 mg tablet 1 - 2 tab PO Q4H PRN (Reason: pain) 5 Days Qty: 30 0RF No Action apple cider vinegar 300 mg tablet 300 mg PO DAILY multivitamin 1 EACH tablet 1 tab PO DAILY Patient Comments: supplement calcium carbonate-vitamin D3 1 EACH tablet,chewable 1 tab PO DAILY Patient Comments: supplement lactobacillus combination no.4 1 EACH capsule 1 tab PO DAILY Patient Comments: probiotic Referrals / Follow Up: Carmita Chisholm PA-C [Primary Care Provider] - Disposition Disposition (needs filled in before D/C Order can be placed): Home, Self Care
[2022-12-23 09:45] VITALS: BP 152/90; BP 160/86; PULSE 84; RESP 16; O2SAT 98
[2022-12-23 09:49] VITALS: BP 151/93; BP 160/86; PULSE 89; RESP 18; TEMP 36.3; O2SAT 97
[2022-12-23 10:38] VITALS: BP 142/77; BP 160/86; PULSE 74; RESP 16; TEMP 36.1; O2SAT 98
== END 2022-12-23 10:55 | disposition home or self-care (01) ==
LOC: SDC 06:55 → AC 06:56
PROVIDERS: PCP Family Medicine; Referring Provider Orthopaedic Surgery; Visit Provider Orthopaedic Surgery
PROC: (CPT 29870; principal; 2022-12-23 08:15)
DX: S83.221A Peripheral tear of medial meniscus, current injury, right knee, initial encounter (principal); M17.11 Unilateral primary osteoarthritis, right knee; X58.XXXA Exposure to other specified factors, initial encounter
CPT/HCPCS: 29881; 01400; J7120; J2405

== ENCOUNTER → 2023-08-06 | Outpatient (CLI) | payer BC, SELFPAY ==
[2023-08-06 13:04] LABS: Erythrocyte Sedimentation Rate 5 mm/hr (0-30)
[2023-08-06 13:05] LABS: Absolute Lymphocyte Count 1.71 X10^3/uL (0.83-4.51); Absolute Neutrophil Count 3.1 X10^3/uL (2.0-7.7); Basophil# 0.05 X10^3/uL; Basophil% 0.9 % (0-1); Eosinophil# 0.07 X10^3/uL; Eosinophils% 1.3 % (0-5); Hematocrit 41.7 % (37-47); Hemoglobin 14.1 g/dL (12.0-15.0); Lymphocyte # 1.71 X10^3/ul (0.83-4.51); Lymphocyte % 32.4 % (19-41); Mean Corp Hgb Conc 33.8 g/dL (32-36); Mean Corpuscular Hgb 30.6 pg (27.0-32.0); Mean Corpuscular Volume 90.5 fL (81-99); Mean Platelet Vol. 10.4 fl (6.2-12.0); Monocyte# 0.34 X10^3/uL; Monocyte% 6.5 % (0-10); NRBC Flagged by Analyzer 0 % (0-5); Neutrophil # 3.08 X10^3/uL (2.7-7.7); Neutrophil % 58.5 % (47-70); Platelet Count 243 K/mm3 (150-450); RBC Distribution Width CV 12.6 % (11.6-14.6); RBC Distribution Width SD 41.1 fl (35.1-43.9); Red Blood Count 4.61 M/mm3 (4.2-5.4); White Blood Count 5.3 K/mm3 (4.4-11.0)
[2023-08-06 13:41] LABS: Vitamin B12 524 pg/mL (211-911)
[2023-08-06 13:42] LABS: ALB/GLOB Ratio 1.1 RATIO (0.9-2.4); AST(SGOT) 35 U/L (15-37); Alanine Aminotransfer ALT/SGPT 60 U/L (13-56); Albumin, Serum 3.8 g/dL (3.2-5.0); Alkaline Phosphatase 48 U/L (45-117); Anion Gap 7 (5-15); BUN 14 mg/dL (7-18); BUN/Creat Ratio 18.1 RATIO (10-20); CRP 6.66 mg/L (0.0-3.0); Calcium,Total 8.8 mg/dL (8.5-10.1); Chloride 108 mmol/L (98-107); Cholesterol 173 mg/dL (200); Creatinine, Serum 0.77 mg/dL (0.55-1.02); EST Glomerular Filtration Rate 82 mL/min (>60); Est Glom Filt Rate - Afr Amer 99 mL/min (>60); Ferritin 199 ng/mL (8-252); Globulin 3.5 g/dL (2.2-4.2); Glucose 91 mg/dL (74-106); High Density Lipoprotein 56 mg/dL; Iron 93 ug/dL (50-170); Potassium 3.7 mmol/L (3.5-5.1); Protein, Total 7.3 g/dL (6.4-8.2); Sodium Level 141 mmol/L (136-145); Thyroid Stim Hormone (TSH) 1.45 uIU/mL (0.358-3.74); Triglycerides 96 mg/dL; Very Low Density Lipoprotein 19 mg/dL (5-40)
[2023-08-07 13:08] LABS: ANTINUCLEAR ANTIBODIES DIRECT Negative (Negative)
== END | disposition home or self-care (01) ==
LOC: MFPLAB 09:56
PROVIDERS: PCP Family Medicine; Visit Provider Family Medicine
DX: M79.606 Pain in leg, unspecified (principal); R53.83 Other fatigue; M79.7 Fibromyalgia
CPT/HCPCS: 36415; 80053; 80061; 82306; 82607; 82728; 83540; 84443; 85025; 85652; 86038; 86140

== ENCOUNTER → 2023-08-31 | Outpatient (CLI) | payer BC, SELFPAY ==
--- NOTE | 2023-08-31 10:00 | RAD_ITS ---
STUDY: X-RAY - LUMBOSACRAL SPINE REASON FOR EXAM: Female, 57 years old. Leg pain. TECHNIQUE: 7 view(s) of the lumbosacral spine, including lateral flexion and extension views, were obtained. COMPARISON: None FINDINGS: Normal lumbar lordosis. Mild dextroscoliosis of the mid lumbar spine. Normal vertebral alignment. Diffuse mild lower thoracic and lumbosacral facet sclerosis. Intervertebral discs space narrowing diffusely most marked at L2-3, L3-4 and L4-5. Limited flexion and extension with no abnormal motion. Normal soft tissues. RAD/L/S Spine w Bend Min 6 Vw IMPRESSION: Dextroscoliosis with limited flexion and extension, without abnormal motion and with mild lower thoracic and lumbosacral spondylosis. Electronically Signed: Suraj Cedeño MD at 15:25 EDT ,
== END | disposition home or self-care (01) ==
PROVIDERS: PCP Family Medicine; Referring Provider Family Medicine; Visit Provider Family Medicine
DX: M79.606 Pain in leg, unspecified (principal)
CPT/HCPCS: 72114

== ENCOUNTER 2023-11-04 08:30 | Outpatient (RCR) | payer BC, SELFPAY ==
--- NOTE | 2023-10-01 18:28 | HP.PTEVAL ---
Patient's Visit Information Visit Information Visit Information: HOLGER MCCORD is a 57 year old F referred to Physical Therapy by Dr. Yoshi Marcelino MD with a diagnosis of SCOLISOSIS. Date of Evaluation: 10/01/23 Physical Therapist: John Eason, PT, Cert MDT, OCS Visit Plan Frequency: 2x /Week Duration: 4 Weeks Plan: PT INTERVENTIONS DLS ,POSTURAL EX'S ,LUMBAR FLEXION ,HIP STRENGTHENING ,ACTIVITY MODIFICATION AND MODALITIES Subjective Subjective: This 57 y/o female presents to physical therapy with lumbar radiculopathy right > left . Patient symptoms LS to lateral leg to foot . Patient symptoms have been intermittent back pain for several years and 2015 radicular and pat several years symptoms worse.Patient has been diagnosed fibromyalgia. Patient seen DR cedeno x-rays showed DDD ,scolisis. NO medication. Currently symptoms are constant. Aggravating sitting ,walking,standing bending/lifting .Alleviating factors rest. Pain affects sleeping with leg pain rolls side to side.. Coughing/sneezing -. Bowel/bladder - Denies paresthesia/tingling -. Patient has no trauma. No prior treatment. Patient condition affects QOL and function /housework tasks. Goals to decrease pain in back and leg. 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 Pain Left Back: Pain Intensity (Out of 10): 6 Pain Intensity Range: 10 Bilateral Lower Extremity: Pain Intensity (Out of 10): 6 Pain Intensity Range: 10 Objective Objective: POSTURE:mild forward posture, slight scolisis GAIT: reciprocal pattern NEURO: denies paresthesia/tingling ,reflexes L3-4 ,L4-5 ,L5- S1 1/3 SYMMETRIES: align MMT: quads/hams 4/5 ,hip flexion right 4/5 ,left 4-/5 ,ankle 4/5 ,hip abduction 4-/5 FLEXABILITY: hamstrings WFL ,piriformis min tight LUMBAR ROM: flexion min loss ,extension mod loss ,side glides min los Special Tests L/S Slump test left side: Negative L/S Slump test right side: Negative L/S Left Straight Leg Raise: Negative L/S Right Straight Leg Raise: Negative Lumbar Standing: Flexion - Mechanical Response: No effect Lumbar Standing: Flexion - Symptoms During Testing: No effect Lumbar Standing: Flexion - Symptoms After Testing: No effect Lumbar Standing: Extension - Mechanical Response: No effect Lumbar Standing: Extension - Symptoms During Testing: Increases Lumbar Standing: Extension - Symptoms After Testing: No better Lumbar Standing: Right Side Glides - Mechanical Response: No effect Lumbar Standing: Right Side Melvin - Symptoms During Testing: No effect Lumbar Standing: Right Side Melvin - Symptoms After Testing: No effect Lumbar Standing: Left Side Melvin - Mechanical Response: No effect Lumbar Standing: Left Side Melvin - Symptoms During Testing: No effect Lumbar Standing: Left Side Melvin - Symptoms After Testing: No effect Comments:: no change with leg symptoms Lumbar Lying: Flexion - Mechanical Response: No effect Lumbar Lying: Flexion - Symptoms During Testing: Increases Lumbar Lying: Flexion - Symptoms After Testing: No worse Lumbar Lying: Extension - Mechanical Response: No effect Lumbar Lying: Extension - Symptoms During Testing: Increases Lumbar Lying: Extension - Symptoms After Testing: No worse Comments:: nom change with legs symptoms Balance/Special Test Scores Oswestry Low Back Score: 21 Goals Goal 1:: Patient to be I with HEP Goal Time Frame: 4-6 Weeks Goal 2:: Patient to demonstrate 50% improvement with less pain and improved function Goal Time Frame: 4-6 Weeks Goal 3:: Patient to improve lumbar ROM for function of recovery for ADLS and housework tasks Goal Time Frame: 4-6 Weeks Goal 4:: Patient to improve ability to walk and stand further distance 70% with less pain Goal Time Frame: 4-6 Weeks Goal 5:: Patient to improve back oswestry score by 5 point to improve QOL and function Goal Time Frame: 4-6 Weeks Rehabilitation Potential Physical Therapy Diagnosis: This patient has lumbar pain with radicular symptoms bilateral legs worse with walking /standing ,positioning and motion testing or symptoms not decrease or better thus patient will benefit from skilled PT Rehabilitation Potential: Good Anticipated Interventions Patient/Client Instruction: Educate patient on: Condition and Plan of Care For the Purpose of:: To decrease pain, To increase ROM, To improve muscle performance and motor function, To improve ability to perform ADL's, To increase tolerance to activity/condition/position, To improve ability of physical actions for home/community/work/leisure, To improve health of tissue, To decrease soft tissue restriction, To increase flexibility/ROM, To prevent re-injury and To improve tolerance to ADL's Therapeutic Exercise to Include: Strength training, Body mechanics, Postural training, Flexibilty training and Dynamic Lumbar Stabilization Comment: HIP For the Purpose of:: To decrease pain, To increase ROM, To improve muscle performance and motor function, To improve ability to perform ADL's, To increase tolerance to activity/condition/position, To improve ability of physical actions for home/community/work/leisure, To improve gait and locomotor functions, To increase flexibility/ROM, To improve endurance and To improve tolerance to ADL's TENS: Yes IF ES: Yes Cryotherapy (ice pack, ice massage): Yes Thermo therapy (hot pack): Yes Ultrasound (thermal/non thermal): Yes For the Purpose of:: To decrease pain, To increase ROM, To improve nutrient delivery to tissue, To increase oxygenation perfusion, To improve health of tissue and To decrease soft tissue restriction Text: Thank you for the opportunity to evaluate your patient. For Medicare and Medicare HMO plans, please review the plan of care and approve it. It will need to be FAXED BACK to us at [phone] for Medicare purposes. For Medicare only, by signing this I certify the plan of care. Please let me know if there are questions or concerns regarding this plan of care. Physician Signature: Date:
--- NOTE | 2023-11-04 09:00 | HP.PTDCSUM ---
Discharge Summary D/C summary: It has been my pleasure to treat HOLGER MCCORD referred by Dr. Yoshi Marcelino MD, with the diagnosis of SCOLISOSIS for a total of 9 visit(s). Discharge Date: Please see the following information for a summary of their discharge status. Subjective Subjective: PAIN IS WORSE WITH WALKING IN LEGS RIGHT >LEFT LEG ,DIFFICULTY WITH STRIDE WITH WALKING PAIN IN LEG IS WORSE ,STANDING Pain Left Back: Pain Intensity (Out of 10): 2 Bilateral Lower Extremity: Pain Intensity (Out of 10): 6 Objective Objective/Function: POSTURE:mild forward posture, slight scolisis GAIT: reciprocal pattern NEURO: denies paresthesia/tingling ,reflexes L3-4 ,L4-5 ,L5- S1 1/3 SYMMETRIES: align MMT: quads/hams 4/5 ,hip flexion right 4/5 ,left 4-/5 ,ankle 4/5 ,hip abduction 4-/5 FLEXABILITY: hamstrings WFL ,piriformis min tight LUMBAR ROM: flexion min loss ,extension mod loss ,side glides min los Goals Goal 1:: Patient to be I with HEP Goal Progress: Progressing Goal 2:: Patient to demonstrate 50% improvement with less pain and improved function Goal Progress: Progressing Goal 3:: Patient to improve lumbar ROM for function of recovery for ADLS and housework tasks Goal Progress: Progressing Goal 4:: Patient to improve ability to walk and stand further distance 70% with less pain Goal Progress: Progressing Goal 5:: Patient to improve back oswestry score by 5 point to improve QOL and function Goal Progress: Progressing Plan Plan: RTD POSSIBLE MRI D/C Information d/c sentence: If there are questions or concerns regarding this patient's physical therapy, please feel free to call me at [phone]. Thank you for the referral of this patient. Sincerely, John Eason, PT, Cert MDT, OCS Balance/Gait/Functional tests Balance/Special Test Scores Oswestry Low Back Score: 21
== END 2023-11-04 19:00 | disposition home or self-care (01) ==
LOC: PT 08:30
PROVIDERS: PCP Family Medicine; Referring Provider Family Medicine; Visit Provider Family Medicine
DX: M41.9 Scoliosis, unspecified (principal)
CPT/HCPCS: 97110; 97162; 97530

== ENCOUNTER → 2023-12-25 | Outpatient (CLI) | payer BC, SELFPAY ==
--- NOTE | 2023-12-25 07:12 | MRI_ITS ---
EXAM: MR LUMBAR SPINE WITHOUT INTRAVENOUS CONTRAST CLINICAL INDICATION: pain in back with bilateral paresthesias TECHNIQUE: Multiplanar and multisequence MR images of the lumbar spine without intravenous contrast. COMPARISON: Lumbar spine radiographs, 08/31/[address] abdomen and pelvis, 12/23/2016. FINDINGS: VERTEBRAE: Degenerative changes partially visualized in the lower cervical spine on localization sequence and mildly throughout the thoracic spine. At least mild spinal canal stenosis in the lower cervical region. Vertebral body heights are preserved. Normal alignment. No spondylolisthesis. There is preservation of the normal lumbar lordosis. SPINAL CORD: No significant abnormality. Normal position and signal intensity of the conus medullaris. 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 SOFT TISSUES: No significant abnormality. DISCS/SPINAL CANAL/NEURAL FORAMINA: L1-L2: Mild bilateral facet arthrosis. No disc herniation, spinal canal stenosis, or neural foraminal narrowing. L2-L3: Disc height loss and disc desiccation. Left central to subarticular disc herniation superimposed upon a disc bulge and moderate bilateral facet arthrosis. Mild spinal canal stenosis with left L3 nerve root impingement. Bilateral facet arthrosis contributes to [id number] bilateral neural foraminal narrowing. L3-L4: Disc bulge with small superimposed central disc herniation and moderate to severe bilateral facet arthrosis resulting in mild spinal canal stenosis and [id number] bilateral neural foraminal narrowing. No nerve root impingement. L4-L5: Disc bulge with small superimposed right central to foraminal disc herniation and severe bilateral facet arthrosis. Mild spinal canal and [id number] bilateral neural foraminal narrowing. No discrete nerve root impingement. L5-S1: Disc bulge and moderate bilateral facet arthrosis. No disc herniation, spinal canal stenosis, or neural foraminal narrowing. MRI/Spine Lumbar (Routine) IMPRESSION: 1. Degenerative changes partially visualized in the lower cervical spine on localization sequence and mildly throughout the thoracic spine. At least mild spinal canal stenosis in the lower cervical region. Consider dedicated cervical spine MRI. 2. Multilevel degenerative changes in the lumbar spine. Left L3 nerve root impingement. See details above. Electronically Signed: Gabriel Dykes DO at 21:10 EDT ,
--- NOTE | 2023-12-25 08:43 | BI_ITS ---
MAMMOGRAPHY - BILATERAL SCREENING REASON FOR EXAM: Female, 58 years old. Routine annual screening examination. PERTINENT HISTORY: Grandmother with breast cancer. Remote left ultrasound-guided breast biopsy. TECHNIQUE: Digital bilateral breast yue (3D mammographic acquisition) in the CC and MLO projections. 2-D mediolateral oblique (MLO) and craniocaudad (CC) views of both breasts were obtained. CAD: Full Field Digital Mammography with Computer Added Detection was performed. COMPARISON: Comparison is made with prior study dated November 24, 2022 and October 25, 2021. FINDINGS: Breast Composition: The breasts are heterogeneously dense, which may obscure small masses. There are no dominant masses or suspicious calcifications. Stable bilateral axillary lymph nodes. No other significant abnormalities are identified. There has been no significant change since the prior study. BI/SCRN MAMM (CAD)W/YUE BILAT IMPRESSION: Stable bilateral screening mammogram. Yearly follow-up mammogram recommended. (A) ASSESSMENT CATEGORY: BIRADS Category 2: Benign. A letter regarding these results will be sent to the patient by the facility within 30 days. Approximately 10% of breast cancers are not detected by mammography. A normal mammogram should not delay biopsy of a clinically suspicious abnormality. [id number] Electronically Signed: Fabricio Kramer MD at 9:01 EDT ,
== END | disposition home or self-care (01) ==
PROVIDERS: PCP Family Medicine; Referring Provider Family Medicine; Visit Provider Family Medicine
DX: Z12.31 Encounter for screening mammogram for malignant neoplasm of breast (principal)
CPT/HCPCS: 72148; 77063; 77067

== ENCOUNTER → 2023-12-31 | Outpatient (CLI) | payer BC, SELFPAY ==
[2023-12-31 18:06] LABS: Anion Gap 6 (5-15); BUN 13 mg/dL (7-18); BUN/Creat Ratio 15.1 RATIO (10-20); Calcium,Total 9.7 mg/dL (8.5-10.1); Chloride 106 mmol/L (98-107); Creatinine, Serum 0.86 mg/dL (0.55-1.02); EST Glomerular Filtration Rate 72 mL/min (>60); Est Glom Filt Rate - Afr Amer 87 mL/min (>60); Glucose 91 mg/dL (74-106); Potassium 3.6 mmol/L (3.5-5.1); Sodium Level 140 mmol/L (136-145)
[2024-01-04 16:09] LABS: PROEL- A/G Ratio 1.3 (0.7-1.7); PROEL- Albumin 3.8 g/dL (2.9-4.4); PROEL- Alpha-1 Globulin 0.3 g/dL (0.0-0.4); PROEL- Alpha-2 Globulin 0.7 g/dL (0.4-1.0); PROEL- Gamma Globulin 0.9 g/dL (0.4-1.8); PROEL- Globulin, Total 2.9 g/dL (2.2-3.9); PROEL- TOTAL PROTEIN 6.7 g/dL (6.0-8.5); PROEL-M-Spike Not Observed g/dL (Not Observed)
== END | disposition home or self-care (01) ==
LOC: MFPLAB 16:32
PROVIDERS: PCP Family Medicine; Referring Provider Family Medicine; Visit Provider Family Medicine
DX: R79.82 Elevated C-reactive protein (CRP) (principal); R03.0 Elevated blood-pressure reading, without diagnosis of hypertension
CPT/HCPCS: 36415; 80048; 84165; 86140

== ENCOUNTER → 2024-01-20 | Outpatient (CLI) | payer BC, SELFPAY ==
--- NOTE | 2024-01-20 13:17 | NEURO_ITS ---
NCS and/or EMG Patient Report Ordering Doctor: Yoshi Marcelino DATE OF SERVICE: 01/20/24 Send presents for electrodiagnostic testing of the lower limbs. She reports bilateral leg weakness and heaviness for the past several years. Electrodiagnostic findings: Peroneal motor nerve demonstrates normal distal late ncy, amplitude and conduction velocity bilaterally. Normal tibial motor response bilaterally. Normal tibial and peroneal F?waves. Normal H?reflux bilaterally. Sensory responses are within normal limits. Needle EMG testing was performed in the lower limbs. All muscles tested showed no evidence of denervation with normal motor unit action potentials. Electrodiagnostic impression: This is a normal electrodiagnostic study of the lower limbs. There is no electrodiagnostic evidence for peripheral neuropathy or lumbosacral radiculopathy. Multi Select Codes Neurology Neurology Interp Codes: 19843-13 Musc test done w/n test comp (interp) (2) and 88440-39 Nrv cndj test 9-10 studies (interp)
== END | disposition home or self-care (01) ==
LOC: PSN 06:42
PROVIDERS: PCP Family Medicine; Referring Provider Family Medicine; Visit Provider Family Medicine
DX: M79.604 Pain in right leg (principal); M79.605 Pain in left leg
CPT/HCPCS: 95886; 95911

== ENCOUNTER → 2024-02-01 | Outpatient (CLI) | payer BC, SELFPAY ==
--- NOTE | 2024-02-01 17:30 | MRI_ITS ---
STUDY: MRI CERVICAL SPINE WITHOUT CONTRAST REASON FOR EXAM: Female, 58 years old. STENOSIS, NECK PAIN, WEAKNESS TECHNIQUE: Standardized fat and water weighted pulse sequences were obtained in the sagittal and axial planes. COMPARISON: None FINDINGS: Normal foramen magnum and brainstem-cervical cord junction. Normal craniovertebral junction. Normal anterior atlantoaxial articulation. Normal odontoid process. There is straightening of the normal cervical lordosis. Normal vertebral bodies and posterior osseous elements. C2-3: Normal endplates. Normal disc height, signal and morphology. Normal central canal and intervertebral neural foramina. C3-4: Mild broad disc osteophyte complex asymmetric to the right produces mild spinal stenosis and mild right neural foraminal stenosis. C4-5: Normal endplates. Normal disc height, signal and morphology. Normal central canal and intervertebral neural foramina. C5-6: Moderate broad disc osteophyte complex produces moderate spinal stenosis with abutment of the central spinal cord but no neural foraminal stenosis. C6-7: Moderate broad disc osteophyte complex asymmetric to the right produces moderate spinal stenosis with abutment of the right hemicord and mild right neural foraminal stenosis. C7-T1: Normal endplates. Normal disc height, signal and morphology. Normal central canal and intervertebral neural foramina. Normal cervical cord. Normal visualized soft tissue structures. MRI/Spine Cervical (Routine) IMPRESSION: Multilevel degenerative changes, as described above. Electronically Signed: Nikko Solo MD at 13:08 EST ,
== END | disposition home or self-care (01) ==
PROVIDERS: PCP Family Medicine; Referring Provider Psychiatry & Neurology Neurology; Visit Provider Psychiatry & Neurology Neurology
DX: M48.02 Spinal stenosis, cervical region (principal)
CPT/HCPCS: 72141

== ENCOUNTER → 2024-03-28 | Outpatient (CLI) | payer BC, SELFPAY ==
[2024-03-28 14:49] LABS: Erythrocyte Sedimentation Rate 5 mm/hr (0-30)
[2024-03-28 14:51] LABS: Absolute Lymphocyte Count 2.23 X10^3/uL (0.83-4.51); Absolute Neutrophil Count 3.2 X10^3/uL (2.0-7.7); Basophil# 0.05 X10^3/uL; Basophil% 0.8 % (0-1); Eosinophils% 3.3 % (0-5); Hematocrit 41.6 % (37-47); Hemoglobin 14.4 g/dL (12.0-15.0); Lymphocyte # 2.23 X10^3/ul (0.83-4.51); Mean Corp Hgb Conc 34.6 g/dL (32-36); Mean Corpuscular Hgb 30.6 pg (27.0-32.0); Mean Corpuscular Volume 88.3 fL (81-99); Monocyte# 0.31 X10^3/uL; Monocyte% 5.1 % (0-10); NRBC Flagged by Analyzer 0 % (0-5); Neutrophil # 3.22 X10^3/uL (2.7-7.7); Neutrophil % 53.6 % (47-70); Platelet Count 270 K/mm3 (150-450); RBC Distribution Width CV 12.4 % (11.6-14.6); RBC Distribution Width SD 40.2 fl (35.1-43.9); Red Blood Count 4.71 M/mm3 (4.2-5.4)
[2024-03-28 15:03] LABS: ALB/GLOB Ratio 1.1 RATIO (0.9-2.4); AST(SGOT) 53 U/L (15-37); Alanine Aminotransfer ALT/SGPT 87 U/L (13-56); Albumin, Serum 3.9 g/dL (3.2-5.0); Alkaline Phosphatase 65 U/L (45-117); Anion Gap 8 (5-15); BUN 9 mg/dL (7-18); BUN/Creat Ratio 9.4 RATIO (10-20); Calcium,Total 9.1 mg/dL (8.5-10.1); Chloride 108 mmol/L (98-107); Creatinine, Serum 0.95 mg/dL (0.55-1.02); EST Glomerular Filtration Rate 64 mL/min (>60); Est Glom Filt Rate - Afr Amer 77 mL/min (>60); Globulin 3.5 g/dL (2.2-4.2); Glucose 164 mg/dL (74-106); Potassium 3.4 mmol/L (3.5-5.1); Protein, Total 7.4 g/dL (6.4-8.2); Sodium Level 142 mmol/L (136-145)
== END | disposition home or self-care (01) ==
PROVIDERS: PCP Family Medicine; Referring Provider Family Medicine; Visit Provider Family Medicine
DX: M79.7 Fibromyalgia (principal)
CPT/HCPCS: 36415; 80053; 84443; 84550; 85025; 85652

== ENCOUNTER → 2024-05-18 | Outpatient (CLI) | payer BC, SELFPAY ==
--- NOTE | 2024-05-18 17:15 | RAD_ITS ---
PROCEDURE: Pelvis and bilateral hip radiographs REASON FOR EXAM: PAIN TECHNIQUE: Five views of the pelvis and both hips COMPARISON: None. FINDINGS: See impression RAD/Hips B/L min 2 views w/ Pelvis IMPRESSION: Negative for acute displaced fracture or malalignment. Small marginal acetabul ar osteophytes bilaterally without significant superior joint space narrowing. Mild/moderate degenerative changes of the lowe r lumbar spine and sacroiliac joints. Reading Location: [facility]
== END | disposition home or self-care (01) ==
PROVIDERS: PCP Family Medicine; Referring Provider Anesthesiology; Visit Provider Anesthesiology
DX: M25.551 Pain in right hip (principal); M25.552 Pain in left hip
CPT/HCPCS: 73521

== ENCOUNTER → 2024-07-04 | Outpatient (CLI) | payer BC, SELFPAY ==
[2024-07-04 09:03] LABS: Absolute Lymphocyte Count 1.54 X10^3/uL (0.83-4.51); Absolute Neutrophil Count 4.2 X10^3/uL (2.0-7.7); Basophil# 0.05 X10^3/uL; Basophil% 0.8 % (0-1); Eosinophil# 0.17 X10^3/uL; Eosinophils% 2.7 % (0-5); Hematocrit 41.6 % (37-47); Hemoglobin 14.6 g/dL (12.0-15.0); Lymphocyte # 1.54 X10^3/ul (0.83-4.51); Lymphocyte % 24.1 % (19-41); Mean Corp Hgb Conc 35.1 g/dL (32-36); Mean Corpuscular Hgb 31.7 pg (27.0-32.0); Mean Corpuscular Volume 90.4 fL (81-99); Mean Platelet Vol. 9.6 fl (6.2-12.0); Monocyte# 0.39 X10^3/uL; Monocyte% 6.1 % (0-10); NRBC Flagged by Analyzer 0 % (0-5); Neutrophil # 4.23 X10^3/uL (2.7-7.7); Platelet Count 212 K/mm3 (150-450); RBC Distribution Width SD 42.8 fl (35.1-43.9); White Blood Count 6.4 K/mm3 (4.4-11.0)
[2024-07-04 09:55] LABS: ALB/GLOB Ratio 1.6 RATIO (0.9-2.4); AST(SGOT) 23 U/L (<=31); Alanine Aminotransfer ALT/SGPT 24 U/L (<=34); Albumin, Serum 4.3 g/dL (3.5-5.0); Alkaline Phosphatase 47 U/L (35-104); Anion Gap 12 (5-15); BUN 10 mg/dL (4-19); CRP 5.57 mg/L (0.0-3.0); Calcium,Total 9.4 mg/dL (7.6-11.0); Carbon Dioxide 23.6 mmol/L (21.0-32.0); Chloride 106 mmol/L (98-108); Cholesterol 155 mg/dL (<=200); EST Glomerular Filtration Rate 75 (>60); Globulin 2.7 g/dL (2.2-4.2); Glucose 101 mg/dL (70-99); High Density Lipoprotein 53 mg/dL; Low Density Lipoprotein Calc. 90 mg/dL; Potassium 4.1 mmol/L (3.3-5.1); Sodium Level 142 mmol/L (133-145); Total Bilirubin 0.91 mg/dL (0.00-1.30); Triglycerides 62 mg/dL; Very Low Density Lipoprotein 12 mg/dL (5-40); cholesterol:hdl ratio screen 2.94
[2024-07-05 04:07] LABS: GGTP 8 IU/L (0-60)
[2024-07-05 10:08] LABS: ANTINUCLEAR ANTIBODIES DIRECT Negative (Negative)
== END | disposition home or self-care (01) ==
LOC: LAB 08:45
PROVIDERS: PCP Family Medicine; Referring Provider Family Medicine; Visit Provider Family Medicine
DX: R79.89 Other specified abnormal findings of blood chemistry (principal); R79.82 Elevated C-reactive protein (CRP)
CPT/HCPCS: 36415; 80053; 80061; 82977; 85025; 86038; 86140

== ENCOUNTER → 2024-08-15 | Outpatient (CLI) | payer BC, SELFPAY ==
[2024-08-15 17:56] LABS: Hematocrit 40.5 % (37-47); Hemoglobin 13.8 g/dL (12.0-15.0); Mean Corp Hgb Conc 34.1 g/dL (32-36); Mean Platelet Vol. 9.9 fl (6.2-12.0); Platelet Count 249 K/mm3 (150-450); RBC Distribution Width CV 13.1 % (11.6-14.6); RBC Distribution Width SD 43.8 fl (35.1-43.9); Red Blood Count 4.45 M/mm3 (4.2-5.4); White Blood Count 7.2 K/mm3 (4.4-11.0)
[2024-08-15 18:36] LABS: Anion Gap 11 (5-15); BUN 10 mg/dL (4-19); BUN/Creat Ratio 13.4 RATIO (10-20); Calcium,Total 9.1 mg/dL (7.6-11.0); Carbon Dioxide 26.6 mmol/L (21.0-32.0); Chloride 104 mmol/L (98-108); Creatinine, Serum 0.76 mg/dL (0.70-1.20); EST Glomerular Filtration Rate 90 (>60); Glucose 92 mg/dL (70-99); Sodium Level 142 mmol/L (133-145)
--- OUTSIDE RECORDS SUMMARY | 2024-08-15 23:48 | XMS RPT_ITS | CCD ---
Author Organization [facility] Care Team Providers Care Model Maker Plastic Name Role Phone Neris Funez Unavailable Unavailable Velia Wild MD Unavailable [phone] Lionel Holm MD Unavailable Emily Reyna Unavailable Unavailable Jeanine Valenzuela Unavailable Unavailable DINO MADDOX Unavailable Unavailable JUAQUIN, QUSAY Unavailable Unavailable KASHIF VILA Unavailable Unavailable Simon SIMMONS Unavailable Unavailable HAYDOUR, QUSAY Unavailable Unavailable SALINA VILANIS Unavailable Unavailable AGUSTO SIMMONS Unavailable Unavailable Lionel Holm MD Unavailable Velia Wild MD Unavailable 1() CARMITA CHISHOLM Admitting Unavailable CARMITA CHISHOLM Attending Unavailable CARMITA CHISHOLM Primary Care Unavailable CARMITA CHISHOLM Consulting Unavailable PROVIDER, UNKNOWN Consulting Unavailable STEPHANIE Flores Primary Care Provider [phone] STEPHANIE Flores Referring Provider DUSTIN Castle Attending Provider Dr. Warren Guardado Attending Provider Dr. Gabriel Gaviria Attending Provider Dr. Gabriel Gaviria Referring Provider Dr. Gabriel Gaviria Other Provider Richard Marcelino MD Primary Care Provider [phone] LUIS GRAHAM Attending Unavailable RICHARD MARCELINO Referring Unavailable LUIS GRAHAM Attending Unavailable Dr. Kieran Marcelino MDer Primary Care Provider Jerry DOZIER, Dr. Smith Attending Provider Jerry ODZIER, Dr. Smith Referring Provider Ryland DOZIER, Dr. Belle Attending Provider Ryland DOZIER, Dr. Belle Referring Provider [phone] Dudley DOZIER, Dr. Li Attending Provider Dudley DOZIER, Dr. Li Referring Provider [phone] Luis Graham Attending Unavailable Luis Graham Referring Unavailable Ranney, Christopher Primary Care Unavailable Eduardoney, Christbrookser Attending Unavailable Ranney, Christopher Referring Unavailable Ranney, Christopher Primary Care Unavailable Ranney, Christopher Primary Care Unavailable Guillermo Buckner Attending Unavailable Dudley, Guillermo Referring Unavailable [place] [employer]NERSH[employer] SPECIALIST, Clair Attending Unavailable [place] [employer]NERSH[employer] SPECIALIST, Clair Referring Unavailable Ranney, Christopher Primary Care Unavailable Ranney, Christopher Attending Unavailable Ranney, Christopher Referring Unavailable Ranney, Christopher Primary Care Unavailable Reid Keys Attending Unavailable Ranney, Christopher Referring Unavailable Ranney, Christopher Primary Care Unavailable Ranney, Christopher Consulting Unavailable Rosa STRATEGIC PARTNERSHIP SPECIALIST, Clair Attending Unavailable Ranney, Christopher Referring Unavailable Ranney, Christopher Primary Care Unavailable [facility] Care Unavailable Ranney, Christopher Attending Unavailable Ranney, Christopher Attending Unavailable Ranney, Christopher Referring Unavailable Ranney, Christopher Primary Care Unavailable Ranney, Christopher Attending Unavailable Ranney, Christopher Referring Unavailable Ranney, Christopher Primary Care Unavailable Ranney, Christopher Attending Unavailable Ranney, Christopher Referring Unavailable Ranney, Christopher Primary Care Unavailable Ranney, Christopher Attending Unavailable Ranney, Christopher Referring Unavailable Ranney, Christopher Primary Care Unavailable Ranney, Christopher Attending Unavailable Ranney, Christopher Referring Unavailable Ranney, Christopher Primary Care Unavailable Allergies Allergy Classification Reported Allergen(s) Allergy Type Date of Onset Reaction(s) Facility (12 sources) acetaminophen / oxyCODONE drug allergy 10-08-2016 rash [facility] Work Phone: (8 sources) acetaminophen / oxyCODONE; Translations: [OXYCODONE-ACETAMI NOPHEN] Drug Allergy 09-04-2009 Rash [facility] (5 sources) oxyCODONE Drug Allergy 10-01-2020 Rash [facility] (2 sources) Acetone Drug Allergy 12-23-2022 Itching [facility] Comment on above: EYE SWELLING (6 sources) Acetone Drug Allergy 01-25-2024 [facility] (1 source) Acetone Drug Allergy 12-16-2023 [facility] (1 source) oxyCODONE Drug Allergy 12-16-2023 [facility] Medications Current Medications Medication Drug Class(es) Dates Sig (Normalized) Sig (Original) ACIDOPHILUS LACTOBACILLUS PO (6 sources) take 1 capsule by mouth in the morning ACIDOPHILUS LACTOBACILLUS PO Take 1 capsule by mouth in the morning. Active Apple Cider Vinegar (6 sources) APPLE CIDER VINE GAR PO Take by mouth Active ascorbic acid 250 mg oral tablet (6 sources) Vitamin C take 1 tablet by mouth once daily Ascorbic Acid (vitamin C) 250 MG tablet Take 250 mg by mouth Daily Active calcium carbonate 1250 mg / cholecalciferol 0.01 mg chewable tablet (5 sources) Vitamin D Start: 09-15-2016 Calcium Carbonate-Vitamin D3 1 EACH tablet,chewable Active 1 {tbl} PO DAILY September 15, 2016 12:00am Start: 09-15-2016 take 1 tablet by sally once daily Calcium Carbonate-Vitamin D3 Active 1 TABLET PO DAILY September 15, 2016 12:00am Calcium-Vitamin D 600-5 MG-MCG tablet (6 sources) Calcium-Vitamin D 600-5 MG-MCG tablet Take by mouth Active cholecalciferol 0.05 mg oral tablet (6 sources) Vitamin D take 1 tablet by mouth once daily cholecalciferol (Vitamin D-3) 50 MCG (2000 UT) tablet Take 2,000 Units by mouth Daily Active cider vinegar 300 mg oral tablet (5 sources) Start: 08-10-2019 take 1 tablet by mouth once daily Apple Cider Vinegar 300 mg tablet Active 300 mg PO DAILY August 10, 2019 12:00am Lactobacillus Combination No.4 (4 sources) Start: 09-15-2016 take 1 tablet by mouth once daily Lactobacillus Combination No.4 Active 1 TABLET PO DAILY September 15, 2016 12:00am Lactobacillus Combination No.4 1 EACH capsule (1 source) Start: 09-15-2016 take 1 capsule by mouth once daily Lactobacillus Combination No.4 1 EACH capsule Active 1 {tbl} PO DAILY September 15, 2016 12:00am Multiple Vitamin (multivitamin) tablet (6 sources) take 1 tablet by mouth once daily Multiple Vitamin (multivitamin) tablet Take 1 tablet by mouth Daily Active Multivitamin 1 EACH tablet (1 source) Start: 09-15-2016 Multivitamin 1 EACH tablet Active 1 {tbl} PO DAILY September 15, 2016 12:00am Multivitamin preparation (4 sources) Start: 09-15-2016 take 1 tablet by mouth once daily Multivitamin Active 1 TABLET PO DAILY September 15, 2016 12:00am Completed/Discontinued Medications Medication Drug Class(es) Dates Sig (Normalized) Sig (Original) acetaminophen 325 mg / HYDROcodone bitartrate 5 mg oral tablet (7 sources) Opioid Agonist Start: 12-23-2022 End: 01-05-2023 Hydrocodone-Acetami nophen 5-325 mg tablet Discontinued 1 - 2 {tbl} PO Q4H as needed for pain 05 08December 23, 2022 January 05, 2023 10:12am Start: 12-23-2022 take 1 tablet by sally th every four hours Hydrocodone-Acetaminophen Active 1 - 2 TABLET PO Q4H 05 08December 23, 2022 Start: 11-02-2017 End: 11-17-2017 Hydrocodone-Acetaminophen 1 TABLET tablet Discontinued 1 - 2 {tbl} PO EVERY 4 HOURS NEEDED as needed for Pain 06 07November 02, 2017 12:00am November 17, 2017 1:38pm Start: 11-02-2017 End: 11-17-2017 take 1 tablet by mouth every four hours as needed Hydrocodone-Acetaminophen Discontinued 1 - 2 TABLET PO EVERY 4 HOURS NEEDED 06 07November 02, 2017 12:00am November 17, 2017 1:38pm B COMPLEX VITAMINS (5 sources) Start: 10-08-2016 B COMPLEX CAPS one daily B COMPLEX VITAMINS [id number] Lionel Holm MD B COMPLEX VITAMINS (7 sources) Start: 10-08-2016 B COMPLEX CAPS one daily B COMPLEX VITAMINS [id number] Lionel Holm MD Start: 10-08-2016 B COMPLEX CAPS one daily B COMPLEX VITAMINS [id number] Lionel Holm MD calcium citrate (10 sources) Start: 10-08-2016 CALCIUM CITRAT E + D3 TABS one daily CALCIUM CITRATE-VITAMIN D TABS [id number] Lionel Holm MD Start: 10-08-2016 CALCIUM CITRAT E + D3 TABS one daily CALCIUM CITRATE-VITAMIN D TABS [id number] Lionel Holm MD CALCIUM CITRATE-VITAMIN D TABS (2 sources) Start: 10-08-2016 CALCIUM CITRATE + D3 TABS one daily CALCIUM CITRATE-VITAMIN D TABS [id number] Lionel Holm MD ciprofloxacin 500 mg oral tablet (20 sources) Quinolone Antimicrobial Start: 10-19-2017 End: 11-17-2017 take 1 tablet by mouth twice daily Ciprofloxacin Hcl 500 MG tablet Discontinued 500 mg PO TWICE A DAY October 20, 2017 11:02am November 10, 2017 2:44pm Start: 07-21-2017 End: 07-31-2017 take 1 tablet by mouth twice daily Ciprofloxacin Hcl 500 mg tablet Discontinued 500 mg PO TWICE A DAY 26 12July 21, 2017 12:00am July 30, 2017 12:00am July 31, 2017 12:07am Start: 12-24-2016 End: 01-06-2017 take 1 tablet by mouth twice daily CIPRO 500 MG TABS One tablet by mouth twice daily CIPROFLOXACIN HCL [id number] Lionel Holm MD fluconazole 150 mg oral tablet (5 sources) Azole Antifungal Start: 11-17-2017 End: 05-26-2018 take 1 tablet by mouth once Fluconazole 150 mg tablet Discontinued 150 mg PO ONCE 1 November 17, 2017 12:00am May 26, 2018 3:28pm as a single dose meloxicam 15 mg oral tablet (4 sources) Nonsteroidal Anti-inflammatory Drug Start: 09-25-2022 End: 12-08-2022 take 1 tablet by mouth once daily Meloxicam 15 mg tablet Discontinued 15 mg PO DAILY September 25, 2022 12:00am December 08, 2022 9:36am Do not take in conjunction with other NSAIDs. Tylenol is okay. metroNIDAZOLE 500 mg oral tablet (20 sources) Nitroimidazole Antimicrobial Start: 10-19-2017 End: 05-26-2018 take 1 tablet by mouth twice daily Metronidazole 500 MG tablet Discontinued 500 mg PO TWICE A DAY October 20, 2017 11:02am May 26, 2018 3:28pm Start: 09-21-2017 End: 10-19-2017 Metronidazole 500 mg tablet Discontinued 500 mg PO .COMPLEX September 21, 2017 12:00am October 19, 2017 9:36am Take 2 (two) 500 mg tablets PO at 1300, 1500, 2300 Start: 07-21-2017 End: 07-31-2017 take 1 tablet by mouth three times daily Metronidazole (Flagyl) 500 mg tablet Discontinued 500 mg PO THREE TIMES A DAY 30 July 21, 2017 12:00am July 30, 2017 12:00am July 31, 2017 12:07am Start: 12-24-2016 End: 01-06-2017 take 1 tablet by mouth three times daily FLAGYL 500 MG TABS One tablet by mouth three times daily METRONIDAZOLE [id number] Lionel Holm MD MULTIPLE VITAMINS-MINERALS (5 sources) Start: 10-08-2016 DAILY MULTIVIT SNYDER CAPS one daily MULTIPLE VITAMINS-MINERALS [id number] Lionel Holm MD MULTIPLE VITAMINS-MINERALS (7 sources) Start: 10-08-2016 DAILY MULTIVIT SNYDER CAPS one daily MULTIPLE VITAMINS-MINERALS [id number] Lionel Holm MD Start: 10-08-2016 DAILY MULTIVIT SNYDER CAPS one daily MULTIPLE VITAMINS-MINERALS [id number] Lionel Holm MD POLYETHYLENE GLYCOL 3350 785857 MG / Potassium Chloride 2970 MG / Sodium Bicarbonate 6740 MG / Sodium Chloride 5860 MG / sodium sulfate 35300 MG Powder for Oral Solution (12 sources) Osmotic Laxative Start: 10-09-2016 End: 10-10-2016 GOLYTELY 236 GM SOLR as dire cted per package PEG 3592-ZBA-SUDXA-NACL-NASULF [id number] Lionel Holm MD Start: 10-09-2016 End: 10-10-2016 GOLYTELY 236 GM SOLR as dire cted per package PEG [id number]-[id number]-NACL-NASULF [id number] Lionel Holm MD PROBIOTIC PRODUCT (5 sources) Start: 10-08-2016 4X PROBIOTIC T ABS one daily PROBIOTIC PRODUCT [id number] Lionel Holm MD PROBIOTIC PRODUCT (7 sources) Start: 10-08-2016 4X PROBIOTIC T ABS one daily PROBIOTIC PRODUCT [id number] Lionel Holm MD Start: 10-08-2016 4X PROBIOTIC T ABS one daily PROBIOTIC PRODUCT [id number] Lionel Holm MD sulfamethoxazole 800 mg / trimethoprim 160 mg oral tablet (10 sources) Dihydrofolate Reductase Inhibitor Antibacterial, Sulfonamide Antimicrobial Start: 11-17-2017 End: 11-20-2017 Sulfamethoxazole-Trimethopri m (Bactrim Ds) 800-160 mg tablet Discontinued 1 {tbl} PO TWICE A DAY 6 3 November 17, 2017 12:00am November 19, 2017 12:00am November 20, 2017 12:10am Start: 08-26-2017 End: 08-29-2017 Sulfamethoxazole-Trimethopri m (Bactrim Ds) 800-160 mg tablet Discontinued 1 {tbl} PO TWICE A DAY 6 3 August 26, 2017 12:00am August 28, 2017 12:00am August 29, 2017 12:07am Vitamin B Complex (4 sources) Start: 10-20-2017 End: 08-10-2019 Vitamin B Complex Discontinu ed 1 EACH PO DAILY October 20, 2017 12:00am August 10, 2019 8:04am Vitamin B Complex 1 EACH capsule (1 source) Start: 10-20-2017 End: 08-10-2019 Vitamin B Complex 1 EACH cap bijal Discontinued 1 NMA PO DAILY October 20, 2017 12:00am August 10, 2019 8:04am Problems Active Problems Problem Classification Problem Date Documented Da te Episodic/Chronic Complications of surgical procedures or medical care (5 sources) Postoperative hemorrhage; Translations: [Postoperative hemorrhage] 10-28-2017 Episodic Conditions associated with dizziness or vertigo (20 sources) Vertigo; Translations: [Dizziness and giddiness] Onset: 10-08-2016 10-08-2016 Episodic Disorders of teeth and jaw (5 sources) Loss of teeth due to extraction; Translations: [Partial loss of teeth, unspecified cause, unspecified class] 05-26-2018 Episodic Comment on above: X2 Diverticulosis and diverticulitis (20 sources) Diverticular disease; Translations: [Diverticulitis] Onset: 10-08-2016 10-08-2016 Chronic Endometriosis (10 sources) Endometriosis (clinical); Translations: [Endometriosis of ovary] 10-28-2017 Chronic Essential hypertension (1 source) Hypertensive disorder; Translations: [Essential (primary) hypertension] 12-16-2023 Chronic Genitourinary symptoms and ill-defined conditions (11 sources) Urinary incontinence; Translations: [Unspecified urinary incontinence] Onset: 01-25-2024 01-25-2024 Chronic Joint disorders and dislocations; trauma-related (2 sources) Other tear of medial meniscus, current injury, right knee, initial encounter; Translations: [Tear of medial cartilage or meniscus of knee, current] 11-27-2022 Episodic Nonmalignant breast conditions (5 sources) Fibroadenosis of breast; Translations: [Fibroadenosis of unspecified breast] 10-28-2017 Chronic Osteoarthritis (12 sources) Osteoarthritis of right knee joint; Translations: [Unilateral primary osteoarthritis, right knee] 09-25-2022 Chronic Other aftercare (1 source) Follow-up status; Translations: [Encounter for other orthopedic aftercare] 12-16-2023 Episodic Other and unspecified benign neoplasm (5 sources) Benign neoplasm of colon; Translations: [Benign neoplasm of colon, unspecified] 10-28-2017 Episodic Other connective tissue disease (5 sources) Fibromyalgia; Translations: [Fibromyalgia] 08-10-2019 Episodic Other connective tissue disease (11 sources) Pain in bilateral legs; Translations: [Pain in right leg] Onset: 01-25-2024 01-25-2024 Episodic Other connective tissue disease (1 source) Fibromyalgia; Translations: [Fibromyalgia] Onset: 04-14-2024 Episodic Other gastrointestinal disorders (11 sources) Incontinence of feces; Translations: [Full incontinence of feces] Onset: 01-25-2024 01-25-2024 Episodic Other nervous system disorders (2 sources) Acute postoperative pain; Translations: [Other acute postprocedural pain] 12-23-2022 Episodic Other non-traumatic joint disorders (1 source) Pain in right hip; Translations: [Pain in right hip] Onset: 05-27-2024 Episodic Other nutritional; endocrine; and metabolic disorders (6 sources) Body mass index 40+ - severely obese; Translations: [Other specified health status] Onset: 11-21-2016 11-21-2016 Chronic Other screening for suspected conditions (not mental disorders or infectious disease) (15 sources) Encounter for screening for diabetes mellitus; Translations: [Encounter for screening for lipoid disorders] Onset: 11-21-2016 11-21-2016 Episodic Residual codes; unclassified (5 sources) History of endometrial ablation; Translations: [Other specified postprocedural states] 10-28-2017 Episodic Residual codes; unclassified (5 sources) Past history of procedure; Translations: [Other specified postprocedural states] 10-28-2017 Episodic Residual codes; unclassified (5 sources) History of colonoscopy; Translations: [Other specified postprocedural states] 10-28-2017 Episodic Comment on above: SEVERAL Unclassified (7 sources) Screening mammography ; Translations: [Encounter for screening mammogram for malignant neoplasm of breast] Onset: 10-28-2016 10-28-2016 Unclassified (5 sources) Gynecologic examination ; Translations: [Encounter for gynecological examination (general) (routine) with abnormal findings] Onset: 11-21-2016 11-21-2016 Unclassified (1 source) Unknown / UNK(Unknown) Onset: 06-26-2017 Unclassified (1 source) Procedure carried out on subject; Translations: [Encounter for screening for lipoid disorders] Onset: 11-21-2016 11-21-2016 Past or Other Problems Problem Classification Problem Date Documented Da te Episodic/Chronic Abdominal pain (5 sources) Left lower quadrant pain; Translations: [Left lower quadrant pain] Onset: 12-19-2016 12-19-2016 Episodic Other connective tissue disease (12 sources) Fibromyositis; Translations: [Fibromyalgia] Onset: 10-08-2016 10-08-2016 Episodic Other connective tissue disease (2 sources) Pain in leg, unspecified; Translations: [Pain in leg, unspecified] Onset: 09-18-2023 Episodic Other connective tissue disease (1 source) Pain in right leg; Translations: [Pain in right leg] Onset: 02-17-2024 Episodic Spondylosis; intervertebral disc disorders; other back problems (20 sources) Spinal stenosis in cervical region; Translations: [Spinal stenosis, cervical region] Onset: 01-25-2024 01-25-2024 Episodic Results Test Name Value Interpretation Reference Range Facility ANTINUCLEAR ANTIBODIES DIRE Ton 07-05-2024 ANALISA,DIRECT Negative Normal Negative [facility] Comment on above: Order Comment: Order Date: 04/13/24Order Info: [id number] - ANALISA Result Comment: Perf ormed at: [address] [id number] [employer] Helper: Makr Bundy PhD, Phone: [phone] Performed By: #### L 500.4050, L100.0100, L501.5101, L501.6710, L500.4100, L3100.5475 ####[facility] [address] [place], [place], [phone] L501.5101on 07-05-2024 GGTP 8 IU/L Normal 0-60 [facility] Comment on above: Order Comment: Order Date: 04/13/24Order Info: [id number] - GGTP Result Comment: Perf ormed at: [address] [id number] [employer] Helper: Mark Bundy PhD, Phone: [phone] Performed By: #### L 500.4050, L100.0100, L501.5101, L501.6710, L500.4100, L3100.5475 ####[facility] [address] [place], [place], [id number] CBC W/Diff, Automatedon 06-08 Absolute Lymph 1.54 X10 3/uL Normal 0.83-4.51 [facility] Comment on above: Order Comment: Order Date: 04/13/24 Order Info: [id number] - CBCD Performed By: #### L 500.4050, L100.0100, L501.5101, L501.6710, L500.4100, [id number] #### [facility] [address] [place], [place], [id number] Absolute Neut 4.2 X10 3/uL Normal 2.0-7.7 [facility] Comment on above: Order Comment: Order Date: 04/13/24 Order Info: [id number] - CBCD Performed By: #### L 500.4050, L100.0100, L501.5101, L501.6710, L500.4100, L3100.5475 #### [facility] [address] [place], [address] Basophils/100 WBC (Bld) 0.8 % Normal 0-1 [facility] Comment on above: Order Comment: Order Date: 04/13/24 Order Info: [id number] - CBCD Performed By: #### L 500.4050, L100.0100, L501.5101, L501.6710, L500.4100, L3100.5475 #### [facility] [address] [place], [address] Eosinophils/100 WBC (Bld) 2.7 % Normal 0-5 [facility] Comment on above: Order Comment: Order Date: 04/13/24 Order Info: [id number] - CBCD Performed By: #### L 500.4050, L100.0100, L501.5101, L501.6710, L500.4100, L3100.5475 #### [facility] [address] [place], [address] Erythrocyte distribution width (RBC) [Ratio] 13.0 % Normal 11.6-14.6 [facility] Comment on above: Order Comment: Order Date: 04/13/24 Order Info: [id number] - CBCD Performed By: #### L 500.4050, L100.0100, L501.5101, L501.6710, L500.4100, L3100.5475 #### [facility] [address] [place], [address] Hematocrit (Bld) [Volume fraction] 41.6 % Normal 37-47 [facility] Comment on above: Order Comment: Order Date: 04/13/24 Order Info: [id number] - CBCD Performed By: #### L 500.4050, L100.0100, L501.5101, L501.6710, L500.4100, L3100.5475 #### [facility] [address] [place], [address] Hemoglobin (Bld) [Mass/Vol] 14.6 g/dL Normal 12.0-15.0 [facility] Comment on above: Order Comment: Order Date: 04/13/24 Order Info: [id number]- - CBCD Performed By: #### L 500.4050, L100.0100, L501.5101, L501.6710, L500.4100, L3100.5475 #### [facility] [address] [place], [address] IG% 0.300 Normal 0.0-0.9 [facility] Comment on above: Order Comment: Order Date: 04/13/24 Order Info: [id number]- - CBCD Result Comment: IG% - Immature Granulocytes (promyelocytes, myelocytes and metamyelocytes) > 1% indicates that a LEFT SHIFT is Present. Performed By: #### L 500.4050, L100.0100, L501.5101, L501.6710, L500.4100, L3100.5475 #### [facility] [address] [place], [address] Lymphocytes/100 WBC (Bld) 24.1 % Normal 19-41 [facility] Comment on above: Order Comment: Order Date: 04/13/24 Order Info: [id number] - CBCD Performed By: #### L 500.4050, L100.0100, L501.5101, L501.6710, L500.4100, L3100.5475 #### [facility] [address] [place], [address] MCH (RBC) [Entitic mass] 31.7 pg Normal 27.0-32.0 [facility] Comment on above: Order Comment: Order Date: 04/13/24 Order Info: [id number] - CBCD Performed By: #### L 500.4050, L100.0100, L501.5101, L501.6710, L500.4100, L3100.5475 #### [facility] [address] [place], [address] MCHC (RBC) [Mass/Vol] 35.1 g/dL Normal 32-36 [facility] Comment on above: Order Comment: Order Date: 04/13/24 Order Info: [id number] - CBCD Performed By: #### L 500.4050, L100.0100, L501.5101, L501.6710, L500.4100, L3100.5475 #### [facility] [address] [place], [address] MCV (RBC) [Entitic vol] 90.4 fL Normal 81-99 [facility] Comment on above: Order Comment: Order Date: 04/13/24 Order Info: [id number] - CBCD Performed By: #### L 500.4050, L100.0100, L501.5101, L501.6710, L500.4100, L3100.5475 #### [facility] [address] [place], [address] Monocytes/100 WBC (Bld) 6.1 % Normal 0-10 [facility] Comment on above: Order Comment: Order Date: 04/13/24 Order Info: [id number] - CBCD Performed By: #### L 500.4050, L100.0100, L501.5101, L501.6710, L500.4100, L3100.5475 #### [facility] [address] [place], [address] Neutrophils/100 WBC (Bld) 66.0 % Normal 47-70 [facility] Comment on above: Order Comment: Order Date: 04/13/24 Order Info: [id number] - CBCD Performed By: #### L 500.4050, L100.0100, L501.5101, L501.6710, L500.4100, L3100.5475 #### [facility] [address] [place], [address] Nucleated RBC (Bld) [#/Vol] 0 10*3/uL Normal 0-5 [facility] Comment on above: Order Comment: Order Date: 04/13/24 Order Info: [id number] - CBCD Performed By: #### L 500.4050, L100.0100, L501.5101, L501.6710, L500.4100, L3100.5475 #### [facility] [address] [place], [address] Platelet mean volume (Bld) [Entitic vol] 9.6 fL Normal 6.2-12.0 [facility] Comment on above: Order Comment: Order Date: 04/13/24 Order Info: [id number] - CBCD Performed By: #### L 500.4050, L100.0100, L501.5101, L501.6710, L500.4100, L3100.5475 #### [facility] [address] [place], [address] Platelets (Bld) [#/Vol] 212 10*3/uL Normal 150-450 [facility] Comment on above: Order Comment: Order Date: 04/13/24 Order Info: [id number] - CBCD Performed By: #### L 500.4050, L100.0100, L501.5101, L501.6710, L500.4100, L3100.5475 #### [facility] [address] [place], [address] RBC (Bld) [#/Vol] 4.60 10*6/uL Normal 4.2-5.4 [facility] Comment on above: Order Comment: Order Date: 04/13/24 Order Info: [id number] - CBCD Performed By: #### L 500.4050, L100.0100, L501.5101, L501.6710, L500.4100, L3100.5475 #### [facility] [address] [place], [address] RDW SD 42.8 fl Normal 35.1-43.9 [facility] Comment on above: Order Comment: Order Date: 04/13/24 Order Info: [id number] - CBCD Performed By: #### L 500.4050, L100.0100, L501.5101, L501.6710, L500.4100, L3100.5475 #### [facility] [address] [place], [address] WBC (Bld) [#/Vol] 6.4 10*3/uL Normal 4.4-11.0 [facility] Comment on above: Order Comment: Order Date: 04/13/24 Order Info: [id number] - CBCD Performed By: #### L 500.4050, L100.0100, L501.5101, L501.6710, L500.4100, L3100.5475 #### [facility] [address] [place], [place], [id number] CRPon 07-04-2024 C-REACTIVE PROT 5.57 mg/L High 0.0-3.0 [facility] Comment on above: Order Comment: Order Date: 04/13/24Order Info: [id number] - CMPOrder Info: [id number] - LIPIDOrder Info: [id number] - CRP Performed By: #### L 500.4050, L100.0100, L501.5101, L501.6710, L500.4100, L3100.5475 ####[facility] [address] [place], [place], [id number] Comprehensive Metabolic Prof ilon 07-04-2024 Albumin [Mass/Vol] 4.3 g/dL Normal 3.5-5.0 [facility] Comment on above: Order Comment: Order Date: 04/13/24Order Info: [id number] - CMPOrder Info: [id number] - LIPIDOrder Info: [id number] - CRP Performed By: #### L 500.4050, L100.0100, L501.5101, L501.6710, L500.4100, L3100.5475 ####[facility] [address] [place], [address] Albumin/Globulin [Mass ratio] 1.6 {ratio} Normal 0.9-2.4 [facility] Comment on above: Order Comment: Order Date: 04/13/24Order Info: [id number] - CMPOrder Info: [id number] - LIPIDOrder Info: [id number] - CRP Performed By: #### L 500.4050, L100.0100, L501.5101, L501.6710, L500.4100, L3100.5475 ####[facility] [address] [place], [address] ALK PHOS 47 U/L Normal 35-104 [facility] Comment on above: Order Comment: Order Date: 04/13/24Order Info: [id number] - CMPOrder Info: [id number] - LIPIDOrder Info: [id number] - CRP Performed By: #### L 500.4050, L100.0100, L501.5101, L501.6710, L500.4100, L3100.5475 ####[facility] [address] [place], [address] ALT [Catalytic activity/Vol] 24 U/L Normal <=34 [facility] Comment on above: Order Comment: Order Date: 04/13/24Order Info: [id number] - CMPOrder Info: [id number] - LIPIDOrder Info: [id number] - CRP Performed By: #### L 500.4050, L100.0100, L501.5101, L501.6710, L500.4100, L3100.5475 ####[facility] [address] [place], [address] AST [Catalytic activity/Vol] 23 U/L Normal <=31 [facility] Comment on above: Order Comment: Order Date: 04/13/24Order Info: [id number] - CMPOrder Info: [id number] - LIPIDOrder Info: [id number] - CRP Performed By: #### L 500.4050, L100.0100, L501.5101, L501.6710, L500.4100, L3100.5475 ####[facility] [address] [place], [address] Bilirubin [Mass/Vol] 0.91 mg/dL Normal 0.00-1.30 [facility] Comment on above: Order Comment: Order Date: 04/13/24Order Info: [id number] - CMPOrder Info: [id number] - LIPIDOrder Info: [id number] - CRP Performed By: #### L 500.4050, L100.0100, L501.5101, L501.6710, L500.4100, L3100.5475 ####[facility] [address] [place], [address] BUN/CRE 11.0 RATIO Normal 10-20 [facility] Comment on above: Order Comment: Order Date: 04/13/24Order Info: [id number] - CMPOrder Info: [id number] - LIPIDOrder Info: [id number] - CRP Performed By: #### L 500.4050, L100.0100, L501.5101, L501.6710, L500.4100, L3100.5475 ####[facility] [address] [place], [address] Calcium [Mass/Vol] 9.4 mg/dL Normal 7.6-11.0 [facility] Comment on above: Order Comment: Order Date: 04/13/24Order Info: [id number] - CMPOrder Info: [id number] - LIPIDOrder Info: [id number] - CRP Performed By: #### L 500.4050, L100.0100, L501.5101, L501.6710, L500.4100, L3100.5475 ####[facility] [address] [place], [address] Chloride [Moles/Vol] 106 mmol/L Normal 98-108 [facility] Comment on above: Order Comment: Order Date: 04/13/24Order Info: [id number] - CMPOrder Info: [id number] - LIPIDOrder Info: [id number] - CRP Performed By: #### L 500.4050, L100.0100, L501.5101, L501.6710, L500.4100, L3100.5475 ####[facility] [address] [place], [address] CO2 [Moles/Vol] 23.6 mmol/L Normal 21.0-32.0 [facility] Comment on above: Order Comment: Order Date: 04/13/24Order Info: [id number] - CMPOrder Info: [id number] - LIPIDOrder Info: [id number] - CRP Performed By: #### L 500.4050, L100.0100, L501.5101, L501.6710, L500.4100, L3100.5475 ####[facility] [address] [place], [address] Creatinine [Mass/Vol] 0.90 mg/dL Normal 0.70-1.20 [facility] Comment on above: Order Comment: Order Date: 04/13/24Order Info: [id number] - CMPOrder Info: [id number] - LIPIDOrder Info: [id number] - CRP Performed By: #### L 500.4050, L100.0100, L501.5101, L501.6710, L500.4100, L3100.5475 ####[facility] [address] [place], [address] GAP 12 Normal 5-15 [facility] Comment on above: Order Comment: Order Date: 04/13/24Order Info: [id number] - CMPOrder Info: [id number] - LIPIDOrder Info: [id number] - CRP Performed By: #### L 500.4050, L100.0100, L501.5101, L501.6710, L500.4100, L3100.5475 ####[facility] [address] [place], [address] GFR/1.73 sq M.predicted among non-blacks MDRD (S/P/Bld) [Vol rate/Area] 75 mL/min/{1.73_m2} Normal >60 [facility] Comment on above: Order Comment: Order Date: 04/13/24Order Info: [id number] - CMPOrder Info: [id number] - LIPIDOrder Info: [id number] - CRP Result Comment: mL/m in/1.73m2 CKD-EPI Creatinine Equation (2020) Performed By: #### L 500.4050, L100.0100, L501.5101, L501.6710, L500.4100, L3100.5475 ####[facility] [address] [place], [address] Globulin (S) [Mass/Vol] 2.7 g/dL Normal 2.2-4.2 [facility] Comment on above: Order Comment: Order Date: 04/13/24Order Info: 07-1 - CMPOrder Info: [id number] - LIPIDOrder Info: [id number] - CRP Performed By: #### L 500.4050, L100.0100, L501.5101, L501.6710, L500.4100, L3100.5475 ####[facility] [address] [place], [address] Glucose [Mass/Vol] 101 mg/dL High 70-99 [facility] Comment on above: Order Comment: Order Date: 04/13/24Order Info: [id number] - CMPOrder Info: [id number] - LIPIDOrder Info: [id number] - CRP Performed By: #### L 500.4050, L100.0100, L501.5101, L501.6710, L500.4100, L3100.5475 ####[facility] [address] [place], [address] Potassium [Moles/Vol] 4.1 mmol/L Normal 3.3-5.1 [facility] Comment on above: Order Comment: Order Date: 04/13/24Order Info: [id number] - CMPOrder Info: [id number] - LIPIDOrder Info: [id number] - CRP Performed By: #### L 500.4050, L100.0100, L501.5101, L501.6710, L500.4100, L3100.5475 ####[facility] [address] [place], [address] Sodium [Moles/Vol] 142 mmol/L Normal 133-145 [facility] Comment on above: Order Comment: Order Date: 04/13/24Order Info: [id number] - CMPOrder Info: [id number] - LIPIDOrder Info: [id number] - CRP Performed By: #### L 500.4050, L100.0100, L501.5101, L501.6710, L500.4100, L3100.5475 ####[facility] [address] [place], [address] T PROT 7.0 g/dL Normal 5.9-8.4 [facility] Comment on above: Order Comment: Order Date: 04/13/24Order Info: [id number] - CMPOrder Info: [id number] - LIPIDOrder Info: [id number] - CRP Performed By: #### L 500.4050, L100.0100, L501.5101, L501.6710, L500.4100, L3100.5475 ####[facility] [address] [place], [address] Urea nitrogen [Mass/Vol] 10 mg/dL Normal 4-19 [facility] Comment on above: Order Comment: Order Date: 04/13/24Order Info: [id number] - CMPOrder Info: [id number] - LIPIDOrder Info: [id number] - CRP Performed By: #### L 500.4050, L100.0100, L501.5101, L501.6710, L500.4100, L3100.5475 ####[facility] [address] [place], [address] Lipid Profileon 07-04-2024 CHOL:HDL 2.94 Normal [facility] Comment on above: Order Comment: Order Date: 04/13/24Order Info: [id number] - CMPOrder Info: [id number] - LIPIDOrder Info: [id number] - CRP Performed By: #### L 500.4050, L100.0100, L501.5101, L501.6710, L500.4100, L3100.5475 ####[facility] [address] [place], [address] Cholesterol [Mass/Vol] 155 mg/dL Normal <=200 [facility] Comment on above: Order Comment: Order Date: 04/13/24Order Info: [id number] - CMPOrder Info: [id number] - LIPIDOrder Info: [id number] - CRP Result Comment: Chol esterol level, Desirable <200 mg/dL Borderline high cholesterol 200-239 mg/dL High cholesterol >=240 mg/dL Recommendations of the NCEP Adult Treatment Panel for the following risk-cutoff thresholds for the [place] population. Performed By: #### L 500.4050, L100.0100, L501.5101, L501.6710, L500.4100, L3100.5475 ####[facility] [address] [place], [place], [address] Cholesterol in HDL [Mass/Vol] 53 mg/dL Normal [facility] Comment on above: Order Comment: Order Date: 04/13/24Order Info: [id number] - CMPOrder Info: [id number] - LIPIDOrder Info: [id number] - CRP Result Comment: Andie onal Cholesterol Education Program (NCEP) guidelines: <40 mg/dL: Low HDL-cholesterol (major risk factor for CHD) >= 60 mg/dL: High HDL-cholesterol (negative risk factor for CHD) HDL-cholesterol is affected by a number of factors, e.g. smoking, exercise, hormones, sex and age. Performed By: #### L 500.4050, L100.0100, L501.5101, L501.6710, L500.4100, L3100.5475 ####[facility] [address] [place], [address] Cholesterol in LDL [Mass/Vol] 90 mg/dL Normal [facility] Comment on above: Order Comment: Order Date: 04/13/24Order Info: [id number] - CMPOrder Info: [id number] - LIPIDOrder Info: [id number] - CRP Result Comment: Bord vanvjl=298-789 mg/dL Higher Ztjc=688 mg/dL or greater Performed By: #### L 500.4050, L100.0100, L501.5101, L501.6710, L500.4100, L3100.5475 ####[facility] [address] [place], [address] Cholesterol in VLDL [Mass/Vol] 12 mg/dL Normal 5-40 [facility] Comment on above: Order Comment: Order Date: 04/13/24Order Info: [id number] - CMPOrder Info: [id number] - LIPIDOrder Info: [id number] - CRP Performed By: #### L 500.4050, L100.0100, L501.5101, L501.6710, L500.4100, L3100.5475 ####[facility] [address] [place], [address] Triglyceride [Mass/Vol] 62 mg/dL Normal [facility] Comment on above: Order Comment: Order Date: 04/13/24Order Info: [id number] - CMPOrder Info: [id number] - LIPIDOrder Info: [id number] - CRP Result Comment: The drugs N-Acetylcysteine and Metamizole may falsely depress this assay. Normal range: <150 mg/dL Borderline High: 150-199 mg/dL High: 200-499 mg/dL Very High: >500 mg/dL Performed By: #### L 500.4050, L100.0100, L501.5101, L501.6710, L500.4100, L3100.5475 ####[facility] [address] [facility] [place], [address] Hips B/L min 2 views w/ Pelv marli 05-18-2024 Hips B/L min 2 views w/ Pelvis [facility] [address] [place] [address] Hips B/L min 2 views w/ Pelvis MR#: [id number] Acct: [id number] Name: HOLGER MCCORD Rep #: [id number] : 1965 F 58 From: Yony Christianson PCP: Dr. Richard Marcelino MD Status: REG CLI Study: Hips B/L min 2 views w/ Pelvis Date of Exam: 0 05/18/24 Exam# [id number] Ordering Dr: Guillermo Buckner MD PROCEDURE: Pelvis and bilateral hip radiographs REASON FOR EXAM: PAIN TECHNIQUE: Five views of the pelvis and both hips COMPARISON: None. FINDINGS: See impression RAD/Hips B/L min 2 views w/ Pelvis IMPRESSION: Negative for acute displaced fracture or malalignment. Small marginal acetabular osteophytes bilaterally without significant superior joint space narrowing. Mild/moderate degenerative changes of the lower lumbar spine and sacroiliac joints. Reading Location: [facility] CC: Dr. Richard Marcelino MD; Dr. Guillermo Buckner MD [employer]: Signed Normal [facility] Absolute neutrophil countOrd ered By: Richard Marcelino on 03-28-2024 Neutrophils (Bld) [#/Vol] 3.2 10*3/uL 2.0-7.7 [facility] Albumin to globulin ratioOrd ered By: Richard Marcelino on 03-28-2024 Albumin/Globulin [Mass ratio] 1.1 {ratio} 0.9-2.4 [facility] Basophil percentageOrdered B y: Richard Marcelino on 03-28-2024 Basophils/100 WBC (Bld) 0.8 % 0-1 [facility] Bilirubin, totalOrdered By: Richard Marcelino on 03-28-2024 Bilirubin [Mass/Vol] 0.80 mg/dL 0.20-1.00 [facility] Comment on above: For patients on eltr ombopag therapy, use of Dimension Steele TBIL is not recommended. Blood urea nitrogen (BUN)/cr eatinine ratioOrdered By: Richard Marcelino on 03-28-2024 Urea nitrogen/Creatinine [Mass ratio] 9.4 mg/mg Low 12-26 [facility] CBC W/Diff, Automatedon 03-10 Absolute Lymph 2.23 X10 3/uL Normal 0.83-4.51 [facility] Comment on above: Performed By: #### L 501.1400, L501.9520, L101.9900, L500.4050, L100.0100 ####[facility] [address] [place], [address] Absolute Neut 3.2 X10 3/uL Normal 2.0-7.7 [facility] Comment on above: Performed By: #### L 501.1400, L501.9520, L101.9900, L500.4050, L100.0100 ####[facility] [address] [place], [address] Basophils/100 WBC (Bld) 0.8 % Normal 0-1 [facility] Comment on above: Performed By: #### L 501.1400, L501.9520, L101.9900, L500.4050, L100.0100 ####[facility] [address] [place], [address] Eosinophils/100 WBC (Bld) 3.3 % Normal 0-5 [facility] Comment on above: Performed By: #### L 501.1400, L501.9520, L101.9900, L500.4050, L100.0100 ####[facility] [address] [place], [address] Erythrocyte distribution width (RBC) [Ratio] 12.4 % Normal 11.6-14.6 [facility] Comment on above: Performed By: #### L 501.1400, L501.9520, L101.9900, L500.4050, L100.0100 ####[facility] [address] [place], [address] Hematocrit (Bld) [Volume fraction] 41.6 % Normal 37-47 [facility] Comment on above: Performed By: #### L 501.1400, L501.9520, L101.9900, L500.4050, L100.0100 ####[facility] [address] [place], [address] Hemoglobin (Bld) [Mass/Vol] 14.4 g/dL Normal 12.0-15.0 [facility] Comment on above: Performed By: #### L 501.1400, L501.9520, L101.9900, L500.4050, L100.0100 ####[facility] [address] [place], [address] IG% 0.200 Normal 0.0-0.9 [facility] Comment on above: Result Comment: IG% - Immature Granulocytes (promyelocytes, myelocytes and metamyelocytes) > 1% indicates that a LEFT SHIFT is Present. Performed By: #### L 501.1400, L501.9520, L101.9900, L500.4050, L100.0100 ####[facility] [address] [place], [address] Lymphocytes/100 WBC (Bld) 37.0 % Normal 19-41 [facility] Comment on above: Performed By: #### L 501.1400, L501.9520, L101.9900, L500.4050, L100.0100 ####[facility] [address] [place], [address] MCH (RBC) [Entitic mass] 30.6 pg Normal 27.0-32.0 [facility] Comment on above: Performed By: #### L 501.1400, L501.9520, L101.9900, L500.4050, L100.0100 ####[facility] [address] [place], [address] MCHC (RBC) [Mass/Vol] 34.6 g/dL Normal 32-36 [facility] Comment on above: Performed By: #### L 501.1400, L501.9520, L101.9900, L500.4050, L100.0100 ####[facility] [address] [place], [address] MCV (RBC) [Entitic vol] 88.3 fL Normal 81-99 [facility] Comment on above: Performed By: #### L 501.1400, L501.9520, L101.9900, L500.4050, L100.0100 ####[facility] [address] [place], [address] Monocytes/100 WBC (Bld) 5.1 % Normal 0-10 [facility] Comment on above: Performed By: #### L 501.1400, L501.9520, L101.9900, L500.4050, L100.0100 ####[facility] [address] [place], [address] Neutrophils/100 WBC (Bld) 53.6 % Normal 47-70 [facility] Comment on above: Performed By: #### L 501.1400, L501.9520, L101.9900, L500.4050, L100.0100 ####[facility] [address] [place], [address] Nucleated RBC (Bld) [#/Vol] 0 10*3/uL Normal 0-5 [facility] Comment on above: Performed By: #### L 501.1400, L501.9520, L101.9900, L500.4050, L100.0100 ####[facility] [address] [place], [address] Platelet mean volume (Bld) [Entitic vol] 10.0 fL Normal 6.2-12.0 [facility] Comment on above: Performed By: #### L 501.1400, L501.9520, L101.9900, L500.4050, L100.0100 ####[facility] [address] [place], [address] Platelets (Bld) [#/Vol] 270 10*3/uL Normal 150-450 [facility] Comment on above: Performed By: #### L 501.1400, L501.9520, L101.9900, L500.4050, L100.0100 ####[facility] [address] [place], [address] RBC (Bld) [#/Vol] 4.71 10*6/uL Normal 4.2-5.4 [facility] Comment on above: Performed By: #### L 501.1400, L501.9520, L101.9900, L500.4050, L100.0100 ####[facility] [address] [place], [address] RDW SD 40.2 fl Normal 35.1-43.9 [facility] Comment on above: Performed By: #### L 501.1400, L501.9520, L101.9900, L500.4050, L100.0100 ####[facility] [address] [place], [address] WBC (Bld) [#/Vol] 6.0 10*3/uL Normal 4.4-11.0 [facility] Comment on above: Performed By: #### L 501.1400, L501.9520, L101.9900, L500.4050, L100.0100 ####[facility] [address] [place], [address] Carbon dioxide measurementOr dered By: Richard Marcelino on 03-28-2024 CO2 [Moles/Vol] 26.0 mmol/L 21.0-32.0 [facility] Chloride measurementOrdered By: Richard Marcelino on 03-28-2024 Chloride [Moles/Vol] 108 mmol/L High 98-107 [facility] Comprehensive Metabolic Prof ilon 03-28-2024 Albumin [Mass/Vol] 3.9 g/dL Normal 3.2-5.0 [facility] Comment on above: Performed By: #### L 501.1400, L501.9520, L101.9900, L500.4050, L100.0100 ####[facility] [address] [place], [address] Albumin/Globulin [Mass ratio] 1.1 {ratio} Normal 0.9-2.4 [facility] Comment on above: Performed By: #### L 501.1400, L501.9520, L101.9900, L500.4050, L100.0100 ####[facility] [address] [place], [address] ALK P 65 U/L Normal 45-117 [facility] Comment on above: Performed By: #### L 501.1400, L501.9520, L101.9900, L500.4050, L100.0100 ####[facility] [address] [place], [address] ALT [Catalytic activity/Vol] 87 U/L High 13-56 [facility] Comment on above: Performed By: #### L 501.1400, L501.9520, L101.9900, L500.4050, L100.0100 ####[facility] [address] [place], [address] AST [Catalytic activity/Vol] 53 U/L High 15-37 [facility] Comment on above: Performed By: #### L 501.1400, L501.9520, L101.9900, L500.4050, L100.0100 ####[facility] [address] [place], [address] Bilirubin [Mass/Vol] 0.80 mg/dL Normal 0.20-1.00 [facility] Comment on above: Result Comment: For patients on eltrombopag therapy, use of Dimension Steele TBIL is not recommended. Performed By: #### L 501.1400, L501.9520, L101.9900, L500.4050, L100.0100 ####[facility] [address] [place], [address] BUN/CRE 9.4 RATIO Low 10-20 [facility] Comment on above: Performed By: #### L 501.1400, L501.9520, L101.9900, L500.4050, L100.0100 ####[facility] [address] [place], [address] CA,Total 9.1 mg/dL Normal 8.5-10.1 [facility] Comment on above: Performed By: #### L 501.1400, L501.9520, L101.9900, L500.4050, L100.0100 ####[facility] [address] [place], [address] Chloride [Moles/Vol] 108 mmol/L High 98-107 [facility] Comment on above: Performed By: #### L 501.1400, L501.9520, L101.9900, L500.4050, L100.0100 ####[facility] [address] [place], [address] CO2 [Moles/Vol] 26.0 mmol/L Normal 21.0-32.0 [facility] Comment on above: Performed By: #### L 501.1400, L501.9520, L101.9900, L500.4050, L100.0100 ####[facility] [address] [place], [address] Creatinine [Mass/Vol] 0.95 mg/dL Normal 0.55-1.02 [facility] Comment on above: Result Comment: The validity of the calculated GFR GFRAA in patients over 70 years has not been determined. Clinical correlation is essential. Performed By: #### L 501.1400, L501.9520, L101.9900, L500.4050, L100.0100 ####[facility] [address] [place], [address] EST GFR - AA 77 mL/min Normal >60 [facility] Comment on above: Result Comment: Afri can [place] GFR Calc Performed By: #### L 501.1400, L501.9520, L101.9900, L500.4050, L100.0100 ####[facility] [address] [place], [address] GAP 8 Normal 5-15 [facility] Comment on above: Performed By: #### L 501.1400, L501.9520, L101.9900, L500.4050, L100.0100 ####[facility] [address] [place], [address] GFR/1.73 sq M.predicted among non-blacks MDRD (S/P/Bld) [Vol rate/Area] 64 mL/min/{1.73_m2} Normal >60 [facility] Comment on above: Result Comment: Non- GFR Calc Performed By: #### L 501.1400, L501.9520, L101.9900, L500.4050, L100.0100 ####[facility] [address] [place], [address] Globulin (S) [Mass/Vol] 3.5 g/dL Normal 2.2-4.2 [facility] Comment on above: Performed By: #### L 501.1400, L501.9520, L101.9900, L500.4050, L100.0100 ####[facility] [address] [place], [address] Glucose [Mass/Vol] 164 mg/dL High 74-106 [facility] Comment on above: Result Comment: Fast ing Glucose result greater than or equal to 126 mg/dL suggests DIABETES MELLITUS per A.D.A. criteria. Performed By: #### L 501.1400, L501.9520, L101.9900, L500.4050, L100.0100 ####[facility] [address] [place], [address] Potassium [Moles/Vol] 3.4 mmol/L Low 3.5-5.1 [facility] Comment on above: Performed By: #### L 501.1400, L501.9520, L101.9900, L500.4050, L100.0100 ####[facility] [address] [place], [address] Sodium [Moles/Vol] 142 mmol/L Normal 136-145 [facility] Comment on above: Performed By: #### L 501.1400, L501.9520, L101.9900, L500.4050, L100.0100 ####[facility] [address] [place], [address] T PROT 7.4 g/dL Normal 6.4-8.2 [facility] Comment on above: Performed By: #### L 501.1400, L501.9520, L101.9900, L500.4050, L100.0100 ####[facility] [address] [place], [place], [address] Urea nitrogen [Mass/Vol] 9 mg/dL Normal 7-18 [facility] Comment on above: Performed By: #### L 501.1400, L501.9520, L101.9900, L500.4050, L100.0100 ####[facility] [address] [place], [address] Eosinophil percentageOrdered By: Richard Marcelino on 03-28-2024 Eosinophils/100 WBC (Bld) 3.3 % 0-5 [facility] Erythrocyte Sed Rateon 03-28 SED RATE 5 mm/hr Normal 0-30 [facility] Comment on above: Performed By: #### L 501.1400, L501.9520, L101.9900, L500.4050, L100.0100 ####[facility] [address] [place], [address] Erythrocyte distribution wid th ratioOrdered By: Richard Marcelino on 03-28-2024 Erythrocyte distribution width (RBC) [Ratio] 12.4 % 11.6-14.6 [facility] Erythrocyte distribution wid th standard deviationOrdered By: Richard Marcelino on 03-28-2024 Erythrocyte distribution width (RBC) [Entitic vol] 40.2 fL 35.1-43.9 [facility] Erythrocyte sedimentation ra teOrdered By: Richard Marcelino on 03-28-2024 ESR (Bld) [Velocity] 5 mm/h 0-30 [facility] Estimated glomerular filtrat ion rate (GFR) AmericanOrdered By: Richard Marcelino on 03-28-2024 Estimated GFR (MDRD) Amer 77 mL/min >60 [facility] Comment on above: GFR Calc Glomerular filtration rate ( GFR) estimationOrdered By: Richard Marcelino on 03-28-2024 Estimated GFR (MDRD) Non-Af Amer 64 mL/min >60 [facility] Comment on above: Non- GFR Calc Glucose measurementOrdered B y: Richard Marcelino on 03-28-2024 Glucose [Mass/Vol] 164 mg/dL High 74-106 [facility] Comment on above: Fasting Glucose resu lt greater than or equal to 126 mg/dL suggests DIABETES MELLITUS per A.D.A. criteria. Hematocrit Auto (Bld) [Volum e fraction]Ordered By: Richard Marcelino on 03-28-2024 Hematocrit (Bld) [Volume fraction] 41.6 % 37-47 [facility] Hemoglobin measurementOrdere d By: Richard Marcelino on 03-28-2024 Hemoglobin (Bld) [Mass/Vol] 14.4 g/dL 12.0-15.0 [facility] Immature granulocytes/100 WB C Auto (Bld)Ordered By: Richard Marcelino on 03-28-2024 Immature granulocytes/100 WBC (Bld) 0.200 % 0.0-0.9 [facility] Comment on above: IG% - Immature Granu locytes (promyelocytes, myelocytes and metamyelocytes) > 1% indicates that a LEFT SHIFT is Present. Laboratory - Chemistry and C hemistry - challengeOrdered By: Richard Marcelino on 03-28-2024 AST [Catalytic activity/Vol] 53 U/L High 15-37 [facility] Lymphocytes Auto (Unsp spec) [#/Vol]Ordered By: Richard Marcelino on 03-28-2024 Lymphocytes (Bld) [#/Vol] 2.23 10*3/uL 0.83-4.51 [facility] Lymphocytes/100 WBC Auto (Un sp spec)Ordered By: Richard Marcelino on 03-28-2024 Lymphocytes/100 WBC (Bld) 37.0 % 19-41 [facility] MCV (mean corpuscular volume ) determinationOrdered By: Richard Marcelino on 03-28-2024 MCV (RBC) [Entitic vol] 88.3 fL 81-99 [facility] Mean corpuscular hemoglobin (MCH) determinationOrdered By: Richard Marcelino on 03-28-2024 MCH (RBC) [Entitic mass] 30.6 pg 27.0-32.0 [facility] Mean corpuscular hemoglobin concentration (MCHC) determinationOrdered By: Richard Marcelino on 03-28-2024 MCHC (RBC) [Mass/Vol] 34.6 g/dL 32-36 [facility] Mean platelet volume determi nationOrdered By: Richard Marcelino on 03-28-2024 Platelet mean volume (Bld) [Entitic vol] 10.0 fL 6.2-12.0 [facility] Monocyte percentageOrdered B y: Richard Marcelino on 03-28-2024 Monocytes/100 WBC (Bld) 5.1 % 0-10 [facility] Neutrophil percentageOrdered By: Richard Marcelino on 03-28-2024 Neutrophils/100 WBC (Bld) 53.6 % 47-70 [facility] Nucleated red blood cell per centageOrdered By: Richard Marcelino on 03-28-2024 Nucleated RBC/100 WBC (Bld) [Ratio] 0 % 0-5 [facility] Platelet countOrdered By: Violette Marcelino on 03-28-2024 Platelets (Bld) [#/Vol] 270 10*3/uL 150-450 [facility] Potassium measurementOrdered By: Richard Marcelino on 03-28-2024 Potassium [Moles/Vol] 3.4 mmol/L Low 3.5-5.1 [facility] RBC Auto (Bld) [#/Vol]Ordere d By: Richard Marcelino on 03-28-2024 RBC (Bld) [#/Vol] 4.71 10*6/uL 4.2-5.4 [facility] Serum anion gap measurementO rdered By: Richard Marcelino on 03-28-2024 Anion gap [Moles/Vol] 8 mmol/L 5-15 [facility] Serum globulin measurementOr dered By: Richard Marcelino on 03-28-2024 Globulin (S) [Mass/Vol] 3.5 g/dL 2.2-4.2 [facility] Serum or plasma alanine snyder otransferase (ALT) measurementOrdered By: Richard Marcelino on 03-28-2024 ALT [Catalytic activity/Vol] 87 U/L High 13-56 [facility] Serum or plasma albumin kei urement (mass/volume)Ordered By: Richard Marcelino on 03-28-2024 Albumin [Mass/Vol] 3.9 g/dL 3.2-5.0 [facility] Serum or plasma alkaline miriam sphatase measurementOrdered By: Richard Marcelino on 03-28-2024 ALP [Catalytic activity/Vol] 65 U/L 45-117 [facility] Serum or plasma calcium kei urement (mass/volume)Ordered By: Richard Marcelino on 03-28-2024 Calcium [Mass/Vol] 9.1 mg/dL 8.5-10.1 [facility] Serum or plasma creatinine m easurement (mass/volume)Ordered By: Richard Marcelino on 03-28-2024 Creatinine [Mass/Vol] 0.95 mg/dL 0.55-1.02 [facility] Comment on above: The validity of the calculated GFR & GFRAA in patients over 70 years has not been determined. Clinical correlation is essential. Serum or plasma urea nitroge n measurement (mass/volume)Ordered By: Richard Marcelino on 03-28-2024 Urea nitrogen [Mass/Vol] 9 mg/dL 7-18 [facility] Serum or plasma uric acid me asurement (mass/volume)Ordered By: Richard Marcelino on 03-28-2024 Urate [Mass/Vol] 5.0 mg/dL 2.6-6.0 [facility] Comment on above: The drugs N-Acetylcy steine and Metamizole may falsely depress this assay. Sodium levelOrdered By: Shwetha Marcelino on 03-28-2024 Sodium [Moles/Vol] 142 mmol/L 136-145 [facility] TSH QnOrdered By: Vladislav Marcelnio on 03-28-2024 Thyroid Stimulating Hormone (TSH) 1.500 uIU/mL 0.358-3.74 0 [facility] Thyroid Stim Hormone (TSH)on 03-28-2024 TSH 1.500 uIU/mL Normal 0.358-3.74 0 [facility] Comment on above: Performed By: #### L 501.1400, L501.9520, L101.9900, L500.4050, L100.0100 ####[facility] [id number] [place], [address] Total proteinOrdered By: Julio nettleslashay Ryland on 03-28-2024 Protein [Mass/Vol] 7.4 g/dL 6.4-8.2 [facility] Uric Acidon 03-28-2024 URIC 5.0 mg/dL Normal 2.6-6.0 [facility] Comment on above: Result Comment: The drugs N-Acetylcysteine and Metamizole may falsely depress this assay. Performed By: #### L 501.1400, L501.9520, L101.9900, L500.4050, L100.0100 ####[facility] [id number] [facility]. [place], [place], [id number] White blood cell (WBC) count Ordered By: Richard Marcelino on 03-28-2024 WBC (Bld) [#/Vol] 6.0 10*3/uL 4.4-11.0 [facility] Spine Cervical (Routine)on 04-02-2023 Spine Cervical (Routine) [facility] Imaging Services [address] [place], [place] [address] Spine Cervical (Routine) MR#: [id number] Acct: [id number] Name: HOLGER MCCORD Rep #: [id number] : 1965 F 58 From: Nikko Solo MD PCP: Dr. Richard Marcelino MD Status: [facility] Study: Spine Cervical (Routine) Date of Exam: Exam# [id number] Ordering Dr: Luis Graham MD [id number] STUDY: MRI CERVICAL SPINE WITHOUT CONTRAST REASON FOR EXAM: Female, 58 years old. STENOSIS, NECK PAIN, WEAKNESS TECHNIQUE: Standardized fat and water weighted pulse sequences were obtained in the sagittal and axial planes. COMPARISON: None FINDINGS: Normal foramen magnum and brainstem-cervical cord junction. Normal craniovertebral junction. Normal anterior atlantoaxial articulation. Normal odontoid process. There is straightening of the normal cervical lordosis. Normal vertebral bodies and posterior osseous elements. C2-3: Normal endplates. Normal disc height, signal and morphology. Normal central canal and intervertebral neural foramina. C3-4: Mild broad disc osteophyte complex asymmetric to the right produces mild spinal stenosis and mild right neural foraminal stenosis. C4-5: Normal endplates. Normal disc height, signal and morphology. Normal central canal and intervertebral neural foramina. C5-6: Moderate broad disc osteophyte complex produces moderate spinal stenosis with abutment of the central spinal cord but no neural foraminal stenosis. C6-7: Moderate broad disc osteophyte complex asymmetric to the right produces moderate spinal stenosis with abutment of the right hemicord and mild right neural foraminal stenosis. C7-T1: Normal endplates. Normal disc height, signal and morphology. Normal central canal and intervertebral neural foramina. Normal cervical cord. Normal visualized soft tissue structures. MRI/Spine Cervical (Routine) IMPRESSION: Multilevel degenerative changes, as described above. Electronically Signed: Nikko Solo MD at 13:08 EST , CC: Dr. iRchard Marcelino MD; Dr. Luis Graham MD [employer]: Signed Normal [facility] NCS and/or EMG Patienton NCS and/or EMG Patient [facility] Pulmonary Services/Neurology [address] [place] [address] MR#: [id number] Acct: [id number] Name: HOLGER MCCORD ADOLFO Rep #: [id number] : 1965 58 From: Reid Keys MD Referring Dr: Richard Marcelino MD Status: REG CLI Location: [facility] Date: 01/20/24 Sex: F C NCS and/or EMG Patient Report Ordering Doctor: Richard Marcelino DATE OF SERVICE: 01/20/24 Send presents for electrodiagnostic testing of the lower limbs. She reports bilateral leg weakness and heaviness for the past several years. Electrodiagnostic findings: Peroneal motor nerve demonstrates normal distal latency, amplitude and conduction velocity bilaterally. Normal tibial motor response bilaterally. Normal tibial and peroneal F???waves. Normal H???reflux bilaterally. Sensory responses are within normal limits. Needle EMG testing was performed in the lower limbs. All muscles tested showed no evidence of denervation with normal motor unit action potentials. Electrodiagnostic impression: This is a normal electrodiagnostic study of the lower limbs. There is no electrodiagnostic evidence for peripheral neuropathy or lumbosacral radiculopathy. [facility] Neurology Neurology Interp Codes: 40425-44 Musc test done w/n test comp (interp) (2) and 07685-94 Nrv cndj test 9-10 studies (interp) 01/20/241318 Date Reid Keys MD CC: Dr. Reid Keys MD; Dr. Richard Marcelino MD Date Dictated: 01/20/241316 Date Transcribed: 01/20/241316 [employer]: AA Signed Normal [facility] Protein Electroph, Son 01-03 Albumin [Mass/Vol] 3.8 g/dL Normal 2.9-4.4 [facility] Comment on above: Order Comment: Order Date: 12/31/23 Order Info: 0060-1 - PROEL Performed By: #### L 500.2500, L3100.3450, L501.6710 #### [facility] [address] [place], [place], [address] Albumin/Globulin [Mass ratio] 1.3 {ratio} Normal 0.7-1.7 [facility] Comment on above: Order Comment: Order Date: 12/31/23 Order Info: 0060-1 - PROEL Performed By: #### L 500.2500, L3100.3450, L501.6710 #### [facility] [address] [place], [address] ALPHA-1 GLOBUL 0.3 g/dL Normal 0.0-0.4 [facility] Comment on above: Order Comment: Order Date: 12/31/23 Order Info: 0060-1 - PROEL Performed By: #### L 500.2500, L3100.3450, L501.6710 #### [facility] [address] [place], [address] ALPHA-2 GLOBUL 0.7 g/dL Normal 0.4-1.0 [facility] Comment on above: Order Comment: Order Date: 12/31/23 Order Info: 0060-1 - PROEL Performed By: #### L 500.2500, L3100.3450, L501.6710 #### [facility] [address] [place], [address] BETA GLOBULIN 1.0 g/dL Normal 0.7-1.3 [facility] Comment on above: Order Comment: Order Date: 12/31/23 Order Info: 0060-1 - PROEL Performed By: #### L 500.2500, L3100.3450, L501.6710 #### [facility] [address] [place], [address] GAMMA GLOBULIN 0.9 g/dL Normal 0.4-1.8 [facility] Comment on above: Order Comment: Order Date: 12/31/23 Order Info: 0060-1 - PROEL Performed By: #### L 500.2500, L3100.3450, L501.6710 #### [facility] [address] [place], [address] Globulin (S) [Mass/Vol] 2.9 g/dL Normal 2.2-3.9 [facility] Comment on above: Order Comment: Order Date: 12/31/23 Order Info: 0060-1 - PROEL Performed By: #### L 500.2500, L3100.3450, L501.6710 #### [facility] [address] [place], [place], [id number] INTERPRETATION Comment Normal . [facility] Comment on above: Order Comment: Order Date: 12/31/23 Order Info: 0060-1 - PROEL Result Comment: Prot ein electrophoresis scan will follow via computer, mail, or power transformer inspector delivery. Performed By: #### L 500.2500, L3100.3450, L501.6710 #### [facility] [address] [place], [address] M-SPIKE Not Observed Normal Not Observed [facility] Comment on above: Order Comment: Order Date: 12/31/23 Order Info: 0060-1 - PROEL Performed By: #### L 500.2500, L3100.3450, L501.6710 #### [facility] [address] [place], [place], [address] NOTE: Comment Normal . [facility] Comment on above: Order Comment: Order Date: 12/31/23 Order Info: 0060-1 - PROEL Result Comment: The SPE pattern appears unremarkable. Evidence of monoclonal protein is not apparent. Performed at: [address] [id number] [employer] Helper: Mark Bundy PhD, Phone: [phone] Performed By: #### L 500.2500, L3100.3450, L501.6710 #### [facility] [address] [place], [place], [address] Protein [Mass/Vol] 6.7 g/dL Normal 6.0-8.5 [facility] Comment on above: Order Comment: Order Date: 12/31/23 Order Info: 0060-1 - PROEL Performed By: #### L 500.2500, L3100.3450, L501.6710 #### [facility] [address] [place], [address] Basic Metabolic Profile (BMP )on 12-31-2023 BUN/CRE 15.1 RATIO Normal 12-26 [facility] Comment on above: Order Comment: Order Date: 12/31/23 Order Info: 666-03 - BMP Order Info: 56159-7 - CRP Performed By: #### L 500.2500, L3100.3450, L501.6710 #### [facility] [address] [place], [address] CA,Total 9.7 mg/dL Normal 8.5-10.1 [facility] Comment on above: Order Comment: Order Date: 12/31/23 Order Info: 666-03 - [facility] Order Info: 81931-6 - CRP Performed By: #### L 500.2500, L3100.3450, L501.6710 #### [facility] [address] [place], [address] Chloride [Moles/Vol] 106 mmol/L Normal 98-107 [facility] Comment on above: Order Comment: Order Date: 12/31/23 Order Info: 666-03 - [facility] Order Info: 35334-2 - CRP Performed By: #### L 500.2500, L3100.3450, L501.6710 #### [facility] [address] [place], [address] CO2 [Moles/Vol] 28.0 mmol/L Normal 21.0-32.0 [facility] Comment on above: Order Comment: Order Date: 12/31/23 Order Info: 666-03 - [facility] Order Info: 24043-4 - CRP Performed By: #### L 500.2500, L3100.3450, L501.6710 #### [facility] [address] [place], [address] Creatinine [Mass/Vol] 0.86 mg/dL Normal 0.55-1.02 [facility] Comment on above: Order Comment: Order Date: 12/31/23 Order Info: 06 - BMP Order Info: 28709-1 - CRP Result Comment: The validity of the calculated GFR GFRAA in patients over 70 years has not been determined. Clinical correlation is essential. Performed By: #### L 500.2500, L3100.3450, L501.6710 #### [facility] [address] [place], [address] EST GFR - AA 87 mL/min Normal >60 [facility] Comment on above: Order Comment: Order Date: 12/31/23 Order Info: 666-03 - [facility] Order Info: 24379-8 - CRP Result Comment: Afri can Maldivian GFR Calc Performed By: #### L 500.2500, L3100.3450, L501.6710 #### [facility] [address] [place], [address] GAP 6 Normal 5-15 [facility] Comment on above: Order Comment: Order Date: 12/31/23 Order Info: 666-03 - [facility] Order Info: 23723-4 - CRP Performed By: #### L 500.2500, L3100.3450, L501.6710 #### [facility] [address] [place], [address] GFR/1.73 sq M.predicted among non-blacks MDRD (S/P/Bld) [Vol rate/Area] 72 mL/min/{1.73_m2} Normal >60 [facility] Comment on above: Order Comment: Order Date: 12/31/23 Order Info: 666-03 - [facility] Order Info: 71063-8 - CRP Result Comment: Non- GFR Calc Performed By: #### L 500.2500, L3100.3450, L501.6710 #### [facility] [address] [place], [address] Glucose [Mass/Vol] 91 mg/dL Normal 74-106 [facility] Comment on above: Order Comment: Order Date: 12/31/23 Order Info: 666-03 - [facility] Order Info: 13142-4 - CRP Performed By: #### L 500.2500, L3100.3450, L501.6710 #### [facility] [address] [place], [address] Potassium [Moles/Vol] 3.6 mmol/L Normal 3.5-5.1 [facility] Comment on above: Order Comment: Order Date: 12/31/23 Order Info: 0667-1 - BMP Order Info: 69472-2 - CRP Performed By: #### L 500.2500, L3100.3450, L501.6710 #### [facility] [address] [place], [address] Sodium [Moles/Vol] 140 mmol/L Normal 136-145 [facility] Comment on above: Order Comment: Order Date: 12/31/23 Order Info: 0667- - BMP Order Info: 13143-8 - CRP Performed By: #### L 500.2500, L3100.3450, L501.6710 #### [facility] [address] [place], [address] Urea nitrogen [Mass/Vol] 13 mg/dL Normal 7-18 [facility] Comment on above: Order Comment: Order Date: 12/31/23 Order Info: 0667- - BMP Order Info: 95674-2 - CRP Performed By: #### L 500.2500, L3100.3450, L501.6710 #### [facility] [address] [place], [address] CRPon 12-31-2023 C-REACTIVE PROT 9.70 mg/L High 0.0-3.0 [facility] Comment on above: Order Comment: Order Date: 12/31/23 Order Info: 0667-1 - BMP Order Info: 46887-1 - CRP Result Comment: C-Re active Protein (CRP) provides useful information for the diagnosis, therapy and monitoring of inflammatory processes and associated diseases. For the evaluation of Relative Risk for Cardiovascular Disease, a High Sensitivity CRP (HSCRP) should be ordered. Performed By: #### L 500.2500, L3100.3450, L501.6710 #### [facility] [address] [place], [address] SCRN MAMM (CAD)W/YUE BILATo n 12-25-2023 SCRN MAMM (CAD)W/YUE BILAT [facility] Imaging Services [address] [place] [address] SCRN MAMM (CAD)W/YUE BILAT MR#: [id number] Acct: [id number] Name: OHLGER MCCORD Rep #: [id number] : 1965 F 58 From: Fabricio talavera MD PCP: Dr. Richard Marcelino MD Status: [facility] Study: SCRN MAMM (CAD)W/YUE BILAT Date of Exam: 12/07 10/30 Exam# [id number] Ordering Dr: Clair Lee NP STRATE[employer]IC PARTNERSHIP SPECIALIST -C [id number] MAMMOGRAPHY - BILATERAL SCREENING REASON FOR EXAM: Female, 58 years old. Routine annual screening examination. PERTINENT HISTORY: Grandmother with breast cancer. Remote left ultrasound-guided breast biopsy. TECHNIQUE: Digital bilateral breast yue (3D mammographic acquisition) in the CC and MLO projections. 2-D mediolateral oblique (MLO) and craniocaudad (CC) views of both breasts were obtained. CAD: Full Field Digital Mammography with Computer Added Detection was performed. COMPARISON: Comparison is made with prior study dated November 24, 2022 and October 25, 2021. FINDINGS: Breast Composition: The breasts are heterogeneously dense, which may obscure small masses. There are no dominant masses or suspicious calcifications. Stable bilateral axillary lymph nodes. No other significant abnormalities are identified. There has been no significant change since the prior study. BI/SCRN MAMM (CAD)W/YUE BILAT IMPRESSION: Stable bilateral screening mammogram. Yearly follow-up mammogram recommended. (A) ASSESSMENT CATEGORY: BIRADS Category 2: Benign. A letter regarding these results will be sent to the patient by the facility within 30 days. Approximately 10% of breast cancers are not detected by mammography. A normal mammogram should not delay biopsy of a clinically suspicious abnormality. [id number] Electronically Signed: Fabricio Kramer MD at 9:01 EDT , CC: RUBEN Lee; Dr. Richard Marcelino MD [employer]: Signed Normal [facility] Spine Lumbar (Routine)on Spine Lumbar (Routine) [facility] Imaging Services [address] [place] [address] Spine Lumbar (Routine) MR#: [id number] Acct: [id number] Name: HOLGER MCCORD Rep #: [id number] : 1965 F 58 From: Gabriel nation PCP: Dr. Richard Marcelino MD Status: REG [facility] Study: Spine Lumbar (Routine) Date of Exam: 12/25/23 Exam# [id number] Ordering Dr: Richard Marcelino [id number] EXAM: MR LUMBAR SPINE WITHOUT INTRAVENOUS CONTRAST CLINICAL INDICATION: pain in back with bilateral paresthesias TECHNIQUE: Multiplanar and multisequence MR images of the lumbar spine without intravenous contrast. COMPARISON: Lumbar spine radiographs, 08/31/[address] abdomen and pelvis, 12/23/2016. FINDINGS: VERTEBRAE: Degenerative changes partially visualized in the lower cervical spine on localization sequence and mildly throughout the thoracic spine. At least mild spinal canal stenosis in the lower cervical region. Vertebral body heights are preserved. Normal alignment. No spondylolisthesis. There is preservation of the normal lumbar lordosis. SPINAL CORD: No significant abnormality. Normal position and signal intensity of the conus medullaris. 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 SOFT TISSUES: No significant abnormality. DISCS/SPINAL CANAL/NEURAL FORAMINA: L1-L2: Mild bilateral facet arthrosis. No disc herniation, spinal canal stenosis, or neural foraminal narrowing. L2-L3: Disc height loss and disc desiccation. Left central to subarticular disc herniation superimposed upon a disc bulge and moderate bilateral facet arthrosis. Mild spinal canal stenosis with left L3 nerve root impingement. Bilateral facet arthrosis contributes to [id number]-nj-bgcmyymn bilateral neural foraminal narrowing. L3-L4: Disc bulge with small superimposed central disc herniation and moderate to severe bilateral facet arthrosis resulting in mild spinal canal stenosis and kzqo-mz-nprkywwu bilateral neural foraminal narrowing. No nerve root impingement. L4-L5: Disc bulge with small superimposed right central to foraminal disc herniation and severe bilateral facet arthrosis. Mild spinal canal and crnf-gn-mfaymsuv bilateral neural foraminal narrowing. No discrete nerve root impingement. L5-S1: Disc bulge and moderate bilateral facet arthrosis. No disc herniation, spinal canal stenosis, or neural foraminal narrowing. MRI/Spine Lumbar (Routine) IMPRESSION: 1. Degenerative changes partially visualized in the lower cervical spine on localization sequence and mildly throughout the thoracic spine. At least mild spinal canal stenosis in the lower cervical region. Consider dedicated cervical spine MRI. 2. Multilevel degenerative changes in the lumbar spine. Left L3 nerve root impingement. See details above. Electronically Signed: Gabriel Dykes DO at 21:10 EDT , CC: Dr. Richard Marcelino MD [employer]: Signed Normal [facility] Sql Report Writer Office Visit Reporton 12-16-2023 Sql Report Writer Office Visit Report [facility]'[address], [address] [place] [address] OFFICE VISIT Date of Service: 12/16/23 MR#: [id number] Acct: [id number] Name: HOLGER MCCORD ADOLFO Rep #: [id number] : 1965 Provider: RUBEN munson Age/Sex: 58/F Location: [facility] Status: Signed Intake Vital Signs 12/23/22 07:13 12/16/23 08:04 12/16/23 08:34 Height 5 ft 4 in 5 ft 4 in Weight: 244 lb BMI 41.8 BP 168/98 H 140/92 H 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 Is patient in pain?: No Allergies acetone Allergy (Severe, Verified 12/16/23 08:02) Itching oxycodone (From Percocet) Allergy (Verified 12/16/23 08:02) Rash Medications ???Medication ???Instructions ???Recorded ???Confirmed ???Type calcium 500 mg (as carbonate)-vit 1 tab PO DAILY supplement 09/15/16 12/16/23 History D3 10 mcg (400 unit) chewable tablet lactobacillus combination no.4 3 1 tab PO DAILY stomach 09/15/16 12/16/23 History billion cell capsule multivitamin 1 tab PO DAILY supplement 09/15/16 12/16/23 History apple cider vinegar 300 mg tablet 300 mg PO DAILY 08/10/19 12/16/23 History Is last menstrual period known: No Patient : No : No Control Method: Hyst [facility] Medical History Wears glasses Wears contact lenses Post-menopausal History of steroid therapy Arthritis Back pain Migraine headache History of diverticulitis Non-smoker Osteoarthritis of right knee Fibromyalgia History of basal cell cancer Fibroadenosis of breast Endometriotic cyst of ovary Endometriosis Benign neoplasm of colon Diverticulitis Surgical History History of medial meniscus repair of right knee History of colonoscopy ( 11/2019) History of colectomy History of carpal tunnel surgery H/O bilateral oophorectomy S/P CARLOTA (total abdominal hysterectomy) History of endometrial ablation Hx of wisdom tooth extraction Hx of colonoscopy Hx of breast biopsy Family History Grandmother Colon cancer Grandmother Breast cancer Social History Smoking Status: Never smoker second hand exposure: No alcohol intake: never substance use type: does not use caffeine: Yes what type of physical activity do you participate in: walking frequency: 1-2 times per week seatbelt use: always do you feel safe at home: Yes 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 Date Name GA/Weeks Outcome Route Bth Weight [facility] 1988 Otto live - full term Unknown 1994 Jesse live - full term HPI Encounter for routine gynecological examination Details: HOLGER MCCORD is a 58 year old who presents for annual exam. Note elevated BP, states unusual for her. Chronic headaches and not new. Will recheck after exam Last PAP: Hyst History of abnormal PAP: Last mammogram: Scheduled 12/24 History of abnormal mammogram: Colon cancer screening: due 2024 Other preventative health care screenings: Angel Marcelino, had screening labs in Female Reproductive History Questions: metorrhagia: No, sexually active: Yes, dyspareunia: No and PCB: No ROS Const Constitutional: Denies fatigue, weight gain or weight loss Cardio Card: Denies chest pain Resp Resp: Denies cough or dyspnea on exertion GI GI: Denies abdominal pain, bloating, change in stool character, constipation or vomiting : Reports as per HPI; Denies difficulty voiding, pelvic pain, urinary frequency, urinary incontinence, urinary urgency, vaginal discharge or vaginal pruritus Exam Const General: cooperative, healthy appearing, no acute distress and well developed Orientation: alert, oriented to person and oriented to place HENGA Head: normal to inspection Neck Neck: normal visual inspection Thyroid: thyroid normal Lymphatic: no lymphadenopathy noted Chest Breast inspection: normal inspection of the breasts and normal inspection of the axillae Breast palpation: normal palpation of the breasts, normal palpation of the axillae and no axillary lymphadenopathy Resp Effort Inspection: normal respiratory effort GI Palpation: soft, no masses and nontender Rectal Exam: deferred External Female Exam: normal external appearance and normal appearance of the urethra Urethra: normal appearance of the urethr (more content not included)... Normal [facility] PT D/C Summary (1)on 024 PT D/C Summary (1) [facility] Physical [facility] [address] [place] [address] / REHABILITATION SERVICES DISCHARGE SUMMARY MR#: [id number] Acct: [id number] Name: HOLGER MCCORD Rep #: [id number] : 1965 57 From: John Eason PT, Cert. T, OCS Referring Dr.: Dr. Richard Marcelino MD Status: REG RCR Insurance: [employer] SELF PAY INSURANCE Discharge Summary D/C summary: It has been my pleasure to treat HOLGER MCCORD referred by Dr. Richard Marcelino MD, with the diagnosis of SCOLISOSIS for a total of 9 visit(s). Discharge Date: Please see the following information for a summary of their discharge status. Subjective Subjective: PAIN IS WORSE WITH WALKING IN LEGS RIGHT >LEFT LEG ,DIFFICULTY WITH STRIDE WITH WALKING PAIN IN LEG IS WORSE ,STANDING Pain Left Back: Pain Intensity (Out of 10): 2 Bilateral Lower Extremity: Pain Intensity (Out of 10): 6 Objective Objective/Function: POSTURE:mild forward posture, slight scolisis GAIT: reciprocal pattern NEURO: denies paresthesia/tingling ,reflexes L3-4 ,L4-5 ,L5- S1 1/3 SYMMETRIES: align MMT: quads/hams 4/5 ,hip flexion right 4/5 ,left 4-/5 ,ankle 4/5 ,hip abduction 4-/5 FLEXABILITY: hamstrings WFL ,piriformis min tight LUMBAR ROM: flexion min loss ,extension mod loss ,side glides min los Goals Goal 1:: Patient to be I with HEP Goal Progress: Progressing Goal 2:: Patient to demonstrate 50% improvement with less pain and improved function Goal Progress: Progressing Goal 3:: Patient to improve lumbar ROM for function of recovery for ADLS and housework tasks Goal Progress: Progressing Goal 4:: Patient to improve ability to walk and stand further distance 70% with less pain Goal Progress: Progressing Goal 5:: Patient to improve back oswestry score by 5 point to improve QOL and function Goal Progress: Progressing Plan Plan: RTD POSSIBLE MRI D/C Information d/c sentence: If there are questions or concerns regarding this patient's physical therapy, please feel free to call me at [phone]. Thank you for the referral of this patient. Sincerely, John Eason PT, Dmitry VELAZCO, OCS Balance/Gait/Functional tests Balance/Special Test Scores Oswestry Low Back Score: 21 11/12/23 1049 CC: Dr. Richard Marcelino MD JLA Signed Normal [facility] Inital Evaluation (1) - Roxanna 10-01-2023 Inital Evaluation (1) - PT [facility] Physical Therapy [facility] [address] [place] [address] / REHABILITATION SERVICES INITIAL EVALUATION MR#: [id number] Acct: [id number] Name: HOLGER MCCORD Rep #: [id number] : 1965 57 From: Dmitry Scanlon PT. T, OCS Referring Dr.: Dr. Richard Marcelino MD Status: REG R Insurance: [employer] SELF PAY INSURANCE Patient's Visit Information Visit Information Visit Information: HOLGER MCCORD is a 57 year old F referred to Physical Therapy by Dr. Richard Marcelino MD with a diagnosis of SCOLISOSIS. Date of Evaluation: 10/01/23 Physical Therapist: John Eason PT, Dmitry VELAZCO, OCS Visit Plan Frequency: 2x /Week Duration: 4 Weeks Plan: PT INTERVENTIONS DLS ,POSTURAL EX'S ,LUMBAR FLEXION ,HIP STRENGTHENING ,ACTIVITY MODIFICATION AND MODALITIES Subjective Subjective: This 57 y/o female presents to physical therapy with lumbar radiculopathy right > left . Patient symptoms LS to lateral leg to foot . Patient symptoms have been intermittent back pain for several years and 2015 radicular and pat several years symptoms worse.Patient has been diagnosed fibromyalgia. Patient seen DR cedeno x-rays showed DDD ,scolisis. NO medication. Currently symptoms are constant. Aggravating sitting ,walking,standing bending/lifting .Alleviating factors rest. Pain affects sleeping with leg pain rolls side to side.. Coughing/sneezing -. Bowel/bladder - Denies paresthesia/tingling -. Patient has no trauma. No prior treatment. Patient condition affects QOL and function /housework tasks. Goals to decrease pain in back and leg. 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 [employer] Pain Left Back: Pain Intensity (Out of 10): 6 Pain Intensity Range: 10 Bilateral Lower Extremity: Pain Intensity (Out of 10): 6 Pain Intensity Range: 10 Objective Objective: POSTURE:mild forward posture, slight scolisis GAIT: reciprocal pattern NEURO: denies paresthesia/tingling ,reflexes L3-4 ,L4-5 ,L5- S1 1/3 SYMMETRIES: align MMT: quads/hams 4/5 ,hip flexion right 4/5 ,left 4-/5 ,ankle 4/5 ,hip abduction 4-/5 FLEXABILITY: hamstrings WFL ,piriformis min tight LUMBAR ROM: flexion min loss ,extension mod loss ,side glides min los Special Tests L/S Slump test left side: Negative L/S Slump test right side: Negative L/S Left Straight Leg Raise: Negative L/S Right Straight Leg Raise: Negative Lumbar Standing: Flexion - Mechanical Response: No effect Lumbar Standing: Flexion - Symptoms During Testing: No effect Lumbar Standing: Flexion - Symptoms After Testing: No effect Lumbar Standing: Extension - Mechanical Response: No effect Lumbar Standing: Extension - Symptoms During Testing: Increases Lumbar Standing: Extension - Symptoms After Testing: No better Lumbar Standing: Right Side Glides - Mechanical Response: No effect Lumbar Standing: Right Side [place] - Symptoms During Testing: No effect Lumbar Standing: Right Side [place] - Symptoms After Testing: No effect Lumbar Standing: Left Side [place] - Mechanical Response: No effect Lumbar Standing: Left Side [place] - Symptoms During Testing: No effect Lumbar Standing: Left Side [place] - Symptoms After Testing: No effect Comments:: no change with leg symptoms Lumbar Lying: Flexion - Mechanical Response: No effect Lumbar Lying: Flexion - Symptoms During Testing: Increases Lumbar Lying: Flexion - Symptoms After Testing: No worse Lumbar Lying: Extension - Mechanical Response: No effect Lumbar Lying: Extension - Symptoms During Testing: Increases Lumbar Lying: Extension - Symptoms After Testing: No worse Comments:: nom change with legs symptoms Balance/Special Test Scores Oswestry Low Back Score: 21 Goals Goal 1:: Patient to be I with HEP Goal Time Frame: 4-6 Weeks Goal 2:: Patient to demonstrate 50% improvement with less pain and improved function Goal Time Frame: 4-6 Weeks Goal 3:: Patient to improve lumbar ROM for function of recovery for ADLS and housework tasks Goal Time Frame: 4-6 Weeks Goal 4:: Patient to improve ability to walk and stand further distance 70% with less pain Goal Time Frame: 4-6 Weeks Goal 5:: Patient to improve back oswestry score by 5 point to improve QOL and function Goal Time Frame: 4-6 Weeks Rehabilitation Potential Physical Therapy Diagnosis: This patient has lumbar pain with radicular symptoms bilateral legs worse with walking /standing ,positioning and motion testing or symptoms not decrease or better thus patient will benefit from skilled PT Rehabilitation Potential: Good Anticipated Interventions Patient/Client Instruction: Educate patient on: Condition and Plan of Care For the Purpose of:: To decrease pain, To increase ROM, To improve muscle performance and motor function, To improve ability to perform ADL's, To increase tolerance to activity/condition/positio n, To improve ability of physica (more content not included)... Normal [facility] L/S Spine w Bend Min 6 Vwon 08-31-2023 L/S Spine w Bend Min 6 Vw [facility] [address] [place] [address] [id number] L/S Spine w Bend Min 6 Vw MR#: [id number] Acct: [id number] Name: HOLGER MCCORD Rep #: [id number] : 1965 F 57 From: Suraj Cedeño MD PCP: Dr. Richard Marcelino MD Status: REG CLI Study: L/S Spine w Bend Min 6 Vw Date of Exam: Exam# [id number] Ordering Dr: Richard Marcelino [id number] STUDY: X-RAY - LUMBOSACRAL SPINE REASON FOR EXAM: Female, 57 years old. Leg pain. TECHNIQUE: 7 view(s) of the lumbosacral spine, including lateral flexion and extension views, were obtained. COMPARISON: None FINDINGS: Normal lumbar lordosis. Mild dextroscoliosis of the mid lumbar spine. Normal vertebral alignment. Diffuse mild lower thoracic and lumbosacral facet sclerosis. Intervertebral discs space narrowing diffusely most marked at L2-3, L3-4 and L4-5. Limited flexion and extension with no abnormal motion. Normal soft tissues. RAD/L/S Spine w Bend Min 6 Vw IMPRESSION: Dextroscoliosis with limited flexion and extension, without abnormal motion and with mild lower thoracic and lumbosacral spondylosis. Electronically Signed: Suraj Cedeño MD at 15:25 EDT , CC: Dr. Richard Marcelino MD [employer]: Signed Normal [facility] ANTINUCLEAR ANTIBODIES DIREC Ton 08-07-2023 ANALISA,DIRECT Negative Normal Negative [facility] Comment on above: Result Comment: Perf ormed at: - [facility] [place] [id number] [employer] Helper: Mark Bundy PhD, Phone: [phone] Performed By: #### L 500.4100, L503.6550, L501.6710, L506.1000, L3100.5475, L101.9900, L500.4050, L501.9520, L503.0105, L503.6150, L100.0100 ####[facility] [address] [place], [place], [address] CBC W/Diff, Automatedon - Absolute Lymph 1.71 X10 3/uL Normal 0.83-4.51 [facility] Comment on above: Performed By: #### L 500.4100, L503.6550, L501.6710, L506.1000, L3100.5475, L101.9900, L500.4050, L501.9520, L503.0105, L503.6150, L100.0100 ####[facility] [address] [place], [address] Absolute Neut 3.1 X10 3/uL Normal 2.0-7.7 [facility] Comment on above: Performed By: #### L 500.4100, L503.6550, L501.6710, L506.1000, L3100.5475, L101.9900, L500.4050, L501.9520, L503.0105, L503.6150, L100.0100 ####[facility] [address] [place], [address] Basophils/100 WBC (Bld) 0.9 % Normal 0-1 [facility] Comment on above: Performed By: #### L 500.4100, L503.6550, L501.6710, L506.1000, L3100.5475, L101.9900, L500.4050, L501.9520, L503.0105, L503.6150, L100.0100 ####[facility] [address] [place], [place], [phone](847) Eosinophils/100 WBC (Bld) 1.3 % Normal 0-5 [facility] Comment on above: Performed By: #### L 500.4100, L503.6550, L501.6710, L506.1000, L3100.5475, L101.9900, L500.4050, L501.9520, L503.0105, L503.6150, L100.0100 ####[facility] [address] [place], [address] Erythrocyte distribution width (RBC) [Ratio] 12.6 % Normal 11.6-14.6 [facility] Comment on above: Performed By: #### L 500.4100, L503.6550, L501.6710, L506.1000, L3100.5475, L101.9900, L500.4050, L501.9520, L503.0105, L503.6150, L100.0100 ####[facility] [address] [place], [address] Hematocrit (Bld) [Volume fraction] 41.7 % Normal 37-47 [facility] Comment on above: Performed By: #### L 500.4100, L503.6550, L501.6710, L506.1000, L3100.5475, L101.9900, L500.4050, L501.9520, L503.0105, L503.6150, L100.0100 ####[facility] [address] [facility] [place], [address] Hemoglobin (Bld) [Mass/Vol] 14.1 g/dL Normal 12.0-15.0 [facility] Comment on above: Performed By: #### L 500.4100, L503.6550, L501.6710, L506.1000, L3100.5475, L101.9900, L500.4050, L501.9520, L503.0105, L503.6150, L100.0100 ####[facility] [address] [facility] [place], [place], [phone]) IG% 0.400 Normal 0.0-0.9 [facility] Comment on above: Result Comment: IG% - Immature Granulocytes (promyelocytes, myelocytes and metamyelocytes) > 1% indicates that a LEFT SHIFT is Present. Performed By: #### L 500.4100, L503.6550, L501.6710, L506.1000, L3100.5475, L101.9900, L500.4050, L501.9520, L503.0105, L503.6150, L100.0100 ####[facility] [address] [facility] [place], [place], [phone] Lymphocytes/100 WBC (Bld) 32.4 % Normal 19-41 [facility] Comment on above: Performed By: #### L 500.4100, L503.6550, L501.6710, L506.1000, L3100.5475, L101.9900, L500.4050, L501.9520, L503.0105, L503.6150, L100.0100 ####[facility] [address] [place], [address] MCH (RBC) [Entitic mass] 30.6 pg Normal 27.0-32.0 [facility] Comment on above: Performed By: #### L 500.4100, L503.6550, L501.6710, L506.1000, L3100.5475, L101.9900, L500.4050, L501.9520, L503.0105, L503.6150, L100.0100 ####[facility] [address] [place], [address] MCHC (RBC) [Mass/Vol] 33.8 g/dL Normal 32-36 [facility] Comment on above: Performed By: #### L 500.4100, L503.6550, L501.6710, L506.1000, L3100.5475, L101.9900, L500.4050, L501.9520, L503.0105, L503.6150, L100.0100 ####[facility] [address] [place], [address] MCV (RBC) [Entitic vol] 90.5 fL Normal 81-99 [facility] Comment on above: Performed By: #### L 500.4100, L503.6550, L501.6710, L506.1000, L3100.5475, L101.9900, L500.4050, L501.9520, L503.0105, L503.6150, L100.0100 ####[facility] [address] [facility] [place], [address] Monocytes/100 WBC (Bld) 6.5 % Normal 0-10 [facility] Comment on above: Performed By: #### L 500.4100, L503.6550, L501.6710, L506.1000, L3100.5475, L101.9900, L500.4050, L501.9520, L503.0105, L503.6150, L100.0100 ####[facility] [address] [place], [address] Neutrophils/100 WBC (Bld) 58.5 % Normal 47-70 [facility] Comment on above: Performed By: #### L 500.4100, L503.6550, L501.6710, L506.1000, L3100.5475, L101.9900, L500.4050, L501.9520, L503.0105, L503.6150, L100.0100 ####[facility] [address] [place], [address](565 Nucleated RBC (Bld) [#/Vol] 0 10*3/uL Normal 0-5 [facility] Comment on above: Performed By: #### L 500.4100, L503.6550, L501.6710, L506.1000, L3100.5475, L101.9900, L500.4050, L501.9520, L503.0105, L503.6150, L100.0100 ####[facility] [address] [place], [address] Platelet mean volume (Bld) [Entitic vol] 10.4 fL Normal 6.2-12.0 [facility] Comment on above: Performed By: #### L 500.4100, L503.6550, L501.6710, L506.1000, L3100.5475, L101.9900, L500.4050, L501.9520, L503.0105, L503.6150, L100.0100 ####[facility] [address] [place], [address] Platelets (Bld) [#/Vol] 243 10*3/uL Normal 150-450 [facility] Comment on above: Performed By: #### L 500.4100, L503.6550, L501.6710, L506.1000, L3100.5475, L101.9900, L500.4050, L501.9520, L503.0105, L503.6150, L100.0100 ####[facility] [address] [place], [place], [phone](945) RBC (Bld) [#/Vol] 4.61 10*6/uL Normal 4.2-5.4 [facility] Comment on above: Performed By: #### L 500.4100, L503.6550, L501.6710, L506.1000, L3100.5475, L101.9900, L500.4050, L501.9520, L503.0105, L503.6150, L100.0100 ####[facility] [address] [place], [place], [phone] RDW SD 41.1 fl Normal 35.1-43.9 [facility] Comment on above: Performed By: #### L 500.4100, L503.6550, L501.6710, L506.1000, L3100.5475, L101.9900, L500.4050, L501.9520, L503.0105, L503.6150, L100.0100 ####[facility] [address] [place], [place], [phone] WBC (Bld) [#/Vol] 5.3 10*3/uL Normal 4.4-11.0 [facility] Comment on above: Performed By: #### L 500.4100, L503.6550, L501.6710, L506.1000, L3100.5475, L101.9900, L500.4050, L501.9520, L503.0105, L503.6150, L100.0100 ####[facility] [address] [place], [place], [phone] CRPon 08-06-2023 C-REACTIVE PROT 6.66 mg/L High 0.0-3.0 [facility] Comment on above: Result Comment: C-Re active Protein (CRP) provides useful information for the diagnosis, therapy and monitoring of inflammatory processes and associated diseases. For the evaluation of Relative Risk for Cardiovascular Disease, a High Sensitivity CRP (HSCRP) should be ordered. Performed By: #### L 500.4100, L503.6550, L501.6710, L506.1000, L3100.5475, L101.9900, L500.4050, L501.9520, L503.0105, L503.6150, L100.0100 ####[facility] [address] [place], [place], [phone] Comprehensive Metabolic Prof pron 08-06-2023 Albumin [Mass/Vol] 3.8 g/dL Normal 3.2-5.0 [facility] Comment on above: Performed By: #### L 500.4100, L503.6550, L501.6710, L506.1000, L3100.5475, L101.9900, L500.4050, L501.9520, L503.0105, L503.6150, L100.0100 ####[facility] [address] [place], [place], [phone] Albumin/Globulin [Mass ratio] 1.1 {ratio} Normal 0.9-2.4 [facility] Comment on above: Performed By: #### L 500.4100, L503.6550, L501.6710, L506.1000, L3100.5475, L101.9900, L500.4050, L501.9520, L503.0105, L503.6150, L100.0100 ####[facility] [address] [place], [place], [phone] ALK P 48 U/L Normal 45-117 [facility] Comment on above: Performed By: #### L 500.4100, L503.6550, L501.6710, L506.1000, L3100.5475, L101.9900, L500.4050, L501.9520, L503.0105, L503.6150, L100.0100 ####[facility] [address] [place], [address] ALT [Catalytic activity/Vol] 60 U/L High 13-56 [facility] Comment on above: Performed By: #### L 500.4100, L503.6550, L501.6710, L506.1000, L3100.5475, L101.9900, L500.4050, L501.9520, L503.0105, L503.6150, L100.0100 ####[facility] [address] [place], [place], [phone](449) AST [Catalytic activity/Vol] 35 U/L Normal 15-37 [facility] Comment on above: Performed By: #### L 500.4100, L503.6550, L501.6710, L506.1000, L3100.5475, L101.9900, L500.4050, L501.9520, L503.0105, L503.6150, L100.0100 ####[facility] [address] [place], [place], [phone] Bilirubin [Mass/Vol] 0.80 mg/dL Normal 0.20-1.00 [facility] Comment on above: Result Comment: For patients on eltrombopag therapy, use of Dimension Steele TBIL is not recommended. Performed By: #### L 500.4100, L503.6550, L501.6710, L506.1000, L3100.5475, L101.9900, L500.4050, L501.9520, L503.0105, L503.6150, L100.0100 ####[facility] [address] [place], [place], [phone](246) BUN/CRE 18.1 RATIO Normal 10-20 [facility] Comment on above: Performed By: #### L 500.4100, L503.6550, L501.6710, L506.1000, L3100.5475, L101.9900, L500.4050, L501.9520, L503.0105, L503.6150, L100.0100 ####[facility] [address] [place], [address] CA,Total 8.8 mg/dL Normal 8.5-10.1 [facility] Comment on above: Performed By: #### L 500.4100, L503.6550, L501.6710, L506.1000, L3100.5475, L101.9900, L500.4050, L501.9520, L503.0105, L503.6150, L100.0100 ####[facility] [address] [place], [place], [phone](275) Chloride [Moles/Vol] 108 mmol/L High 98-107 [facility] Comment on above: Performed By: #### L 500.4100, L503.6550, L501.6710, L506.1000, L3100.5475, L101.9900, L500.4050, L501.9520, L503.0105, L503.6150, L100.0100 ####[facility] [address] [place], [place], [phone](513) CO2 [Moles/Vol] 26.0 mmol/L Normal 21.0-32.0 [facility] Comment on above: Performed By: #### L 500.4100, L503.6550, L501.6710, L506.1000, L3100.5475, L101.9900, L500.4050, L501.9520, L503.0105, L503.6150, L100.0100 ####[facility] [address] [place], [place], [phone](612) Creatinine [Mass/Vol] 0.77 mg/dL Normal 0.55-1.02 [facility] Comment on above: Result Comment: The validity of the calculated GFR GFRAA in patients over 70 years has not been determined. Clinical correlation is essential. Performed By: #### L 500.4100, L503.6550, L501.6710, L506.1000, L3100.5475, L101.9900, L500.4050, L501.9520, L503.0105, L503.6150, L100.0100 ####[facility] [address] [place], [address] EST GFR - AA 99 mL/min Normal >60 [facility] Comment on above: Result Comment: Afri can Mal[place]ian GFR Calc Performed By: #### L 500.4100, L503.6550, L501.6710, L506.1000, L3100.5475, L101.9900, L500.4050, L501.9520, L503.0105, L503.6150, L100.0100 ####[facility] [address] [place], [place], [phone] GAP 7 Normal 5-15 [facility] Comment on above: Performed By: #### L 500.4100, L503.6550, L501.6710, L506.1000, L3100.5475, L101.9900, L500.4050, L501.9520, L503.0105, L503.6150, L100.0100 ####[facility] [address] [place], [place], [phone] GFR/1.73 sq M.predicted among non-blacks MDRD (S/P/Bld) [Vol rate/Area] 82 mL/min/{1.73_m2} Normal >60 [facility] Comment on above: Result Comment: Non- GFR Calc Performed By: #### L 500.4100, L503.6550, L501.6710, L506.1000, L3100.5475, L101.9900, L500.4050, L501.9520, L503.0105, L503.6150, L100.0100 ####[facility] [address] [place], [address] Globulin (S) [Mass/Vol] 3.5 g/dL Normal 2.2-4.2 [facility] Comment on above: Performed By: #### L 500.4100, L503.6550, L501.6710, L506.1000, L3100.5475, L101.9900, L500.4050, L501.9520, L503.0105, L503.6150, L100.0100 ####[facility] [address] [place], [address] Glucose [Mass/Vol] 91 mg/dL Normal 74-106 [facility] Comment on above: Performed By: #### L 500.4100, L503.6550, L501.6710, L506.1000, L3100.5475, L101.9900, L500.4050, L501.9520, L503.0105, L503.6150, L100.0100 ####[facility] [address] [place], [address] Potassium [Moles/Vol] 3.7 mmol/L Normal 3.5-5.1 [facility] Comment on above: Performed By: #### L 500.4100, L503.6550, L501.6710, L506.1000, L3100.5475, L101.9900, L500.4050, L501.9520, L503.0105, L503.6150, L100.0100 ####[facility] [address] [place], [address] Sodium [Moles/Vol] 141 mmol/L Normal 136-145 [facility] Comment on above: Performed By: #### L 500.4100, L503.6550, L501.6710, L506.1000, L3100.5475, L101.9900, L500.4050, L501.9520, L503.0105, L503.6150, L100.0100 ####[facility] [address] [place], [address] T PROT 7.3 g/dL Normal 6.4-8.2 [facility] Comment on above: Performed By: #### L 500.4100, L503.6550, L501.6710, L506.1000, L3100.5475, L101.9900, L500.4050, L501.9520, L503.0105, L503.6150, L100.0100 ####[facility] [address] [place], [address] Urea nitrogen [Mass/Vol] 14 mg/dL Normal 7-18 [facility] Comment on above: Performed By: #### L 500.4100, L503.6550, L501.6710, L506.1000, L3100.5475, L101.9900, L500.4050, L501.9520, L503.0105, L503.6150, L100.0100 ####[facility] [address] [place], [address] Erythrocyte Sed Rateon 08-05 SED RATE 5 mm/hr Normal 0-30 [facility] Comment on above: Performed By: #### L 500.4100, L503.6550, L501.6710, L506.1000, L3100.5475, L101.9900, L500.4050, L501.9520, L503.0105, L503.6150, L100.0100 ####[facility] [address] [place], [address] Ferritinon 08-06-2023 Ferritin [Mass/Vol] 199 ng/mL Normal 8-252 [facility] Comment on above: Performed By: #### L 500.4100, L503.6550, L501.6710, L506.1000, L3100.5475, L101.9900, L500.4050, L501.9520, L503.0105, L503.6150, L100.0100 ####[facility] [address] [place], [place], [address] Ironon 08-06-2023 Iron [Mass/Vol] 93 ug/dL Normal 50-170 [facility] Comment on above: Performed By: #### L 500.4100, L503.6550, L501.6710, L506.1000, L3100.5475, L101.9900, L500.4050, L501.9520, L503.0105, L503.6150, L100.0100 ####[facility] [address] [place], [place], [id number] Lipid Profileon 08-06-2023 Cholesterol [Mass/Vol] 173 mg/dL Normal 200 [facility] Comment on above: Result Comment: <200 mg/dL Desirable 200-240 mg/dL Borderline >240 mg/dL High Risk Performed By: #### L 500.4100, L503.6550, L501.6710, L506.1000, L3100.5475, L101.9900, L500.4050, L501.9520, L503.0105, L503.6150, L100.0100 ####[facility] [address] [place], [place], [address] Cholesterol in HDL [Mass/Vol] 56 mg/dL Normal [facility] Comment on above: Result Comment: The drugs N-Acetylcysteine and Metamizole may falsely depress this assay. Reference Range HDL <40 mg/dL Low HDL Cholesterol HDL >or= 60 mg/dL High HDL Cholesterol Performed By: #### L 500.4100, L503.6550, L501.6710, L506.1000, L3100.5475, L101.9900, L500.4050, L501.9520, L503.0105, L503.6150, L100.0100 ####[facility] [address] [place], [place], [id number] Cholesterol in LDL [Mass/Vol] 98 mg/dL Normal 0-130 [facility] Comment on above: Performed By: #### L 500.4100, L503.6550, L501.6710, L506.1000, L3100.5475, L101.9900, L500.4050, L501.9520, L503.0105, L503.6150, L100.0100 ####[facility] [address] [place], [place], [id number] Cholesterol in VLDL [Mass/Vol] 19 mg/dL Normal 5-40 [facility] Comment on above: Performed By: #### L 500.4100, L503.6550, L501.6710, L506.1000, L3100.5475, L101.9900, L500.4050, L501.9520, L503.0105, L503.6150, L100.0100 ####[facility] [address] [place], [place], [id number] Triglyceride [Mass/Vol] 96 mg/dL Normal [facility] Comment on above: Result Comment: The drugs N-Acetylcysteine and Metamizole may falsely depress this assay. Serum Triglycerides Reference Interval Normal <150 mg/dL Borderline high 150 - 199 mg/dL High 200 - 499 mg/dL Very High > or = 500 mg/dL Performed By: #### L 500.4100, L503.6550, L501.6710, L506.1000, L3100.5475, L101.9900, L500.4050, L501.9520, L503.0105, L503.6150, L100.0100 ####[facility] [address] [place], [place], [id number] Thyroid Stim Hormone (TSH)on 08-06-2023 TSH 1.45 uIU/mL Normal 0.358-3.74 [facility] Comment on above: Performed By: #### L 500.4100, L503.6550, L501.6710, L506.1000, L3100.5475, L101.9900, L500.4050, L501.9520, L503.0105, L503.6150, L100.0100 ####[facility] [address] [place], [place], [address] Vitamin B12on 08-06-2023 Cobalamin (Vitamin B12) [Mass/Vol] 524 pg/mL Normal 211-911 [facility] Comment on above: Performed By: #### L 500.4100, L503.6550, L501.6710, L506.1000, L3100.5475, L101.9900, L500.4050, L501.9520, L503.0105, L503.6150, L100.0100 ####[facility] [address] [place], [place], [id number] Vitamin D,25 Hydroxyon 08-05 Vitamin D 25-OH 44.0 ng/mL Normal [facility] Comment on above: Result Comment: Krystal min D 25(OH) Status Range Deficiency <20 ng/mL (50nmol/L) Insufficiency 20 - 30 ng/mL (50 - 75 nmol/L) Sufficiency 30 - 100 ng/mL (75 - 250 nmol/L) Toxicity >100 ng/mL (>250 nmol/L) Performed By: #### L 500.4100, L503.6550, L501.6710, L506.1000, L3100.5475, L101.9900, L500.4050, L501.9520, L503.0105, L503.6150, L100.0100 ####[facility] [address] [place], [place], [id number] US EXTREMITY NONVASCULAR MOLINA ITEDon 01-25-2021 EXTREMITY NONVASCULAR LIMITED [address] [address] Patient: HOLGER MCCORD#: : 1965 Age: 55 Gender: F Pt. Type: Out Account: [id number] Location: Ordering: [facility] Exam Date: 01/25/2021/13:58 Family Phys: Charge Code: 597115 Physician: [place] Order #: [id number] DLP Dose#: PROCEDURE: ULTRASOUND NONVASCULAR LIMITED COMPARISON: None. INDICATIONS: Left arm lump TECHNIQUE: Sonography was performed of the clinically requested area of interest. FINDINGS: REGION IMAGED: Left arm MASSES: None. No evident mass. FLUID COLLECTIONS: None. No abnormal fluid collection. OTHER: Negative. CONCLUSION: 1. NEGATIVE SONOGRAM OF THE LEFT ARM. Dictated by: Grant Redmond MD on 01/25/2021 at 17:49 Approved by: Grant Redmond MD on 01/25/2021 at 17:52 [facility] HNO ID: [id number] thor: Juan Donovanrvice: [facility] MedicineAutho Type: PhysicianType: Discharge SummariesFiled: 06/30/2017 12:39 PMNote Text:DISCHARGE SUMMARYPATIENT NAME: Holger MccordMRN: [id number] Information Admission Information ADMIT DATE: 06/26/2017DISCHARGE DATE: 06/30/2017MY DOCTORS AND MEDICAL TEAM:[facility] Doctor: Gerardo Donovan Care Provider: Lidia Castro Medical Team Members: Treatment Team:Attending Provider: DORINA Donovanonsulting: Simon Simons CONDITION AT DISCHARGE: GoodREASON I WAS IN THE HOSPITAL: DiverticulitisSUMMARY OF WHAT HAPPENED WHILE I WAS IN THE HOSPITAL: The patient wasadmitted due to abdominal pain and CT showing diverticulitis with fluidcollection in her abdomen. She was treated with IV antibiotics and seenby surgical team. She was assessed to not need any acute surgicalintervention or fluid drainage. She was asked to follow up as anoutpatient as she will likely need surgery for recurrent diverticulitis.She was given additional 10 day antibiotic course and provided informationfor surgical team prior to discharge.OTHER PROBLEMS/DIAGNOSIS:Princip al Problem: DiverticulitisResolved Problems: * No resolved hospital problems. *OPERATIONS PERFORMED WHILE IN THE HOSPITAL: NoneIMPORTANT TEST/PROCEDURES:No procedures performedTEST RESULTS NOT AVAILABLE AT THIS TIME:No pending results Discharge Disposition Discharge Disposition: Home With Self CareActivity When You Leave the Hospital Resume pre-hospital activityDiet Instructions Resume your pre-hospital dietCall Your Doctor If For the following: Worsening [...] clammy skin Your temperature is greater than 101FFollow Up Appointments Follow-Up Appointment With: Follow up with PCPWhen: In: Comment - 2 weeksPatient/Parents to call for appointment?: Yes Follow-Up Appointment Follow up diverticulitis with fluid collectionWith: Follow up with Surgery as directedWhen: In:Patient/Parents to call for appointment?: YesAdditional Provider to Provider Information:FOLLOW-UP APPOINTMENTS ALREADY SCHEDULED WITH A [facility] PROVIDER:No future appointments.DISCHARGE MEDICATION: Current Discharge Medication ListSTART taking these medicationsciprofloxacin HCl (CIPRO) 500 mgTake 500 mg by mouth twice daily.Qty: 21 tablet Refills: 0metroNIDAZOLE (FLAGYL) 500 mgTake 500 mg by mouth three times daily.Qty: 44 tablet Refills: 0CONTINUE these medications which have NOT CHANGEDLACTOBACILLUS ACIDOPHILUS (PROBIOTIC ORAL) 1 capsuleTake 1 capsule by mouth once daily.Calcium Carb-Cholecalciferol (CALCIUM 600 + D,3,) 600 mg(1,500mg) -200unit ORAL TabTake one(1) tablet twice daily.Refills: 0Cholecalciferol, Vitamin D3, (VITAMIN D-3) 1,000 unit ORAL ChewTake 1 tablet twice daily.Refills: 0MULTIVITAMIN TABTake one(1) tablet daily.Refills: 0Estradiol 1 PatchApply 1 Patch as directed twice a week. TWICE WEEKLYQty: 4 Patch Refills: 0estradiol (KEYA, VIVELLE-DOT) 1 PatchApply 1 Patch as directed every Thursday and Thursday. TWICE WEEKLYQty: 4 Patch Refills: 1estradiol (KEYA, VIVELLE-DOT) 1 PatchApply 1 Patch as directed twice a week.Qty: 8 Patch Refills: 11Comments: Twice weeklyDischarge Physical Exam:VITAL SIGNS: BP 126/75 Pulse 78 Temp 37.2 ?C (99 ?F) (Oral) Resp 16 Ht 162.6 cm (5' 4) Wt 100.7 kg (222 lb) LMP 08/16/2009 SpO2 97% BMI 38.11 kg/j9Nchuzum - AANDOx3, NAD, CalmENT- no icterus, MMMCV - RRR S1 S2, No M/R/GRESP - CTA B/L ?No wheezes, ronchi, ralesABD - soft, NT, ND, NM +BSNeuro- Conversant, follows commands, moves all ext, gross sensation intactNo dysarthriaExt:Non-tender, no edemaSkin: warm, no rashPsych: appropriate mood and affectTIME OF CARE: Discharge Management: I personally spent greater than 30minutes involved in the discharge management of this patient.SIGNATURE: Kashif Vila DO PAGER/CONTACT #:DATE: June 30, 2017TIME: 12:38 PM Normal [facility] CONSULTon 06-30-2017 CONSULT HNO ID: [id number] thor: Andrew (Alex Barakat: General SurgeryAuthor Type: ResidentType: ConsultsFiled: 06/30/2017 3:39 PMNote Text: -------Attestation signed by Christopher Soni at 07/01/2017 11:42 AMOutpatient managementChristopher Soni MD ----HISTORY AND PHYSICAL EXAMINATION / CONSULTATION NOTESERVICE DATE: 06/30/2017SERVICE TIME: 12:03 [facility] CARE PHYSICIAN: DAVID CastroubjectiveCHISURJIT COMPLAINT: DiverticulitisHPI: This is a 51 year old female who presents with Recurrentdiverticulitis without abscess or perf. The patient has had multipleepisodes of diverticulitis in the past requiring abx August of last year andthen 3 other months between now and then. The patient had one episode withmicroperforation in the past. [facility] The patient currently feels well though initially she had leftlower quadrant pain. 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- VertigoPAST SURGICAL HISTORYProcedure Laterality Date- BX OF BREAST; INCISIONAL or 07/2007 Bx of breast, incisional- COLONOSCOP W/ OR W/O [facility] SPEC 2008,2010,2012 Colonoscopy- COLONOSCOPY 07/01/07, 07/2007- EXTRACTION ERUPTED TOOTH/EXR 2 wisdom teeth- HYSTERECTOMY HX 2009- L'SCOPE REM ADNEX W/PART/TOT OOPH/SALP 11/30/2009 Left Overy Removed- CARLOTA W/WO REMOVAL TUBE OVARY 08/2009 CARLOTA/RSO- THERMAL ENDOMETRIAL ABLATION 01/2009- WRIST SURGERY HX Bilateral 2017 Carpel TunnelFAMILY HISTORYProblem Relation Age of Onset- Colon Cancer Paternal Grandmother- Coronary Artery Disease Maternal Grandmother- Breast Cancer Maternal Grandmother Diagnosed prior to age 40- None Other No family history of ovarian or uterine cancer.Social HistorySubstance Use Topics- Smoking status: Never Smoker- Smokeless tobacco: Never Used- Alcohol use NoPrescriptions Prior to Admission:LACTOBACILLUS ACIDOPHILUS (PROBIOTIC ORAL) Take 1 capsule by mouth oncedaily. Disp: Rfl:Calcium Carb-Cholecalciferol (CALCIUM 600 + D,3,) 600 mg(1,500mg) -200unit ORAL Tab Take one(1) tablet twice daily. Disp: Rfl: 0Cholecalciferol, Vitamin D3, (VITAMIN D-3) 1,000 unit ORAL Chew Take 1tablet twice daily. Disp: Rfl: 0MULTIVITAMIN TAB Take one(1) tablet daily. Disp: Rfl: 0Estradiol (VIVELLE-DOT) 0.0375 mg/24 hr Apply 1 Patch as directed twice aweek. TWICE WEEKLY Disp: 4 Patch Rfl: 0estradiol (VIVELLE-DOT) 0.025 mg/24 hr Apply 1 Patch as directed everynd and Thursday. TWICE WEEKLY Disp: 4 Patch Rfl: 1estradiol (VIVELLE-DOT) 0.05 mg/24 hr Apply 1 Patch as directed twice aweek. Disp: 8 Patch Rfl: 11ALLERGIESAllergen Reactions- Percocet [Oxycodone* RashCOMPLETE REVIEW OF SYSTEMS:See HPIObjectivePHYSICAL EXAM:GENERAL: Alert, no distress, cooperativeSKIN: Skin color, texture, turgor normal. No rashes or lesions.LUNGS: Unlabored breathing on O2 Therapy: Room Air on sating at SpO2: 97%CARDIAC: Regular rate and rhythm as above,ABDOMEN: Benign, Soft, non-tender, No masses, hepatosplenomegaly and NolymphadenopathyEXTREMITI ES: ROM of all joint grossly normal: strength grossly normalbilaterally. No deformities noted.WOUND: not applicableBP 126/75 Pulse 78 Temp (Src) 99 (Oral) Resp 16 Ht 5' 4 (1.63m) Wt 222 lb (100.7kg) SpO2 97% LMP 08/16/2009 BMI 38.09 kg/(m2).Temp (24hrs), Av.1 ?C (98.8 ?F), Min:36.8 ?C (98.2 ?F), Max:37.2 ?C(99 ?F)Body mass index is 38.11 kg/(m2).DATA:Diagnostic tests reviewed for today's visit:No results found for this or any previous visit (from the past 48hour(s)).]Assessment/Bonnie nT is a 51 year old female who presents with recurrent diverticulitits-[facility]-okay for d/c per surgery will follow up outpatientD/w dr soniSIGNATURE: Andrew Bearden MD PATIENT NAME: Holger HarrisonDATE: June 30, 2017 : 12:03 PM PAGER/CONTACT #: [phone] Normal [facility] CASE MGT INIT Kandy 2017 CASE MGT INIT CLARE HNO ID: [id number] thor: Gayla (Rn) JOSE R Sevillaervice: Care ManagementAuthor Type: Registered NurseType: Care Mgt Initial AssessmentFiled: 06/29/2017 2:54 PMNote Text:CARE MANAGEMENT: ASSESSMENT AND DISCHARGE PLANSERVICE DATE: 06/29/2017SERVICE TIME: 1452PRIMARY CARE PHYSICIAN:Dino Maddox, MDPhone: [phone] STATUS: InpatientMEDICAL:Patient/R epresentative Stated Goals:To have reduction in painTo return home to life as it wasHealth Insurance: ANTHEM BCBS FEP PPOAnthemHealth Issues Impacting Discharge Plan: NoneLast Admission Date: noneIs this Within the Past 30 days? NoAdvance Directive:Health Literacy:1. How often do you need to have someone help you when you readinstructions, pamphlets, or other written material from your doctor orpharmacy? Never - 12. How confident are you filling out medical forms by yourself? Extremely- 1If Patient scores > 3 on either question, the following interventions wereput into place:Patient did not score > 3FUNCTIONAL AND COGNITIVE/BEHAVIORALPRIOR TO ADMISSION:Baseline Mental Status: Alert AND Oriented, Person, Place , Time andSituationFunctional Status: IndependentDoes Patient Currently Receive Any Community Services or Home Care? NoneEquipment Prior to Admission: NoneHas the Patient Been in a Senior Living Facility in the Past 30 days? NoSOCIAL:Living Arrangement: HomeLives With: SpouseFinancial Resources: N/APrimary Contact: Extended Emergency Contact InformationPrimary Emergency Contact: Akash MccordAddress: [address] [place], [place] [address]Yiao Btgomf Btpbiftn: SpouseSupportive: YesOther Important Patient Contacts: NoneCaregiver Assessment:Caregiver is ready, willing and able to meet the patient's needs asrecommended by the inter-professional team? No Caregiver NeededPatient's transition needs and plan for meeting these needs: pt will nothave any needs at inDoes the patient have an acute stroke diagnosis, or has the patient had astroke during this admission? NoMedication Adherence:I am convinced of the importance of my prescription medication: Agreecompletely - 0I worry that my prescription medication will do more harm than good to meDisagree mostly - 0I feel financially burdened by my tpn-ca-shjuwf expenses for myprescription medication: Disagree mostly -0Patient is categorized as low risk < 2Are you interested in bedside delivery of your medications? NoFood Concerns:In the Last Month, Have You had Trouble Getting Food? No trouble gettingfoodDuring the Last Month, Have You Worried Whether Your Food Would Run OutBefore You Had Enough Money to Buy More? NoIs the Patient Psychosocially Complex? NoASSESSMENT AND PLAN:Medical Needs: NonePsychosocial Needs: NoneFREEDOM OF CHOICE EXPLAINED:N/APOTENTIAL TRANSITION PLANSNo Services IndicatedPt from home and plans on return home at in Will follow for new needs.Currently on iv antibiotics but not anticipated residential.SIGNATURE: Gayla Sevilla RN PATIENT NAME: Holger HarrisonDATE: June 29, 2017 : 2:52 PM PAGER/CONTACT #: [phone] [facility] PROGRESSon 06-29-2017 PROGRESS HNO ID: [id number] thor: Juan Donovanrvice: [facility] MedicineAuthor Type: PhysicianType: Progress NotesFiled: 06/29/2017 2:52 PMNote Text:[facility] MEDICINEPROGRESS NOTESERVICE DATE: 06/29/2017SERVICE TIME: 2:48 PMHospital Medicine/Primary Attending: ELSIE Donovan AND WEEKEND COVERAGE:After 7pm please page [phone]: Patient seen and examined at bedside. No acutecomplaints/concerns reported. Tolerated regular diet today w/o nausea.Abd pain resolvedOBJECTIVE:PHYSICAL EXAM: BP 131/72 Pulse 82 Temp (Src) 97.7 (Oral) Resp 18 Ht 5' 4 (1.63m) Wt 222 lb (100.7kg) SpO2 96% LMP 08/16/2009 BMI38.09 kg/(m2).General - AANDOx3, NAD, CalmENT- no icterus, MMMCV - RRR S1 S2, No M/R/GRESP - CTA B/L No wheezes, ronchi, ralesABD - soft, NT, ND, NM +BSNeuro- Conversant, follows commands, moves all ext, gross sensation intactNo dysarthriaExt:Non-tender, no edemaSkin: warm, no rashPsych: appropriate mood and affectMEDICATIONS:Current hospital medications:lactobacillus rhamnosus (CULTURELLE) capsule 1 capsule ORAL BIDacetaminophen 650 mg tab(s) (TYLENOL) 650 mg ORAL q 6 H PRNmagnesium hydroxide 400 mg/5 mL 30 mL (MOM) 30 mL ORAL DAILY PRNdocusate sodium 100 mg cap(s) (COLACE) 100 mg ORAL BID PRNenoxaparin 40 mg injection (LOVENOX) 40 mg SUBCUTANEOUS DAILYmetroNIDAZOLE 500 mg PREMIX piggyback (FLAGYL) 500 mg INTRAVENOUS q 8 Hciprofloxacin 400 mg in D5W 200 mL (CIPRO) 400 mg INTRAVENOUS q 12 Hiv contrast (radiology procedure) INTRAVENOUS DIRECTED PRNDATA:Diagnostic tests reviewed for today's visit:CBC: No results for input(s): WBC, RBC, HB, HCT, PLT, MCV, MCH, MPV, RDWin the last 24 hours.Coags: No results for input(s): INR, APTT in the last 24 hours.Invalid input(s): PTBMP: No results for input(s): NA, K, CHLOR, CO2, BUN, CREAT, GLUC in thelast 24 hours.CMP: No results for input(s): NA, K, CHLOR, CO2, BUN, CREAT, GLUC, TPROT,CA, MG, ALBUMIN, TBILI, ALKPHOS, ALT, AST, ANION in the last 24 hours.Cardiac Enzymes: No results for input(s): CK, MB, CKMB, TROPT in the last24 hours.Liver Function, Amylase, Lipase: No results for input(s): TPROT, ALB, ALT,AST, ALKPHOS, TBILI, AMYLASE, LIPASE, LACTATE in the last 24 hours.MG/PHOS: No results for input(s): MG, P in the last 24 hours.Renal Panel: No results for input(s): ALBUMIN, CREAT, BUN, GLUC, CA, P,CHLOR, K, CO2, NA in the last 24 hours.Heme: No results for input(s): RETICP, ABSRETIC, LD, ZENA, FE, TIBC,TRANSFERSAT in the last 24 hours.No results found for: UALBCRAssessment/PlanThis is a 51 year old female with:?# Diverticulitis POA:# Abd fluid collection R/O abscess -Cont cipro/flagyl -Low fiber diet for now -Surgery to eval for fluid collection?#Obesity?VTE Prophylaxis: Lovenox 40mg Sub Q DailyDisposition: HomePlan of care discussed with: PatientSIGNATURE: Kashif Vila DO PATIENT NAME: Holger John LandonDATE: June 29, 2017 : 2:48 PM PAGER/CONTACT #: My Pager Normal [facility] PROGRESSon 06-28-2017 PROGRESS HNO ID: [id number] thor: Juan Donovanrvice: [facility] MedicineAuthor Type: PhysicianType: Progress NotesFiled: 06/28/2017 5:35 PMNote Text:[facility] MEDICINEPROGRESS NOTESERVICE DATE: 06/28/2017SERVICE TIME: 5:32 PMHospital Medicine/Primary Attending: ELSIE Donovan AND WEEKEND COVERAGE:After 7pm please page [phone]: Patient seen and examined at bedside. No events over night.Pain still present in b/l LQ but improved. Tolerating CLD and would liketo try to advance.OBJECTIVE:PHYSICAL EXAM: BP 139/83 Pulse 88 Temp (Src) 98.6 (Oral) Resp 18 Ht 5' 4 (1.63m) Wt 222 lb (100.7kg) SpO2 96% LMP 08/16/2009 BMI38.09 kg/(m2).General - AANDOx3, NAD, CalmENT- no icterus, MMMCV - RRR S1 S2, No M/R/GRESP - CTA B/L No wheezes, ronchi, ralesABD - soft, mildly tender in B/L LQ, ND, NM +BSNeuro- Conversant, follows commands, moves all ext, gross sensation intactNo dysarthriaExt:Non-tender, no edemaSkin: warm, no rashPsych: appropriate mood and affectMEDICATIONS:Current hospital medications:lactobacillus rhamnosus (CULTURELLE) capsule 1 capsule ORAL BIDacetaminophen 650 mg tab(s) (TYLENOL) 650 mg ORAL q 6 H PRNmagnesium hydroxide 400 mg/5 mL 30 mL (MOM) 30 mL ORAL DAILY PRNdocusate sodium 100 mg cap(s) (COLACE) 100 mg ORAL BID PRNenoxaparin 40 mg injection (LOVENOX) 40 mg SUBCUTANEOUS DAILYmetroNIDAZOLE 500 mg PREMIX piggyback (FLAGYL) 500 mg INTRAVENOUS q 8 Hciprofloxacin 400 mg in D5W 200 mL (CIPRO) 400 mg INTRAVENOUS q 12 Hiv contrast (radiology procedure) INTRAVENOUS DIRECTED PRNDATA:Diagnostic tests reviewed for today's visit:CBC: No results for input(s): WBC, RBC, HB, HCT, PLT, MCV, MCH, MPV, RDWin the last 24 hours.Coags: No results for input(s): INR, APTT in the last 24 hours.Invalid input(s): PTBMP: No results for input(s): NA, K, CHLOR, CO2, BUN, CREAT, GLUC in thelast 24 hours.CMP: No results for input(s): NA, K, CHLOR, CO2, BUN, CREAT, GLUC, TPROT,CA, MG, ALBUMIN, TBILI, ALKPHOS, ALT, AST, ANION in the last 24 hours.Cardiac Enzymes: No results for input(s): CK, MB, CKMB, TROPT in the last24 hours.Liver Function, Amylase, Lipase: No results for input(s): TPROT, ALB, ALT,AST, ALKPHOS, TBILI, AMYLASE, LIPASE, LACTATE in the last 24 hours.MG/PHOS: No results for input(s): MG, P in the last 24 hours.Renal Panel: No results for input(s): ALBUMIN, CREAT, BUN, GLUC, CA, P,CHLOR, K, CO2, NA in the last 24 hours.Heme: No results for input(s): RETICP, ABSRETIC, LD, ZENA, FE, TIBC,TRANSFERSAT in the last 24 hours.No results found for: UALBCRAsseharleen/Nessa is a 51 year old female with:# Diverticulitis POA: -Cont cipro/flagyl, advance diet as tolerated#ObesityVTE Prophylaxis: Lovenox 40mg Sub Q DailyDisposition: HomePlan of care discussed with: PatientSIGNATURE: Kashif Vila DO PATIENT NAME: Holger HarrisonDATE: June 28, 2017 : 5:32 PM PAGER/CONTACT #: My Pager Normal [facility] CT ABDOMEN AND PELVIS WITH C ONTRASTon 06-27-2017 CT ABDOMEN AND PELVIS WITH CONTRAST Performed at [facility] APPROVED BY: RAMON MCLAIN MD EXAMINATION: CT ABDOMEN AND PELVIS WITH IV CONTRAST CLINICAL HISTORY: Abdominal pain TECHNIQUE: CT of the abdomen and pelvis was performed using standard technique, scanning from just above the dome of the diaphragm to the symphysis pubis. MQ: CTAP_3 Contrast:Intravenous: 100 ml of Omnipaque 300 CT Radiation dose: Integrated Dose-length product (DLP) for this visit = 922 mGy*cm.CT Dose Reduction Employed: Automated exposure control COMPARISON: [...] abscess. No extraluminal gas to indicate perforation. Normal [facility] ED NOTEon 06-27-2017 ED NOTE HNO ID: [id number] Author: Germain (Rn) DAVID Valentine Service: Emergency Medicine Author Type: Registered Nurse Type: ED Notes Filed: 06/27/2017 12:05 AM Note Text: Clean catch urine specimen obtained and sent. Normal [facility] ED NOTE HNO ID: [id number] thor: Germain (Rn) JOSE R Valentineervice: Emergency MedicineAuthor Type: Registered NurseType: ED NotesFiled: 06/26/2017 11:52 PMNote Text: Ticket to ride completed by this RN. Transport called, notified patientis ready for CT at this time. Normal [facility] ED PROV NOTEon 06-27-2017 ED PROV NOTE HNO ID: [id number] thor: DAVID Doervice: Emergency MedicineAuthor Type: PhysicianType: ED Provider NotesFiled: 06/27/2017 5:14 AMNote Text:51-year-old female presenting for possible abscess due to diverticulitis.The patient has a history of complicated diverticulitis withmicroperforations in the past. States she has had problems with symptomsof diverticulitis at the beginning of this year. She just finished acourse of Augmentin. She had an outpatient CT done today the CT was donewith oral contrast at an outside hospital. There was concerns ofintra-abdominal abscess. No IV contrast given. She reports chills. Shehas had a poor appetite and loose stool.Constitutional: . Nontoxic, well-appearing without any respiratorydistress.HEENT: Mucous membranes moist.Neck: Supple. Normal range of motion.Cardiovascular: Heart is regular rate and rhythm without murmurs, rubs orgallops.Pulmonary: Lungs clear to auscultation bilaterally without wheezes,rhonchi as well as rales.Gastrointestinal: Abdomen soft, left lower quadrant tenderness,nondistended with normal active bowel sounds. No rebound, guarding orperitoneal signs.Genitourinary: No CVA tenderness.Muscle skeletal: Moves all extremities equally and normally.The CT was done at an outside hospital. We could not get the actualimages but we did get the read. It was not done with IV contrast. Thepatient had a CT abdomen and pelvis with IV contrast. Findings concerningfor diverticulitis but no abscess. The patient is failing outpatientmanagement. The patient will be admitted for further management and IVantibiotics.Chani Niño MD06/27/17 0514 [facility] ED PROV NOTE HNO ID: [id number] thor: Juan Coe Resrvice: Emergency MedicineAuthor Type: ResidentType: ED Provider NotesFiled: 06/27/2017 2:59 AMNote Text: -------Attestation signed by Chani Niño MD at 06/27/2017 5:15 AMAttending NoteI evaluated the patient and personally participated in the tafoya components. Iagree with the resident's findings and plan as documented and have discussedthe case and management of the patient's care with the resident.Signature: Chani Niño, MDDate: 06/27/2017Time: 5:14 AM ----ED Provider NotePatient Name: Holger MccordMRN: [id number] DATE: 06/26/17HistoryPatient presents with:Abdominal Pain: Pt with abdominal pain that started a couple weeks ago.Pt was diagnosed with diverticulitis and just finished antibotics. Pt wassent for an outpatient CT scan today and was called by her PCP and wastold to come to ED. Pt left lower quadrant pain. Denies nausea. Decreasein appetite. +diarrhea this morning after IV contrast. +burning withurination. Pt states i think i may have a yeast infection from theantibioticsHPI Comments: Holger Mccord is a 51 y/o female with PMH of recurrentdiverticulitis with most recent diverticulitis diagnosis proximally 2weeks ago. Patient was placed on a ten-day course of Augmentin withoutany significant relief. The patient presented to her PCPs office thismorning due to persistent symptoms and an abdominal CT scan was ordered.After this was read or concerns for possible development of an abscess andshe was referred to [facility] for evaluation by general surgery forpossible drainage. Patient states she has had chills though has beenafebrile when taking her temperature. Her pain is in her left lowerquadrant and described as a constant aching sensation with tenderness topalpation. She also gets sharp shooting exacerbations across her lowerabdomen in association with eating food having bowel movements. Patientdenies any nausea or vomiting. She has some diarrhea this morning afteroral contrast with the CT scan has had none since. She denies any bloodin her stool. She denies any dysuria or hematuria though has had somevaginal burning which she states is from a yeast infection due to herrecent antibiotic use. She denies any vaginal bleeding.History provided by: PatientLanguage mineral engineer used: NoPAST MEDICAL HISTORYDiagnosis Date- Benign neoplasm of colon Questionable cancerous lesion on polypectomy, no additional treatment- Endometriosis 12/17/2009- Endometriotic cyst of ovary- Fibroadenosis of breast 07/07/2007PAST SURGICAL HISTORYProcedure Laterality Date- BX OF BREAST; INCISIONAL or 07/2007 Bx of breast, incisional- COLONOSCOP W/ OR W/O [facility] SPEC 2008,2010,2012 Colonoscopy- COLONOSCOPY 07/01/07, 07/2007- EXTRACTION ERUPTED TOOTH/EXR 2 wisdom teeth- L'SCOPE REM ADNEX W/PART/TOT OOPH/SALP 11/30/2009 Left Overy Removed- CARLOTA W/WO REMOVAL TUBE OVARY 08/2009 CARLOTA/RSO- THERMAL ENDOMETRIAL ABLATION 01/2009FAMILY HISTORYProblem Relation Age of Onset- Colon Cancer Paternal Grandmother- Coronary Artery Disease Maternal Grandmother- Breast Cancer Maternal Grandmother Diagnosed prior to age 40- None Other No family history of ovarian or uterine cancer.Social HistorySocial History Main Topics- Smoking status: Never Smoker- Smokeless tobacco: Never Used- Alcohol use No- Drug use: No- Sexual activity: Yes Partners: Male control/ protection: Surgical Comment: vasectomy/CARLOTA/BSOALLERGIES Allergen Reactions- Percocet [Oxycodone* RashReview of SystemsConstitutional: Positive for chills. Negative for fever.HENT: Negative for congestion, drooling, facial swelling, rhinorrhea andsore throat.Eyes: Negative for discharge and redness.Respiratory: Negative for cough and shortness of breath.Cardiovascular: Negative for chest pain, palpitations and leg swelling.Gastrointestinal: Positive for abdominal pain and diarrhea. Negative forblood in stool, constipation, nausea and vomiting.Genitourinary: Negative for dysuria and hematuria.Skin: Negative for pallor and rash.Neurological: Negative for dizziness, light-headedness and headaches.All other systems reviewed and are negative.Physical ExamBP 135/75 Pulse 86 Temp (Src) 98.2 (Oral) Resp 14 Ht 5' 4 (1.63m) Wt 222 lb (100.7kg) SpO2 99% LMP 08/16/2009 BMI 38.09 kg/(m2).Physical ExamConstitutional: She is oriented to person, place, and time. She appearswell-developed and well-nourished. No distress.HENT:Head: Normocephalic and atraumatic.Right Ear: External ear normal.Left Ear: External ear normal.Mouth/Throat: Oropharynx is clear and moist.Eyes: Conjunctivae and EOM are normal. Pupils are equal, round, andreactive to light. Right eye exhibits no discharge. Left eye exhibits nodischarge. No scleral icterus.Neck: Normal range of motion. Neck supple.Cardiovascular: Normal rate and regular rhythm. Exam reveals no gallopand no friction rub.No murmur heard.Pulmonary/Chest: Effort normal and breath sounds normal. No respiratorydistress. She has no wheezes. She has no rales. She exhibits notenderness.Abdominal: Soft. Bowel sounds are normal. She exhibits no distension andno mass. There is tenderness in the left lower quadrant. There is norigidity, no rebound, no guarding, no CVA tenderness, no tenderness atMcBurney's point and negative Faulkner's sign.Musculoskeletal: Normal range of motion. She exhibits no edema, tendernessor deformity.Lymphadenopathy: She has no cervical adenopathy.Neurological: She is alert and oriented to person, place, and time.Skin: Skin is warm and dry. No rash noted. No erythema. No pallor.Psychiatric: She has a normal mood and affect.Nursing note and vitals reviewed.Diagnostic TestingED Labs Ordered and ReviewedBASIC METABOLIC PANEL (AK,AV,EU,FV,HL,SILVIANO,MM,SP) - Abnormal; Notable forthe following: Result Value Ref Range BUN 6 (*) 7 - 18 mg/dL All other components within normal limitsCBC + AUTO DIFF (AK,AV,EU,FV,HL,SILVIANO,MM,SP) - Abnormal; Notable for thefollowing: MCHC 35.8 (*) 31.6 - 34.8 % MPV 8.8 (*) 9.4 - 12.3 fl All other components within normal limitsURINALYSIS WITH MICROSCOPIC (AK,AV,EU,FV,HL,SILVIANO,MM,SP) - Abnormal; Notablefor the following: Ketones, Urine 80 (*) Negative mg/dL Hemoglobin, Urine SMALL (*) Negative Leukocytes Esterase TRACE (*) Negative All other components within normal limitsURINALYSIS WITH MICROSCOPIC (AK,AV,EU,FV,HL,SILVIANO,MM,SP) - Abnormal; Notablefor the following: Ketones, Urine 80 (*) Negative mg/dL Protein, Urine TRACE (*) Negative mg/dL Bilirubin, Urine see below (*) Negative Mucus Threads MANY (*) None Calcium Oxalate Crystal MODERATE (*) None WBC, Urine 5.3 (*) 0.0 - 5.0 /hpf EP Cells Urine 5.4 (*) 0.0 - 5.0 /hpf All other components within normal limitsMDRD GFRHCG QUALITATIVE URINE (AK,AV,EU,FV,HL,SILVIANO,MM,SP)P roceduresMedical Decision Making / ED CourseED CourseHolger Mccord is a 51 y/o with PMH of Recurrent diverticulitis who isreferred here from her primary care physician after an outpatient CT scanshowed evidence concerning for abscess formation. Fortunately patient didnot have the CT scan images with her however she did have a port which didmention a fluid collection adjacent to her area of diverticulitis. ThisCT scan was done without contrast and therefore evaluation for abscess waslimited. On arrival to the emergency department here the patient isafebrile and vitals are stable and within normal limits. She appearscomfortable and in no acute distress. She does have some mild tendernessto palpation of her left lower quadrant. Her abdomen is non-surgical andshe has no rebound tenderness. Patient was given IV fluids and 3.375 gof Zosyn empirically.Basic laboratory testing was obtained. Patient has no leukocytosis with awhite blood cell count of 7.66. BMP was unremarkable. Urinalysis showedno significant evidence for urinary tract infection. A repeat CT abdomenand pelvis with IV contrast was obtained which did show area ofdiverticulitis in the proximal sigmoid colon. There was free fluidadjacent to the anterior margin of the sigmoid colon without a well-formedabscess. Without a well-formed abscess and do not feel that surgicalconsultation is required at this time. However given her history ofrecurrent diverticulitis with recent failed outpatient management I dofeel she should be admitted to the hospital for IV antibiotics andobservation of this episode of diverticulitis. She was given a 500mg doseof Flagyl. She will be admitted to [facility] for continued management.Encounter Diagnosis ICD-10-CM1. Diverticulitis K57.92PlanThe Patient was ADMITTED TO: [facility] in stable condition..Condition at time of disposition: stableSIGNATURE: Shannan Coe (Res) Vanna Frost06/27/17 0259Krkailee Niño MD06/27/17 0515 Normal [facility] Glucose Meteron 06-27-2017 Glucose mass conc 87 mg/dL Normal 70-99 [facility] Comment on above: Result Comment: RN N OTIFIED Performed By: #### G LMET ####[address] [address] HISTORY PHYSICALon 8 HISTORY PHYSICAL HNO ID: [id number] thor: Charly Gaytan: Hospital MedicineAuthor Type: PhysicianType: HANDPFiled: 06/27/2017 6:44 AMNote Text:HISTORY AND PHYSICAL EXAMINATIONSERVICE DATE: 06/27/2017SERVICE TIME: 6 amPRIEAST [facility]AB[facility] CARE PHYSICIAN: Bety CastrojectiveCHISURJIT COMPLAINT: Abdominal painHPI: This is a 51 year old female with Hx of recurrent diverticulosis withHx of microperferation who presents with diverticulitis having failedoutpatient therapy.Per patient, she completed 10 day course of Augmentin prescribed by perPCP for diverticulitis on 06/24. CT abd/pelv with PO contrast doneyesterday raised concern for possible abscess and she came to the ED inpart to have CT done with IV contrast. No abscess or microperf was seen onCT but sigmoid diverticulitis was seen.She follows with Dr. Holm (Surgery) as an outpatient for recurrentdiverticulitis.Sh e continues to have LLQ pain. 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- VertigoPAST SURGICAL HISTORYProcedure Laterality Date- BX OF BREAST; INCISIONAL or 07/2007 Bx of breast, incisional- COLONOSCOP W/ OR W/O [facility] SPEC 2008,2010,2012 Colonoscopy- COLONOSCOPY 07/01/07, 07/2007- EXTRACTION ERUPTED TOOTH/EXR 2 wisdom teeth- HYSTERECTOMY HX 2009- L'SCOPE REM ADNEX W/PART/TOT OOPH/SALP 11/30/2009 Left Overy Removed- CARLOTA W/WO REMOVAL TUBE OVARY 08/2009 CARLOTA/RSO- THERMAL ENDOMETRIAL ABLATION 01/2009- WRIST SURGERY HX Bilateral 2017 Carpel TunnelFAMILY HISTORYProblem Relation Age of Onset- Colon Cancer Paternal Grandmother- Coronary Artery Disease Maternal Grandmother- Breast Cancer Maternal Grandmother Diagnosed prior to age 40- None Other No family history of ovarian or uterine cancer.Social HistorySubstance Use Topics- Smoking status: Never Smoker- Smokeless tobacco: Never Used- Alcohol use NoPrescriptions Prior to Admission:LACTOBACILLUS ACIDOPHILUS (PROBIOTIC ORAL) Take 1 capsule by mouth oncedaily. Disp: Rfl:Calcium Carb-Cholecalciferol (CALCIUM 600 + D,3,) 600 mg(1,500mg) -200unit ORAL Tab Take one(1) tablet twice daily. Disp: Rfl: 0Cholecalciferol, Vitamin D3, (VITAMIN D-3) 1,000 unit ORAL Chew Take 1tablet twice daily. Disp: Rfl: 0MULTIVITAMIN TAB Take one(1) tablet daily. Disp: Rfl: 0Estradiol (VIVELLE-DOT) 0.0375 mg/24 hr Apply 1 Patch as directed twice aweek. TWICE WEEKLY Disp: 4 Patch Rfl: 0estradiol (VIVELLE-DOT) 0.025 mg/24 hr Apply 1 Patch as directed everynd and Thursday. TWICE WEEKLY Disp: 4 Patch Rfl: 1estradiol (VIVELLE-DOT) 0.05 mg/24 hr Apply 1 Patch as directed twice aweek. Disp: 8 Patch Rfl: 11ALLERGIESAllergen Reactions- Percocet [Oxycodone* RashCOMPLETE REVIEW OF SYSTEMS:GENERAL: FatigueHEENT: Negative for frequent or significant headaches, No changes inhearing or vision, no nose bleeds or other nasal problemsNECK: Negative for lumps, goiter, pain and significant neck swellingRESPIRATORY: Negative for cough, hemoptysis, wheezing, COPD, dyspnea orshortness of breathCARDIOVASCULAR: Negative for chest pain, leg swelling, hypertension, CHFor palpitationsGI: No nausea, vomiting, or diarrheaGU: No history of dysuria, frequency or incontinenceMUSCULOSKELETA L: Negative for joint pain or swelling, back pain or musclepainSKIN: Negative for lesions, rash, and itchingHEMATOLOGY/LYMPHOLO GY: Negative for prolonged bleeding, bruising easily orswollen nodesENDOCRINE: Negative for cold or heat intolerance, polyuria, polydipsia andgoiterNEURO: No history of headaches, syncope, paralysis, seizures or tremorsObjectivePHYSICAL EXAM:Physical Exam Performed:GENERAL: Alert, in mild painful distress, cooperativeHEAD/SINUSES: No significant findingsEYES: PERRLA, EOMIOROPHARYNX: Lips, mucosa, and tongue normal. Teeth and gums normal.Oropharynx normal.NECK: No jugulovenous distention, SuppleLUNGS: Lungs clear to auscultation, Good diaphragmatic excursionCARDIAC: Normal S1 and S2; no rubs, murmurs, or gallopsABDOMEN: Abdomen soft, tender in LLQ, BS normal, No masses or organomegalyEXTREMITIES: No edemaNEURO: Cranial nerves II-XII intactPULSES: 2+ radialBP 123/79 Pulse 88 Temp (Src) 98.4 (Oral) Resp 18 Ht 5' 4 (1.63m) Wt 222 lb (100.7kg) SpO2 98% LMP 08/16/2009 BMI 38.09 kg/(m2).DATA:Diagnostic tests reviewed for today's visit:Most recent labs and imaging results.CT abd/pelv with IV conIMPRESSION:?Diverticuli tis of the proximal sigmoid colon. ?Free fluid adjacent to theanterior?margin of the sigmoid colon without a well-formed abscess. ?Noextraluminal gasto indicate perforation.Assessment/Bonnie nPrincipal Problem: Diverticulitis POA: Unknown Assessment AND Plan: uncomplicatedFailed outpatient therapy, no leukocytosisPlan:- admit to inpatient- cipro and flagyl IV empirically- advance diet to clears as patient is feeling slightly better sincecoming to ED- f/u with Dr. Holm, her surgeon as outpatient given frequency ofdiverticulitis episodesObesity: wt loss as outpatientLovenox for DVT ppxDispo: home when medically stable, likely within 2 daysPlan discussed with patient at bedsideSIGNATURE: Charly Botello MD PATIENT NAME: Holger ReaganATE: June 27, 2017 : 6:29 AM PAGER/CONTACT #: [phone] Normal [facility] Urinalysis Routineon 018 Calcium MODERATE Abnormal None [facility] Comment on above: Performed By: #### U RIN2 ####[place] [address] Mucus Threads MANY Abnormal None [facility] Comment on above: Performed By: #### U RIN2 ####[place] [address] Urine, bacteria in sediment FEW Normal None [facility] Comment on above: Performed By: #### U RIN2 ####[address] [address] Ep Cells Urine 5.4 /hpf High 0.0-5.0 [facility] Comment on above: Performed By: #### U RIN2 ####[place] [id number] Hyaline Cast 0.4 /lpf Normal 0.0-1.0 [facility] Comment on above: Performed By: #### U RIN2 ####[address] [address] Urine, erythrocytes in sediment by area 2.3 /[HPF] Normal 0.0-5.0 [facility] Comment on above: Performed By: #### U RIN2 ####[address] [address] Urine, leukocytes in sedmiment 5.3 /[HPF] High 0.0-5.0 [facility] Comment on above: Performed By: #### U RIN2 ####[address] [address] Bilirubin Urine see below Abnormal Negative [facility] Comment on above: Result Comment: Dete cted (Unable to confirm). Performed By: #### U RIN2 ####[address] [address] Hemoglobin,Urine Negative Normal Negative [facility] Comment on above: Performed By: #### U RIN2 ####[address] [address] Ketone Urine 80 mg/dL Abnormal Negative [facility] Comment on above: Performed By: #### U RIN2 ####[address] [address] Nitrites Urine Negative Normal Negative [facility] Comment on above: Performed By: #### U RIN2 ####[address] [address] Protein Urine TRACE Abnormal Negative [facility] Comment on above: Performed By: #### U RIN2 ####[address] [address] Specific Gill, Ur 1.023 Normal 1.005-1 .03 0 [facility] Comment on above: Performed By: #### U RIN2 ####[address] [address] Urine, appearance CLEAR Normal [facility] Comment on above: Performed By: #### U RIN2 ####[place] [address] Urine, color DK YELLOW Normal [facility] Comment on above: Performed By: #### U RIN2 ####[place] [address] Urine, glucose presence Negative Normal Negative [facility] Comment on above: Performed By: #### U RIN2 ####[place] [address] Urine, pH 5.5 [pH] Normal 5.0-8.0 [facility] Comment on above: Performed By: #### U RIN2 ####[place] [address] Urobilinogen,Ur 0.2 EU/dL Normal 0.0-1.0 [facility] Comment on above: Performed By: #### U RIN2 ####[place] [address] WBC (Leukocytes) Negative Normal Negative [facility] Comment on above: Performed By: #### U RIN2 ####[place] [address] Urine HCG, Qual.on 8 HCG.beta subunit ( test) Ql (U) Negative Normal Negative [facility] Comment on above: Performed By: #### H CGUR ####[place] [address] Specific Gill, Ur 1.023 Normal 1.005-1 .03 0 [facility] Comment on above: Performed By: #### H CGUR ####[place] [address] Basic Panelon 06-26-2017 Creatinine 0.71 mg/dL Normal 0.51-0.95 [facility] Comment on above: Performed By: #### P 8 ####[place] [address] Anion gap 10 mmol/L Normal 8-16 [facility] Comment on above: Performed By: #### P 8 ####[place] [address] CO2 29 mmol/L Normal 21-32 [facility] Comment on above: Performed By: #### P 8 ####[facility] [place], [place] [address] Glucose mass conc 84 mg/dL Normal 70-99 [facility] Comment on above: Performed By: #### P 8 ####[facility] [place], [place] [address] Urea nitrogen 6 mg/dL Low 7-18 [facility] Comment on above: Performed By: #### P 8 ####[facility] [place], [place] [address] Calcium 9.0 mg/dL Normal 8.5-10.1 [facility] Comment on above: Performed By: #### P 8 ####[facility] [place], [place] [address] Chloride 104 mmol/L Normal 98-107 [facility] Comment on above: Performed By: #### P 8 ####[facility] [place], [place] [address] Potassium molar conc 3.7 mmol/L Normal 3.5-5.1 [facility] Comment on above: Performed By: #### P 8 ####[facility] [place], [place] [address] Sodium 139 mmol/L Normal 136-145 [facility] Comment on above: Performed By: #### P 8 ####[address] [address] ED NOTEon 06-26-2017 ED NOTE HNO ID: [id number] thor: Roxy Philippe) JOSE R Horvathervice: Emergency MedicineAuthor Type: Registered NurseType: ED NotesFiled: 06/26/2017 3:49 PMNote Text:Pt provided with urine cup to collect urine specimen. Pt educated onobtaining a clean catch. Normal [facility] ED NOTE HNO ID: [id number] Author: Roxy Philippe) Alexandru RN Service: Emergency Medicine Author Type: Registered Nurse Type: ED Notes Filed: 06/26/2017 3:48 PM Note Text: Pt had her scan done at [facility] without contrast and was told they she may have an abscess. Normal [facility] ED Triage Noteon 06-26-2017 ED Triage Note HNO ID: [id number] thor: Beba Cuenca (Pa)ervice: Emergency MedicineAuthor Type: Physician AssistantType: ED Triage NotesFiled: 06/26/2017 3:52 PMNote Text:ED INTAKE NOTEPatient Name: Holger MccordMRN: [id number] Date: 06/26/17BRIEF HPI:51 yo female presenting to ED due to abnormal CT results from earliertoday. She states that she was recently diagnosed with diverticulitis andjust finished a ten-day course of antibiotics 2 days ago. She states thatshe has not felt much better after antibiotics and has continued to have alow-grade fever, chills and left lower quadrant abdominal pain. She alsostates she had diarrhea after drinking the CT contrast earlier today. Shewas advised by her physician to come in after the CT results. She deniesany blood in the stool.BRIEF EXAM:Awake and AlertRRRCTAB+BS, LLQ TTPINTAKE WORKUP:Bloodwork: CBCBMPUrinalysisSIGNATURE: Beba Amanda PA-C Normal [facility] Hemogram/Diffon 06-26-2017 Abs Immature Grans 0.02 thou/cmm Normal 0.00-0.05 [facility] Comment on above: Performed By: #### C BCD1 ####[place] [address] Abs. Baso 0.03 thou/cmm Normal 0.01-0.08 [facility] Comment on above: Performed By: #### C BCD1 ####[place] [address] Abs. Bertie 0.41 thou/cmm Normal 0.27-0.70 [facility] Comment on above: Performed By: #### C BCD1 ####[place] [address] Abs. Neut 4.93 thou/cmm Normal 1.56-6.13 [facility] Comment on above: Performed By: #### C BCD1 ####[place] [address] Basophils/100 WBC Auto (Bld) 0.4 % Normal [facility] Comment on above: Performed By: #### C BCD1 ####[facility] [place], [place] [address] Eosinophils 0.00 thou/cmm Normal 0.00-0.31 [facility] Comment on above: Performed By: #### C BCD1 ####[address] [address] Eosinophils/100 leukocytes 0.0 % Normal [facility] Comment on above: Performed By: #### C BCD1 ####[address] [address] Erythrocyte distribution width Auto Ratio (RBC) 12.2 % Normal 11.7-14.4 [facility] Comment on above: Performed By: #### C BCD1 ####[address] [address] Erythrocytes (RBC) 4.65 mil/cmm Normal 3.93-5.22 [facility] Comment on above: Performed By: #### C BCD1 ####[address] [id number] Hematocrit (HCT) 40.2 % Normal 34.1-44.9 [facility] Comment on above: Performed By: #### C BCD1 ####[address] [address] Hemoglobin mass conc (Bld) 14.4 g/dL Normal 11.2-15.7 [facility] Comment on above: Performed By: #### C BCD1 ####[address] [address] Immature Grans 0.30 % Normal [facility] Comment on above: Performed By: #### C BCD1 ####[address] [address] Lymphocytes 2.26 thou/cmm Normal 1.18-3.74 [facility] Comment on above: Performed By: #### C BCD1 ####[address] [address] Lymphocytes/100 leukocytes 29.5 % Normal [facility] Comment on above: Performed By: #### C BCD1 ####[facility] [place], [place] [address] MCH 31.0 pg Normal 25.6-32.2 [facility] Comment on above: Performed By: #### C BCD1 ####[address] [address] MCHC mass conc (RBC) 35.8 % High 31.6-34.8 [facility] Comment on above: Performed By: #### C BCD1 ####[address] [address] MCV 86.5 fL Normal 79.4-94.8 [facility] Comment on above: Performed By: #### C BCD1 ####[address] [address] Monocytes/100 leukocytes 5.4 % Normal [facility] Comment on above: Performed By: #### C BCHui ####[address] [address] Platelet mean volume (PMV) 8.8 fL Low 9.4-12.3 [facility] Comment on above: Performed By: #### C BCD1 ####[address] [address] Platelets 304 thou/cmm Normal 182-369 [facility] Comment on above: Performed By: #### C BCHui ####[address] [address] RDW SD 38.7 fl Normal 36.4-46.3 [facility] Comment on above: Performed By: #### C BCD1 ####[address] [address] Seg Neutrophil 64.4 % Normal [facility] Comment on above: Performed By: #### C BCD1 ####[address] [address] WBC (Leukocytes) 7.66 thou/cmm Normal 3.98-10.04 [facility] Comment on above: Performed By: #### C BCD1 ####[address] [address] MDRD GFRon 06-26-2017 eGFR (non-black) mL/min/{1.73_m2} Normal >60mL/m in/ 1.73m2 [facility] Comment on above: Result Comment: If t he patient is , multiply the result by 1.210. Performed By: #### G FR ####[place] [address] Urinalysis Routineon 018 Ep Cells Urine 3.9 /hpf Normal 0.0-5.0 [facility] Comment on above: Performed By: #### U RIN2 ####[address] [address] Hyaline Cast 0.8 /lpf Normal 0.0-1.0 [facility] Comment on above: Performed By: #### U RIN2 ####[address] [address] Urine, bacteria in sediment NONE Normal None [facility] Comment on above: Performed By: #### U RIN2 ####[address] [address] Urine, erythrocytes in sediment by area 3.3 /[HPF] Normal 0.0-5.0 [facility] Comment on above: Performed By: #### U RIN2 ####[address] [address] Urine, leukocytes in sedmiment 1.7 /[HPF] Normal 0.0-5.0 [facility] Comment on above: Performed By: #### U RIN2 ####[address] [address] Bilirubin Urine Negative Normal Negative [facility] Comment on above: Performed By: #### U RIN2 ####[address] [address] Hemoglobin,Urine SMALL Abnormal Negative [facility] Comment on above: Performed By: #### U RIN2 ####[address] [address] Ketone Urine 80 mg/dL Abnormal Negative [facility] Comment on above: Performed By: #### U RIN2 ####[place] [address] Nitrites Urine Negative Normal Negative [facility] Comment on above: Performed By: #### U RIN2 ####[place] [address] Protein Urine Negative Normal Negative [facility] Comment on above: Performed By: #### U RIN2 ####[place] [address] Specific Gill, Ur 1.006 Normal 1.005-1 .03 0 [facility] Comment on above: Performed By: #### U RIN2 ####[place] [address] Urine, appearance CLEAR Normal [facility] Comment on above: Performed By: #### U RIN2 ####[place] [address] Urine, color YELLOW Normal [facility] Comment on above: Performed By: #### U RIN2 ####[place] [address] Urine, glucose presence Negative Normal Negative [facility] Comment on above: Performed By: #### U RIN2 ####[place] [address] Urine, pH 6.0 [pH] Normal 5.0-8.0 [facility] Comment on above: Performed By: #### U RIN2 ####[place] [address] Urobilinogen,Ur 0.2 EU/dL Normal 0.0-1.0 [facility] Comment on above: Performed By: #### U RIN2 ####[place] [address] WBC (Leukocytes) TRACE Abnormal Negative [facility] Comment on above: Performed By: #### U RIN2 ####[place] [address] Office Visit: Cathi wilson 10-31-2017 Dietary management education, guidance, and counseling (procedure) yes Invalid Interpretation Code [facility] [employer] Work Phone: Documentation of current medications (procedure) Done Invalid Interpretation Code [facility] [employer] Work Phone: Fall risk assessment No Invalid Interpretation Code [facility] [employer] Work Phone: Tobacco smoking status NHIS Never Invalid Interpretation Code [facility] [employer] Work Phone: Tobacco use [facility] Never smoker Invalid Interpretation Code [facility] [employer] Work Phone: Office Visit: Fever of unkno wn originon 12-19-2016 Dietary management education, guidance, and counseling (procedure) yes Invalid Interpretation Code [facility] [employer] Work Phone: Documentation of current medications (procedure) Done Invalid Interpretation Code [facility] [employer] Work Phone: Fall risk assessment No Invalid Interpretation Code [facility] [employer] Work Phone: Tobacco smoking status NHIS Never Invalid Interpretation Code [facility] [employer] Work Phone: Tobacco use [facility] Never smoker Invalid Interpretation Code [facility] [employer] Work Phone: Office Visit: est annualon 0 11-21-2016 Fall risk assessment No [facility] Hemoglobin.gastrointes tinal Ql (St) not done Invalid Interpretation Code 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 Tobacco smoking status NHIS Never Invalid Interpretation Code [employer] [facility] Work Phone: Tobacco use [facility] Never smoker Invalid Interpretation Code [employer] Work Phone: Office Visit: post c-scopeon 10-20-2016 Dietary management education, guidance, and counseling (procedure) yes Invalid Interpretation Code [facility] [employer] Work Phone: Documentation of current medications (procedure) Done Invalid Interpretation Code [facility] [employer] Work Phone: Tobacco use [facility] Never smoker Invalid Interpretation Code [facility] [employer] Work Phone: Office Visiton 10-08-2016 Documentation of current medications (procedure) Done Invalid Interpretation Code [facility] [employer] Work Phone: Fall risk assessment No Invalid Interpretation Code [facility] [employer] Work Phone: Protein mass conc Done [facility] [employer] Work Phone: Tobacco smoking status NHIS Never Invalid Interpretation Code [facility] [employer] Work Phone: Tobacco smoking status NHIS Never smoker [facility] [employer] Work Phone: Tobacco use [facility] Never smoker Invalid Interpretation Code [facility] [employer] Work Phone: Office Visit: est annualon 0 09-07-2015 MG Breast screening Normal Bilateral Invalid Interpretation Code [facility] Office Visiton 10-07-2012 Colonoscopy (procedure) Abnormal Invalid Interpretation Code [facility] [employer] Work Phone: Protein mass conc Abnormal [facility] [employer] Work Phone: Vital Signs Date Time Vital Sign Value Performing Clinician Faci lity 02-15-2024 08:44-0500 Body height 165.1 cm Luis Graham MD Work Phone: [facility] 02-15-2024 08:44-0500 Body mass index (BMI) [Ratio] 41.1 kg/m2 Luis Graham MD Work Phone: [facility] 02-15-2024 08:44-0500 Body weight 112.04 kg Luis Graham MD Work Phone: [facility] 02-15-2024 08:44-0500 Diastolic blood pressure 92 mm[Hg] Luis Graham MD Work Phone: [facility] 02-15-2024 08:44-0500 Heart rate 85 /min Luis Graham MD Work Phone: [facility] 02-15-2024 08:44-0500 SaO2% (BldA) [Mass fraction] 96 % Luis Graham MD Work Phone: [facility] 02-15-2024 08:44-0500 Systolic blood pressure 138 mm[Hg] Luis Graham MD Work Phone: [facility] 01-25-2024 10:04-0500 Body height 165.1 cm Luis Graham MD Work Phone: [facility] 01-25-2024 10:04-0500 Body mass index (BMI) [Ratio] 40.77 kg/m2 Luis Graham MD Work Phone: [facility] 01-25-2024 10:04-0500 Body weight 111.13 kg Luis Graham MD Work Phone: [facility] 01-25-2024 10:04-0500 Diastolic blood pressure 90 mm[Hg] Luis Graham MD Work Phone: [facility] 01-25-2024 10:04-0500 Heart rate 81 /min Luis rGaham MD Work Phone: [facility] 01-25-2024 10:04-0500 SaO2% (BldA) [Mass fraction] 98 % Luis Graham MD Work Phone: [facility] 01-25-2024 10:04-0500 Systolic blood pressure 150 mm[Hg] Luis Graham MD Work Phone: [facility] 12-23-2022 09:49-0400 Body temperature 97.4 [degF] PA-C [employer] PA Work Phone: [facility] 12-23-2022 09:49-0400 Diastolic blood pressure 93 mm[Hg] PA-C [employer] PA Work Phone: [facility] 12-23-2022 09:49-0400 Heart rate 89 /min PA-C [employer] PA Work Phone: [facility] 12-23-2022 09:49-0400 Respiratory rate 18 /min PA-C [employer] PA Work Phone: [facility] 12-23-2022 09:49-0400 SaO2% (BldA) [Mass fraction] 97 % PA-C [employer] PA Work Phone: [facility] 12-23-2022 09:49-0400 Systolic blood pressure 151 mm[Hg] PA-C Carmita Revolver PA Work Phone: [facility] 12-23-2022 09:30-0400 Inhaled oxygen flow rate 2 L/min PA-C Carmita Revolver PA Work Phone: [facility] 12-23-2022 07:13-0400 Body height 162.56 cm PA-C [employer] PA Work Phone: [facility] 12-23-2022 07:13-0400 Body mass index (BMI) [Ratio] 41.3 kg/m2 PA-C Carmita [place] PA Work Phone: [facility] 12-23-2022 07:13-0400 Body weight 109.1 kg PA-C [employer] PA Work Phone: [facility] 09-25-2022 09:04-0400 Body height 162.56 cm PA-C [employer] PA Work Phone: [facility] 09-25-2022 09:04-0400 Body mass index (BMI) [Ratio] 42.3 kg/m2 PA-C [employer] PA Work Phone: [facility] 09-25-2022 09:04-0400 Body weight 111.81 kg PA-C [employer] PA Work Phone: [facility] 12-19-2016 08:30-0400 BMI (Body Mass Index) 39.48 kg/m2 Lionel Holm MD [facility] Work Phone: 12-19-2016 08:30-0400 Body Temperature 98.6 [degF] Lionel Holm MD [facility] Work Phone: 12-19-2016 08:30-0400 BP Diastolic 75 mm[Hg] Lionel Holm MD [facility] Work Phone: 12-19-2016 08:30-0400 BP Systolic 110 mm[Hg] Lionel Holm MD [facility] Work Phone: 12-19-2016 08:30-0400 Height 162.56 cm Lionel Holm MD [facility] Work Phone: 12-19-2016 08:30-0400 Pulse (Heart Rate) 100 /min Lionel Holm MD [facility] Work Phone: 12-19-2016 08:30-0400 Respiratory Rate 18 /min Lionel Holm MD [facility] Work Phone: 12-19-2016 08:30-0400 Weight 104.33 kg Lionel Holm MD [facility] Work Phone: 11-21-2016 10:56-0400 BMI (Body Mass Index) 40.5 kg/m2 Velia Wild MD [facility] 11-21-2016 10:56-0400 Body Temperature 97.2 [degF] Velia Wild MD [facility] 11-21-2016 10:56-0400 BP Diastolic 84 mm[Hg] Velia Wild MD [facility] 11-21-2016 10:56-0400 BP Systolic 125 mm[Hg] Velia Wild MD [facility] 11-21-2016 10:56-0400 Height 162.56 cm Velia Wild MD [facility] 11-21-2016 10:56-0400 Pulse (Heart Rate) 96 /min Velia Wild MD [facility] 11-21-2016 10:56-0400 Respiratory Rate 16 /min Velia Wild MD [facility] 11-21-2016 10:56-0400 Weight 107.05 kg Velia Wild MD [facility] 10-08-2016 15:47-0400 BMI (Body Mass Index) 39.82 kg/m2 Lionel Holm MD [facility] Work Phone: 10-08-2016 15:47-0400 Body Temperature 98.2 [degF] Lionel Holm MD [facility] Work Phone: 10-08-2016 15:47-0400 BP Diastolic 82 mm[Hg] Lionel Holm MD [facility] Work Phone: 10-08-2016 15:47-0400 BP Systolic 121 mm[Hg] Lionel Holm MD [facility] Work Phone: 10-08-2016 15:47-0400 Height 162.56 cm Lionel Holm MD [facility] Work Phone: 10-08-2016 15:47-0400 Pulse (Heart Rate) 94 /min Lionel Holm MD [facility] Work Phone: 10-08-2016 15:47-0400 Respiratory Rate 20 /min Lionel Holm MD [facility] Work Phone: 10-08-2016 15:47-0400 Weight 105.24 kg Lionel Holm MD [facility] Work Phone: 10-08-2016 15:47-0400 Weight 105.23 kg Lionel Holm MD [facility] Work Phone: Encounters Encounter Date Encounter Type Care Provider Facility Start: 07-04-2024 End: 07-04-2024 ambulatory [facility] Facility:[facility] Start: 05-18-2024 End: 05-18-[address] Richard Marcelino MD Work Phone: [facility] Work Phone: Start: 05-18-2024 End: 05-18-[address] Guillermo Buckner MD -Radiology, [facility] Work Phone: Start: 05-18-2024 End: 05-18-2024 ambulatory Richard Marcelino Facility:[facility] Start: 03-28-2024 End: 03-28-[address] Richard Marcelino MD -Laboratory Work Phone: Start: 03-28-2024 End: 03-28-2024 ambulatory Richard Marcelino Facility:[facility] Start: 02-15-2024 End: 02-15-2024 Bamboo flowsheet Luis Graham MD Work Phone: [facility] Start: 02-15-2024 End: 02-15-2024 Bamboo flowsheet Luis Graham MD Work Phone: [facility] Start: 02-15-2024 End: 02-15-2024 Office outpatient visit 25 minutes Luis Graham MD Work Phone: [facility] Comment on above: Cervical stenosis of spinal canal (Primary Dx); Chronic bilateral low back pain without sciatica; Leg pain, bilateral; Vertigo; Urinary incontinence, unspecified type; Incontinence of feces, unspecified fecal incontinence type Start: 02-15-2024 End: 02-15-2024 ambulatory LUIS GRAHAM Not Available Start: 02-01-2024 End: 02-01-[address] Luis Graham MD -[facility] Work Phone: Start: 02-01-2024 End: 02-01-2024 ambulatory Luis Graham Facility:[facility] Start: 01-27-2024 End: 01-27-2024 Telephone encounter Luis Graham MD Work Phone: [facility] Start: 01-25-2024 End: 01-25-2024 Bamboo flowsheet Luis Graham MD Work Phone: [facility] Start: 01-25-2024 End: 01-25-2024 Bamboo flowsheet Luis Graham MD Work Phone: [facility] Start: 01-25-2024 End: 01-25-2024 Office outpatient new 45 minutes Luis Graham MD Work Phone: [facility] Comment on above: Cervical stenosis of spinal canal (Primary Dx); Chronic bilateral low back pain without sciatica; Leg pain, bilateral; Urinary incontinence, unspecified type; Incontinence of feces, unspecified fecal incontinence type; Vertigo Start: 01-25-2024 End: 01-25-2024 ambulatory LUIS GRAHAM Not Available Start: 01-20-2024 ambulatory Reid Juarezraymond Facility:[facility] Start: 01-20-2024 End: 01-20-2024 ambulatory [facility] Facility:[facility] Start: 01-05-2024 End: 01-05-2024 Telephone encounter Luis Graham MD Work Phone: [facility] Start: 12-31-2023 End: 12-31-2023 ambulatory Richard Marcelino Facility:[facility] Start: 12-25-2023 ambulatory Clair Lee [employer] Facil ity:[facility] Start: 12-25-2023 End: 12-25-2023 ambulatory [facility] Facility:[facility] Start: 12-16-2023 End: 12-16-2023 ambulatory Clair Lee [employer] Facility:[facility] Start: 11-04-2023 End: 11-04-2023 ambulatory Richard Marcelino Facility:[facility] Start: 08-31-2023 End: 08-31[facility] Start: 08-06-2023 End: 08-06-2023 ambulatory Carmita CHAN Facility:[facility] Start: 12-23-2022 Non-patient / Non-visit STEPHANIE CHAN Work Phone: [facility] Start: 12-23-2022 End: 12-23-2022 Admission to same day surgery center STEPHANIE CHAN Work Phone: [facility] Start: 12-23-2022 End: 12-23-2022 ambulatory STEPHANIE Chisholm PA Work Phone: [facility] Work Phone: Start: 12-08-2022 End: 12-08-2022 Patient encounter procedure STEPHANIE CHAN Work Phone: [facility] Work Phone: Start: 11-27-2022 End: 11-27-2022 Patient encounter procedure STEPHANIE CHAN Work Phone: [facility] Work Phone: Start: 11-24-2022 End: 11-24-2022 ambulatory PA-C Carmita [place] PA Work Phone: [facility] Work Phone: Start: 11-24-2022 End: 11-24-2022 Patient encounter procedure PA-C Carmita [place] PA Work Phone: [facility] Work Phone: Start: 11-22-2022 End: 11-22-2022 ambulatory PA-C Carmita [place] PA Work Phone: [facility] Work Phone: Start: 11-22-2022 End: 11-22-2022 Patient encounter procedure PA-C Carmita Chisholm PA Work Phone: [facility]MRI - [facility] Work Phone: Start: 10-06-2022 End: 10-06-2022 Patient encounter procedure PA-C Carmita Chisholm PA Work Phone: [facility] Work Phone: Start: 09-25-2022 End: 09-25-2022 Patient encounter procedure PA-C Carmita Chisholm PA Work Phone: [facility] Work Phone: Start: 10-25-2021 End: 10-25-2021 ambulatory [facility] Work Phone: Start: 10-25-2021 End: 10-25-2021 Patient encounter procedure [facility] Start: 01-25-2021 End: 01-25-2021 ambulatory [facility] Start: 06-26-2017 End: 06-30-2017 Evaluation and management of inpatient DINO MADDOX Facility:[facility] Procedures Date Procedure Procedure Detail Performing Clinician Start: 05-18-2024 Plain x-ray of pelvis and lower extremity Dr. Richard Marcelino MD Work Phone: Start: 02-01-2024 MRI of cervical spine Dr. Richard marte MD Work Phone: Start: 12-23-2022 Arthroscopy of knee PA-Bert Chisholm PA Work Phone: Start: 11-24-2022 Screening mammography PA-Bert Luther s PA Work Phone: Start: 11-22-2022 MRI of joint of lower extremity PA-Bert Chisholm PA Work Phone: Start: 09-25-2022 Radiologic examination of knee PA-Bert Chisholm PA Work Phone: Start: 10-25-2021 Screening mammography Start: 11-21-2016 Gynecologic examination Encounter for gynecological examination (general) (routine) with abnormal findings Velia Wild MD Start: 10-28-2016 Screening mammography Screening mammogram for breast cancer Velia Wild MD Start: 10-20-2016 End: 10-20-2016 Dietary management education, guidance, and counseling Velia Wild MD Plan of Treatment Date Care Activity Detail Author Start: 02-15-2024 End: 02-15-2024 Patient encounter procedure 02/15/2024 8:40 AM EST Office Visit [facility] [address] [place] [id number] Luis Graham MD [address] [place] [address] Arrived [facility] Comment on above: Arrived Start: 01-25-2024 End: 01-24-2025 MR Cervical spine WO contrast MR cervical spine wo contrast Imaging High Priority Cervical stenosis of spinal canal Expected: 01/25/2024, Expires: 01/24/2025 [facility] Work Phone: Comment on above: Expected: 01/25/2024 , Expires: 01/24/2025 Start: 12-23-2022 Patient discharge [facility] Start: 12-23-2022 Application of ice collar, cap or bag [facility] Start: 12-23-2022 Catheterization of vein [facility] Start: 12-23-2022 Elevation of affecte d extremity [facility] Start: 12-23-2022 Following clinical pathway protocol [facility] Start: 12-23-2022 Procedure discontinued [facility] Start: 12-23-2022 Provision of mobilit y device [facility] Start: 12-23-2022 Taking patient vital signs [facility] Start: 12-23-2022 Vital signs measurements [facility] Start: 12-23-2022 [facility] Start: 12-23-2022 Medication education [facility] Start: 01-06-2017 End: 01-06-2017 Appointment Appointment [facility] [employer] Work Phone: Start: 12-19-2016 End: 12-19-2016 *Creatinine, Serum *Creatinine, Serum [facility] [employer] Work Phone: Start: 12-19-2016 End: 12-19-2016 Ct abdomen & pelvis w/contrast material CT Abdomen/pelvis; with contrast [facility] [employer] Work Phone: Start: 12-19-2016 End: 12-19-2016 Appointment Appointment [facility] [employer] Work Phone: Start: 11-21-2016 End: 11-21-2016 Glucose mass conc *Glucose, Fasting [facility] [employer] Work Phone: Start: 11-21-2016 End: 11-21-2016 Lipid panel [AGGREGATE] *Lipid Profile [facility] [employer] Work Phone: Start: 11-21-2016 End: 11-21-2016 Appointment [facility] Work Phone: Start: 11-21-2016 End: 11-21-2016 Glucose mass conc *Glucose, Fasting [facility] Start: 11-21-2016 End: 11-21-2016 Lipid 1996 panel *Lipid Profile [facility] Start: 11-19-2016 End: 11-19-2016 Appointment Appointment [facility] Start: 10-28-2016 End: 10-28-2016 Mammogram, screening Mammogram, Screening, both breasts [facility] [employer] Work Phone: Start: 10-28-2016 End: 10-28-2016 Mammogram, screening Mammogram, Screening, both breasts [facility] Start: 10-20-2016 End: 10-20-2016 Appointment Appointment [facility] [employer] Work Phone: Start: 10-15-2016 End: 10-15-2016 Appointment Appointment [facility] [employer] Work Phone: Start: 10-08-2016 End: 10-09-2016 Colonoscopy flx dx w/collj spec when pfrmd Colonoscopy [facility] [employer] Work Phone: Start: 10-08-2016 End: 10-09-2016 [employer] [facility] [employer] Work Phone: Start: 10-08-2016 End: 10-09-2016 Diagnostic colonoscopy Colonoscopy [facility] [employer] Work Phone: Start: 10-08-2016 End: 10-09-2016 [employer] [facility] [employer] Work Phone: Patient referral [facility] Work Phone: Payers Date Payer Category Payer Self-pay [id number] 2017 [employer] [id number] 15 2006 Unknown [id number] 1965 Unknown [id number] 2.16.84 0.1.267821.3.579.2.651 1965 Unknown [id number] 2.16.84 0.1.053181.3.579.2.1259 1965 Unknown [id number] 2.16.84 0.1.558352.3.579.2.1259 Unknown [id number] 2.16.8 40.1.502689.3.579.2.462 Unknown [id number] 2.16.8 40.1.380841.3.579.2.462 Unknown [id number] 2.16.8 40.1.286506.3.579.2.462 Unknown [id number] 2.16.8 40.1.896724.3.579.2.462 Unknown [id number] 2.16.8 40.1.187523.3.579.2.462 Unknown [id number] 2.16.8 40.1.828781.3.579.2.462 Unknown [id number] 2.16.8 40.1.125019.3.579.2.462 Unknown [id number] 2.16.8 40.1.885691.3.579.2.462 Unknown [id number] 2.16.8 40.1.411402.3.579.2.462 Unknown [id number] 2.16.8 40.1.295286.3.579.2.462 Unknown [id number] 2.16.8 40.1.352289.3.579.2.462 Unknown [id number] 2.16.8 40.1.564121.3.579.2.462 Unknown [id number] 2.16.8 40.1.208796.3.579.2.462 Social History Date Type Detail Facility Start: 10-01-2020 End: 12-11-2022 Tobacco smoking status NHIS Unknown if ever smoked [facility] Start: 11-01-2019 Non-smoker [facility] Start: 1965 Sex Assigned At Female [facility] Start: 1965 Sex assigned at Not on file [facility] Start: 01-25-2024 End: 02-15-2024 Gender identity Not on file [facility] Start: 01-05-2023 End: 01-25-2024 Tobacco smoking status NHIS Never smoked tobacco [facility] Start: 01-25-2024 Tobacco use and exposure Smokeless tobacco non-user [facility] Start: 01-25-2024 End: 02-15-2024 Alcoholic beverage intake Lifetime non-drinker (finding) [facility] Start: 01-25-2024 End: 02-15-2024 History of Social function [facility] Start: 05-27-2024 Sex Female (finding) [facility] NEGATED: Highlighted row [facility] Medical Equipment Procedure Code Equipment Code Equipment Origin al Text Equipment Identifier Dates ABBY GONZALEZ LG FDA Start: 10-27-2017 ABBY GONZALEZ FDA Start: 10-27-2017 RELOAD, SR55 SELECTABLE FDA Start: 10-27-2017 STAPLER,BLUE CUR SHENG CUTTER FDA Start: 10-27-2017 STAPLER,INTRA CD H29A ETHICON FDA Start: 10-27-2017 JOEL 3GRM HEMO STAT ABS FDA Start: 10-28-2017 ABBY GONZALEZ LG FDA Start: 10-27-2017 ABBY GONZALEZ FDA Start: 10-27-2017 RELOAD, SR55 SELECTABLE FDA Start: 10-27-2017 STAPLER,BLUE CUR SHENG CUTTER FDA Start: 10-27-2017 STAPLER,INTRA CD H29A ETHICON FDA Start: 10-27-2017 JOEL 3GRM HEMO STAT ABS FDA Start: 10-28-2017 ABBY GONZALEZ LG FDA Start: 10-27-2017 ABBY GONZALEZ FDA Start: 10-27-2017 RELOAD, SR55 SELECTABLE FDA Start: 10-27-2017 STAPLER,BLUE CUR SHENG CUTTER FDA Start: 10-27-2017 STAPLER,INTRA CD H29A ETHICON FDA Start: 10-27-2017 JOEL 3GRM HEMO STAT ABS FDA Start: 10-28-2017 ABBY GONZALEZ LG FDA Start: 10-27-2017 ABBY GONZALEZ FDA Start: 10-27-2017 RELOAD, SR55 SELECTABLE FDA Start: 10-27-2017 STAPLER,BLUE CUR SHENG CUTTER FDA Start: 10-27-2017 STAPLER,INTRA CD H29A ETHICON FDA Start: 10-27-2017 JOEL 3GRM HEMO STAT ABS FDA Start: 10-28-2017 ABBY GONZALEZ LG FDA Start: 10-27-2017 ABBY GONZALEZ ME D JOSE FDA Start: 10-27-2017 RELOAD, SR55 SELECTABLE FDA Start: 10-27-2017 EKATERINA ROCHA CUR SHENG CUTTER FDA Start: 10-27-2017 ROLANDO ROCHA CD H29A ETHICON FDA Start: 10-27-2017 JOEL 3GRM HEMO STAT ABS FDA Start: 10-28-2017 Goals Date Patient Goal Desired Activity /State Mental Status Date Assessment Result Facility 12-23-2022 Cognitive function Level Of Cons ciousness Follows Commands;Drowsy [facility] Work Phone: 12-23-2022 Cognitive function Voice/Name [facility] Work Phone: Clinical Notes 12-23-2022 to 05-18-2024 Luis Graham MD - 02/15/2024 8:40 AM ESTTelephone Encounter - [facility] - 01/27/2024 11:27 AM ESTTelephone Encounter - [facility] - 01/27/2024 11:27 AM EST Note Date & Type Note Facility 05-18-2024 Radiology Diagnostic study note [facility] Imaging Services [address], [place] [address] Hips B/L min 2 views w/ Pelvis MR#: [id number] Acct: [id number] Name: HOLGER MCCORD Rep #: [id number] : 1965 F 58 From: Jose Gan DO PCP: Dr. Richard Marcelino MD Status: REG CLI Study:Hips B/L min 2 views w/ Pelvis Date of Exam: 05/18/24 Exam# [id number] Ordering Dr: Guillermo Buckner MD PROCEDURE: Pelvis and bilateral hip radiographs REASON FOR EXAM: PAIN TECHNIQUE: Five views of the pelvis and both hips COMPARISON: None. FINDINGS: See impression RAD/Hips B/L min 2 views w/ Pelvis IMPRESSION: Negative for acute displaced fracture or malalignment. Small marginal acetabular osteophytes bilaterally without significant superior joint space narrowing. Mild/moderate degenerative changes of the lowerlumbar spine and sacroiliac joints. Reading Location: [facility] CC: Dr. Richard Marcelino MD; Dr. Guillermo Buckner MD ~ [employer]: Signed [facility] 02-15-2024 History of Presen t illness Narrative Images from the original note were not included. CHIEF COMPLAINT: Holger Mccord is a 58 y.o. female here today for Chief Complaint Patient presents with mri results HISTORY OF PRESENT ILLNESS: History of Present Illness The patient presents for evaluation of vertigo. She was last seen in 01/2024, approximately a month ago. At that time, she was experiencing severe vertigo, which has since improved. She reports no new or different symptoms. She had a challenging week due to overexertion from hosting Thanksgiving at her home, which involved extensive cleaning, preparation, and cooking. She has been dealing with neck issues for over 30 years and leg problems for about 8 to 9 years, both of which have been progressively worsening. An EMG was performed on her legs prior to her visit here in [place] by dr keys. Current Outpatient Medications on File Prior to Visit Medication Sig Dispense Refill ACIDOPHILUS LACTOBACILLUS PO Take 1 capsule by mouth in the morning. APPLE CIDER VINEGAR PO Take by mouth Ascorbic Acid (vitamin C) 250 MG tablet Take 250 mg by mouth Daily Calcium-Vitamin D 600-5 MG-MCG tablet Take by mouth cholecalciferol (Vitamin D-3) 50 MCG (2000 UT) tablet Take 2,000 Units by mouth Daily Multiple Vitamin (multivitamin) tablet Take 1 tablet by mouth Daily No current facility-administered medications on file prior to visit. Past Medical History: Diagnosis Date Back pain Migraine (CMS/HCC) Neck pain Sinus complaint Sleep apnea History reviewed. No pertinent surgical history. No family history on file. Social History Tobacco Use Smoking status: Never Smokeless tobacco: Never Substance Use Topics Alcohol use: Never ALLERGIES: Acetone and Oxycodone-acetaminophen REVIEW OF SYSTEMS: General: Appetite change: denies. Chills: denies. Fever: denies. Allergy/Immunology: Unusual rection to medications, food, animals or insects reaction: denies. Ophthalmologic: Visual acuity change: denies. ENT: Decreased hearing: denies. Endocrine: Weight loss: denies. Respiratory: Cough: denies. Wheezing: denies. Cardiovascular: Chest pain: denies. Palpitations: denies. Gastrointestinal: Abdominal pain: denies. Difficulty swallowing: denies Hematology: Bleeding problems: denies. Genitourinary: Painful urination: denies. Musculoskeletal: Joint pain: denies. Joint edema: denies. Skin: Rash: denies. Neurologic: Ataxia: denies, Tremor: denies. Psychiatric Anxiety: denies. Depression: denies. Insomnia: denies. Suicidal thoughts: denies. Also see HPI for elements of ROS documented therein and for details of positive findings, which shall supersede the foregoing. OBJECTIVE: Objective Vitals: 02/15/24 0844 BP: (!) 138/92 Pulse: 85 SpO2: 96% Weight: 247 lb Height: 5' 5 Body mass index is 41.1 kg/m . No orders to display No results found for any previous visit. Results Imaging MRI images revfiewed, shows moderate stenosis or narrowing due to disc herniation at C6 and seven also mild to moderate stenosis due to the same thing at those two levels. Testing EMG on legs was reported as normal ([facility]) Examination: General Exam: pleasant, well nourished, well developed, in no acute distress Head: normocephalic, atraumatic Eyes: extraocular movement intact (EOMI), pupils equal, round, reactive to light, upper eyelids normal , lower eyelids normal Ears: no obvious hearing deficit Nose: Nares patent Neck/Throat: neck supple, full range of motion Oral Cavity: mucosa moist Skin: warm and dry Heart: no murmurs, regular rate and rhythm, S1, S2 normal Lungs: clear to auscultation bilaterally, good air movement, no wheezes, rales, rhonci, speaks in full sentences Chest: normal shape and expansion Abdomen: bowel sounds present, soft, nontender, nondistended, no guarding or rigidity Extremities: no edema, no cyanosis Musculoskeletal: no swelling or deformity Neurologic: AAOx3, memory intact, fund of knowledge appropriate Naming and repetition intact, fluent language, follows 3-step commands Pupils equal and reactive EOM intact, no gaze preference or deviation, no nystagmus. Normal sensation in V1, V2, and V3 segments bilaterally No facial asymmetry, no nasolabial fold flattening Normal hearing to speech Normal palatal elevation, no uvular deviation Normal midline tongue protrusion 5/5 head turn and 5/5 shoulder shrug bilaterally 5/5 muscle power in bilateral shoulder abductors/adductors, elbow flexors/extensors, wrist flexors/extensors, finger abductors/adductors. 5/5 in bilateral hip flexors/extensors, knee flexors/extensors, ankle dorsiflexors and plantar flexors. Reflexes 2/4 throughout, bilateral flexor plantar response, no Roy's, no clonus Sensation intact to touch, pinprick, vibration, and temperature in all limbs No hemineglect, no extinction to double sided stimulation (visual & tactile) Romberg absent Coordination intact to finger to nose and heel to lawson, no tremor, no dysmetria Normal stance, no truncal ataxia Normal gait; patient able to tip-toe, heel-walk Psych: pleasant, cooperative, good eye contact, speech clear, judgement and insight good ASSESSMENT/PLAN: Assessment & Plan 1. Cervical Disc Herniation. The MRI results from February 01, 2024, show moderate stenosis or narrowing due to disc herniation at C6 and C7, and [id number] stenosis at the same levels. The patient has experienced neck problems for over 30 years and leg issues for 8-9 years. The EMG report, from [facility] was noted to be normal. The patient was informed that surgery could be considered if symptoms worsen. The option to see a spine surgeon for further evaluation and management was discussed. Non-narcotic nerve medications were suggested to manage symptoms. If the patient decides to pursue surgery, a referral to a spine surgeon at the [facility] or other known specialists will be made. 2. Vertigo. The patient reported that vertigo has improved since the last visit. No new treatment was recommended at this time. documented in this encounter [facility] 01-27-2024 Telephone encounter Note MRI C-Spine authed at [facility] 01/24-02/23/24 Earliest [place] can schedule patient is 02/25/24 Auth needs to be extended Request sent to prior auth dept to have auth extended Patient also notified Patient has [facility] scheduling ph # and will follow up w/them to see if she can get in earlier for test [facility] 01-27-2024 Miscellaneous Notes MRI C-Spine authed at [facility] 01/24-02/23/24 Earliest [place] can schedule patient is 02/25/24 Auth needs to be extended Request sent to prior auth dept to have auth extended Patient also notified Patient has [facility] scheduling ph # and will follow up w/them to see if she can get in earlier for test documented in this encounter [facility] 01-25-2024 History of Presen t illness Narrative Images from the original note were not included. CHIEF COMPLAINT: Holger Mccord is a 58 y.o. female here today for Chief Complaint Patient presents with Extremity Weakness HISTORY OF PRESENT ILLNESS: History of Present Illness The patient presents for evaluation of back and leg pain, as well as leg weakness. She has been experiencing a range of unusual symptoms for approximately 8 years. Initially, she was diagnosed with an autoimmune disorder, but the specific condition was not identified. Later, she was told it might be fibromyalgia, but the prescribed medications did not alleviate her symptoms. She has consulted two rheumatologists. The first phlebotomy technician ruled out rheumatoid arthritis, lupus, and fibromyalgia, but suggested methotrexate as a precautionary measure. The second phlebotomy technician diagnosed her with fibromyalgia, but he has since retired. Her leg problems, which started in 2014, have been the most severe and persistent, and they seem to be worsening. She experiences constant leg pain, which she describes as a dull, throbbing ache, not sharp or stabbing. The pain is so severe that it disrupts her sleep, forcing her to constantly change positions. She cannot identify a specific muscle group that is more affected, as all her muscles and joints seem to hurt. She sometimes feels as if her legs are swollen and her skin is tight, although there is no visible swelling. After walking for about a mile, she feels as if her legs stop working and she has to take small steps to continue or rest for a time. She rates her pain as 6 or 7 on a scale of 10, with the pain being worse at night. She also experienced vertigo, which has since improved. She saw an ENT specialist for her vertigo, who diagnosed it as positional vertigo and provided therapy that helped. However, due to other concerns, he ordered a brain MRI and referred her back to her family doctor for blood work, which revealed an autoimmune disorder. The brain MRI, conducted in 2016, was normal. Her back pain remains unchanged from 9 years ago. She had an injury in her 20s when she was thrown off a horse and landed on her neck and shoulder, causing years of neck and shoulder pain. No bones were broken at the time, but she was significantly injured and has had ongoing neck issues. She also developed diverticulitis, which led to a colectomy surgery. She experiences bowel and bladder issues, including leakage, frequency, and urgency. She had endometriosis and underwent a hysterectomy, but her bladder has not been examined. She also had uterine ablation. FAMILY HISTORY Her father had a bulging disc that was pressing on a nerve and causing leg problems. Current Outpatient Medications on File Prior to Visit Medication Sig Dispense Refill ACIDOPHILUS LACTOBACILLUS PO Take 1 capsule by mouth in the morning. APPLE CIDER VINEGAR PO Take by mouth Ascorbic Acid (vitamin C) 250 MG tablet Take 250 mg by mouth Daily Calcium-Vitamin D 600-5 MG-MCG tablet Take by mouth cholecalciferol (Vitamin D-3) 50 MCG (2000 UT) tablet Take 2,000 Units by mouth Daily Multiple Vitamin (multivitamin) tablet Take 1 tablet by mouth Daily No current facility-administered medications on file prior to visit. Past Medical History: Diagnosis Date Back pain Migraine (CMS/HCC) Neck pain Sinus complaint Sleep apnea History reviewed. No pertinent surgical history. No family history on file. Social History Tobacco Use Smoking status: Never Smokeless tobacco: Never Substance Use Topics Alcohol use: Never ALLERGIES: Acetone and Oxycodone-acetaminophen REVIEW OF SYSTEMS: General: Appetite change: denies. Chills: denies. Fever: denies. Allergy/Immunology: Unusual rection to medications, food, animals or insects reaction: denies. Ophthalmologic: Visual acuity change: denies. ENT: Decreased hearing: denies. Endocrine: Weight loss: denies. Respiratory: Cough: denies. Wheezing: denies. Cardiovascular: Chest pain: denies. Palpitations: denies. Gastrointestinal: Abdominal pain: denies. Difficulty swallowing: denies Hematology: Bleeding problems: denies. Genitourinary: Painful urination: denies. Musculoskeletal: Joint pain: denies. Joint edema: denies. Skin: Rash: denies. Neurologic: Ataxia: denies, Tremor: denies. Psychiatric Anxiety: denies. Depression: denies. Insomnia: denies. Suicidal thoughts: denies. Also see HPI for elements of ROS documented therein and for details of positive findings, which shall supersede the foregoing. OBJECTIVE: Objective Vitals: 01/25/24 1004 BP: 150/90 Pulse: 81 SpO2: 98% Weight: 245 lb Height: 5' 5 Body mass index is 40.77 kg/m . No orders to display No results found for any previous visit. Results Imaging MRI of lumbar spine is normal. MRI of thoracic spine is normal but by my review limited cervical images show disk herniation at C5-6 and C6-7 which appear to be impinging upon the cervical cord. These are limited views and dedicated c-spine images will be obtained. Testing EMG of lower limbs is normal, performed by dr reid keys at [facility] Examination: General Exam: pleasant, well nourished, well developed, in no acute distress Head: normocephalic, atraumatic Eyes: extraocular movement intact (EOMI), pupils equal, round, reactive to light, upper eyelids normal , lower eyelids normal Ears: no obvious hearing deficit Nose: Nares patent Neck/Throat: neck supple, full range of motion Oral Cavity: mucosa moist Skin: warm and dry Heart: no murmurs, regular rate and rhythm, S1, S2 normal Lungs: clear to auscultation bilaterally, good air movement, no wheezes, rales, rhonci, speaks in full sentences Chest: normal shape and expansion Abdomen: bowel sounds present, soft, nontender, nondistended, no guarding or rigidity Extremities: no edema, no cyanosis Musculoskeletal: no swelling or deformity Neurologic: AAOx3, memory intact, fund of knowledge appropriate Naming and repetition intact, fluent language, follows 3-step commands Pupils equal and reactive EOM intact, no gaze preference or deviation, no nystagmus. Normal sensation in V1, V2, and V3 segments bilaterally No facial asymmetry, no nasolabial fold flattening Normal hearing to speech Normal palatal elevation, no uvular deviation Normal midline tongue protrusion 5/5 head turn and 5/5 shoulder shrug bilaterally 5/5 muscle power in bilateral shoulder abductors/adductors, elbow flexors/extensors, wrist flexors/extensors, finger abductors/adductors. 5/5 in bilateral hip flexors/extensors, knee flexors/extensors, ankle dorsiflexors and plantar flexors. Reflexes 2/4 throughout, bilateral flexor plantar response, no Roy's, no clonus Sensation intact to touch, pinprick, vibration, and temperature in all limbs No hemineglect, no extinction to double sided stimulation (visual & tactile) Romberg absent Coordination intact to finger to nose and heel to lawson, no tremor, no dysmetria Normal stance, no truncal ataxia Normal gait; patient able to tip-toe, heel-walk Psych: pleasant, cooperative, good eye contact, speech clear, judgement and insight good ASSESSMENT/PLAN: Assessment & Plan 1. Back pain. The patient has been experiencing back pain for the past 9 years. An MRI of the lumbar spine was reviewed and found to be normal. The pain is described as dull, throbbing, and aching, and it does not get worse with prolonged walking, although the legs stop working after walking for about a mile. An MRI of the cervical spine is recommended to further investigate the cause of her symptoms. The MRI will be scheduled at the patient's preferred location. If the MRI shows significant findings, a referral to a spine surgeon will be considered. [facility]. 2. Leg pain and weakness. The patient reports constant leg pain and weakness, which worsens with prolonged walking and physical exertion. The pain is described as aching and is present from the hip down. An EMG performed on 01/20/2024 was normal. The patient also reports a sensation of swelling in the legs, although no visible swelling is present. An MRI of the cervical spine is recommended to investigatefor spinal stenosis. If the MRI shows significant findings, a referral to a spine surgeon will be considered. 3. Bladder issues. The patient reports experiencing leakage, frequency, and urgency. She has a history of endometriosis and a hysterectomy. No specific tests have been conducted to investigate the bladder issues. If symptoms persist, further evaluation of the bladder may be necessary. This may be a manifestation of cord compression. Mri c-spine 4. Bowel issues. The patient has a history of diverticulitis and underwent colectomy surgery in 2018. She reports that her bowel symptoms have improved since the surgery but still fluctuate between sluggishness and bouts of diarrhea. Also possible manifestation of cord compression. Mri c-spine. 5. Vertigo. The patient experienced severe vertigo in the past, which has improved significantly after positional vertigo therapy. She now only experiences occasional twinges of vertigo. No further action is required at this time. Follow-up Return for follow-up after the MRI results are available. documented in this encounter [facility] 01-05-2024 Telephone encounter Note Recd referral from Richard Marcelino MD to schedule new pt appt for DX: leg pain LM today-01/05/24- on patient's cell phone to call us back to schedule [facility] 01-05-2024 Miscellaneous Notes Recd referral from Richard Marcelino MD to schedule new pt appt for DX: leg pain LM today-01/05/24- on patient's cell phone to call us back to schedule documented in this encounter [facility] 12-23-2022 Procedure note [facility] 12-23-2022 History and physi aden note Note Date/Time December 23, 2022 7:07am [facility] Medical Records Department [address] [place] [address] History & Physical Exam 12/23/22705 MR#: [id number] Acct: [id number] Name: HOLGER MCCORD Rep #:[id number] : 1965 57 From: Gabriel Gaviria DO PCP: Carmita Chisholm PA-C Status:REG S DC Location: [place] [address] History and Physical Date of Admission: 12/23/22 [facility] [address] [place] [address] OFFICE VISIT Date of Service: 12/08/22 MR#: [id number] Acct: [id number] Name: HOLGER MCCORD Rep #: [id number] : 1965 Provider: Dr. Gabriel Gaviria DO Age/Sex: 57/F Location: [email or web address] Status: Signed Intake Vital Signs 09/25/2308:04 Height 5 ft 4 in Intake Visit Reasons: RIGHT KNEE Is patient in pain?: Yes Allergies oxycodone [From Percocet] Allergy (Verified 12/08/22 09:36) Rash Medications calcium carbonate 500 mg-vitamin D3 10 mcg (400 unit) chewable tablet 1 tab PO DAILY supplement 09/15/16 [History Confirmed 12/08/22] lactobacillus combination no.4 3 billion cell capsule 1 tab PO DAILY stomach 09/15/16 [History Confirmed 12/08/22] multivitamin 1 tab PO DAILY supplement 09/15/16 [History Confirmed 12/08/22] apple cider vinegar 300 mg tablet 300 mg PO DAILY 08/10/19 [History Confirmed 12/08/22] PFSH Medical History Benign neoplasm of colon Diverticulitis Endometriosis 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 Fibromyalgia History of basal cell cancer Osteoarthritis of right knee Surgical History H/O bilateral oophorectomy History of carpal tunnel surgery History of colectomy History of colonoscopy (~11/2019) History of endometrial ablation Hx of breast biopsy Hx of colonoscopy Hx of wisdom tooth extraction S/P CARLOTA (total abdominal hysterectomy) Family History Grandmother Colon cancerGrandmother Breast cancer Social History Smoking Status: Never smoker second hand exposure: No alcohol intake: never substance use type: does not use caffeine: Yes what type of physical activity do you participate in: walking frequency: 1-2 times per week seatbelt use: always do you feel safe at home: Yes additional social history: [employer] 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 Gabriel Gaviria, 12/08/22 0806. HOLGER MCCORD is a 57 year old F here today for right knee pain. Patient notes that she has had right knee pain for several months with the severe pain starting in September. Patient denies any known injury. She states that at the beginning of the year she slipped and fell on ice, but didnt land on knee or have pain after. She notes that she was scrubbing the tiles on her bathroom floor and that might have started her pain. Patient denies any prior surgery. She notes that she has pain over her medial knee and lateral knee. Patient states that she has popping and clicking which is not painful. She complains of knee instability. Patient notes that she has increased pain with ambulating stairs or squatting. She notes that she has limited range of motion. Patient notes that she has done ice, ibuprofen, aquatic therapy at home. She had a steroid injection in September which was slightly helpful. She developed a strange reaction to the injection and had a welt over her right medial knee. She notes that she also took meloxicam which was helpful. She had xrays and an MRI which are here for review. Ortho Exam General General: Yes no acute distress Neurologic: Yes alert and Yes oriented x3 Psychologic: Yes reasonable and appropriate Right Knee Skin/Wound: Yes CDI, No erythema, No ecchymosis and No swelling Knee ROM: Yes ROM-Extension -20 to 0 and Yes ROM-Flexion 0-140 (112) Examination: Yes Med jt line tenderness, No Lat jt line tenderness and Yes Christina's Test Stability: NML: Anterior Drawer, NML: Posterior Drawer, NML: Valgus 0, NML: Valgus 30, NML: Varus 0 and NML: Varus 30 Patella Grind: No KNEE: no catch but pain with medial christina Head: Normocephalic Atraumatic Chest: symmetrical rise, non-labored breathing, no audible wheeze Abdomen: no guarding, non-rigid Supplemental Info 11/22/2022 MRI right knee: Parrot-beak tear posterior body medial meniscus with moderate chondromalacia. Full-thickness chondral loss medial facet of patella and median ridge of patella 09/25/2022 x-ray right knee: No acute findings Coding Level of Care Code Off vis,est,level 3 Diagnoses Osteoarthritis of right knee, unspecified osteoarthritis type M17.11 Osteoarthritis type: unspecified Peripheral tear of medial meniscus of right knee as current injury, subsequent encounter S83.221D Tear current or old: current Encounter type: subsequent encounter Meniscus tear of knee type: peripheral Assessment and Plan Assessment and Plan (1) Osteoarthritis of right knee: Status: Acute Qualifiers: Osteoarthritis type: unspecified Qualified Code(s): M17.11 - Unilateralprimary osteoarthritis, right knee (2) Tear of medial meniscus of right knee: Qualifiers: Tear current or old: current Encounter type: subsequent encounter Meniscus tear of knee type: peripheral Qualified Code(s): S83.221D - Peripheraltear of medial meniscus, current injury, right knee, subsequent encounter Plan Educated the patient about the anatomy of the knee and etiology of her pain. Spoke with the patient about option for knee arthroscopy as she has failed conservative treatment, and does have medial sided pain and MRI with medial parrot-beak tear of the meniscus. she is not able to take NSAIDs 7 days prior to surgery. She may have a steroid injection at 6 weeks post op if she continuesto have knee pain due to her osteoarthritis. Spoke with her about the surgery procedure, post op and recovery. Patient will possibly be able to return to workthe following week. Reviewed the pre-operative plans with the patient. Risks and benefits of the procedure were fully explained, including but not limited to infection, neurovascular injury, continued pain, arthritis, stiffness, need for further surgery, re-injury, DVT, PE, general risks of anesthesia, and loss of limb or life. The patient understands all the risks and does wish to proceed with written consent. Follow up for 2 week post op or sooner if pain, swelling, numbness or associatedsymptoms, or concerns develop. All questions answered. Patient in agreement of plan. 12/08/22 1011 <Electronically signed by Gabriel Gaviria DO> Date Gabriel Gaviria DO Cosigner Signature: Date (if applicable) CC: ~ I have examined the patient and the H&P has been reviewed. There are no clinicalchanges since date of exam. 12/23/22706 <Electronically signed by Gabriel Gaviria DO> Cosigner Signature (if applicable): CC: STEPHANIE Chisholm; Dr. Gabriel Gaviria DO~ Signed [facility] Work Phone: Discharge summary Author Gabriel Gaviria [facility] December 23, 2022 9:34am Note Date/Time December 23, 2022 9 :31am [facility] Medical Records Department [address] [place] [id number] Instructions for Home/Discharge Instructions 12/23/2230 MR#: [id number] Acct: [id number] Name: HOLGER MCCORD Rep #:[id number] 5 : 1965 57 From: Gabriel Gaviria DO PCP: Carmita Chisholm PA-C Status:REG S DC Discharge Instructions Diet Discharge Diet: No restrictions Dressing / Incision Call your doctor if you observe: Shortness of breath and Chest pain Additional Dressing/Incision Instructions:: Ice and elevate next 72 hours .keep dressing on clean and dry for 48 hours then may remove begin showering daily butdo not submerge in tub or pool. After shower may apply Band-Aids . Encourage knee range of motion weightbearing as tolerated, use crutches until confident inknee then may discontinue. No strenuous activity. When not ambulating keep icedand elevated next 72 hours. Do not mix pain medication with recreational drugs or alcohol only take as prescribed can be addictive and abusive, call with any questions or concerns. Follow Up Care Please Follow Up With: Gabriel Gaviria DO When: 2 weeks Test Results: Test results from this visit will be discussed in further detail at your follow- up appointment, if applicable. Discharge Plan Admission Primary Reason for Your Visit: Right knee arthroscopy Attending Provider: Gabriel Gaviria Primary Care Provider: Carmita Chisholm Discharge Orders/Prescriptions Prescriptions: New hydrocodone-acetaminophen 5-325 mg tablet 1 - 2 tab PO Q4H PRN (Reason: pain) 5 Days Qty: 30 0RF No Action apple cider vinegar 300 mg tablet 300 mg PO DAILY multivitamin 1 EACH tablet 1 tab PO DAILY Patient Comments: supplement calcium carbonate-vitamin D3 1 EACH tablet,chewable 1 tab PO DAILY Patient Comments: supplement lactobacillus combination no.4 1 EACH capsule 1 tab PO DAILY Patient Comments: probiotic Referrals / Follow Up: Carmita Chisholm PA-C [Primary Care Provider] - Disposition Disposition (needs filled in before D/C Order can be placed): Home, Self Care 12/23/22 3418<Electronically signed by Gabriel Gaviria DO>Gabriel Gaviria DO CC: STEPHANIE Chisholm ~ Signed [facility] Work Phone: Evaluation noteNo assessment information available [facility] Work Phone: Evaluation note* Diagnosis Onset Date Resolution Status Osteoarthritis of right knee acute Osteoarthritis of right knee acute [facility] Work Phone: Evaluation note* Diagnosis Onset Date Resolution Status Osteoarthritis of right knee acute Osteoarthritis of right knee acute Osteoarthritis of right knee acute Tear of medial meniscus of right knee noneactive Osteoarthritis of right knee acute Tear of medial meniscus of right knee noneactive [facility] Work Phone: Evaluation note* Diagnosis Cervical stenosis of spinal canal- Primary Spinal stenosis in cervical region Chronic bilateral low back pain without sciatica Leg pain, bilateral Pain in soft tissues of limb Urinary incontinence, unspecified type Incontinence of feces, unspecified fecal incontinence type Vertigo Dizziness and giddiness documented [facility] Diagnosis Cervical stenosis of spinal canal- Primary Spinal stenosis in cervical region Chronic bilateral low back pain without sciatica Leg pain, bilateral Pain in soft tissues of limb Vertigo Dizziness and giddiness Urinary incontinence, unspecified type Incontinence of feces, unspecified fecal incontinence type documented in this encounter [facility] (narrative)No reason for referral information available[facility] Work Phone: Summary Purpose Family History No Family History Records Found Relationship Condition Age at Onset Recorded Date/T xiao grandmother Malignant neoplasm of colon Unknown grandmother Malignant neoplasm of breast Unknown Advance Directives No Advanced Directives Records Found Advance Directive Response Recorded Date/ Time Living Will Yes October 31 0 3:13pm Power of Making Machine Catcher Yes October 31, 2 020 3:13pm Advance Directive Response Recorded Date/ Time Name of Medical Power of Making Machine Catcher AKASH MCCORD December 11, 2022 3:19pm Living Will Yes December 11 3 3:19pm Power of Making Machine Catcher Yes December 11 2 023 3:19pm Chief Complaint and Reason for Visit Chief Complaint SCREENING Chief Complaint RIGHT KNEE room 1 RIGHT KNEE RIGHT KNEE PAIN SCREENING Reason for Visit Osteoarthritis of ri ght knee Osteoarthritis of right knee Chief Complaint RIGHT KNEE room 1 RIGHT KNEE RIGHT KNEE PAIN SCREENING RIGHT KNEE Reason for Visit Osteoarthritis of ri ght knee Osteoarthritis of right knee Chief Complaint RIGHT KNEE room 1 RIGHT KNEE RIGHT KNEE PAIN SCREENING RIGHT KNEE RIGHT KNEE Right knee partial medial meniscect Right knee partial medial meniscect Reason for Visit Osteoarthritis of ri ght knee Osteoarthritis of right knee Osteoarthritis of right knee Tear of medial meniscus of right knee Osteoarthritis of right knee Tear of medial meniscus of right knee Chief Complaint Admit Date CERVICAL SPINE STENOSIS January 31, 024 4:53pm XRAY BILATERAL May 18, 2024 4:5 6pm Additional Source Comments INFORMATION SOURCE (unrecogn ized section and content) DATE CREATED AUTHOR 08/27/2017 [facility] DATE CREATED AUTHOR AUTHOR'S ORGANIZ ATION 08/27/2017 [facility] DATE CREATED AUTHOR AUTHOR'S ORGANIZ ATION 01/26/2021 [facility] DATE CREATED AUTHOR AUTHOR'S ORGANIZ ATION 02/17/2024 [facility] DATE CREATED AUTHOR AUTHOR'S ORGANIZ ATION 07/12/2024 [facility] Goals (unrecognized section and content) Goals may be documented in a n alternate sectionGoals may be documented in an alternate sectionGoals may be documented in an alternate sectionGoals may be documented in an alternate section Care Teams (unrecognized sec tion and content) Team Status: Active Member Role Status Dates Carmita CHAN PA-C Family Provider Active Carmita CHAN PA-C Primary Care Provider Active Team Status: Inactive Member Role Status Dates [facility] PA, PA-C Primary Care Provider, Referri ng Provider Active Monserrat CHAN, PA Attending Provider Active Team Status: Inactive Member Role Status Dates [facility] PA, PA-C Primary Care Provider Active Dr. Warren Guardado MD Attending Provider Active Team Status: Inactive Member Role Status Dates [facility] PA, PA-C Primary Care Provider Active Monserrat Soria PA, PA Attending Provider, Referring Provi sean Active Team Status: Active Member Role Status Dates [facility] PA, PA-C Primary Care Provider Active Dee Dee Haider CNM Attending Provider, Referring Pro vider Active Team Status: Active Member Role Status Dates [facility] PA, PA-C Primary Care Provider, Referri ng Provider Active Monserrat CHAN PA Attending Provider Active Team Status: Inactive Member Role Status Dates [facility] PA, PA-C Primary Care Provider Active Dee Dee Haider CNM Attending Provider, Referring Pro vider Active Team Status: Inactive Member Role Status Dates [facility] PA, PA-C Primary Care Provider, Referri ng Provider Active Dr. Gabriel Gaviria DO Attending Provider Active Team Status: Active Member Role Status Dates [facility] PA, PA-C Primary Care Provider Active Dr. Gabriel Gaviria DO Attending Provid er, Referring Provider, Other Provider Active Team Status: Inactive Member Role Status Dates [facility] PA, PA-C Primary Care Provider Active Dr. Gabriel Gaviria DO Attending Provider, Referring Provider Active [employer] Specialty Start Date End Date Richard Marcelino MD [address] [place] [phone] PCP - General Family Medicine 12/29/23 [employer] Specialty Start Date End Date Richard Marcelino MD [address] [place] [phone] PCP - General Family Medicine 12/29/23 [employer] Relationship Specialty Start Date End Date Richard Marcelino MD [address] [place] [phone] PCP - General Family Medicine 12/29/23 [employer] Relationship Specialty Start Date End Date Richard Marcelino MD [address] [place] [phone] PCP - General Family Medicine 12/29/23 [employer] Relationship Specialty Start Date End Date Richard Marcelino MD [address] [place] [phone] PCP - General Family Medicine 12/29/23 Team Status: Active Member Role Status Dates Carmita CHAN PA-C Family Provider Active Dr. Richard Marcelino MD Primary Care Provider Acti ve Team Status: Inactive Member Role Status Dates Dr. Richard Marcelino MD Primary Care Provider Acti ve Start: February 01, 2024 End: February 01, 2024 Dr. Luis Graham MD Attending Provider Active Start: February 01, 2024 End: February 01, 2024 Dr. Luis Graham MD Referring Provider Active Start: February 01, 2024 End: February 01, 2024 Team Status: Inactive Member Role Status Dates Dr. Richard Marcelino MD Primary Care Provider Acti ve Start: March 28, 2024 End: March 28, 2024 Dr. Richard Marcelino MD Attending Provider Active Start: March 28, 2024 End: March 28, 2024 Dr. Richard Marcelino MD Referring Provider Active Start: March 28, 2024 End: March 28, 2024 Team Status: Inactive Member Role Status Dates Dr. Richard Marcelino MD Primary Care Provider Acti ve Start: May 18, 2024 End: May 18, 2024 Dr. Guillermo Buckner MD Attending Provider Active Start: May 18, 2024 End: May 18, 2024 Dr. Guillermo Buckner MD Referring Provider Active Start: May 18, 2024 End: May 18, 2024 Reason for Visit (unrecogniz ed section and content) Reason Comments Extremity Weakness Reason Comments mri results FOR RECORDS PERTAINING TO PATIENTS WHO ARE OR HAVE BEEN ENROLLED IN A CHEMICAL DEPENDENCY/SUBSTANCEABUSE PROGRAM, SOME INFORMATION MAY BE OMITTED. This clinical summary was aggregated from multiple sources. Caution should be exercised in using it in the provision of clinical care. This summary normalizes information from multiple sources, and as a consequence, information in this document may materially change the coding, format and clinical context of patient data. In addition, data may be omitted in some cases. CLINICAL DECISIONS SHOULD BE BASED ON THE PRIMARY CLINICAL RECORDS. [facility]. provides no warranty or guarantee of the accuracy or completeness of information in this document.
== END | disposition home or self-care (01) ==
PROVIDERS: PCP Family Medicine; Visit Provider Nurse Practitioner Family
DX: N20.0 Calculus of kidney (principal)
CPT/HCPCS: 36415; 80048; 85027

== ENCOUNTER → 2024-08-15 | Outpatient (CLI) | payer BC, SELFPAY ==
--- NOTE | 2024-08-15 16:20 | CT_ITS ---
PROCEDURE: ABDOMEN/PELVIS WITHOUT CONT 08/15/2024 REASON FOR EXAM: [place] TECHNIQUE: Abdomen and pelvis CT without intravenous contrast. Noncontrast technique limits evaluation of the abdominal and pelvic viscera. Coronal and Sagittal reconstruction series were provided. One or more dose reduction techniques were used (e.g., Automated exposure control, adjustment of the mA and/or kV according to patient size, use of iterative reconstruction technique). PATIENT PREPARATION: Per protocol ORAL CONTRAST TYPE: None. COMPARISON: Renal ultrasound 11/26/2017. FINDINGS: Lung bases: Mild bibasilar atelectasis. The heart is normal in size. Liver: The unopacified liver is normal in size. No biliary ductal dilation. Gallbladder: Mild layering sludge within the gallbladder. No gallbladder wall thickening or pericholecystic fluid. Spleen: Normal in size. Pancreas: The unopacified pancreas is unremarkable. Adrenals: No adrenal mass. Kidneys: Parapelvic cysts. No hydronephrosis or nephrolithiasis. Bladder: Mildly distended and unremarkable. Reproductive Organs: Prior hysterectomy. Bowel: Prior bowel resection and anastomosis. The bowel loops are nondilated. No ascites or pneumoperitoneum. No inflammatory mass in the expected region of the appendix. Mild distal colonic diverticulosis. Lymph nodes: Visualization is limited without the use of IV contrast. No suspicious lymphadenopathy. Vasculature: Minimal calcific plaque of the aortoiliac vessels. Bones: Mild thoracolumbar spondylosis. CT/Abdomen/Pelvis without Cont IMPRESSION: No acute abdominopelvic finding. Reading Location: [id number]
--- OUTSIDE RECORDS SUMMARY | 2024-08-16 00:07 | XMS RPT_ITS | CCD ---
Author Organization [facility] Care Team Providers Care Machining Manager Name Role Phone Neris Funez Unavailable Unavailable [...] Consulting Unavailable STEPHANIE Flores Primary Care Provider STEPHANIE Flores Referring Provider DUSTIN Castle Attending Provider Dr. Warren Guardado Attending Provider Dr. Gabriel Gaviria Attending Provider Dr. Gabriel Gaviria Referring Provider Dr. Gabriel Gaviria Other Provider Richard Marcelino MD Primary Care Provider [phone] LUIS GRAHAM Attending Unavailable RICHARD MARCELINO Referring Unavailable LUIS GRAHAM Attending Unavailable Dr. Kieran Marcelino MDer Primary Care Provider Jerry DOZIER, Dr. Smith Attending Provider Jerry DOZIER, Dr. Smith Referring Provider Ryland DOZIER, Dr. Belle Attending Provider Ryland DOZIER, Dr. Belle Referring Provider Dudley DOZIER, Dr. Li Attending Provider [phone] Dudley DOZIER, Dr. Li Referring Provider Luis Graham Attending Unavailable Luis Graham Referring Unavailable Ranney, Christopher Primary Care Unavailable Eduardoney, Christbrookser Attending Unavailable Ranney, Christopher Referring Unavailable Ranney, Christopher Primary Care Unavailable Ranney, Christopher Primary Care Unavailable Guillermo Buckner Attending Unavailable Dudley, Guillermo Referring Unavailable [place] GENERAL LEDGER ACCOUNTANT, Clair Attending Unavailable [place] GENERAL LEDGER ACCOUNTANT, Clair Referring Unavailable Ranney, Christopher Primary Care Unavailable Ranney, Christopher Attending Unavailable Ranney, Christopher Referring Unavailable Ranney, Christopher Primary Care Unavailable Reid Keys Attending Unavailable Ranney, Christopher Referring Unavailable Ranney, Christopher Primary Care Unavailable Ranney, Christopher Consulting Unavailable Rosa GENERAL LEDGER ACCOUNTANT, Clair Attending Unavailable Ranney, Christopher Referring Unavailable Ranney, Christopher Primary Care Unavailable [facility] Care Unavailable Ranney, Christopher Attending Unavailable Ranney, [...] acetaminophen / oxyCODONE drug allergy 10-08-2016 rash [facility] Work Phone: (8 sources) acetaminophen / oxyCODONE; Translations: [OXYCODONE-ACETAMI NOPHEN] Drug Allergy 09-04-2009 Rash [facility] Repository (5 sources) oxyCODONE Drug Allergy 10-01-2020 Rash [facility] (2 sources) Acetone Drug Allergy 12-23-2022 Itching [facility] Comment on above: EYE SWELLING (6 sources) Acetone Drug Allergy 01-25-2024 [facility] (1 source) Acetone Drug Allergy 12-16-2023 [facility] Repository (1 source) oxyCODONE Drug Allergy 12-16-2023 [facility] Repository Medications Current Medications Medication Drug [...] COMPLEX CAPS one daily B COMPLEX VITAMINS [id number] Lionel Holm MD B COMPLEX VITAMINS (7 sources) Start: 10-08-2016 B COMPLEX CAPS one daily B COMPLEX VITAMINS [id number] Lionel Holm MD Start: 10-08-2016 B COMPLEX CAPS one daily B COMPLEX VITAMINS 38250951051 Lionel Holm MD calcium citrate (10 sources) Start: 10-08-2016 CALCIUM CITRAT E + D3 TABS one daily CALCIUM CITRATE-VITAMIN D TABS 40717530097 Lionel Holm MD Start: 10-08-2016 CALCIUM CITRAT E + D3 TABS one daily CALCIUM CITRATE-VITAMIN D TABS 39366874054 Lionel Holm MD CALCIUM CITRATE-VITAMIN D TABS (2 sources) Start: 10-08-2016 CALCIUM CITRATE + D3 TABS one daily CALCIUM CITRATE-VITAMIN D TABS 46405283448 Lionel Holm MD ciprofloxacin 500 mg oral [...] tablet by mouth twice daily CIPROFLOXACIN HCL 82760456494 Lionel Holm MD fluconazole 150 mg oral [...] tablet by mouth three times daily METRONIDAZOLE 94471592820 Lionel Holm MD MULTIPLE VITAMINS-MINERALS (5 sources) Start: 10-08-2016 DAILY MULTIVIT SNYDER CAPS one daily MULTIPLE VITAMINS-MINERALS 31857220613 Lionel Holm MD MULTIPLE VITAMINS-MINERALS (7 sources) Start: 10-08-2016 DAILY MULTIVIT SNYDER CAPS one daily MULTIPLE VITAMINS-MINERALS 80004796686 Lionel Holm MD Start: 10-08-2016 DAILY MULTIVIT SNYDER CAPS one daily MULTIPLE VITAMINS-MINERALS 06759884559 Lionel Holm MD POLYETHYLENE GLYCOL 3350 960612 MG / Potassium Chloride 2970 MG / Sodium Bicarbonate 6740 MG / Sodium Chloride 5860 MG / sodium sulfate 72831 MG Powder for Oral Solution (12 sources) Osmotic Laxative Start: 10-09-2016 End: 10-10-2016 GOLYTELY 236 GM SOLR as dire cted per package PEG 4356-MPY-JGFYO-NACL-NASULF [id number] Lionel Holm MD Start: 10-09-2016 End: 10-10-2016 GOLYTELY 236 GM SOLR as dire cted per package PEG 9868-APR-KWNGK-NACL-NASULF [id number] Lionel Holm MD PROBIOTIC PRODUCT (5 sources) Start: 10-08-2016 4X PROBIOTIC T ABS one daily PROBIOTIC PRODUCT 89709299875 Lionel Holm MD PROBIOTIC PRODUCT (7 sources) Start: 10-08-2016 4X PROBIOTIC T ABS one daily PROBIOTIC PRODUCT 44458777291 Lionel Holm MD Start: 10-08-2016 4X PROBIOTIC T ABS one daily PROBIOTIC PRODUCT [id number] Lionel Holm MD sulfamethoxazole 800 mg / [...] DIRE Ton 07-05-2024 ANALISA,DIRECT Negative Normal Negative [facility] Comment on above: Order Comment: Order Date: 04/13/24Order Info: [id number] - ANALISA Result Comment: Perf ormed at: [address] [id number] Fishing Reel Assembler: Mark Bundy PhD, Phone: [phone] Performed By: #### L 500.4050, L100.0100, L501.5101, L501.6710, L500.4100, L3100.5475 ####[facility] [address] [place], [place], [phone] L501.5101on 07-05-2024 GGTP 8 IU/L Normal 0-60 [facility] Comment on above: Order Comment: Order Date: 04/13/24Order Info: [id number] - GGTP Result Comment: Perf ormed at: [address] [id number] Fishing Reel Assembler: Mark Bundy PhD, Phone: [phone] Performed By: #### L 500.4050, L100.0100, L501.5101, L501.6710, L500.4100, L3100.5475 ####[facility] [address] [place], [place], [id number] CBC W/Diff, Automatedon 06-08 Absolute Lymph 1.54 X10 3/uL Normal 0.83-4.51 [facility] Comment on above: Order Comment: Order Date: 04/13/24 Order Info: [id number] - CBCD Performed By: #### L 500.4050, L100.0100, L501.5101, L501.6710, L500.4100, L3100.5475 #### [facility] [address] [place], [place], [address] Absolute Neut 4.2 X10 3/uL Normal 2.0-7.7 [facility] Comment on above: Order Comment: Order Date: 04/13/24 Order Info: [id number] - CBCD Performed By: #### L 500.4050, L100.0100, L501.5101, L501.6710, L500.4100, L3100.5475 #### [facility] [address] [place], [address] Basophils/100 WBC (Bld) 0.8 % Normal 0-1 [facility] Comment on above: Order Comment: Order Date: 04/13/24 Order Info: [id number] - CBCD Performed By: #### L 500.4050, L100.0100, L501.5101, L501.6710, L500.4100, L3100.5475 #### [facility] [address] [place], [address] Eosinophils/100 WBC (Bld) 2.7 % Normal 0-5 [facility] Comment on above: Order Comment: Order Date: 04/13/24 Order Info: [id number] - CBCD Performed By: #### L 500.4050, L100.0100, L501.5101, L501.6710, L500.4100, L3100.5475 #### [facility] [address] [place], [address] Erythrocyte distribution width (RBC) [Ratio] 13.0 % Normal 11.6-14.6 [facility] Comment on above: Order Comment: Order Date: 04/13/24 Order Info: [id number] - CBCD Performed By: #### L 500.4050, L100.0100, L501.5101, L501.6710, L500.4100, L3100.5475 #### [facility] [address] [place], [address] Hematocrit (Bld) [Volume fraction] 41.6 % Normal 37-47 [facility] Comment on above: Order Comment: Order Date: 04/13/24 Order Info: [id number] - CBCD Performed By: #### L 500.4050, L100.0100, L501.5101, L501.6710, L500.4100, L3100.5475 #### [facility] [address] [place], [address] Hemoglobin (Bld) [Mass/Vol] 14.6 g/dL Normal 12.0-15.0 [facility] Comment on above: Order Comment: Order Date: 04/13/24 Order Info: [id number]- - CBCD Performed By: #### L 500.4050, L100.0100, L501.5101, L501.6710, L500.4100, L3100.5475 #### [facility] [address] [place], [address] IG% 0.300 Normal 0.0-0.9 [facility] Comment on above: Order Comment: Order Date: 04/13/24 Order Info: [id number]- - CBCD Result Comment: IG% - Immature Granulocytes (promyelocytes, myelocytes and metamyelocytes) > 1% indicates that a LEFT SHIFT is Present. Performed By: #### L 500.4050, L100.0100, L501.5101, L501.6710, L500.4100, L3100.5475 #### [facility] [address] [place], [address] Lymphocytes/100 WBC (Bld) 24.1 % Normal 19-41 [facility] Comment on above: Order Comment: Order Date: 04/13/24 Order Info: [id number] - CBCD Performed By: #### L 500.4050, L100.0100, L501.5101, L501.6710, L500.4100, L3100.5475 #### [facility] [address] [place], [address] MCH (RBC) [Entitic mass] 31.7 pg Normal 27.0-32.0 [facility] Comment on above: Order Comment: Order Date: 04/13/24 Order Info: [id number] - CBCD Performed By: #### L 500.4050, L100.0100, L501.5101, L501.6710, L500.4100, L3100.5475 #### [facility] [address] [place], [address] MCHC (RBC) [Mass/Vol] 35.1 g/dL Normal 32-36 [facility] Comment on above: Order Comment: Order Date: 04/13/24 Order Info: [id number] - CBCD Performed By: #### L 500.4050, L100.0100, L501.5101, L501.6710, L500.4100, L3100.5475 #### [facility] [address] [place], [address] MCV (RBC) [Entitic vol] 90.4 fL Normal 81-99 [facility] Comment on above: Order Comment: Order Date: 04/13/24 Order Info: [id number] - CBCD Performed By: #### L 500.4050, L100.0100, L501.5101, L501.6710, L500.4100, L3100.5475 #### [facility] [address] [place], [address] Monocytes/100 WBC (Bld) 6.1 % Normal 0-10 [facility] Comment on above: Order Comment: Order Date: 04/13/24 Order Info: [id number] - CBCD Performed By: #### L 500.4050, L100.0100, L501.5101, L501.6710, L500.4100, L3100.5475 #### [facility] [address] [place], [address] Neutrophils/100 WBC (Bld) 66.0 % Normal 47-70 [facility] Comment on above: Order Comment: Order Date: 04/13/24 Order Info: [id number] - CBCD Performed By: #### L 500.4050, L100.0100, L501.5101, L501.6710, L500.4100, L3100.5475 #### [facility] [address] [place], [address] Nucleated RBC (Bld) [#/Vol] 0 10*3/uL Normal 0-5 [facility] Comment on above: Order Comment: Order Date: 04/13/24 Order Info: [id number] - CBCD Performed By: #### L 500.4050, L100.0100, L501.5101, L501.6710, L500.4100, L3100.5475 #### [facility] [address] [place], [address] Platelet mean volume (Bld) [Entitic vol] 9.6 fL Normal 6.2-12.0 [facility] Comment on above: Order Comment: Order Date: 04/13/24 Order Info: [id number] - CBCD Performed By: #### L 500.4050, L100.0100, L501.5101, L501.6710, L500.4100, L3100.5475 #### [facility] [address] [place], [address] Platelets (Bld) [#/Vol] 212 10*3/uL Normal 150-450 [facility] Comment on above: Order Comment: Order Date: 04/13/24 Order Info: [id number] - CBCD Performed By: #### L 500.4050, L100.0100, L501.5101, L501.6710, L500.4100, L3100.5475 #### [facility] [address] [place], [address] RBC (Bld) [#/Vol] 4.60 10*6/uL Normal 4.2-5.4 [facility] Comment on above: Order Comment: Order Date: 04/13/24 Order Info: [id number] - CBCD Performed By: #### L 500.4050, L100.0100, L501.5101, L501.6710, L500.4100, L3100.5475 #### [facility] [address] [place], [address] RDW SD 42.8 fl Normal 35.1-43.9 [facility] Comment on above: Order Comment: Order Date: 04/13/24 Order Info: [id number] - CBCD Performed By: #### L 500.4050, L100.0100, L501.5101, L501.6710, L500.4100, L3100.5475 #### [facility] [address] [place], [address] WBC (Bld) [#/Vol] 6.4 10*3/uL Normal 4.4-11.0 [facility] Comment on above: Order Comment: Order Date: 04/13/24 Order Info: [id number] - CBCD Performed By: #### L 500.4050, L100.0100, L501.5101, L501.6710, L500.4100, L3100.5475 #### [facility] [address] [place], [place], [id number] CRPon 07-04-2024 C-REACTIVE PROT 5.57 mg/L High 0.0-3.0 [facility] Comment on above: Order Comment: Order Date: 04/13/24Order Info: [id number] - CMPOrder Info: [id number] - LIPIDOrder Info: [id number] - CRP Performed By: #### L 500.4050, L100.0100, L501.5101, L501.6710, L500.4100, L3100.5475 ####[facility] [address] [place], [place], [id number] Comprehensive Metabolic Prof ilon 07-04-2024 Albumin [Mass/Vol] 4.3 g/dL Normal 3.5-5.0 [facility] Comment on above: Order Comment: Order Date: 04/13/24Order Info: [id number] - CMPOrder Info: [id number] - LIPIDOrder Info: [id number] - CRP Performed By: #### L 500.4050, L100.0100, L501.5101, L501.6710, L500.4100, L3100.5475 ####[facility] [address] [place], [address] Albumin/Globulin [Mass ratio] 1.6 {ratio} Normal 0.9-2.4 [facility] Comment on above: Order Comment: Order Date: 04/13/24Order Info: 86-1 - CMPOrder Info: [id number] - LIPIDOrder Info: [id number] - CRP Performed By: #### L 500.4050, L100.0100, L501.5101, L501.6710, L500.4100, L3100.5475 ####[facility] [address] [place], [address] ALK PHOS 47 U/L Normal 35-104 [facility] Comment on above: Order Comment: Order Date: 04/13/24Order Info: [id number] - CMPOrder Info: [id number] - LIPIDOrder Info: [id number] - CRP Performed By: #### L 500.4050, L100.0100, L501.5101, L501.6710, L500.4100, L3100.5475 ####[facility] [address] [place], [address] ALT [Catalytic activity/Vol] 24 U/L Normal <=34 [facility] Comment on above: Order Comment: Order Date: 04/13/24Order Info: [id number] - CMPOrder Info: [id number] - LIPIDOrder Info: [id number] - CRP Performed By: #### L 500.4050, L100.0100, L501.5101, L501.6710, L500.4100, L3100.5475 ####[facility] [address] [place], [address] AST [Catalytic activity/Vol] 23 U/L Normal <=31 [facility] Comment on above: Order Comment: Order Date: 04/13/24Order Info: [id number] - CMPOrder Info: [id number] - LIPIDOrder Info: [id number] - CRP Performed By: #### L 500.4050, L100.0100, L501.5101, L501.6710, L500.4100, L3100.5475 ####[facility] [address] [place], [address] Bilirubin [Mass/Vol] 0.91 mg/dL Normal 0.00-1.30 [facility] Comment on above: Order Comment: Order Date: 04/13/24Order Info: [id number] - CMPOrder Info: [id number] - LIPIDOrder Info: [id number] - CRP Performed By: #### L 500.4050, L100.0100, L501.5101, L501.6710, L500.4100, L3100.5475 ####[facility] [address] [place], [address] BUN/CRE 11.0 RATIO Normal 10-20 [facility] Comment on above: Order Comment: Order Date: 04/13/24Order Info: [id number] - CMPOrder Info: [id number] - LIPIDOrder Info: [id number] - CRP Performed By: #### L 500.4050, L100.0100, L501.5101, L501.6710, L500.4100, L3100.5475 ####[facility] [address] [place], [address] Calcium [Mass/Vol] 9.4 mg/dL Normal 7.6-11.0 [facility] Comment on above: Order Comment: Order Date: 04/13/24Order Info: [id number] - CMPOrder Info: [id number] - LIPIDOrder Info: [id number] - CRP Performed By: #### L 500.4050, L100.0100, L501.5101, L501.6710, L500.4100, L3100.5475 ####[facility] [address] [place], [address] Chloride [Moles/Vol] 106 mmol/L Normal 98-108 [facility] Comment on above: Order Comment: Order Date: 04/13/24Order Info: [id number] - CMPOrder Info: [id number] - LIPIDOrder Info: [id number] - CRP Performed By: #### L 500.4050, L100.0100, L501.5101, L501.6710, L500.4100, L3100.5475 ####[facility] [address] [place], [address] CO2 [Moles/Vol] 23.6 mmol/L Normal 21.0-32.0 [facility] Comment on above: Order Comment: Order Date: 04/13/24Order Info: [id number] - CMPOrder Info: [id number] - LIPIDOrder Info: [id number] - CRP Performed By: #### L 500.4050, L100.0100, L501.5101, L501.6710, L500.4100, L3100.5475 ####[facility] [address] [place], [address] Creatinine [Mass/Vol] 0.90 mg/dL Normal 0.70-1.20 [facility] Comment on above: Order Comment: Order Date: 04/13/24Order Info: [id number] - CMPOrder Info: [id number] - LIPIDOrder Info: [id number] - CRP Performed By: #### L 500.4050, L100.0100, L501.5101, L501.6710, L500.4100, L3100.5475 ####[facility] [address] [place], [address] GAP 12 Normal 5-15 [facility] Comment on above: Order Comment: Order Date: 04/13/24Order Info: [id number] - CMPOrder Info: [id number] - LIPIDOrder Info: [id number] - CRP Performed By: #### L 500.4050, L100.0100, L501.5101, L501.6710, L500.4100, L3100.5475 ####[facility] [address] [place], [address] GFR/1.73 sq M.predicted among non-blacks MDRD (S/P/Bld) [Vol rate/Area] 75 mL/min/{1.73_m2} Normal >60 [facility] Comment on above: Order Comment: Order Date: 04/13/24Order Info: 86-1 - CMPOrder Info: [id number] - LIPIDOrder Info: [id number] - CRP Result Comment: mL/m in/1.73m2 CKD-EPI Creatinine Equation (2020) Performed By: #### L 500.4050, L100.0100, L501.5101, L501.6710, L500.4100, L3100.5475 ####[facility] [address] [place], [address] Globulin (S) [Mass/Vol] 2.7 g/dL Normal 2.2-4.2 [facility] Comment on above: Order Comment: Order Date: 04/13/24Order Info: 07-1 - CMPOrder Info: [id number] - LIPIDOrder Info: [id number] - CRP Performed By: #### L 500.4050, L100.0100, L501.5101, L501.6710, L500.4100, L3100.5475 ####[facility] [address] [place], [address] Glucose [Mass/Vol] 101 mg/dL High 70-99 [facility] Comment on above: Order Comment: Order Date: 04/13/24Order Info: [id number] - CMPOrder Info: [id number] - LIPIDOrder Info: [id number] - CRP Performed By: #### L 500.4050, L100.0100, L501.5101, L501.6710, L500.4100, L3100.5475 ####[facility] [address] [place], [address] Potassium [Moles/Vol] 4.1 mmol/L Normal 3.3-5.1 [facility] Comment on above: Order Comment: Order Date: 04/13/24Order Info: [id number] - CMPOrder Info: [id number] - LIPIDOrder Info: [id number] - CRP Performed By: #### L 500.4050, L100.0100, L501.5101, L501.6710, L500.4100, L3100.5475 ####[facility] [address] [place], [address] Sodium [Moles/Vol] 142 mmol/L Normal 133-145 [facility] Comment on above: Order Comment: Order Date: 04/13/24Order Info: [id number] - CMPOrder Info: [id number] - LIPIDOrder Info: [id number] - CRP Performed By: #### L 500.4050, L100.0100, L501.5101, L501.6710, L500.4100, L3100.5475 ####[facility] [address] [place], [address] T PROT 7.0 g/dL Normal 5.9-8.4 [facility] Comment on above: Order Comment: Order Date: 04/13/24Order Info: [id number] - CMPOrder Info: [id number] - LIPIDOrder Info: [id number] - CRP Performed By: #### L 500.4050, L100.0100, L501.5101, L501.6710, L500.4100, L3100.5475 ####[facility] [address] [place], [address] Urea nitrogen [Mass/Vol] 10 mg/dL Normal 4-19 [facility] Comment on above: Order Comment: Order Date: 04/13/24Order Info: [id number] - CMPOrder Info: [id number] - LIPIDOrder Info: [id number] - CRP Performed By: #### L 500.4050, L100.0100, L501.5101, L501.6710, L500.4100, L3100.5475 ####[facility] [address] [place], [address] Lipid Profileon 07-04-2024 CHOL:HDL 2.94 Normal [facility] Comment on above: Order Comment: Order Date: 04/13/24Order Info: [id number] - CMPOrder Info: [id number] - LIPIDOrder Info: [id number] - CRP Performed By: #### L 500.4050, L100.0100, L501.5101, L501.6710, L500.4100, L3100.5475 ####[facility] [address] [place], [address] Cholesterol [Mass/Vol] 155 mg/dL Normal <=200 [facility] Comment on above: Order Comment: Order Date: 04/13/24Order Info: [id number] - CMPOrder Info: [id number] - LIPIDOrder Info: [id number] - CRP Result Comment: Chol esterol level, Desirable <200 mg/dL Borderline high cholesterol 200-239 mg/dL High cholesterol >=240 mg/dL Recommendations of the NCEP Adult Treatment Panel for the following risk-cutoff thresholds for the [place] population. Performed By: #### L 500.4050, L100.0100, L501.5101, L501.6710, L500.4100, L3100.5475 ####[facility] [address] [place], [place], [address] Cholesterol in HDL [Mass/Vol] 53 mg/dL Normal [facility] Comment on above: Order Comment: Order Date: 04/13/24Order Info: [id number] - CMPOrder Info: [id number] - LIPIDOrder Info: [id number] - CRP Result Comment: Andie onal Cholesterol Education Program (NCEP) guidelines: <40 mg/dL: Low HDL-cholesterol (major risk factor for CHD) >= 60 mg/dL: High HDL-cholesterol (negative risk factor for CHD) HDL-cholesterol is affected by a number of factors, e.g. smoking, exercise, hormones, sex and age. Performed By: #### L 500.4050, L100.0100, L501.5101, L501.6710, L500.4100, L3100.5475 ####[facility] [address] [place], [address] Cholesterol in LDL [Mass/Vol] 90 mg/dL Normal [facility] Comment on above: Order Comment: Order Date: 04/13/24Order Info: [id number] - CMPOrder Info: [id number] - LIPIDOrder Info: [id number] - CRP Result Comment: Bord trasgg=348-509 mg/dL Higher Ydre=749 mg/dL or greater Performed By: #### L 500.4050, L100.0100, L501.5101, L501.6710, L500.4100, L3100.5475 ####[facility] [address] [place], [address] Cholesterol in VLDL [Mass/Vol] 12 mg/dL Normal 5-40 [facility] Comment on above: Order Comment: Order Date: 04/13/24Order Info: [id number] - CMPOrder Info: [id number] - LIPIDOrder Info: [id number] - CRP Performed By: #### L 500.4050, L100.0100, L501.5101, L501.6710, L500.4100, L3100.5475 ####[facility] [address] [place], [address] Triglyceride [Mass/Vol] 62 mg/dL Normal [facility] Comment on above: Order Comment: Order Date: 04/13/24Order Info: [id number] - CMPOrder Info: [id number] - LIPIDOrder Info: [id number] - CRP Result Comment: The drugs N-Acetylcysteine and Metamizole may falsely depress this assay. Normal range: <150 mg/dL Borderline High: 150-199 mg/dL High: 200-499 mg/dL Very High: >500 mg/dL Performed By: #### L 500.4050, L100.0100, L501.5101, L501.6710, L500.4100, L3100.5475 ####[facility] [address] [facility] [place], [address] Hips B/L min 2 views w/ Pelv marli 05-18-2024 Hips B/L min 2 views w/ Pelvis [facility] Imaging Services [address] [place] [address] Hips B/L min 2 views w/ Pelvis MR#: [id number] Acct: [id number] Name: HOLGER MCCORD Rep #: [id number] : 1965 F 58 From: Yony Christianson PCP: Dr. Richard Marcelino MD Status: REG CLI Study: Hips B/L min 2 views w/ Pelvis Date of Exam: 0 05/18/24 Exam# [id number] Ordering Dr: Guillermo Buckner MD PROCEDURE: Pelvis [...] Richard Marcelino MD; Dr. Guillermo Buckner MD Accountant Budget: Signed Normal [facility] Absolute neutrophil countOrd ered By: Richard Marcelino on 03-28-2024 Neutrophils (Bld) [#/Vol] 3.2 10*3/uL 2.0-7.7 [facility] Albumin to globulin ratioOrd ered By: Richard Marcelino on 03-28-2024 Albumin/Globulin [Mass ratio] 1.1 {ratio} 0.9-2.4 [facility] Basophil percentageOrdered B y: Richard Marcelino on 03-28-2024 Basophils/100 WBC (Bld) 0.8 % 0-1 [facility] Bilirubin, totalOrdered By: Richard Marcelino on 03-28-2024 Bilirubin [Mass/Vol] 0.80 mg/dL 0.20-1.00 [facility] Comment on above: For patients on eltr ombopag therapy, use of Dimension Laurier TBIL is not recommended. Blood urea nitrogen (BUN)/cr eatinine ratioOrdered By: Richard Marcelino on 03-28-2024 Urea nitrogen/Creatinine [Mass ratio] 9.4 mg/mg Low 12-26 [facility] CBC W/Diff, Automatedon 03-10 Absolute Lymph 2.23 X10 3/uL Normal 0.83-4.51 [facility] Comment on above: Performed By: #### L 501.1400, L501.9520, L101.9900, L500.4050, L100.0100 ####[facility] [address] [place], [address] Absolute Neut 3.2 X10 3/uL Normal 2.0-7.7 [facility] Comment on above: Performed By: #### L 501.1400, L501.9520, L101.9900, L500.4050, L100.0100 ####[facility] [address] [place], [address] Basophils/100 WBC (Bld) 0.8 % Normal 0-1 [facility] Comment on above: Performed By: #### L 501.1400, L501.9520, L101.9900, L500.4050, L100.0100 ####[facility] [address] [place], [address] Eosinophils/100 WBC (Bld) 3.3 % Normal 0-5 [facility] Comment on above: Performed By: #### L 501.1400, L501.9520, L101.9900, L500.4050, L100.0100 ####[facility] [address] [place], [address] Erythrocyte distribution width (RBC) [Ratio] 12.4 % Normal 11.6-14.6 [facility] Comment on above: Performed By: #### L 501.1400, L501.9520, L101.9900, L500.4050, L100.0100 ####[facility] [address] [place], [address] Hematocrit (Bld) [Volume fraction] 41.6 % Normal 37-47 [facility] Comment on above: Performed By: #### L 501.1400, L501.9520, L101.9900, L500.4050, L100.0100 ####[facility] [address] [place], [address] Hemoglobin (Bld) [Mass/Vol] 14.4 g/dL Normal 12.0-15.0 [facility] Comment on above: Performed By: #### L 501.1400, L501.9520, L101.9900, L500.4050, L100.0100 ####[facility] [address] [place], [address] IG% 0.200 Normal 0.0-0.9 [facility] Comment on above: Result Comment: IG% - Immature Granulocytes (promyelocytes, myelocytes and metamyelocytes) > 1% indicates that a LEFT SHIFT is Present. Performed By: #### L 501.1400, L501.9520, L101.9900, L500.4050, L100.0100 ####[facility] [address] [place], [address] Lymphocytes/100 WBC (Bld) 37.0 % Normal 19-41 [facility] Comment on above: Performed By: #### L 501.1400, L501.9520, L101.9900, L500.4050, L100.0100 ####[facility] [address] [place], [address] MCH (RBC) [Entitic mass] 30.6 pg Normal 27.0-32.0 [facility] Comment on above: Performed By: #### L 501.1400, L501.9520, L101.9900, L500.4050, L100.0100 ####[facility] [address] [place], [address] MCHC (RBC) [Mass/Vol] 34.6 g/dL Normal 32-36 [facility] Comment on above: Performed By: #### L 501.1400, L501.9520, L101.9900, L500.4050, L100.0100 ####[facility] [address] [place], [address] MCV (RBC) [Entitic vol] 88.3 fL Normal 81-99 [facility] Comment on above: Performed By: #### L 501.1400, L501.9520, L101.9900, L500.4050, L100.0100 ####[facility] [address] [place], [address] Monocytes/100 WBC (Bld) 5.1 % Normal 0-10 [facility] Comment on above: Performed By: #### L 501.1400, L501.9520, L101.9900, L500.4050, L100.0100 ####[facility] [address] [place], [address] Neutrophils/100 WBC (Bld) 53.6 % Normal 47-70 [facility] Comment on above: Performed By: #### L 501.1400, L501.9520, L101.9900, L500.4050, L100.0100 ####[facility] [address] [place], [address] Nucleated RBC (Bld) [#/Vol] 0 10*3/uL Normal 0-5 [facility] Comment on above: Performed By: #### L 501.1400, L501.9520, L101.9900, L500.4050, L100.0100 ####[facility] [address] [place], [address] Platelet mean volume (Bld) [Entitic vol] 10.0 fL Normal 6.2-12.0 [facility] Comment on above: Performed By: #### L 501.1400, L501.9520, L101.9900, L500.4050, L100.0100 ####[facility] [address] [place], [address] Platelets (Bld) [#/Vol] 270 10*3/uL Normal 150-450 [facility] Comment on above: Performed By: #### L 501.1400, L501.9520, L101.9900, L500.4050, L100.0100 ####[facility] [address] [place], [address] RBC (Bld) [#/Vol] 4.71 10*6/uL Normal 4.2-5.4 [facility] Comment on above: Performed By: #### L 501.1400, L501.9520, L101.9900, L500.4050, L100.0100 ####[facility] [address] [place], [address] RDW SD 40.2 fl Normal 35.1-43.9 [facility] Comment on above: Performed By: #### L 501.1400, L501.9520, L101.9900, L500.4050, L100.0100 ####[facility] [address] [place], [address] WBC (Bld) [#/Vol] 6.0 10*3/uL Normal 4.4-11.0 [facility] Comment on above: Performed By: #### L 501.1400, L501.9520, L101.9900, L500.4050, L100.0100 ####[facility] [address] [place], [address] Carbon dioxide measurementOr dered By: Richard Marcelino on 03-28-2024 CO2 [Moles/Vol] 26.0 mmol/L 21.0-32.0 [facility] Chloride measurementOrdered By: Richard Marcelino on 03-28-2024 Chloride [Moles/Vol] 108 mmol/L High 98-107 [facility] Comprehensive Metabolic Prof ilon 03-28-2024 Albumin [Mass/Vol] 3.9 g/dL Normal 3.2-5.0 [facility] Comment on above: Performed By: #### L 501.1400, L501.9520, L101.9900, L500.4050, L100.0100 ####[facility] [address] [place], [address] Albumin/Globulin [Mass ratio] 1.1 {ratio} Normal 0.9-2.4 [facility] Comment on above: Performed By: #### L 501.1400, L501.9520, L101.9900, L500.4050, L100.0100 ####[facility] [address] [place], [address] ALK P 65 U/L Normal 45-117 [facility] Comment on above: Performed By: #### L 501.1400, L501.9520, L101.9900, L500.4050, L100.0100 ####[facility] [address] [place], [address] ALT [Catalytic activity/Vol] 87 U/L High 13-56 [facility] Comment on above: Performed By: #### L 501.1400, L501.9520, L101.9900, L500.4050, L100.0100 ####[facility] [address] [place], [address] AST [Catalytic activity/Vol] 53 U/L High 15-37 [facility] Comment on above: Performed By: #### L 501.1400, L501.9520, L101.9900, L500.4050, L100.0100 ####[facility] [address] [place], [address] Bilirubin [Mass/Vol] 0.80 mg/dL Normal 0.20-1.00 [facility] Comment on above: Result Comment: For patients on eltrombopag therapy, use of Dimension Laurier TBIL is not recommended. Performed By: #### L 501.1400, L501.9520, L101.9900, L500.4050, L100.0100 ####[facility] [address] [place], [address] BUN/CRE 9.4 RATIO Low 10-20 [facility] Comment on above: Performed By: #### L 501.1400, L501.9520, L101.9900, L500.4050, L100.0100 ####[facility] [address] [place], [address] CA,Total 9.1 mg/dL Normal 8.5-10.1 [facility] Comment on above: Performed By: #### L 501.1400, L501.9520, L101.9900, L500.4050, L100.0100 ####[facility] [address] [place], [address] Chloride [Moles/Vol] 108 mmol/L High 98-107 [facility] Comment on above: Performed By: #### L 501.1400, L501.9520, L101.9900, L500.4050, L100.0100 ####[facility] [address] [place], [address] CO2 [Moles/Vol] 26.0 mmol/L Normal 21.0-32.0 [facility] Comment on above: Performed By: #### L 501.1400, L501.9520, L101.9900, L500.4050, L100.0100 ####[facility] [address] [place], [address] Creatinine [Mass/Vol] 0.95 mg/dL Normal 0.55-1.02 [facility] Comment on above: Result Comment: The validity of the calculated GFR GFRAA in patients over 70 years has not been determined. Clinical correlation is essential. Performed By: #### L 501.1400, L501.9520, L101.9900, L500.4050, L100.0100 ####[facility] [address] [place], [address] EST GFR - AA 77 mL/min Normal >60 [facility] Comment on above: Result Comment: Afri can Peruvian GFR Calc Performed By: #### L 501.1400, L501.9520, L101.9900, L500.4050, L100.0100 ####[facility] [address] [place], [address] GAP 8 Normal 5-15 [facility] Comment on above: Performed By: #### L 501.1400, L501.9520, L101.9900, L500.4050, L100.0100 ####[facility] [address] [place], [address] GFR/1.73 sq M.predicted among non-blacks MDRD (S/P/Bld) [Vol rate/Area] 64 mL/min/{1.73_m2} Normal >60 [facility] Comment on above: Result Comment: Non- GFR Calc Performed By: #### L 501.1400, L501.9520, L101.9900, L500.4050, L100.0100 ####[facility] [address] [place], [address] Globulin (S) [Mass/Vol] 3.5 g/dL Normal 2.2-4.2 [facility] Comment on above: Performed By: #### L 501.1400, L501.9520, L101.9900, L500.4050, L100.0100 ####[facility] [address] [place], [address] Glucose [Mass/Vol] 164 mg/dL High 74-106 [facility] Comment on above: Result Comment: Fast ing Glucose result greater than or equal to 126 mg/dL suggests DIABETES MELLITUS per A.D.A. criteria. Performed By: #### L 501.1400, L501.9520, L101.9900, L500.4050, L100.0100 ####[facility] [address] [place], [address] Potassium [Moles/Vol] 3.4 mmol/L Low 3.5-5.1 [facility] Comment on above: Performed By: #### L 501.1400, L501.9520, L101.9900, L500.4050, L100.0100 ####[facility] [address] [place], [address] Sodium [Moles/Vol] 142 mmol/L Normal 136-145 [facility] Comment on above: Performed By: #### L 501.1400, L501.9520, L101.9900, L500.4050, L100.0100 ####[facility] [address] [place], [address] T PROT 7.4 g/dL Normal 6.4-8.2 [facility] Comment on above: Performed By: #### L 501.1400, L501.9520, L101.9900, L500.4050, L100.0100 ####[facility] [address] [place], [place], [address] Urea nitrogen [Mass/Vol] 9 mg/dL Normal 7-18 [facility] Comment on above: Performed By: #### L 501.1400, L501.9520, L101.9900, L500.4050, L100.0100 ####[facility] [address] [place], [address] Eosinophil percentageOrdered By: Richard Marcelino on 03-28-2024 Eosinophils/100 WBC (Bld) 3.3 % 0-5 [facility] Erythrocyte Sed Rateon 03-28 SED RATE 5 mm/hr Normal 0-30 [facility] Comment on above: Performed By: #### L 501.1400, L501.9520, L101.9900, L500.4050, L100.0100 ####[facility] [address] [place], [address] Erythrocyte distribution wid th ratioOrdered By: Richard Marcelino on 03-28-2024 Erythrocyte distribution width (RBC) [Ratio] 12.4 % 11.6-14.6 [facility] Erythrocyte distribution wid th standard deviationOrdered By: Richard Marcelino on 03-28-2024 Erythrocyte distribution width (RBC) [Entitic vol] 40.2 fL 35.1-43.9 [facility] Erythrocyte sedimentation ra teOrdered By: Richard Marcelino on 03-28-2024 ESR (Bld) [Velocity] 5 mm/h 0-30 [facility] Estimated glomerular filtrat ion rate (GFR) AmericanOrdered By: Richard Marcelino on 03-28-2024 Estimated GFR (MDRD) Amer 77 mL/min >60 [facility] Comment on above: GFR Calc Glomerular filtration rate ( GFR) estimationOrdered By: Richard Marcelino on 03-28-2024 Estimated GFR (MDRD) Non-Af Amer 64 mL/min >60 [facility] Comment on above: Non- GFR Calc Glucose measurementOrdered B y: Richard Marcelino on 03-28-2024 Glucose [Mass/Vol] 164 mg/dL High 74-106 [facility] Comment on above: Fasting Glucose resu lt greater than or equal to 126 mg/dL suggests DIABETES MELLITUS per A.D.A. criteria. Hematocrit Auto (Bld) [Volum e fraction]Ordered By: Richard Marcelino on 03-28-2024 Hematocrit (Bld) [Volume fraction] 41.6 % 37-47 [facility] Hemoglobin measurementOrdere d By: Richard Marcelino on 03-28-2024 Hemoglobin (Bld) [Mass/Vol] 14.4 g/dL 12.0-15.0 [facility] Immature granulocytes/100 WB C Auto (Bld)Ordered By: Richard Marcelino on 03-28-2024 Immature granulocytes/100 WBC (Bld) 0.200 % 0.0-0.9 [facility] Comment on above: IG% - Immature Granu locytes (promyelocytes, myelocytes and metamyelocytes) > 1% indicates that a LEFT SHIFT is Present. Laboratory - Chemistry and C hemistry - challengeOrdered By: Richard Marcelino on 03-28-2024 AST [Catalytic activity/Vol] 53 U/L High 15-37 [facility] Lymphocytes Auto (Unsp spec) [#/Vol]Ordered By: Richard Marcelino on 03-28-2024 Lymphocytes (Bld) [#/Vol] 2.23 10*3/uL 0.83-4.51 [facility] Lymphocytes/100 WBC Auto (Un sp spec)Ordered By: Richard Marcelino on 03-28-2024 Lymphocytes/100 WBC (Bld) 37.0 % 19-41 [facility] MCV (mean corpuscular volume ) determinationOrdered By: Richard Marcelino on 03-28-2024 MCV (RBC) [Entitic vol] 88.3 fL 81-99 [facility] Mean corpuscular hemoglobin (MCH) determinationOrdered By: Richard Marcelino on 03-28-2024 MCH (RBC) [Entitic mass] 30.6 pg 27.0-32.0 [facility] Mean corpuscular hemoglobin concentration (MCHC) determinationOrdered By: Richard Marcelino on 03-28-2024 MCHC (RBC) [Mass/Vol] 34.6 g/dL 32-36 [facility] Mean platelet volume determi nationOrdered By: Richard Marcelino on 03-28-2024 Platelet mean volume (Bld) [Entitic vol] 10.0 fL 6.2-12.0 [facility] Monocyte percentageOrdered B y: Richard Marcelino on 03-28-2024 Monocytes/100 WBC (Bld) 5.1 % 0-10 [facility] Neutrophil percentageOrdered By: Richard Marcelino on 03-28-2024 Neutrophils/100 WBC (Bld) 53.6 % 47-70 [facility] Nucleated red blood cell per centageOrdered By: Richard Marcelino on 03-28-2024 Nucleated RBC/100 WBC (Bld) [Ratio] 0 % 0-5 [facility] Platelet countOrdered By: Violette Marcelino on 03-28-2024 Platelets (Bld) [#/Vol] 270 10*3/uL 150-450 [facility] Potassium measurementOrdered By: Richard Marcelino on 03-28-2024 Potassium [Moles/Vol] 3.4 mmol/L Low 3.5-5.1 [facility] RBC Auto (Bld) [#/Vol]Ordere d By: Richard Marcelino on 03-28-2024 RBC (Bld) [#/Vol] 4.71 10*6/uL 4.2-5.4 [facility] Serum anion gap measurementO rdered By: Richard Marcelino on 03-28-2024 Anion gap [Moles/Vol] 8 mmol/L 5-15 [facility] Serum globulin measurementOr dered By: Richard Marcelino on 03-28-2024 Globulin (S) [Mass/Vol] 3.5 g/dL 2.2-4.2 [facility] Serum or plasma alanine snyder otransferase (ALT) measurementOrdered By: Richard Marcelino on 03-28-2024 ALT [Catalytic activity/Vol] 87 U/L High 13-56 [facility] Serum or plasma albumin kei urement (mass/volume)Ordered By: Richard Marcelino on 03-28-2024 Albumin [Mass/Vol] 3.9 g/dL 3.2-5.0 [facility] Serum or plasma alkaline miriam sphatase measurementOrdered By: Richard Marcelino on 03-28-2024 ALP [Catalytic activity/Vol] 65 U/L 45-117 [facility] Serum or plasma calcium kei urement (mass/volume)Ordered By: Richard Marcelino on 03-28-2024 Calcium [Mass/Vol] 9.1 mg/dL 8.5-10.1 [facility] Serum or plasma creatinine m easurement (mass/volume)Ordered By: Richard Marcelino on 03-28-2024 Creatinine [Mass/Vol] 0.95 mg/dL 0.55-1.02 [facility] Comment on above: The validity of the calculated GFR & GFRAA in patients over 70 years has not been determined. Clinical correlation is essential. Serum or plasma urea nitroge n measurement (mass/volume)Ordered By: Richard Marcelino on 03-28-2024 Urea nitrogen [Mass/Vol] 9 mg/dL 7-18 [facility] Serum or plasma uric acid me asurement (mass/volume)Ordered By: Richard Marcelino on 03-28-2024 Urate [Mass/Vol] 5.0 mg/dL 2.6-6.0 [facility] Comment on above: The drugs N-Acetylcy steine and Metamizole may falsely depress this assay. Sodium levelOrdered By: Shwetha Marcelino on 03-28-2024 Sodium [Moles/Vol] 142 mmol/L 136-145 [facility] TSH QnOrdered By: Vladislav Marcelino on 03-28-2024 Thyroid Stimulating Hormone (TSH) 1.500 uIU/mL 0.358-3.74 0 [facility] Thyroid Stim Hormone (TSH)on 03-28-2024 TSH 1.500 uIU/mL Normal 0.358-3.74 0 [facility] Comment on above: Performed By: #### L 501.1400, L501.9520, L101.9900, L500.4050, L100.0100 ####[facility] [address] [place], [address] Total proteinOrdered By: Julio nettleslashay Ryland on 03-28-2024 Protein [Mass/Vol] 7.4 g/dL 6.4-8.2 [facility] Uric Acidon 03-28-2024 URIC 5.0 mg/dL Normal 2.6-6.0 [facility] Comment on above: Result Comment: The drugs N-Acetylcysteine and Metamizole may falsely depress this assay. Performed By: #### L 501.1400, L501.9520, L101.9900, L500.4050, L100.0100 ####[facility] [address] [facility] [place], [place], [address] White blood cell (WBC) count Ordered By: Richard Marcelino on 03-28-2024 WBC (Bld) [#/Vol] 6.0 10*3/uL 4.4-11.0 [facility] Spine Cervical (Routine)on 04-02-2023 Spine Cervical (Routine) [facility] Imaging Services [address] [place], [place] [address] Spine Cervical (Routine) MR#: [id number] Acct: [id number] Name: HOLGER MCCORD Rep #: [id number] : 1965 F 58 From: Nikko Solo MD PCP: Dr. Richard Marcelino MD Status: [facility] Study: Spine Cervical (Routine) Date of Exam: Exam# [id number] Ordering Dr: Luis Graham MD [id number] STUDY: MRI CERVICAL SPINE WITHOUT CONTRAST REASON [...] MD at 13:08 EST , CC: Dr. Richard Marcelino MD; Dr. Luis Graham MD Accountant Budget: Signed Normal [facility] NCS and/or EMG Patienton NCS and/or EMG Patient [facility]/Neurology [address] [place] [address] MR#: [id number] Acct: [id number] Name: HOLGER MCCORD ADOLFO Rep #: [id number] : 1965 58 From: Reid Keys MD Referring Dr: Richard Marcelino MD Status: REG CLI Location: [facility] Date: 01/20/24 Sex: F C NCS [...] Multi Select Codes Neurology Neurology Interp Codes: 30963-71 Musc test done w/n test comp (interp) (2) and 58945-97 Nrv cndj test 9-10 studies (interp) 01/20/241318 Date Reid Keys MD CC: Dr. Reid Keys MD; Dr. Richard Marcelino MD Date Dictated: 01/20/241316 Date Transcribed: 01/20/241316 Accountant Budget: AA Signed Normal [facility] Protein Electroph, Son 01-03 Albumin [Mass/Vol] 3.8 g/dL Normal 2.9-4.4 [facility] Comment on above: Order Comment: Order Date: 12/31/23 Order Info: 0060-1 - PROEL Performed By: #### L 500.2500, L3100.3450, L501.6710 #### [facility] Laboratory [address] [place], [place], [address] Albumin/Globulin [Mass ratio] 1.3 {ratio} Normal 0.7-1.7 [facility] Comment on above: Order Comment: Order Date: 12/31/23 Order Info: 0060-1 - PROEL Performed By: #### L 500.2500, L3100.3450, L501.6710 #### [facility] [address] [place], [address] ALPHA-1 GLOBUL 0.3 g/dL Normal 0.0-0.4 [facility] Comment on above: Order Comment: Order Date: 12/31/23 Order Info: 0060-1 - PROEL Performed By: #### L 500.2500, L3100.3450, L501.6710 #### [facility] [address] [place], [address] ALPHA-2 GLOBUL 0.7 g/dL Normal 0.4-1.0 [facility] Comment on above: Order Comment: Order Date: 12/31/23 Order Info: 0060-1 - PROEL Performed By: #### L 500.2500, L3100.3450, L501.6710 #### [facility] [address] [place], [address] BETA GLOBULIN 1.0 g/dL Normal 0.7-1.3 [facility] Comment on above: Order Comment: Order Date: 12/31/23 Order Info: 0060-1 - PROEL Performed By: #### L 500.2500, L3100.3450, L501.6710 #### [facility] [address] [place], [address] GAMMA GLOBULIN 0.9 g/dL Normal 0.4-1.8 [facility] Comment on above: Order Comment: Order Date: 12/31/23 Order Info: 0060-1 - PROEL Performed By: #### L 500.2500, L3100.3450, L501.6710 #### [facility] [address] [place], [address] Globulin (S) [Mass/Vol] 2.9 g/dL Normal 2.2-3.9 [facility] Comment on above: Order Comment: Order Date: 12/31/23 Order Info: 0060-1 - PROEL Performed By: #### L 500.2500, L3100.3450, L501.6710 #### [facility] [address] [place], [place], [id number] INTERPRETATION Comment Normal . [facility] Comment on above: Order Comment: Order Date: 12/31/23 Order Info: 0060-1 - PROEL Result Comment: Prot ein electrophoresis scan will follow via computer, mail, or equine internship delivery. Performed By: #### L 500.2500, L3100.3450, L501.6710 #### [facility] [address] [place], [address] M-SPIKE Not Observed Normal Not Observed [facility] Comment on above: Order Comment: Order Date: 12/31/23 Order Info: 0060-1 - PROEL Performed By: #### L 500.2500, L3100.3450, L501.6710 #### [facility] [address] [place], [place], [id number] NOTE: Comment Normal . [facility] Comment on above: Order Comment: Order Date: 12/31/23 Order Info: 0060-1 - PROEL Result Comment: The SPE pattern appears unremarkable. Evidence of monoclonal protein is not apparent. Performed at: [address] [id number] Fishing Reel Assembler: Mark Bundy PhD, Phone: [phone] Performed By: #### L 500.2500, L3100.3450, L501.6710 #### [facility] [address] [place], [place], [phone] Protein [Mass/Vol] 6.7 g/dL Normal 6.0-8.5 [facility] Comment on above: Order Comment: Order Date: 12/31/23 Order Info: 0060-1 - PROEL Performed By: #### L 500.2500, L3100.3450, L501.6710 #### [facility] [address] [place], [address] Basic Metabolic Profile (BMP )on 12-31-2023 BUN/CRE 15.1 RATIO Normal 12-26 [facility] Comment on above: Order Comment: Order Date: 12/31/23 Order Info: 666-03 - BMP Order Info: 40011-0 - CRP Performed By: #### L 500.2500, L3100.3450, L501.6710 #### [facility] [address] [place], [address] CA,Total 9.7 mg/dL Normal 8.5-10.1 [facility] Comment on above: Order Comment: Order Date: 12/31/23 Order Info: 666-03 - [facility] Order Info: 50501-8 - CRP Performed By: #### L 500.2500, L3100.3450, L501.6710 #### [facility] [address] [place], [address] Chloride [Moles/Vol] 106 mmol/L Normal 98-107 [facility] Comment on above: Order Comment: Order Date: 12/31/23 Order Info: 666-03 - [facility] Order Info: 10310-4 - CRP Performed By: #### L 500.2500, L3100.3450, L501.6710 #### [facility] [address] [place], [address] CO2 [Moles/Vol] 28.0 mmol/L Normal 21.0-32.0 [facility] Comment on above: Order Comment: Order Date: 12/31/23 Order Info: 666-03 - [facility] Order Info: 91061-7 - CRP Performed By: #### L 500.2500, L3100.3450, L501.6710 #### [facility] [address] [place], [address] Creatinine [Mass/Vol] 0.86 mg/dL Normal 0.55-1.02 [facility] Comment on above: Order Comment: Order Date: 12/31/23 Order Info: 06 - BMP Order Info: 59983-8 - CRP Result Comment: The validity of the calculated GFR GFRAA in patients over 70 years has not been determined. Clinical correlation is essential. Performed By: #### L 500.2500, L3100.3450, L501.6710 #### [facility] [address] [place], [address] EST GFR - AA 87 mL/min Normal >60 [facility] Comment on above: Order Comment: Order Date: 12/31/23 Order Info: 666-03 - [facility] Order Info: 83190-7 - CRP Result Comment: Afri can Peruvian GFR Calc Performed By: #### L 500.2500, L3100.3450, L501.6710 #### [facility] [address] [place], [address] GAP 6 Normal 5-15 [facility] Comment on above: Order Comment: Order Date: 12/31/23 Order Info: 666-03 - [facility] Order Info: 26764-1 - CRP Performed By: #### L 500.2500, L3100.3450, L501.6710 #### [facility] [address] [place], [address] GFR/1.73 sq M.predicted among non-blacks MDRD (S/P/Bld) [Vol rate/Area] 72 mL/min/{1.73_m2} Normal >60 [facility] Comment on above: Order Comment: Order Date: 12/31/23 Order Info: 666-03 - [facility] Order Info: 56600-8 - CRP Result Comment: Non- GFR Calc Performed By: #### L 500.2500, L3100.3450, L501.6710 #### [facility] [address] [place], [address] Glucose [Mass/Vol] 91 mg/dL Normal 74-106 [facility] Comment on above: Order Comment: Order Date: 12/31/23 Order Info: 666-03 - [facility] Order Info: 85939-7 - CRP Performed By: #### L 500.2500, L3100.3450, L501.6710 #### [facility] [address] [place], [address] Potassium [Moles/Vol] 3.6 mmol/L Normal 3.5-5.1 [facility] Comment on above: Order Comment: Order Date: 12/31/23 Order Info: 0667-1 - BMP Order Info: 21523-3 - CRP Performed By: #### L 500.2500, L3100.3450, L501.6710 #### [facility] [address] [place], [address] Sodium [Moles/Vol] 140 mmol/L Normal 136-145 [facility] Comment on above: Order Comment: Order Date: 12/31/23 Order Info: 0667- - BMP Order Info: 51226-1 - CRP Performed By: #### L 500.2500, L3100.3450, L501.6710 #### [facility] [address] [place], [address] Urea nitrogen [Mass/Vol] 13 mg/dL Normal 7-18 [facility] Comment on above: Order Comment: Order Date: 12/31/23 Order Info: 0667- - BMP Order Info: 69374-2 - CRP Performed By: #### L 500.2500, L3100.3450, L501.6710 #### [facility] [address] [place], [address] CRPon 12-31-2023 C-REACTIVE PROT 9.70 mg/L High 0.0-3.0 [facility] Comment on above: Order Comment: Order Date: 12/31/23 Order Info: 0667-1 - BMP Order Info: 32604-2 - CRP Result Comment: C-Re active Protein (CRP) provides useful information for the diagnosis, therapy and monitoring of inflammatory processes and associated diseases. For the evaluation of Relative Risk for Cardiovascular Disease, a High Sensitivity CRP (HSCRP) should be ordered. Performed By: #### L 500.2500, L3100.3450, L501.6710 #### [facility] [address] [place], [address] SCRN MAMM (CAD)W/YUE BILATo n 12-25-2023 SCRN MAMM (CAD)W/YUE BILAT [facility] Imaging Services [address] [place] [address] SCRN MAMM (CAD)W/YUE BILAT MR#: [id number] Acct: [id number] Name: HOLGER MCCORD Rep #: [id number] : 1965 F 58 From: Fabricio talavera MD PCP: Dr. Richard Marcelino MD Status: [facility] Study: SCRN MAMM (CAD)W/YUE BILAT Date of Exam: 12/07 10/30 Exam# [id number] Ordering Dr: Clair Lee NP GENERAL LEDGER ACCOUNTANT -C [id number] MAMMOGRAPHY - BILATERAL SCREENING REASON FOR EXAM: [...] delay biopsy of a clinically suspicious abnormality. [id number] Electronically Signed: Fabricio Kramer MD at 9:01 EDT , CC: RUBEN Lee; Dr. Richard Marcelino MD Accountant Budget: Signed Normal [facility] Spine Lumbar (Routine)on Spine Lumbar (Routine) [facility] Imaging Services [address] [place] [address] Spine Lumbar (Routine) MR#: [id number] Acct: [id number] Name: HOLGER MCCORD Rep #: [id number] : 1965 F 58 From: Gabriel nation PCP: Dr. Richard Marcelino MD Status: REG [facility] Study: Spine Lumbar (Routine) Date of Exam: 12/25/23 Exam# [id number] Ordering Dr: Richard Marcelino [id number] EXAM: MR LUMBAR SPINE WITHOUT INTRAVENOUS CONTRAST [...] root impingement. Bilateral facet arthrosis contributes to dubo-xe-vyqtawqh bilateral neural foraminal narrowing. L3-L4: Disc bulge with small superimposed central disc herniation and moderate to severe bilateral facet arthrosis resulting in mild spinal canal stenosis and iuvp-dh-tpevgnqj bilateral neural foraminal narrowing. No nerve root impingement. L4-L5: Disc bulge with small superimposed right central to foraminal disc herniation and severe bilateral facet arthrosis. Mild spinal canal and rpfr-fa-mwfegecc bilateral neural foraminal narrowing. No discrete nerve [...] EDT , CC: Dr. Richard Marcelino MD Accountant Budget: Signed Normal [facility] Entertainment Reporter Office Visit Reporton 12-16-2023 Entertainment Reporter Office Visit Report [facility]'[address], [address] [place] [address] OFFICE VISIT Date of Service: 12/16/23 MR#: [id number] Acct: [id number] Name: HOLGER MCCORD ADOLFO Rep #: [id number] : 1965 Provider: RUBEN munson Age/Sex: 58/F Location: [facility] Status: Signed Intake Vital Signs 12/23/22 07:13 12/16/23 08:04 12/16/23 08:34 Height 5 ft 4 in 5 ft 4 in Weight: 244 lb BMI 41.8 BP 168/98 H 140/92 H 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 Date Name GA/Weeks Outcome Route Bth Weight Gen Labor [facility] FOB Unknown 1988 Otto live - [...] oriented to person and oriented to place HENIL Head: normal to inspection Neck Neck: normal [...] the urethr (more content not included)... Normal [facility] PT D/C Summary (1)on 024 PT D/C Summary (1) [facility] [address] [place] [address] / REHABILITATION SERVICES DISCHARGE SUMMARY MR#: [id number] Acct: [id number] Name: HOLGER MCCORD Rep #: [id number] : 1965 57 From: John Eason PT, [...] please feel free to call me at [phone]. Thank you for the referral of this patient. Sincerely, John Eason PT, Dmitry VELAZCO, OCS Balance/Gait/Functional tests Balance/Special Test Scores Oswestry Low Back Score: 21 11/12/23 1049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 0515 Normal [facility] Glucose Meteron 06-27-2017 Glucose mass conc 87 mg/dL Normal 70-99 [facility] Comment on above: Result Comment: RN N OTIFIED Performed By: #### G LMET ####[address] [address] HISTORY PHYSICALon 8 HISTORY PHYSICAL HNO ID: [id number] thor: Charly Gaytan: Hospital MedicineAuthor Type: PhysicianType: HANDPFiled: 06/27/2017 6:44 AMNote Text:HISTORY AND PHYSICAL EXAMINATIONSERVICE DATE: 06/27/2017SERVICE TIME: 6 [facility]: Bety CastrojectiveCHISURJIT COMPLAINT: Abdominal painHPI: [...] 27, 2017 : 6:29 AM PAGER/CONTACT #: [phone] Normal [facility] Urinalysis Routineon 018 Calcium MODERATE Abnormal None [facility] Comment on above: Performed By: #### U RIN2 ####[place] [address] Mucus Threads MANY Abnormal None [facility] Comment on above: Performed By: #### U RIN2 ####[place] [address] Urine, bacteria in sediment FEW Normal None [facility] Comment on above: Performed By: #### U RIN2 ####[address] [address] Ep Cells Urine 5.4 /hpf High 0.0-5.0 [facility] Comment on above: Performed By: #### U RIN2 ####[place] [id number] Hyaline Cast 0.4 /lpf Normal 0.0-1.0 [facility] Comment on above: Performed By: #### U RIN2 ####[address] [address] Urine, erythrocytes in sediment by area 2.3 /[HPF] Normal 0.0-5.0 [facility] Comment on above: Performed By: #### U RIN2 ####[address] [address] Urine, leukocytes in sedmiment 5.3 /[HPF] High 0.0-5.0 [facility] Comment on above: Performed By: #### U RIN2 ####[address] [address] Bilirubin Urine see below Abnormal Negative [facility] Comment on above: Result Comment: Dete cted (Unable to confirm). Performed By: #### U RIN2 ####[address] [address] Hemoglobin,Urine Negative Normal Negative [facility] Comment on above: Performed By: #### U RIN2 ####[address] [address] Ketone Urine 80 mg/dL Abnormal Negative [facility] Comment on above: Performed By: #### U RIN2 ####[address] [address] Nitrites Urine Negative Normal Negative [facility] Comment on above: Performed By: #### U RIN2 ####[address] [address] Protein Urine TRACE Abnormal Negative [facility] Comment on above: Performed By: #### U RIN2 ####[address] [address] Specific [place], Ur 1.023 Normal 1.005-1 .03 0 [facility] Comment on above: Performed By: #### U RIN2 ####[address] [address] Urine, appearance CLEAR Normal [facility] Comment on above: Performed By: #### U RIN2 ####[place] [address] Urine, color DK YELLOW Normal [facility] Comment on above: Performed By: #### U RIN2 ####[place] [address] Urine, glucose presence Negative Normal Negative [facility] Comment on above: Performed By: #### U RIN2 ####[place] [address] Urine, pH 5.5 [pH] Normal 5.0-8.0 [facility] Comment on above: Performed By: #### U RIN2 ####[place] [address] Urobilinogen,Ur 0.2 EU/dL Normal 0.0-1.0 [facility] Comment on above: Performed By: #### U RIN2 ####[place] [address] WBC (Leukocytes) Negative Normal Negative [facility] Comment on above: Performed By: #### U RIN2 ####[place] [address] Urine HCG, Qual.on 8 HCG.beta subunit ( test) Ql (U) Negative Normal Negative [facility] Comment on above: Performed By: #### H CGUR ####[place] [address] Specific [place], Ur 1.023 Normal 1.005-1 .03 0 [facility] Comment on above: Performed By: #### H CGUR ####[place] [address] Basic Panelon 06-26-2017 Creatinine 0.71 mg/dL Normal 0.51-0.95 [facility] Comment on above: Performed By: #### P 8 ####[place] [address] Anion gap 10 mmol/L Normal 8-16 [facility] Comment on above: Performed By: #### P 8 ####[place] [address] CO2 29 mmol/L Normal 21-32 [facility] Comment on above: Performed By: #### P 8 ####[facility] [place], [place] [address] Glucose mass conc 84 mg/dL Normal 70-99 [facility] Comment on above: Performed By: #### P 8 ####[facility] [place], [place] [address] Urea nitrogen 6 mg/dL Low 7-18 [facility] Comment on above: Performed By: #### P 8 ####[facility] [place], [place] [address] Calcium 9.0 mg/dL Normal 8.5-10.1 [facility] Comment on above: Performed By: #### P 8 ####[facility] [place], [place] [address] Chloride 104 mmol/L Normal 98-107 [facility] Comment on above: Performed By: #### P 8 ####[facility] [place], [place] [address] Potassium molar conc 3.7 mmol/L Normal 3.5-5.1 [facility] Comment on above: Performed By: #### P 8 ####[facility] [place], [place] [address] Sodium 139 mmol/L Normal 136-145 [facility] Comment on above: Performed By: #### P 8 ####[address] [address] ED NOTEon 06-26-2017 ED NOTE HNO ID: [id number] thor: Roxy Philippe) JOSE R Horvathervice: Emergency MedicineAuthor Type: Registered NurseType: ED NotesFiled: 06/26/2017 3:49 PMNote Text:Pt provided with urine cup to collect urine specimen. Pt educated onobtaining a clean catch. Normal [facility] ED NOTE HNO ID: [id number] Author: Roxy Philippe) Alexandru RN Service: Emergency Medicine Author Type: Registered Nurse Type: ED Notes Filed: 06/26/2017 3:48 PM Note Text: Pt had her scan done at [facility] without contrast and was told they she may have an abscess. Normal [facility] ED Triage Noteon 06-26-2017 ED Triage Note HNO ID: [id number] thor: Beba Cuenca (Pa)ervice: Emergency MedicineAuthor Type: Physician AssistantType: ED Triage NotesFiled: 06/26/2017 3:52 PMNote Text:ED INTAKE NOTEPatient Name: Holger MccordMRN: [id number] Date: 06/26/17BRIEF HPI:51 yo female presenting to [...] TTPINTAKE WORKUP:Bloodwork: CBCBMPUrinalysisSIGNATURE: Beba Amanda PA-C Normal [facility] Hemogram/Diffon 06-26-2017 Abs Immature Grans 0.02 thou/cmm Normal 0.00-0.05 [facility] Comment on above: Performed By: #### C BCD1 ####[place] [address] Abs. Baso 0.03 thou/cmm Normal 0.01-0.08 [facility] Comment on above: Performed By: #### C BCD1 ####[place] [address] Abs. [place] 0.41 thou/cmm Normal 0.27-0.70 [facility] Comment on above: Performed By: #### C BCD1 ####[place] [address] Abs. Neut 4.93 thou/cmm Normal 1.56-6.13 [facility] Comment on above: Performed By: #### C BCD1 ####[place] [address] Basophils/100 WBC Auto (Bld) 0.4 % Normal [facility] Comment on above: Performed By: #### C BCD1 ####[facility] [place], [place] [address] Eosinophils 0.00 thou/cmm Normal 0.00-0.31 [facility] Comment on above: Performed By: #### C BCD1 ####[address] [address] Eosinophils/100 leukocytes 0.0 % Normal [facility] Comment on above: Performed By: #### C BCD1 ####[address] [address] Erythrocyte distribution width Auto Ratio (RBC) 12.2 % Normal 11.7-14.4 [facility] Comment on above: Performed By: #### C BCD1 ####[address] [address] Erythrocytes (RBC) 4.65 mil/cmm Normal 3.93-5.22 [facility] Comment on above: Performed By: #### C BCD1 ####[address] [id number] Hematocrit (HCT) 40.2 % Normal 34.1-44.9 [facility] Comment on above: Performed By: #### C BCD1 ####[address] [address] Hemoglobin mass conc (Bld) 14.4 g/dL Normal 11.2-15.7 [facility] Comment on above: Performed By: #### C BCD1 ####[address] [address] Immature Grans 0.30 % Normal [facility] Comment on above: Performed By: #### C BCD1 ####[address] [address] Lymphocytes 2.26 thou/cmm Normal 1.18-3.74 [facility] Comment on above: Performed By: #### C BCD1 ####[address] [address] Lymphocytes/100 leukocytes 29.5 % Normal [facility] Comment on above: Performed By: #### C BCD1 ####[facility] [place], [place] [address] MCH 31.0 pg Normal 25.6-32.2 [facility] Comment on above: Performed By: #### C BCD1 ####[address] [address] MCHC mass conc (RBC) 35.8 % High 31.6-34.8 [facility] Comment on above: Performed By: #### C BCD1 ####[address] [address] MCV 86.5 fL Normal 79.4-94.8 [facility] Comment on above: Performed By: #### C BCD1 ####[address] [address] Monocytes/100 leukocytes 5.4 % Normal [facility] Comment on above: Performed By: #### C BCHui ####[address] [address] Platelet mean volume (PMV) 8.8 fL Low 9.4-12.3 [facility] Comment on above: Performed By: #### C BCD1 ####[address] [address] Platelets 304 thou/cmm Normal 182-369 [facility] Comment on above: Performed By: #### C BCHui ####[address] [address] RDW SD 38.7 fl Normal 36.4-46.3 [facility] Comment on above: Performed By: #### C BCD1 ####[address] [address] Seg Neutrophil 64.4 % Normal [facility] Comment on above: Performed By: #### C BCD1 ####[address] [address] WBC (Leukocytes) 7.66 thou/cmm Normal 3.98-10.04 [facility] Comment on above: Performed By: #### C BCD1 ####[address] [address] MDRD GFRon 06-26-2017 eGFR (non-black) mL/min/{1.73_m2} Normal >60mL/m in/ 1.73m2 [facility] Comment on above: Result Comment: If t he patient is , multiply the result by 1.210. Performed By: #### G FR ####[place] [address] Urinalysis Routineon 018 Ep Cells Urine 3.9 /hpf Normal 0.0-5.0 [facility] Comment on above: Performed By: #### U RIN2 ####[address] [address] Hyaline Cast 0.8 /lpf Normal 0.0-1.0 [facility] Comment on above: Performed By: #### U RIN2 ####[address] [address] Urine, bacteria in sediment NONE Normal None [facility] Comment on above: Performed By: #### U RIN2 ####[address] [address] Urine, erythrocytes in sediment by area 3.3 /[HPF] Normal 0.0-5.0 [facility] Comment on above: Performed By: #### U RIN2 ####[address] [address] Urine, leukocytes in sedmiment 1.7 /[HPF] Normal 0.0-5.0 [facility] Comment on above: Performed By: #### U RIN2 ####[address] [address] Bilirubin Urine Negative Normal Negative [facility] Comment on above: Performed By: #### U RIN2 ####[address] [address] Hemoglobin,Urine SMALL Abnormal Negative [facility] Comment on above: Performed By: #### U RIN2 ####[address] [address] Ketone Urine 80 mg/dL Abnormal Negative [facility] Comment on above: Performed By: #### U RIN2 ####[place] [address] Nitrites Urine Negative Normal Negative [facility] Comment on above: Performed By: #### U RIN2 ####[place] [address] Protein Urine Negative Normal Negative [facility] Comment on above: Performed By: #### U RIN2 ####[place] [address] Specific [place], Ur 1.006 Normal 1.005-1 .03 0 [facility] Comment on above: Performed By: #### U RIN2 ####[place] [address] Urine, appearance CLEAR Normal [facility] Comment on above: Performed By: #### U RIN2 ####[place] [address] Urine, color YELLOW Normal [facility] Comment on above: Performed By: #### U RIN2 ####[place] [address] Urine, glucose presence Negative Normal Negative [facility] Comment on above: Performed By: #### U RIN2 ####[place] [address] Urine, pH 6.0 [pH] Normal 5.0-8.0 [facility] Comment on above: Performed By: #### U RIN2 ####[place] [address] Urobilinogen,Ur 0.2 EU/dL Normal 0.0-1.0 [facility] Comment on above: Performed By: #### U RIN2 ####[place] [address] WBC (Leukocytes) TRACE Abnormal Negative [facility] Comment on above: Performed By: #### U RIN2 ####[place] [address] Office Visit: Cathi wilson 10-31-2017 Dietary management education, guidance, and counseling (procedure) yes Invalid Interpretation Code [facility] [employer] Work Phone: Documentation of current medications (procedure) Done Invalid Interpretation Code [facility] [employer] Work Phone: Fall risk assessment No Invalid Interpretation Code [facility] [employer] Work Phone: Tobacco smoking status NHIS Never Invalid Interpretation Code [facility] [employer] Work Phone: Tobacco use [facility] Never smoker Invalid Interpretation Code [facility] [employer] Work Phone: Office Visit: Fever of unkno wn originon 12-19-2016 Dietary management education, guidance, and counseling (procedure) yes Invalid Interpretation Code [facility] [employer] Work Phone: Documentation of current medications (procedure) Done Invalid Interpretation Code [facility] [employer] Work Phone: Fall risk assessment No Invalid Interpretation Code [facility] [employer] Work Phone: Tobacco smoking status NHIS Never Invalid Interpretation Code [facility] [employer] Work Phone: Tobacco use [facility] Never smoker Invalid Interpretation Code [facility] [employer] Work Phone: Office Visit: est annualon 0 11-21-2016 Fall risk assessment No [place] [facility] Hemoglobin.gastrointes tinal Ql (St) not done Invalid Interpretation Code [facility] Protein mass conc Done [facility] Tobacco smoking status NHIS Never [facility] Tobacco smoking status NHIS Never smoker [facility] 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 Tobacco smoking status NHIS Never Invalid Interpretation Code [place] [facility] Work Phone: Tobacco use [facility] Never smoker Invalid Interpretation Code [employer] Work Phone: Office Visit: post c-scopeon 10-20-2016 Dietary management education, guidance, and counseling (procedure) yes Invalid Interpretation Code [facility] [employer] Work Phone: Documentation of current medications (procedure) Done Invalid Interpretation Code [facility] [employer] Work Phone: Tobacco use [facility] Never smoker Invalid Interpretation Code [facility] [employer] Work Phone: Office Visiton 10-08-2016 Documentation of current medications (procedure) Done Invalid Interpretation Code [facility] [employer] Work Phone: Fall risk assessment No Invalid Interpretation Code [facility] [employer] Work Phone: Protein mass conc Done [facility] [employer] Work Phone: Tobacco smoking status NHIS Never Invalid Interpretation Code [facility] [employer] Work Phone: Tobacco smoking status NHIS Never smoker [facility] [employer] Work Phone: Tobacco use [facility] Never smoker Invalid Interpretation Code [facility] [employer] Work Phone: Office Visit: est annualon 0 09-07-2015 MG Breast screening Normal Bilateral Invalid Interpretation Code [facility] Office Visiton 10-07-2012 Colonoscopy (procedure) Abnormal Invalid Interpretation Code [facility] [employer] Work Phone: Protein mass conc Abnormal [facility] [employer] Work Phone: Vital Signs Date Time Vital Sign Value Performing Clinician Faci lity 02-15-2024 08:44-0500 Body height 165.1 cm Luis Graham MD Work Phone: [facility] 02-15-2024 08:44-0500 Body mass index (BMI) [Ratio] 41.1 kg/m2 Luis Graham MD Work Phone: [facility] 02-15-2024 08:44-0500 Body weight 112.04 kg Luis Graham MD Work Phone: [facility] 02-15-2024 08:44-0500 Diastolic blood pressure 92 mm[Hg] Luis Graham MD Work Phone: [facility] 02-15-2024 08:44-0500 Heart rate 85 /min Luis Graham MD Work Phone: [facility] 02-15-2024 08:44-0500 SaO2% (BldA) [Mass fraction] 96 % Luis Graham MD Work Phone: [facility] 02-15-2024 08:44-0500 Systolic blood pressure 138 mm[Hg] Luis Graham MD Work Phone: [facility] 01-25-2024 10:04-0500 Body height 165.1 cm Luis Graham MD Work Phone: [facility] 01-25-2024 10:04-0500 Body mass index (BMI) [Ratio] 40.77 kg/m2 Luis Graham MD Work Phone: [facility] 01-25-2024 10:04-0500 Body weight 111.13 kg Luis Graham MD Work Phone: [facility] 01-25-2024 10:04-0500 Diastolic blood pressure 90 mm[Hg] Luis Graham MD Work Phone: [facility] 01-25-2024 10:04-0500 Heart rate 81 /min Luis Graham MD Work Phone: [facility] 01-25-2024 10:04-0500 SaO2% (BldA) [Mass fraction] 98 % Luis Graham MD Work Phone: [facility] 01-25-2024 10:04-0500 Systolic blood pressure 150 mm[Hg] Luis Graham MD Work Phone: [facility] 12-23-2022 09:49-0400 Body temperature 97.4 [degF] PA-C Cotendo PA Work Phone: [facility] 12-23-2022 09:49-0400 Diastolic blood pressure 93 mm[Hg] PA-C Cotendo PA Work Phone: [facility] 12-23-2022 09:49-0400 Heart rate 89 /min PA-C Cotendo PA Work Phone: [facility] 12-23-2022 09:49-0400 Respiratory rate 18 /min PA-C Cotendo PA Work Phone: [facility] 12-23-2022 09:49-0400 SaO2% (BldA) [Mass fraction] 97 % PA-C Cotendo PA Work Phone: [facility] 12-23-2022 09:49-0400 Systolic blood pressure 151 mm[Hg] PA-C Carmita Kalibrr PA Work Phone: [facility] 12-23-2022 09:30-0400 Inhaled oxygen flow rate 2 L/min PA-C Carmita Kalibrr PA Work Phone: [facility] 12-23-2022 07:13-0400 Body height 162.56 cm PA-C Cotendo PA Work Phone: [facility] 12-23-2022 07:13-0400 Body mass index (BMI) [Ratio] 41.3 kg/m2 PA-C Carmita Pantego PA Work Phone: [facility] 12-23-2022 07:13-0400 Body weight 109.1 kg PA-C Cotendo PA Work Phone: [facility] 09-25-2022 09:04-0400 Body height 162.56 cm PA-C Cotendo PA Work Phone: [facility] 09-25-2022 09:04-0400 Body mass index (BMI) [Ratio] 42.3 kg/m2 PA-C Cotendo PA Work Phone: [facility] 09-25-2022 09:04-0400 Body weight 111.81 kg PA-C Cotendo PA Work Phone: [facility] 12-19-2016 08:30-0400 BMI (Body Mass Index) 39.48 kg/m2 Lionel Holm MD [facility] Work Phone: 12-19-2016 08:30-0400 Body Temperature 98.6 [degF] Lionel Holm MD [facility] Work Phone: 12-19-2016 08:30-0400 BP Diastolic 75 mm[Hg] Lionel Holm MD [facility] Work Phone: 12-19-2016 08:30-0400 BP Systolic 110 mm[Hg] Lionel Holm MD [facility] Work Phone: 12-19-2016 08:30-0400 Height 162.56 cm Lionel Holm MD [facility] Work Phone: 12-19-2016 08:30-0400 Pulse (Heart Rate) 100 /min Lionel Holm MD [facility] Work Phone: 12-19-2016 08:30-0400 Respiratory Rate 18 /min Lionel Holm MD [facility] Work Phone: 12-19-2016 08:30-0400 Weight 104.33 kg Lionel Holm MD [facility] Work Phone: 11-21-2016 10:56-0400 BMI (Body Mass Index) 40.5 kg/m2 Velia Wild MD [facility] 11-21-2016 10:56-0400 Body Temperature 97.2 [degF] Velia Wild MD [facility] 11-21-2016 10:56-0400 BP Diastolic 84 mm[Hg] Velia Wild MD [facility] 11-21-2016 10:56-0400 BP Systolic 125 mm[Hg] Velia Wild MD [facility] 11-21-2016 10:56-0400 Height 162.56 cm Velia Wild MD [facility] 11-21-2016 10:56-0400 Pulse (Heart Rate) 96 /min Velia Wild MD [facility] 11-21-2016 10:56-0400 Respiratory Rate 16 /min Velia iWld MD [facility] 11-21-2016 10:56-0400 Weight 107.05 kg Velia Wild MD [facility] 10-08-2016 15:47-0400 BMI (Body Mass Index) 39.82 kg/m2 Lionel Holm MD [facility] Work Phone: 10-08-2016 15:47-0400 Body Temperature 98.2 [degF] Lionel Holm MD [facility] Work Phone: 10-08-2016 15:47-0400 BP Diastolic 82 mm[Hg] Lionel Holm MD [facility] Work Phone: 10-08-2016 15:47-0400 BP Systolic 121 mm[Hg] Lionel Holm MD [facility] Work Phone: 10-08-2016 15:47-0400 Height 162.56 cm Lionel Holm MD [facility] Work Phone: 10-08-2016 15:47-0400 Pulse (Heart Rate) 94 /min Lionel Holm MD [facility] Work Phone: 10-08-2016 15:47-0400 Respiratory Rate 20 /min Lionel Holm MD [facility] Work Phone: 10-08-2016 15:47-0400 Weight 105.24 kg Lionel Holm MD [facility] Work Phone: 10-08-2016 15:47-0400 Weight 105.23 kg Lionel Holm MD [facility] Work Phone: Encounters Encounter Date Encounter Type Care Provider Facility Start: 07-04-2024 End: 07-04-2024 ambulatory [facility] Facility:[facility] Start: 05-18-2024 End: 05-18-[address] Richard Marcelino MD Work Phone: [facility] Work Phone: Start: 05-18-2024 End: 05-18-[address] Guillermo Buckner MD -Radiology, [facility] Work Phone: Start: 05-18-2024 End: 05-18-2024 ambulatory Richard Marcelino Facility:[facility] Start: 03-28-2024 End: 03-28-[address] Richard Marcelino MD -Laboratory Work Phone: Start: 03-28-2024 End: 03-28-2024 ambulatory Richard Marcelino Facility:[facility] Start: 02-15-2024 End: 02-15-2024 Bamboo flowsheet Luis Graham MD Work Phone: [facility] Start: 02-15-2024 End: 02-15-2024 Bamboo flowsheet Luis Graham MD Work Phone: [facility] Start: 02-15-2024 End: 02-15-2024 Office outpatient visit 25 minutes Luis Graham MD Work Phone: [facility] Comment on above: Cervical stenosis of spinal canal (Primary Dx); Chronic bilateral low back pain without sciatica; Leg pain, bilateral; Vertigo; Urinary incontinence, unspecified type; Incontinence of feces, unspecified fecal incontinence type Start: 02-15-2024 End: 02-15-2024 ambulatory LUIS GRAHAM Not Available Start: 02-01-2024 End: 02-01-[address] Luis Graham MD -[facility] Work Phone: Start: 02-01-2024 End: 02-01-2024 ambulatory Luis Graham Facility:[facility] Start: 01-27-2024 End: 01-27-2024 Telephone encounter Luis Graham MD Work Phone: [facility] Start: 01-25-2024 End: 01-25-2024 Bamboo flowsheet Luis Graham MD Work Phone: [facility] Start: 01-25-2024 End: 01-25-2024 Bamboo flowsheet Luis Graham MD Work Phone: [facility] Start: 01-25-2024 End: 01-25-2024 Office outpatient new 45 minutes Luis Graham MD Work Phone: [facility] Comment on above: Cervical stenosis of spinal canal (Primary Dx); Chronic bilateral low back pain without sciatica; Leg pain, bilateral; Urinary incontinence, unspecified type; Incontinence of feces, unspecified fecal incontinence type; Vertigo Start: 01-25-2024 End: 01-25-2024 ambulatory LUIS GRAHAM Not Available Start: 01-20-2024 ambulatory Reid Juarezraymond Facility:[facility] Start: 01-20-2024 End: 01-20-2024 ambulatory [facility] Facility:[facility] Start: 01-05-2024 End: 01-05-2024 Telephone encounter Luis Graham MD Work Phone: [facility] Start: 12-31-2023 End: 12-31-2023 ambulatory Richard Marcelino Facility:[facility] Start: 12-25-2023 ambulatory Clair Lee [employer] Facil ity:[facility] Start: 12-25-2023 End: 12-25-2023 ambulatory [facility] Facility:[facility] Start: 12-16-2023 End: 12-16-2023 ambulatory Clair Lee [employer] ACCOUNTANT Facility:[facility] Start: 11-04-2023 End: 11-04-2023 ambulatory Richard Marcelino Facility:[facility] Start: 08-31-2023 End: 08-[facility] Start: 08-06-2023 End: 08-06-2023 ambulatory Carmita CHAN Facility:[facility] Start: 12-23-2022 Non-patient / Non-visit STEPHANIE CHAN Work Phone: [facility] Start: 12-23-2022 End: 12-23-2022 Admission to same day surgery center STEPHANIE CHAN Work Phone: [facility]-Surgical Day [facility] Start: 12-23-2022 End: 12-23-2022 ambulatory STEPHANIE Chisholm PA Work Phone: [facility] Work Phone: Start: 12-08-2022 End: 12-08-2022 Patient encounter procedure STEPHANIE CHAN Work Phone: [facility] Work Phone: Start: 11-27-2022 End: 11-27-2022 Patient encounter procedure STEPHANIE CHAN Work Phone: [facility] Work Phone: Start: 11-24-2022 End: 11-24-2022 ambulatory PA-C Carmita Pantego PA Work Phone: [facility] Work Phone: Start: 11-24-2022 End: 11-24-2022 Patient encounter procedure PA-C Carmita Pantego PA Work Phone: [facility]-Outpatient Breast Imaging Work Phone: Start: 11-22-2022 End: 11-22-2022 ambulatory PA-C Carmita Pantego PA Work Phone: [facility] Work Phone: Start: 11-22-2022 End: 11-22-2022 Patient encounter procedure PA-C Carmita Chisholm PA Work Phone: [facility]-MRI - [facility] Work Phone: Start: 10-06-2022 End: 10-06-2022 Patient encounter procedure PA-C Carmita Chisholm PA Work Phone: [facility] Work Phone: Start: 09-25-2022 End: 09-25-2022 Patient encounter procedure PA-C Carmita Chisholm PA Work Phone: [facility] Work Phone: Start: 10-25-2021 End: 10-25-2021 ambulatory [facility] Work Phone: Start: 10-25-2021 End: 10-25-2021 Patient encounter procedure [facility]-Outpatient Breast Imaging Start: 01-25-2021 End: 01-25-2021 ambulatory [facility] Start: 06-26-2017 End: 06-30-2017 Evaluation and management of inpatient DINO MADDOX Facility:[facility] Procedures Date Procedure Procedure Detail Performing Clinician [...] Visit [facility] [address] [place] [id number] Luis Graham MD [address] [place] [address] Arrived [facility] Comment on above: Arrived Start: 01-25-2024 End: 01-24-2025 MR Cervical spine WO contrast MR cervical spine wo contrast Imaging High Priority Cervical stenosis of spinal canal Expected: 01/25/2024, Expires: 01/24/2025 [facility] Work Phone: Comment on above: Expected: 01/25/2024 , Expires: 01/24/2025 Start: 12-23-2022 Patient discharge [facility] Start: 12-23-2022 Application of ice collar, cap or bag [facility] Start: 12-23-2022 Catheterization of vein [facility] Start: 12-23-2022 Elevation of affecte d extremity [facility] Start: 12-23-2022 Following clinical pathway protocol [facility] Start: 12-23-2022 Procedure discontinued [facility] Start: 12-23-2022 Provision of mobilit y device [facility] Start: 12-23-2022 Taking patient vital signs [facility] Start: 12-23-2022 Vital signs measurements [facility] Start: 12-23-2022 [facility] Start: 12-23-2022 Medication education [facility] Start: 01-06-2017 End: 01-06-2017 Appointment Appointment [facility] [employer] Work Phone: Start: 12-19-2016 End: 12-19-2016 *Creatinine, Serum *Creatinine, Serum [facility] [employer] Work Phone: Start: 12-19-2016 End: 12-19-2016 Ct abdomen & pelvis w/contrast material CT Abdomen/pelvis; with contrast [facility] [employer] Work Phone: Start: 12-19-2016 End: 12-19-2016 Appointment Appointment [facility] [employer] Work Phone: Start: 11-21-2016 End: 11-21-2016 Glucose mass conc *Glucose, Fasting [facility] [employer] Work Phone: Start: 11-21-2016 End: 11-21-2016 Lipid panel [AGGREGATE] *Lipid Profile [facility] [employer] Work Phone: Start: 11-21-2016 End: 11-21-2016 Appointment [facility]ment [place] [employer] [facility] Work Phone: Start: 11-21-2016 End: 11-21-2016 Glucose mass conc *Glucose, Fasting [facility] Start: 11-21-2016 End: 11-21-2016 Lipid 1996 panel *Lipid Profile [facility] Start: 11-19-2016 End: 11-19-2016 Appointment Appointment [facility] Start: 10-28-2016 End: 10-28-2016 Mammogram, screening Mammogram, Screening, both breasts [facility] [employer] Work Phone: Start: 10-28-2016 End: 10-28-2016 Mammogram, screening Mammogram, Screening, both breasts [facility] Start: 10-20-2016 End: 10-20-2016 Appointment Appointment [facility] [employer] Work Phone: Start: 10-15-2016 End: 10-15-2016 Appointment Appointment [facility] [employer] Work Phone: Start: 10-08-2016 End: 10-09-2016 Colonoscopy flx dx w/collj spec when pfrmd Colonoscopy [facility] [employer] Work Phone: Start: 10-08-2016 End: 10-09-2016 [employer] [facility] [employer] Work Phone: Start: 10-08-2016 End: 10-09-2016 Diagnostic colonoscopy Colonoscopy [facility] [employer] Work Phone: Start: 10-08-2016 End: 10-09-2016 [employer] [facility] [employer] Work Phone: Patient referral [facility] Work Phone: Payers Date Payer Category Payer Self-pay [id number] 2017 [employer] [id number] 2006 Unknown [id number] 1965 Unknown [id number] 1965 Unknown [id number] 2.16.84 0.1.240755.3.579.2.1259 1965 Unknown [id number] 2.16.84 0.1.998440.3.579.2.1259 Unknown [id number] 2.16.8 40.1.028941.3.579.2.462 Unknown [id number] 2.16.8 40.1.459758.3.579.2.462 Unknown [id number] 2.16.8 40.1.272897.3.579.2.462 Unknown [id number] 2.16.8 40.1.781939.3.579.2.462 Unknown [id number] 2.16.8 40.1.518349.3.579.2.462 Unknown [id number] 2.16.8 40.1.154040.3.579.2.462 Unknown [id number] 2.16.8 40.1.854039.3.579.2.462 Unknown [id number] 2.16.8 40.1.899137.3.579.2.462 Unknown [id number] 2.16.8 40.1.804172.3.579.2.462 Unknown [id number] 2.16.8 40.1.561092.3.579.2.462 Unknown [id number] 2.16.8 40.1.224615.3.579.2.462 Unknown [id number] 2.16.8 40.1.032242.3.579.2.462 Unknown [id number] 2.16.8 40.1.262722.3.579.2.462 Social History Date Type Detail Facility Start: 10-01-2020 End: 12-11-2022 Tobacco smoking status NHIS Unknown if ever smoked [facility] Start: 11-01-2019 Non-smoker [facility] Start: 1965 Sex Assigned At Female W [facility] Start: 1965 Sex assigned at Not on [...] [facility] Start: 05-27-2024 Sex Female (finding) [facility] NEGATED: Highlighted row [facility] Medical Equipment Procedure Code Equipment Code [...] function Level Of Cons ciousness Follows Commands;Drowsy [facility] Work Phone: 12-23-2022 Cognitive function Voice/Name [facility] Work Phone: Clinical Notes 12-23-2022 to 05-18-2024 Luis Graham MD - 02/15/2024 8:40 AM ESTTelephone Encounter - [facility] - 01/27/2024 11:27 AM [facility] 11:27 AM EST Note Date & Type Note Facility 05-18-2024 Radiology Diagnostic study note [facility] Imaging Services [address] [place], [place] [address] Hips B/L min 2 views w/ Pelvis MR#: [id number] Acct: [id number] Name: HOLGER MCCORD Rep #: [id number] : 1965 F 58 From: Jose Gan DO PCP: Dr. Richard Marcelino MD Status: REG CLI Study:Hips B/L min 2 views w/ Pelvis Date of Exam: 05/18/24 Exam# [id number] Ordering Dr: Guillermo Buckner MD PROCEDURE: Pelvis [...] Marcelino MD; Dr. Guillermo Buckner MD ~ Accountant Budget: Signed [facility] 02-15-2024 History of Presen t illness [...] legs prior to her visit here in [place] by dr keys. Current Outpatient Medications on [...] EMG on legs was [facility] Examination: General Exam: pleasant, well nourished, well [...] disc herniation at C6 and C7, and byta-ki-aqlirvul stenosis at the same levels. The patient has experienced neck problems for over 30 years and leg issues for 8-9 years. The [facility] was noted to be normal. The patient was informed that surgery could be considered if symptoms worsen. The option to see a spine surgeon for further evaluation and management was discussed. Non-narcotic nerve medications were suggested to manage symptoms. If the patient decides to pursue surgery, a referral to a spine surgeon at the [facility] or other known specialists will be made. 2. Vertigo. The patient reported that vertigo has improved since the last visit. No new treatment was recommended at this time. documented in this encounter [facility] 01-27-2024 Telephone encounter Note MRI C-Spine authed at [facility] 01/24-02/23/24 Earliest [facility] can schedule patient is 02/25/24 Auth needs to be extended Request sent to prior auth dept to have auth extended Patient also notified Patient has [facility] scheduling ph # and will follow up w/them to see if she can get in earlier for test [facility] 01-27-2024 Miscellaneous Notes MRI C-Spine authed at [facility] 01/24-02/23/24 Earliest [facility] can schedule patient is 02/25/24 Auth needs to be extended Request sent to prior auth dept to have auth extended Patient also notified Patient has [facility] scheduling ph # and will follow up w/them to see if she can get in earlier for test documented in this encounter [facility] 01-25-2024 History of Presen t [...] She has consulted two rheumatologists. The first medical apparatus model maker ruled out rheumatoid arthritis, lupus, and fibromyalgia, but suggested methotrexate as a precautionary measure. The second medical apparatus model maker diagnosed her with fibromyalgia, but he has [...] normal, [facility] Examination: General Exam: pleasant, well nourished, well [...] to a spine surgeon will be considered. [facility]. 2. Leg pain and weakness. The patient [...] results are available. documented in this encounter [facility] 01-05-2024 Telephone encounter Note Recd referral from Richard Marcelino MD to schedule new pt appt for DX: leg pain LM today-01/05/24- on patient's cell phone to call us back to schedule [facility] 01-05-2024 Miscellaneous Notes Recd referral from Richard Marcelino MD to schedule new pt appt for DX: leg pain LM today-01/05/24- on patient's cell phone to call us back to schedule documented in this encounter [facility] 12-23-2022 Procedure note [facility] 12-23-2022 History and physi aden note Note Date/Time December 23, 2022 7:07am [facility] Medical Records Department [address] [place] [address] History & Physical Exam 12/23/22705 MR#: [id number] Acct: [id number] Name: HOLGER MCCORD Rep #:[id number] : 1965 57 From: Gabriel Gaviria DO PCP: Carmita Chisholm PA-C Status:REG S DC Location: [place] [address] History and Physical Date of Admission: 12/23/22 [facility] [address] [place] [address] OFFICE VISIT Date of Service: 12/08/22 MR#: [id number] Acct: [id number] Name: HOLGER MCCORD Rep #: [id number] : 1965 Provider: Dr. 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 Gabriel Gaviria DO~ Signed [facility] Work Phone: Discharge summary Author Gabriel Gaviria [facility] December 23, 2022 9:34am Note Date/Time December 23, 2022 9 :31am [facility] Medical Records Department [address] [place] [address] Instructions for Home/Discharge Instructions 12/23/2230 MR#: [id number] Acct: [id number] Name: HOLGER MCCORD Rep #:[id number] : 1965 57 From: Gabriel Gaviria [...] can be placed): Home, Self Care 12/23/22 3419<Electronically signed by Gabriel Gaviria DO>Gabriel Gaviria DO CC: STEPHANIE Chisholm ~ Signed [facility] Work Phone: Evaluation noteNo assessment information available [facility] Work Phone: Evaluation note* Diagnosis Onset Date Resolution Status Osteoarthritis of right knee acute Osteoarthritis of right knee acute [facility] Work Phone: Evaluation note* Diagnosis Onset Date Resolution Status Osteoarthritis of right knee acute Osteoarthritis of right knee acute Osteoarthritis of right knee acute Tear of medial meniscus of right knee noneactive Osteoarthritis of right knee acute Tear of medial meniscus of right knee noneactive [facility] Work Phone: Evaluation note* Diagnosis Cervical [...] for referral (narrative)No reason for referral information available[facility] Work Phone: Summary Purpose Family History No Family History Records Found Relationship Condition Age at Onset Recorded Date/T xiao grandmother Malignant neoplasm of colon Unknown grandmother Malignant neoplasm of breast Unknown Advance Directives No Advanced Directives Records Found Advance Directive Response Recorded Date/ Time Living Will Yes October 31 0 3:13pm Power of Duplicating Machine Operator Yes October 31, 2 020 3:13pm Advance Directive Response Recorded Date/ Time Name of Medical Power of Duplicating Machine Operator AKASH MCCORD December 11, 2022 3:19pm Living Will Yes December 11 3 3:19pm Power of Duplicating Machine Operator Yes December 11 2 023 3:19pm Chief [...] section and content) DATE CREATED AUTHOR 08/27/2017 [facility] DATE CREATED AUTHOR AUTHOR'S ORGANIZ ATION 08/27/2017 [facility] DATE CREATED AUTHOR AUTHOR'S ORGANIZ ATION 01/26/2021 [facility] DATE CREATED AUTHOR AUTHOR'S ORGANIZ ATION 02/17/2024 [facility] DATE CREATED AUTHOR AUTHOR'S ORGANIZ ATION 07/12/2024 [facility] Goals (unrecognized section and content) Goals may [...] Team Status: Inactive Member Role Status Dates [facility] PA, PA-C Primary Care Provider, Referri ng Provider Active Monserrat CHAN, PA Attending Provider Active Team Status: Inactive Member Role Status Dates [facility] PA, PA-C Primary Care Provider Active Dr. Warren Guardado MD Attending Provider Active Team Status: Inactive Member Role Status Dates [facility] PA, PA-C Primary Care Provider Active Monserrat Soria PA, PA Attending Provider, Referring Provi sean Active Team Status: Active Member Role Status Dates [facility] PA, PA-C Primary Care Provider Active Dee Dee Haider CNM Attending Provider, Referring Pro vider Active Team Status: Active Member Role Status Dates [facility] PA, PA-C Primary Care Provider, Referri ng Provider Active Monserrat CHAN PA Attending Provider Active Team Status: Inactive Member Role Status Dates [facility] PA, PA-C Primary Care Provider Active Dee Dee Haider CNM Attending Provider, Referring Pro vider Active Team Status: Inactive Member Role Status Dates [facility] PA, PA-C Primary Care Provider, Referri ng Provider Active Dr. Gabriel Gaviria DO Attending Provider Active Team Status: Active Member Role Status Dates [facility] PA, PA-C Primary Care Provider Active Dr. Gabriel Gaviria DO Attending Provid er, Referring Provider, Other Provider Active Team Status: Inactive Member Role Status Dates [facility] PA, PA-C Primary Care Provider Active Dr. Gabriel Gaviria DO Attending Provider, Referring Provider Active Machining Manager Relationship Specialty Start Date End Date Richard Marcelino MD [address] [place] [phone] PCP - General Family Medicine 12/29/23 Machining Manager Relationship Specialty Start Date End Date Richard Marcelino MD [address] [place] [phone] PCP - General Family Medicine 12/29/23 Machining Manager Relationship Specialty Start Date End Date Richard Marcelino MD [address] [place] [phone] PCP - General Family Medicine 12/29/23 Machining Manager Relationship Specialty Start Date End Date Richard Marcelino MD [address] [place] [phone] PCP - General Family Medicine 12/29/23 Machining Manager Relationship Specialty Start Date End Date Richard Marcelino MD [address] [place] [phone] PCP - General Family Medicine 12/29/23 Team [...] BE BASED ON THE PRIMARY CLINICAL RECORDS. [facility] [employer] [facility]. provides no warranty or guarantee of the accuracy or completeness of information in this document.
== END | disposition home or self-care (01) ==
LOC: CT 16:02
PROVIDERS: PCP Family Medicine; Referring Provider Nurse Practitioner Family; Visit Provider Nurse Practitioner Family
DX: R10.9 Unspecified abdominal pain (principal)
CPT/HCPCS: 74176

== ENCOUNTER 2024-12-23 06:16 | Day surgery (SDC) | payer BC, SELFPAY ==
[2024-12-23] VITALS (7 sets, daily range): BP systolic 113–141; BP diastolic 69–80; PULSE 69–73; RESP 16; TEMP 36.1–36.4; O2SAT 97–100; BMI 34.0
[2024-12-23] MEDS: Lactated Ringers 1,000 ML 15 ML IV (06:42)
== END 2024-12-23 09:05 | disposition home or self-care (01) ==
LOC: EN 06:16 → AC 06:17
PROVIDERS: PCP Family Medicine; Referring Provider Family Medicine; Visit Provider Internal Medicine Gastroenterology
PROC: 0DJD8ZZ Inspection of Lower Intestinal Tract, Via Natural or Artificial Opening Endoscopic (ICD-10-PCS; CPT 45378; principal; 2024-12-23 07:25)
DX: Z12.11 Encounter for screening for malignant neoplasm of colon (principal); K57.30 Diverticulosis of large intestine without perforation or abscess without bleeding; Z90.710 Acquired absence of both cervix and uterus; K62.1 Rectal polyp; Z86.0100 Personal history of colon polyps, unspecified; Z90.49 Acquired absence of other specified parts of digestive tract; Z80.0 Family history of malignant neoplasm of digestive organs; Z90.722 Acquired absence of ovaries, bilateral; K57.32 Diverticulitis of large intestine without perforation or abscess without bleeding; K63.5 Polyp of colon; D12.0 Benign neoplasm of cecum
CPT/HCPCS: 45380; 88305; J2405

== ENCOUNTER → 2024-12-26 | Outpatient (CLI) | payer BC, SELFPAY ==
--- NOTE | 2024-12-26 12:00 | BI_ITS ---
EXAM: SCRN MAMM (CAD)W/YUE BILAT DATE: 12/26/2024 CLINICAL HISTORY: F, Age 59 y/o , SCREEN FOR BREAST CANCER TECHNIQUE: Procedure Code: [id number] Modality: MG Procedure: SCRN MAMM (CAD)W/YUE BILAT COMPARISON: Prior exam(s) dated 12/25/2023 and 11/24/2022. FINDINGS: TISSUE DENSITY: There are scattered areas of fibroglandular density. Bilateral Breast Mammographic Findings: No significant masses, calcifications or other abnormalities are identified. There are partially obscured stable isodense masses seen in both breasts. Benign round microcalcifications are seen in both breast. BI/SCRN MAMM (CAD)W/YUE BILAT IMPRESSION: Benign screening mammogram. OVERALL FINAL ASSESSMENT BI-RADS 2: BENIGN RECOMMENDATION: Routine annual follow-up in 1 Year Additional Recommendation none A letter with findings and recommendations will be mailed to the patient. Reading Location: [id number]
== END | disposition home or self-care (01) ==
LOC: OPBI 11:45
PROVIDERS: PCP Family Medicine; Referring Provider Nurse Practitioner Women's Health; Visit Provider Nurse Practitioner Women's Health
DX: Z12.31 Encounter for screening mammogram for malignant neoplasm of breast (principal)
CPT/HCPCS: 77063; 77067